=== PATIENT | female | born 1985 | race Caucasian/White ===

== ENCOUNTER 2022-12-10 12:14 | Emergency (ER) | payer SELFPAY ==
--- OUTSIDE RECORDS SUMMARY | 2022-12-10 12:33 | XMS REPORT | Continuity of Care Document ---
:1985 Author Organization [facility] t Address [address] [place] [address] Care Team Providers Name Role Phone Alcides SANTIAGO, Artur Espitia Primary Care Physician [phone] Mando Poole MD Attending Clinician MANDO POOLE Attending Clinician Unavailable Vik Arita Attending Clinician Israel GEORGE, Angelique Rivers Attending Clinician Unavailable MEIR MARTINEZ Attending Clinician Unavailable Meir Jacobs Attending Clinician Anita Pete Attending Clinician Mitzy Leon MD Attending Clinician MITZY LEON Attending Clinician Unavailable Doctor Unassigned, Commodore Attending Clinician Unavailable ARI MAHONEY Attending Clinician Unavailable BRUNO NORTH Attending Clinician Unavailable Payers Payer Name Policy Type Policy Number Effective Date Expiration Date S daron CIGNA II [id number] 2019 00:00:00 CIGNA C1 [id number] [facility] Problems Condition Condition Condition Status Onset Resolution Last Treating Co mments Source Name Details Category Date Date Treatment Clinician Date Obesity Obesity Disease Active Univers (BMI (BMI 2-04 ity of 30-39.9) 30-39.9) 00:00: [place] 00 [facility] Routine Routine Disease Active Univers general general 09-30 ity of medical medical 00:00: [place] examinatio examinatio 00 Me dical n at a n at a [facility] care facility facility Other, Other, Disease Active Overview: Univer s mixed, or mixed, or 09-30 Formattin i ty of unspecifie unspecifie 00:00: g of this [place] d d 00 note Medical nondepende nondepende might be Branch nt drug nt drug different abuse, abuse, from the unspecifie unspecifie original. d d Meth Constipati Constipati Problem Active [facility] Cataplexy Cataplexy Problem Active 2022-01-10 Memoria (disorder) (disorder) 21:55:49 l Active Elbert Problem 01/10/2022 [facility] Confusiona Confusion Problem Active 2022-01-10 Memoria l state al state 21:55:49 l (disorder) (disorder) He rmann Active Problem 01/10/2022 [facility] Cyst of Cyst of Problem Active 2022-01-10 Me moria pineal pineal 21:55:49 l gland gland Frankie (disorder) (disorder) Active Problem 01/10/2022 [facility] Depressive Problem Active 2022-01-10 M emoria disorder Depressive 21:55:49 l (disorder) disorder Herm lor (disorder) Active Problem 01/10/2022 [facility] Generalize Generaliz Problem Active 2022-01-10 Memoria d anxiety ed anxiety 21:55:49 l disorder disorder Tk n (disorder) (disorder) Active Problem 01/10/2022 [facility] Hypersomni Hypersomn Problem Active 2022-01-10 Memoria a ia 21:55:49 l (disorder) (disorder) He rmann Active Problem 01/10/2022 [facility] Simple Simple Problem Active 2022-01-10 Jose josiah obesity obesity 21:55:49 l (disorder) (disorder) He rmann Active Problem 01/10/2022 [facility] Dyskinesia Dyskinesi Problem Active 2022-01-10 Memoria (finding) a 21:55:49 l (finding) Frankie Active Problem 01/10/2022 [facility] Headache Headache Problem Active 2022-01-10 Memoria (finding) (finding) 21:55:49 l Active Elbert Problem 01/10/2022 [facility] Liver Liver Problem Active 2022-01-10 Memor ia function function 21:55:49 l test test Frankie increased increased Active Problem 01/10/2022 [facility] Visual Visual Problem Active 2022-01-10 Jose josiah disturbanc disturbanc 21:55:49 l e e Elbert (disorder) (disorder) Active Problem 01/10/2022 [facility] Bipolar Bipolar Problem Active 2022-01-10 Me moria disorder disorder 21:55:49 l (disorder) (disorder) He rmann Active Problem 01/10/2022 [facility] Mood Mood Problem Active 2022-01-10 Memor ia disorder disorder 21:55:49 l of manic of manic Tk n type type (disorder) (disorder) Active Problem 01/10/2022 [facility] Allergies, Adverse Reactions, Alerts Allergy Allergy Status Severity Reaction(s) Onset Inactive Treating Comm ents Source Name Type Date Date Clinician Sujatana - Propensi Active Intraven ty to 5-31 ous adverse 00:00: reaction 00 to drug Abilify Propensi Active - Oral ty to 3-19 adverse 00:00: reaction 00 to drug NO KNOWN Drug Active Univers ALLERGIE Class ity of S [facility] Social History Social Habit Start Date Stop Date Quantity Comments Source History [facility] University o f Alcohol Frequency [facility] edical Branch History [facility] o f Alcohol Std Drinks [place] [facility] History [facility] o f Alcohol Binge [facility] al Branch Exposure to Not sure University of SARS-CoV-2 (event) [facility] History of Tobacco Current Smoker [facility] Use [facility] Sex Assigned At [facility] Cigarettes smoked 2021-07-10 2021-07-10 Univers ity of current (pack per 00:00:00 00:00:00 [facility] ) - Reported Branch Cigarette 2021-07-10 2021-07-10 University of pack-years 00:00:00 00:00:00 [facility] Tobacco use and 2021-07-10 2021-07-10 Smokeless Universit y of exposure 00:00:00 00:00:00 tobacco non-user [facility] Alcohol intake 2021-07-10 2021-07-10 Ex-drinker [facility] 00:00:00 00:00:00 (finding) [facility] Alcohol Comment 2021-07-04 2021-07-04 none since [facility] y of 00:00:00 00:00:00 03/2021 [facility] Smoking Status Start Date Stop Date Source Social History 2021-10-02 18:20:49 [facility] [place] [facility] Medications Ordered Filled Start Stop Current Ordering Indication Dosage Frequency Signature Comments Components Source Medication Medication Date Date Medication? Clinician (SIG) Name Name TAKE 2021-05 No ONE-HALF TO 2-15 ONE (06/01 TO 00:00: 1) 00 TABLET(S) BY MOUTH THREE TIMES A DAY NEEDED FOR ANXIETY. TAKE ONE 2021-05 No (1) 2-15 TABLET(S) 00:00: BY MOUTH 00 TWICE A DAY. TAKE 2 2021- No TABLETS BY 2-15 MOUTH ON 00:00: DAY 1, THEN 00 1 TABLET DAILY ON DAYS 2 TO 5. TAKE ONE 2021-05 No (1) 2-15 CAPSULE(S) 00:00: BY MOUTH 00 THREE TIMES A DAY. TAKE ONE 2021-05 No (1) 2-15 TABLET(S) 00:00: BY MOUTH 00 ONCE A DAY. TAKE 06/01 TO 2021-05 No 1 TABLET BY 2-15 MOUTH AT 00:00: BEDTIME 00 NEEDED FOR ANXIETY; OR FOR SLEEP. Dose 2021-05 No Unknown 2-15 00:00: 00 APPLY TO 2021-05 No AFFECTED 2-15 AREA THREE 00:00: TIMES A 00 DAY. Dose 2021-05 No Unknown 2-15 00:00: 00 Dose 2021-05 No Unknown 2-15 00:00: 00 Dose 2021-05 No Unknown 2-15 00:00: 00 TAKE ONE 2021-05 No (1) 2-15 CAPSULE(S) 00:00: BY MOUTH 00 EVERY MORNING. TAKE ONE 2021-05 No (1) 2-15 TABLET(S) 00:00: BY MOUTH 00 THREE TIMES A DAY NEEDED FOR ANXIETY. hydroxyzine 2-0 No 51mg HCl 50 mg 7-28 tablet 00:00: 00 clonidine 2-0 No 51mg HCl 0.1 mg 7-28 tablet 00:00: 00 lithium 2022-0 No 1mg carbonate 7-28 300 mg 00:00: capsule 00 Dose 2022-0 No Unknown 7-28 00:00: 00 Dose 2022-0 No Unknown 7-28 00:00: 00 Dose 2-0 No Unknown 7-28 00:00: 00 hydroxyzine 2022-0 No 51mg HCl 50 mg 5-31 tablet 00:00: 00 clonidine 2022-0 No 51mg HCl 0.1 mg 5-31 tablet 00:00: 00 lithium 2-0 No 1mg carbonate 5-31 600 mg 00:00: capsule 00 hydroxyzine 2-0 No 51mg HCl 50 mg 5-31 tablet 00:00: 00 clonidine 2-0 No 51mg HCl 0.1 mg 5-31 tablet 00:00: 00 Dose 2022-0 No Unknown 5-31 00:00: 00 Dose 2022-0 No Unknown 4-29 00:00: 00 Dose 2-0 No Unknown 4-29 00:00: 00 Dose 2-0 No Unknown 4-17 00:00: 00 Dose 2-0 No Unknown 4-17 00:00: 00 Dose 2-0 No Unknown 4-17 00:00: 00 Dose 2022-0 No Unknown 4-17 00:00: 00 Dose 2022-0 No Unknown 4-17 00:00: 00 Dose 2022-0 No Unknown 4-17 00:00: 00 Wellbutrin 2-0 No 1mg SR 100 mg 4-15 tablet, 12 00:00: hr 00 sustained-r elease Dose 2-0 No Unknown 4-15 00:00: 00 Dose 2-0 No Unknown 4-15 00:00: 00 lithium 2-0 No 1mg carbonate 4-15 300 mg 00:00: capsule 00 Dose 2-0 No Unknown 4-15 00:00: 00 Dose 2022-0 No Unknown 4-15 00:00: 00 Dose 2022-0 No Unknown 4-15 00:00: 00 Dose 2022-0 No Unknown 4-15 00:00: 00 Dose 2022-0 No Unknown 3-19 00:00: 00 Dose 2022-0 No Unknown 3-19 00:00: 00 duloxetine 2022-0 No 1mg 60 mg 3-19 capsule,del 00:00: ayed 00 release Dose 2022-0 No Unknown 3-19 00:00: 00 Dose 2022-0 No Unknown 3-19 00:00: 00 Dose 2022-0 No Unknown 3-19 00:00: 00 Dose 2022-0 No Unknown 3-19 00:00: 00 Dose 2022-0 No Unknown 3-19 00:00: 00 Dose 2022-0 No Unknown 3-19 00:00: 00 Dose 2022-0 No Unknown 3-19 00:00: 00 Dose 2022-0 No Unknown 3-19 00:00: 00 Dose 2022-0 No Unknown 3-19 00:00: 00 Dose 2022-0 No Unknown 3-19 00:00: 00 Dose 2022-0 No Unknown 3-19 00:00: 00 Dose 2022-0 No Unknown 3-19 00:00: 00 Dose 2022-0 No Unknown 3-19 00:00: 00 Dose 2022-0 No Unknown 3-19 00:00: 00 Dose 2022-0 No Unknown 3-19 00:00: 00 Dose 2022-0 No Unknown 3-19 00:00: 00 Dose 2022-0 No Unknown 3-19 00:00: 00 Dose 2022-0 No Unknown 3-19 00:00: 00 Dose 2022-0 No Unknown 3-19 00:00: 00 Dose 2022-0 No Unknown 3-19 00:00: 00 Dose 2022-0 No Unknown 3-19 00:00: 00 Dose 2022-0 No Unknown 3-19 00:00: 00 Dose 2022-0 No Unknown 3-19 00:00: 00 Dose 2022-0 No Unknown 3-19 00:00: 00 Dose 2022-0 No Unknown 3-19 00:00: 00 Dose 2022-0 No Unknown 3-19 00:00: 00 Dose 2022-0 No Unknown 3-19 00:00: 00 Dose 2022-0 No Unknown 3-19 00:00: 00 Dose 2022-0 No Unknown 3-19 00:00: 00 Dose 2022-0 No Unknown 3-19 00:00: 00 Dose 2022-0 No Unknown 3-19 00:00: 00 Dose 2022-0 No Unknown 3-19 00:00: 00 Dose 2022-0 No Unknown 3-19 00:00: 00 Dose 2022-0 No Unknown 3-19 00:00: 00 Dose 2022-0 No Unknown 3-19 00:00: 00 Dose 2022-0 No Unknown 3-19 00:00: 00 Dose 2022-0 No Unknown 3-19 00:00: 00 Dose 2022-0 No Unknown 3-19 00:00: 00 Dose 2022-0 No Unknown 3-19 00:00: 00 Dose 2022-0 No Unknown 3-19 00:00: 00 Dose 2022-0 No Unknown 3-19 00:00: 00 Dose 2022-0 No Unknown 3-19 00:00: 00 Dose 2022-0 No Unknown 3-19 00:00: 00 Dose 2022-0 No Unknown 3-19 00:00: 00 Dose 2022-0 No Unknown 3-19 00:00: 00 Dose 2022-0 No Unknown 3-19 00:00: 00 Dose 2022-0 No Unknown 3-19 00:00: 00 Dose 2022-0 No Unknown 3-19 00:00: 00 Dose 2022-0 No Unknown 3-19 00:00: 00 Dose 2022-0 No Unknown 3-19 00:00: 00 Dose 2022-0 No Unknown 3-19 00:00: 00 Dose 2022-0 No Unknown 3-19 00:00: 00 Dose 2022-0 No Unknown 3-19 00:00: 00 Dose 2022-0 No Unknown 3-19 00:00: 00 Dose 2022-0 No Unknown 3-19 00:00: 00 Dose 2022-0 No Unknown 3-19 00:00: 00 Dose 2022-0 No Unknown 3-19 00:00: 00 Dose 2022-0 No Unknown 3-19 00:00: 00 Dose 2022-0 No Unknown 3-19 00:00: 00 Dose 2022-0 No Unknown 3-19 00:00: 00 Dose 2022-0 No Unknown 3-19 00:00: 00 Dose 2022-0 No Unknown 3-19 00:00: 00 Dose 2022-0 No Unknown 3-19 00:00: 00 Dose 2022-0 No Unknown 3-19 00:00: 00 Dose 2022-0 No Unknown 3-19 00:00: 00 Dose 2022-0 No Unknown 3-19 00:00: 00 Dose 2022-0 No Unknown 3-19 00:00: 00 Dose 2022-0 No Unknown 3-19 00:00: 00 Dose 2022-0 No Unknown 3-19 00:00: 00 Dose 2022-0 No Unknown 3-19 00:00: 00 Dose 2022-0 No Unknown 3-19 00:00: 00 Dose 2022-0 No Unknown 3-19 00:00: 00 Dose 2022-0 No Unknown 3-19 00:00: 00 Dose 2022-0 No Unknown 3-19 00:00: 00 Dose 2022-0 No Unknown 3-19 00:00: 00 Dose 2022-0 No Unknown 3-19 00:00: 00 Dose 2022-0 No Unknown 3-19 00:00: 00 Dose 2022-0 No Unknown 3-19 00:00: 00 Dose 2022-0 No Unknown 3-19 00:00: 00 Dose 2022-0 No Unknown 3-19 00:00: 00 Dose 2022-0 No Unknown 3-19 00:00: 00 Dose 2022-0 No Unknown 3-19 00:00: 00 Dose 2022-0 No Unknown 3-19 00:00: 00 Dose 2022-0 No Unknown 3-19 00:00: 00 Dose 2022-0 No Unknown 3-19 00:00: 00 Dose 2022-0 No Unknown 3-19 00:00: 00 Dose 2022-0 No Unknown 3-19 00:00: 00 Dose 2022-0 No Unknown 3-19 00:00: 00 Dose 2022-0 No Unknown 3-19 00:00: 00 Dose 2022-0 No Unknown 3-19 00:00: 00 Dose 2022-0 No Unknown 3-19 00:00: 00 Dose 2022-0 No Unknown 3-19 00:00: 00 Dose 2022-0 No Unknown 3-19 00:00: 00 Dose 2022-0 No Unknown 3-19 00:00: 00 Dose 2022-0 No Unknown 3-19 00:00: 00 Dose 2022-0 No Unknown 3-19 00:00: 00 Dose 2022-0 No Unknown 3-19 00:00: 00 Dose 2022-0 No Unknown 3-19 00:00: 00 Dose 2022-0 No Unknown 3-19 00:00: 00 Dose 2022-0 No Unknown 3-19 00:00: 00 Dose 2022-0 No Unknown 3-19 00:00: 00 Dose 2022-0 No Unknown 3-19 00:00: 00 Dose 2022-0 No Unknown 3-19 00:00: 00 Dose 2022-0 No Unknown 3-19 00:00: 00 Dose 2022-0 No Unknown 3-19 00:00: 00 Dose 2022-0 No Unknown 3-19 00:00: 00 Dose 2022-0 No Unknown 3-19 00:00: 00 Dose 2022-0 No Unknown 3-19 00:00: 00 Dose 2022-0 No Unknown 3-19 00:00: 00 Dose 2022-0 No Unknown 3-19 00:00: 00 Dose 2022-0 No Unknown 3-19 00:00: 00 Dose 2022-0 No Unknown 3-19 00:00: 00 Dose 2022-0 No Unknown 3-19 00:00: 00 Dose 2022-0 No Unknown 3-19 00:00: 00 Dose 2022-0 No Unknown 3-19 00:00: 00 Dose 2022-0 No Unknown 3-19 00:00: 00 Dose 2022-0 No Unknown 3-19 00:00: 00 Dose 2022-0 No Unknown 3-19 00:00: 00 Dose 2022-0 No Unknown 3-19 00:00: 00 Dose 2022-0 No Unknown 3-19 00:00: 00 Dose 2022-0 No Unknown 3-19 00:00: 00 Dose 2022-0 No Unknown 3-19 00:00: 00 Dose 2022-0 No Unknown 3-19 00:00: 00 Dose 2022-0 No Unknown 3-19 00:00: 00 Dose 2022-0 No Unknown 3-19 00:00: 00 Dose 2022-0 No Unknown 3-19 00:00: 00 Dose 2022-0 No Unknown 3-19 00:00: 00 Dose 2022-0 No Unknown 3-19 00:00: 00 Dose 2022-0 No Unknown 3-19 00:00: 00 Dose 2022-0 No Unknown 3-19 00:00: 00 Dose 2022-0 No Unknown 3-19 00:00: 00 Dose 2022-0 No Unknown 3-19 00:00: 00 Dose 2022-0 No Unknown 3-19 00:00: 00 Dose 2022-0 No Unknown 3-19 00:00: 00 Dose 2022-0 No Unknown 3-19 00:00: 00 Dose 2022-0 No Unknown 3-19 00:00: 00 Dose 2022-0 No Unknown 3-19 00:00: 00 Dose 2022-0 No Unknown 3-19 00:00: 00 Dose 2022-0 No Unknown 3-19 00:00: 00 Dose 2022-0 No Unknown 3-19 00:00: 00 Dose 2022-0 No Unknown 3-19 00:00: 00 Dose 2022-0 No Unknown 3-19 00:00: 00 Dose 2022-0 No Unknown 3-19 00:00: 00 Dose 2022-0 No Unknown 3-19 00:00: 00 Dose 2022-0 No Unknown 3-19 00:00: 00 Dose 2022-0 No Unknown 3-19 00:00: 00 Dose 2022-0 No Unknown 3-19 00:00: 00 Dose 2022-0 No Unknown 3-19 00:00: 00 Dose 2022-0 No Unknown 3-19 00:00: 00 Dose 2022-0 No Unknown 3-19 00:00: 00 Dose 2022-0 No Unknown 3-19 00:00: 00 Dose 2022-0 No Unknown 3-19 00:00: 00 Dose 2022-0 No Unknown 3-19 00:00: 00 Dose 2022-0 No Unknown 3-19 00:00: 00 Dose 2022-0 No Unknown 3-19 00:00: 00 Dose 2022-0 No Unknown 3-19 00:00: 00 Dose 2022-0 No Unknown 3-19 00:00: 00 Dose 2022-0 No Unknown 3-19 00:00: 00 Dose 2022-0 No Unknown 3-19 00:00: 00 Dose 2022-0 No Unknown 3-19 00:00: 00 Dose 2022-0 No Unknown 3-19 00:00: 00 Dose 2022-0 No Unknown 3-19 00:00: 00 Dose 2022-0 No Unknown 3-19 00:00: 00 Dose 2022-0 No Unknown 3-19 00:00: 00 Dose 2022-0 No Unknown 3-19 00:00: 00 Dose 2022-0 No Unknown 3-19 00:00: 00 Dose 2022-0 No Unknown 3-19 00:00: 00 Dose 2022-0 No Unknown 3-19 00:00: 00 Dose 2022-0 No Unknown 3-19 00:00: 00 Dose 2022-0 No Unknown 3-19 00:00: 00 Dose 2022-0 No Unknown 3-19 00:00: 00 Dose 2022-0 No Unknown 3-19 00:00: 00 Dose 2022-0 No Unknown 3-19 00:00: 00 Dose 2022-0 No Unknown 3-19 00:00: 00 Dose 2022-0 No Unknown 3-19 00:00: 00 Dose 2022-0 No Unknown 3-19 00:00: 00 Dose 2022-0 No Unknown 3-19 00:00: 00 Dose 2022-0 No Unknown 3-19 00:00: 00 Dose 2022-0 No Unknown 3-19 00:00: 00 Dose 2022-0 No Unknown 3-19 00:00: 00 Dose 2022-0 No Unknown 3-19 00:00: 00 Dose 2022-0 No Unknown 3-19 00:00: 00 Dose 2022-0 No Unknown 3-19 00:00: 00 Dose 2022-0 No Unknown 3-19 00:00: 00 Dose 2022-0 No Unknown 3-19 00:00: 00 Dose 2022-0 No Unknown 3-19 00:00: 00 Dose 2022-0 No Unknown 3-19 00:00: 00 Dose 2022-0 No Unknown 3-19 00:00: 00 Dose 2022-0 No Unknown 3-19 00:00: 00 Dose 2022-0 No Unknown 3-19 00:00: 00 Dose 2022-0 No Unknown 3-19 00:00: 00 Dose 2022-0 No Unknown 3-19 00:00: 00 Dose 2022-0 No Unknown 3-19 00:00: 00 Dose 2022-0 No Unknown 3-19 00:00: 00 Dose 2022-0 No Unknown 3-19 00:00: 00 Dose 2022-0 No Unknown 3-19 00:00: 00 Dose 2022-0 No Unknown 3-19 00:00: 00 Dose 2022-0 No Unknown 3-19 00:00: 00 Dose 2022-0 No Unknown 3-19 00:00: 00 Dose 2022-0 No Unknown 3-19 00:00: 00 Dose 2022-0 No Unknown 3-19 00:00: 00 Dose 2022-0 No Unknown 3-19 00:00: 00 Dose 2022-0 No Unknown 3-19 00:00: 00 Dose 2022-0 No Unknown 3-19 00:00: 00 Dose 2022-0 No Unknown 3-19 00:00: 00 Dose 2022-0 No Unknown 3-19 00:00: 00 Dose 2022-0 No Unknown 3-19 00:00: 00 Dose 2022-0 No Unknown 3-19 00:00: 00 Dose 2022-0 No Unknown 3-19 00:00: 00 Dose 2022-0 No Unknown 3-19 00:00: 00 Dose 2022-0 No Unknown 3-19 00:00: 00 Dose 2022-0 No Unknown 3-19 00:00: 00 Dose 2022-0 No Unknown 3-19 00:00: 00 Dose 2022-0 No Unknown 3-19 00:00: 00 Dose 2022-0 No Unknown 3-19 00:00: 00 Dose 2022-0 No Unknown 3-19 00:00: 00 Dose 2022-0 No Unknown 3-19 00:00: 00 Dose 2022-0 No Unknown 3-19 00:00: 00 Dose 2022-0 No Unknown 3-19 00:00: 00 Dose 2022-0 No Unknown 3-19 00:00: 00 Dose 2022-0 No Unknown 3-19 00:00: 00 Dose 2022-0 No Unknown 3-19 00:00: 00 Dose 2022-0 No Unknown 3-19 00:00: 00 Dose 2022-0 No Unknown 3-19 00:00: 00 Dose 2022-0 No Unknown 3-19 00:00: 00 Dose 2022-0 No Unknown 3-19 00:00: 00 Dose 2022-0 No Unknown 3-19 00:00: 00 Dose 2022-0 No Unknown 3-19 00:00: 00 Dose 2022-0 No Unknown 3-19 00:00: 00 Dose 2022-0 No Unknown 3-19 00:00: 00 Dose 2022-0 No Unknown 3-19 00:00: 00 Dose 2022-0 No Unknown 3-19 00:00: 00 Dose 2022-0 No Unknown 3-19 00:00: 00 Dose 2022-0 No Unknown 3-19 00:00: 00 Dose 2022-0 No Unknown 3-19 00:00: 00 Dose 2022-0 No Unknown 3-19 00:00: 00 Dose 2022-0 No Unknown 3-19 00:00: 00 Dose 2022-0 No Unknown 3-19 00:00: 00 Dose 2022-0 No Unknown 3-19 00:00: 00 Dose 2022-0 No Unknown 3-19 00:00: 00 Dose 2022-0 No Unknown 3-19 00:00: 00 Dose 2022-0 No Unknown 3-19 00:00: 00 Dose 2022-0 No Unknown 3-19 00:00: 00 Dose 2022-0 No Unknown 3-19 00:00: 00 Dose 2022-0 No Unknown 3-19 00:00: 00 Dose 2022-0 No Unknown 3-19 00:00: 00 Dose 2022-0 No Unknown 3-19 00:00: 00 Dose 2022-0 No Unknown 3-19 00:00: 00 Dose 2022-0 No Unknown 3-19 00:00: 00 Dose 2022-0 No Unknown 3-19 00:00: 00 Dose 2022-0 No Unknown 3-19 00:00: 00 Dose 2022-0 No Unknown 3-19 00:00: 00 Dose 2022-0 No Unknown 3-19 00:00: 00 Dose 2022-0 No Unknown 3-19 00:00: 00 Dose 2022-0 No Unknown 3-19 00:00: 00 Dose 2022-0 No Unknown 3-19 00:00: 00 Dose 2022-0 No Unknown 3-19 00:00: 00 Dose 2022-0 No Unknown 3-19 00:00: 00 Dose 2022-0 No Unknown 3-19 00:00: 00 Dose 2022-0 No Unknown 3-19 00:00: 00 Dose 2022-0 No Unknown 3-19 00:00: 00 Dose 2022-0 No Unknown 3-19 00:00: 00 Dose 2022-0 No Unknown 3-19 00:00: 00 Dose 2022-0 No Unknown 3-19 00:00: 00 Dose 2022-0 No Unknown 3-19 00:00: 00 Dose 2022-0 No Unknown 3-19 00:00: 00 Dose 2022-0 No Unknown 3-19 00:00: 00 Dose 2022-0 No Unknown 3-19 00:00: 00 Dose 2022-0 No Unknown 3-19 00:00: 00 Dose 2022-0 No Unknown 3-19 00:00: 00 Dose 2022-0 No Unknown 3-19 00:00: 00 Dose 2022-0 No Unknown 3-19 00:00: 00 Dose 2022-0 No Unknown 3-19 00:00: 00 Dose 2022-0 No Unknown 3-19 00:00: 00 Dose 2022-0 No Unknown 3-19 00:00: 00 Dose 2022-0 No Unknown 3-19 00:00: 00 Dose 2022-0 No Unknown 3-19 00:00: 00 Dose 2022-0 No Unknown 3-19 00:00: 00 Dose 2022-0 No Unknown 3-19 00:00: 00 Dose 2022-0 No Unknown 3-19 00:00: 00 Dose 2022-0 No Unknown 3-19 00:00: 00 Dose 2022-0 No Unknown 3-19 00:00: 00 Dose 2022-0 No Unknown 3-19 00:00: 00 Dose 2022-0 No Unknown 3-19 00:00: 00 Dose 2022-0 No Unknown 3-19 00:00: 00 Dose 2022-0 No Unknown 3-19 00:00: 00 Dose 2022-0 No Unknown 3-19 00:00: 00 Dose 2022-0 No Unknown 3-19 00:00: 00 Dose 2022-0 No Unknown 3-19 00:00: 00 Dose 2022-0 No Unknown 3-19 00:00: 00 Dose 2022-0 No Unknown 3-19 00:00: 00 Dose 2022-0 No Unknown 3-19 00:00: 00 Dose 2022-0 No Unknown 3-19 00:00: 00 Dose 2022-0 No Unknown 3-19 00:00: 00 Dose 2022-0 No Unknown 3-19 00:00: 00 Dose 2022-0 No Unknown 3-19 00:00: 00 Dose 2022-0 No Unknown 3-19 00:00: 00 Dose 2022-0 No Unknown 3-19 00:00: 00 Dose 2022-0 No Unknown 3-19 00:00: 00 Dose 2022-0 No Unknown 3-19 00:00: 00 Dose 2022-0 No Unknown 3-19 00:00: 00 Dose 2022-0 No Unknown 3-19 00:00: 00 Dose 2022-0 No Unknown 3-19 00:00: 00 Dose 2022-0 No Unknown 3-19 00:00: 00 Dose 2022-0 No Unknown 3-19 00:00: 00 Dose 2022-0 No Unknown 3-19 00:00: 00 Dose 2022-0 No Unknown 3-19 00:00: 00 Dose 2022-0 No Unknown 3-19 00:00: 00 Dose 2022-0 No Unknown 3-19 00:00: 00 Dose 2022-0 No Unknown 3-19 00:00: 00 Dose 2022-0 No Unknown 3-19 00:00: 00 Dose 2022-0 No Unknown 3-19 00:00: 00 Dose 2022-0 No Unknown 3-19 00:00: 00 Dose 2022-0 No Unknown 3-19 00:00: 00 Dose 2022-0 No Unknown 3-19 00:00: 00 Dose 2022-0 No Unknown 3-19 00:00: 00 Dose 2022-0 No Unknown 3-19 00:00: 00 Dose 2022-0 No Unknown 3-19 00:00: 00 Dose 2022-0 No Unknown 3-19 00:00: 00 Dose 2022-0 No Unknown 3-19 00:00: 00 Dose 2022-0 No Unknown 3-19 00:00: 00 Dose 2022-0 No Unknown 3-19 00:00: 00 Dose 2022-0 No Unknown 3-19 00:00: 00 Dose 2022-0 No Unknown 3-19 00:00: 00 Dose 2022-0 No Unknown 3-19 00:00: 00 Dose 2022-0 No Unknown 3-19 00:00: 00 Dose 2022-0 No Unknown 3-19 00:00: 00 Dose 2022-0 No Unknown 3-19 00:00: 00 Dose 2022-0 No Unknown 3-19 00:00: 00 Dose 2022-0 No Unknown 3-19 00:00: 00 Dose 2022-0 No Unknown 3-19 00:00: 00 Dose 2022-0 No Unknown 3-19 00:00: 00 Dose 2022-0 No Unknown 3-19 00:00: 00 Dose 2022-0 No Unknown 3-19 00:00: 00 Dose 2022-0 No Unknown 3-19 00:00: 00 Dose 2022-0 No Unknown 3-19 00:00: 00 Dose 2022-0 No Unknown 3-19 00:00: 00 Dose 2022-0 No Unknown 3-19 00:00: 00 Dose 2022-0 No Unknown 3-19 00:00: 00 Dose 2022-0 No Unknown 3-19 00:00: 00 Dose 2022-0 No Unknown 3-19 00:00: 00 Dose 2022-0 No Unknown 3-19 00:00: 00 Dose 2022-0 No Unknown 3-19 00:00: 00 Dose 2022-0 No Unknown 3-19 00:00: 00 Dose 2022-0 No Unknown 3-19 00:00: 00 Dose 2022-0 No Unknown 3-19 00:00: 00 Dose 2022-0 No Unknown 3-19 00:00: 00 Dose 2022-0 No Unknown 3-19 00:00: 00 Dose 2022-0 No Unknown 3-19 00:00: 00 Dose 2022-0 No Unknown 3-19 00:00: 00 Dose 2022-0 No Unknown 3-19 00:00: 00 Dose 2022-0 No Unknown 3-19 00:00: 00 Dose 2022-0 No Unknown 3-19 00:00: 00 Dose 2022-0 No Unknown 3-19 00:00: 00 Dose 2022-0 No Unknown 3-19 00:00: 00 Dose 2022-0 No Unknown 3-19 00:00: 00 Dose 2022-0 No Unknown 3-19 00:00: 00 Dose 2022-0 No Unknown 3-19 00:00: 00 Dose 2022-0 No Unknown 3-19 00:00: 00 Dose 2022-0 No Unknown 3-19 00:00: 00 Dose 2022-0 No Unknown 3-19 00:00: 00 Dose 2022-0 No Unknown 3-19 00:00: 00 Dose 2022-0 No Unknown 3-19 00:00: 00 Dose 2022-0 No Unknown 3-19 00:00: 00 Dose 2022-0 No Unknown 3-19 00:00: 00 Dose 2022-0 No Unknown 3-19 00:00: 00 Dose 2022-0 No Unknown 3-19 00:00: 00 Dose 2022-0 No Unknown 3-19 00:00: 00 Dose 2022-0 No Unknown 3-19 00:00: 00 Dose 2022-0 No Unknown 3-19 00:00: 00 Dose 2022-0 No Unknown 3-19 00:00: 00 Dose 2022-0 No Unknown 3-19 00:00: 00 Dose 2022-0 No Unknown 3-19 00:00: 00 Dose 2022-0 No Unknown 3-19 00:00: 00 Dose 2022-0 No Unknown 3-19 00:00: 00 Dose 2022-0 No Unknown 3-19 00:00: 00 Dose 2022-0 No Unknown 3-19 00:00: 00 Dose 2022-0 No Unknown 3-19 00:00: 00 Dose 2022-0 No Unknown 3-19 00:00: 00 Dose 2022-0 No Unknown 3-19 00:00: 00 Dose 2022-0 No Unknown 3-19 00:00: 00 Dose 2022-0 No Unknown 3-19 00:00: 00 Dose 2022-0 No Unknown 3-19 00:00: 00 Dose 2022-0 No Unknown 3-19 00:00: 00 Dose 2022-0 No Unknown 3-19 00:00: 00 Dose 2022-0 No Unknown 3-19 00:00: 00 Dose 2022-0 No Unknown 3-19 00:00: 00 Dose 2022-0 No Unknown 3-19 00:00: 00 Dose 2022-0 No Unknown 3-19 00:00: 00 Dose 2022-0 No Unknown 3-19 00:00: 00 Dose 2022-0 No Unknown 3-19 00:00: 00 Dose 2022-0 No Unknown 3-19 00:00: 00 Dose 2022-0 No Unknown 3-19 00:00: 00 Dose 2022-0 No Unknown 3-19 00:00: 00 Dose 2022-0 No Unknown 3-19 00:00: 00 Dose 2022-0 No Unknown 3-19 00:00: 00 Dose 2022-0 No Unknown 3-19 00:00: 00 Dose 2022-0 No Unknown 3-18 00:00: 00 Dose 2022-0 No Unknown 3-18 00:00: 00 Dose 2022-0 No Unknown 3-18 00:00: 00 Dose 2022-0 No Unknown 3-18 00:00: 00 Dose 2022-0 No Unknown 3-18 00:00: 00 Dose 2022-0 No Unknown 3-18 00:00: 00 Dose 2022-0 No Unknown 3-18 00:00: 00 Dose 2022-0 No Unknown 3-18 00:00: 00 Dose 2022-0 No Unknown 3-18 00:00: 00 Dose 2022-0 No Unknown 3-18 00:00: 00 Dose 2022-0 No Unknown 3-18 00:00: 00 Dose 2022-0 No Unknown 3-18 00:00: 00 Dose 2022-0 No Unknown 3-18 00:00: 00 Dose 2022-0 No Unknown 3-18 00:00: 00 Dose 2022-0 No Unknown 3-18 00:00: 00 Dose 2022-0 No Unknown 3-18 00:00: 00 Dose 2022-0 No Unknown 3-18 00:00: 00 Dose 2022-0 No Unknown 3-18 00:00: 00 Dose 2022-0 No Unknown 3-18 00:00: 00 Dose 2022-0 No Unknown 3-18 00:00: 00 Dose 2022-0 No Unknown 3-18 00:00: 00 Dose 2022-0 No Unknown 3-18 00:00: 00 Dose 2022-0 No Unknown 3-18 00:00: 00 Dose 2022-0 No Unknown 3-18 00:00: 00 Dose 2022-0 No Unknown 3-18 00:00: 00 Dose 2022-0 No Unknown 3-18 00:00: 00 Dose 2022-0 No Unknown 3-18 00:00: 00 Dose 2022-0 No Unknown 3-18 00:00: 00 Dose 2022-0 No Unknown 3-18 00:00: 00 Dose 2022-0 No Unknown 3-18 00:00: 00 Dose 2022-0 No Unknown 3-18 00:00: 00 Dose 2022-0 No Unknown 3-18 00:00: 00 Dose 2022-0 No Unknown 3-18 00:00: 00 Dose 2022-0 No Unknown 3-18 00:00: 00 Dose 2022-0 No Unknown 3-18 00:00: 00 Dose 2022-0 No Unknown 3-18 00:00: 00 Dose 2022-0 No Unknown 3-18 00:00: 00 Dose 2022-0 No Unknown 3-18 00:00: 00 Dose 2022-0 No Unknown 3-18 00:00: 00 Dose 2022-0 No Unknown 3-18 00:00: 00 Dose 2022-0 No Unknown 3-18 00:00: 00 Dose 2022-0 No Unknown 3-18 00:00: 00 Dose 2022-0 No Unknown 3-18 00:00: 00 Dose 2022-0 No Unknown 3-18 00:00: 00 Dose 2022-0 No Unknown 3-18 00:00: 00 Dose 2022-0 No Unknown 3-18 00:00: 00 Dose 2022-0 No Unknown 3-18 00:00: 00 Dose 2022-0 No Unknown 3-18 00:00: 00 Dose 2022-0 No Unknown 3-18 00:00: 00 Dose 2022-0 No Unknown 3-18 00:00: 00 Dose 2022-0 No Unknown 3-18 00:00: 00 Dose 2022-0 No Unknown 3-18 00:00: 00 Dose 2022-0 No Unknown 3-18 00:00: 00 Dose 2022-0 No Unknown 3-18 00:00: 00 Dose 2022-0 No Unknown 3-18 00:00: 00 Dose 2022-0 No Unknown 3-18 00:00: 00 Dose 2022-0 No Unknown 3-18 00:00: 00 Dose 2022-0 No Unknown 3-18 00:00: 00 Dose 2022-0 No Unknown 3-18 00:00: 00 Dose 2022-0 No Unknown 3-18 00:00: 00 Dose 2022-0 No Unknown 3-18 00:00: 00 Dose 2022-0 No Unknown 3-18 00:00: 00 Dose 2022-0 No Unknown 3-18 00:00: 00 Dose 2022-0 No Unknown 3-18 00:00: 00 Dose 2022-0 No Unknown 3-18 00:00: 00 Dose 2022-0 No Unknown 3-18 00:00: 00 Dose 2022-0 No Unknown 3-18 00:00: 00 Dose 2022-0 No Unknown 3-18 00:00: 00 Dose 2022-0 No Unknown 3-18 00:00: 00 Dose 2022-0 No Unknown 3-18 00:00: 00 Dose 2022-0 No Unknown 3-18 00:00: 00 Dose 2022-0 No Unknown 3-18 00:00: 00 Dose 2022-0 No Unknown 3-18 00:00: 00 Dose 2022-0 No Unknown 3-18 00:00: 00 Dose 2022-0 No Unknown 3-18 00:00: 00 Dose 2022-0 No Unknown 3-18 00:00: 00 Dose 2022-0 No Unknown 3-18 00:00: 00 Dose 2022-0 No Unknown 3-18 00:00: 00 Dose 2022-0 No Unknown 3-18 00:00: 00 Dose 2022-0 No Unknown 3-18 00:00: 00 Dose 2022-0 No Unknown 3-18 00:00: 00 Dose 2022-0 No Unknown 3-18 00:00: 00 Dose 2022-0 No Unknown 3-18 00:00: 00 Dose 2022-0 No Unknown 3-18 00:00: 00 Dose 2022-0 No Unknown 3-18 00:00: 00 Dose 2022-0 No Unknown 3-18 00:00: 00 Dose 2022-0 No Unknown 3-18 00:00: 00 Dose 2022-0 No Unknown 3-18 00:00: 00 Dose 2022-0 No Unknown 3-18 00:00: 00 Dose 2022-0 No Unknown 3-18 00:00: 00 Dose 2022-0 No Unknown 3-18 00:00: 00 Dose 2022-0 No Unknown 3-18 00:00: 00 Dose 2022-0 No Unknown 3-18 00:00: 00 Dose 2022-0 No Unknown 3-18 00:00: 00 Dose 2022-0 No Unknown 3-18 00:00: 00 Dose 2022-0 No Unknown 3-18 00:00: 00 Dose 2022-0 No Unknown 3-18 00:00: 00 Dose 2022-0 No Unknown 3-18 00:00: 00 Dose 2022-0 No Unknown 3-18 00:00: 00 Dose 2022-0 No Unknown 3-18 00:00: 00 Dose 2022-0 No Unknown 3-18 00:00: 00 Dose 2022-0 No Unknown 3-18 00:00: 00 Dose 2022-0 No Unknown 3-18 00:00: 00 Dose 2022-0 No Unknown 3-18 00:00: 00 Dose 2022-0 No Unknown 3-18 00:00: 00 Dose 2022-0 No Unknown 3-18 00:00: 00 Dose 2022-0 No Unknown 3-18 00:00: 00 Dose 2022-0 No Unknown 3-18 00:00: 00 Dose 2022-0 No Unknown 3-18 00:00: 00 Dose 2022-0 No Unknown 3-18 00:00: 00 Dose 2022-0 No Unknown 3-18 00:00: 00 Dose 2022-0 No Unknown 3-18 00:00: 00 Dose 2022-0 No Unknown 3-18 00:00: 00 Dose 2022-0 No Unknown 3-18 00:00: 00 Dose 2022-0 No Unknown 3-18 00:00: 00 Dose 2022-0 No Unknown 3-18 00:00: 00 Dose 2022-0 No Unknown 3-18 00:00: 00 Dose 2022-0 No Unknown 3-18 00:00: 00 Dose 2022-0 No Unknown 3-18 00:00: 00 Dose 2022-0 No Unknown 3-18 00:00: 00 Dose 2022-0 No Unknown 3-18 00:00: 00 Dose 2022-0 No Unknown 3-18 00:00: 00 Dose 2022-0 No Unknown 3-18 00:00: 00 Dose 2022-0 No Unknown 3-18 00:00: 00 Dose 2022-0 No Unknown 3-18 00:00: 00 Dose 2022-0 No Unknown 3-18 00:00: 00 Dose 2022-0 No Unknown 3-18 00:00: 00 Dose 2022-0 No Unknown 3-18 00:00: 00 Dose 2022-0 No Unknown 3-18 00:00: 00 Dose 2022-0 No Unknown 3-18 00:00: 00 Dose 2022-0 No Unknown 3-18 00:00: 00 Dose 2022-0 No Unknown 3-18 00:00: 00 Dose 2022-0 No Unknown 3-18 00:00: 00 Dose 2022-0 No Unknown 3-18 00:00: 00 Dose 2022-0 No Unknown 3-18 00:00: 00 Dose 2022-0 No Unknown 3-18 00:00: 00 Dose 2022-0 No Unknown 3-18 00:00: 00 Dose 2022-0 No Unknown 3-18 00:00: 00 Dose 2022-0 No Unknown 3-18 00:00: 00 Dose 2022-0 No Unknown 3-18 00:00: 00 Dose 2022-0 No Unknown 3-18 00:00: 00 Dose 2022-0 No Unknown 3-18 00:00: 00 Dose 2022-0 No Unknown 3-18 00:00: 00 Dose 2022-0 No Unknown 3-18 00:00: 00 Dose 2022-0 No Unknown 3-18 00:00: 00 Dose 2022-0 No Unknown 3-18 00:00: 00 Dose 2022-0 No Unknown 3-18 00:00: 00 Dose 2022-0 No Unknown 3-18 00:00: 00 Dose 2022-0 No Unknown 3-18 00:00: 00 Dose 2022-0 No Unknown 3-18 00:00: 00 Dose 2022-0 No Unknown 3-18 00:00: 00 Dose 2022-0 No Unknown 3-18 00:00: 00 Dose 2022-0 No Unknown 3-18 00:00: 00 Dose 2022-0 No Unknown 3-18 00:00: 00 Dose 2022-0 No Unknown 3-18 00:00: 00 Dose 2022-0 No Unknown 3-18 00:00: 00 Dose 2022-0 No Unknown 3-18 00:00: 00 Dose 2022-0 No Unknown 3-18 00:00: 00 Dose 2022-0 No Unknown 3-18 00:00: 00 Dose 2022-0 No Unknown 3-18 00:00: 00 Dose 2022-0 No Unknown 3-18 00:00: 00 Dose 2022-0 No Unknown 3-18 00:00: 00 Dose 2022-0 No Unknown 3-18 00:00: 00 Dose 2022-0 No Unknown 3-18 00:00: 00 Dose 2022-0 No Unknown 3-18 00:00: 00 Dose 2022-0 No Unknown 3-18 00:00: 00 Dose 2022-0 No Unknown 3-18 00:00: 00 Dose 2022-0 No Unknown 3-18 00:00: 00 Dose 2022-0 No Unknown 3-18 00:00: 00 Dose 2022-0 No Unknown 3-18 00:00: 00 Dose 2022-0 No Unknown 3-18 00:00: 00 Dose 2022-0 No Unknown 3-18 00:00: 00 Dose 2022-0 No Unknown 3-18 00:00: 00 Dose 2022-0 No Unknown 3-18 00:00: 00 Dose 2022-0 No Unknown 3-18 00:00: 00 Dose 2022-0 No Unknown 3-18 00:00: 00 Dose 2022-0 No Unknown 3-18 00:00: 00 Dose 2022-0 No Unknown 3-18 00:00: 00 Dose 2022-0 No Unknown 3-18 00:00: 00 Dose 2022-0 No Unknown 3-18 00:00: 00 Dose 2022-0 No Unknown 3-18 00:00: 00 Dose 2022-0 No Unknown 3-18 00:00: 00 Dose 2022-0 No Unknown 3-18 00:00: 00 Dose 2022-0 No Unknown 3-18 00:00: 00 Dose 2022-0 No Unknown 3-18 00:00: 00 Dose 2022-0 No Unknown 3-18 00:00: 00 Dose 2022-0 No Unknown 3-18 00:00: 00 Dose 2022-0 No Unknown 3-18 00:00: 00 Dose 2022-0 No Unknown 3-18 00:00: 00 Dose 2022-0 No Unknown 3-18 00:00: 00 Dose 2022-0 No Unknown 3-18 00:00: 00 Dose 2022-0 No Unknown 3-18 00:00: 00 Dose 2022-0 No Unknown 3-18 00:00: 00 Dose 2022-0 No Unknown 3-18 00:00: 00 Dose 2022-0 No Unknown 3-18 00:00: 00 Dose 2022-0 No Unknown 3-18 00:00: 00 Dose 2022-0 No Unknown 3-18 00:00: 00 Dose 2022-0 No Unknown 3-18 00:00: 00 Dose 2022-0 No Unknown 3-18 00:00: 00 Dose 2022-0 No Unknown 3-18 00:00: 00 Dose 2022-0 No Unknown 3-18 00:00: 00 Dose 2022-0 No Unknown 3-18 00:00: 00 Dose 2022-0 No Unknown 3-18 00:00: 00 Dose 2022-0 No Unknown 3-18 00:00: 00 Dose 2022-0 No Unknown 3-18 00:00: 00 Dose 2022-0 No Unknown 3-18 00:00: 00 Dose 2022-0 No Unknown 3-18 00:00: 00 Dose 2022-0 No Unknown 3-18 00:00: 00 Dose 2022-0 No Unknown 3-18 00:00: 00 Dose 2022-0 No Unknown 3-18 00:00: 00 Dose 2022-0 No Unknown 3-18 00:00: 00 Dose 2022-0 No Unknown 3-18 00:00: 00 Dose 2022-0 No Unknown 3-18 00:00: 00 Dose 2022-0 No Unknown 3-18 00:00: 00 Dose 2022-0 No Unknown 3-18 00:00: 00 Dose 2022-0 No Unknown 3-18 00:00: 00 Dose 2022-0 No Unknown 3-18 00:00: 00 Dose 2022-0 No Unknown 3-18 00:00: 00 Dose 2022-0 No Unknown 3-18 00:00: 00 Dose 2022-0 No Unknown 3-18 00:00: 00 Dose 2022-0 No Unknown 3-18 00:00: 00 Dose 2022-0 No Unknown 3-18 00:00: 00 Dose 2022-0 No Unknown 3-18 00:00: 00 Dose 2022-0 No Unknown 3-18 00:00: 00 Dose 2022-0 No Unknown 3-18 00:00: 00 Dose 2022-0 No Unknown 3-18 00:00: 00 Dose 2022-0 No Unknown 3-18 00:00: 00 Dose 2022-0 No Unknown 3-18 00:00: 00 Dose 2022-0 No Unknown 3-18 00:00: 00 Dose 2022-0 No Unknown 3-18 00:00: 00 Dose 2022-0 No Unknown 3-18 00:00: 00 Dose 2022-0 No Unknown 3-18 00:00: 00 Dose 2022-0 No Unknown 3-18 00:00: 00 Dose 2022-0 No Unknown 3-18 00:00: 00 Dose 2022-0 No Unknown 3-18 00:00: 00 Dose 2022-0 No Unknown 3-18 00:00: 00 Dose 2022-0 No Unknown 3-18 00:00: 00 Dose 2022-0 No Unknown 3-18 00:00: 00 Dose 2022-0 No Unknown 3-18 00:00: 00 Dose 2022-0 No Unknown 3-18 00:00: 00 Dose 2022-0 No Unknown 3-18 00:00: 00 Dose 2022-0 No Unknown 3-18 00:00: 00 Dose 2022-0 No Unknown 3-18 00:00: 00 Dose 2022-0 No Unknown 3-18 00:00: 00 Dose 2022-0 No Unknown 3-18 00:00: 00 Dose 2022-0 No Unknown 3-18 00:00: 00 Dose 2022-0 No Unknown 3-18 00:00: 00 Dose 2022-0 No Unknown 3-18 00:00: 00 Dose 2022-0 No Unknown 3-18 00:00: 00 Dose 2022-0 No Unknown 3-18 00:00: 00 Dose 2022-0 No Unknown 3-18 00:00: 00 Dose 2022-0 No Unknown 3-18 00:00: 00 Dose 2022-0 No Unknown 3-18 00:00: 00 Dose 2022-0 No Unknown 3-18 00:00: 00 Dose 2022-0 No Unknown 3-18 00:00: 00 Dose 2022-0 No Unknown 3-18 00:00: 00 Dose 2022-0 No Unknown 3-18 00:00: 00 Dose 2022-0 No Unknown 3-18 00:00: 00 Dose 2022-0 No Unknown 3-18 00:00: 00 Dose 2022-0 No Unknown 3-18 00:00: 00 Dose 2022-0 No Unknown 3-18 00:00: 00 Dose 2022-0 No Unknown 3-18 00:00: 00 Dose 2022-0 No Unknown 3-18 00:00: 00 Dose 2022-0 No Unknown 3-18 00:00: 00 Dose 2022-0 No Unknown 3-18 00:00: 00 Dose 2022-0 No Unknown 3-18 00:00: 00 Dose 2022-0 No Unknown 3-18 00:00: 00 Dose 2022-0 No Unknown 3-18 00:00: 00 Dose 2022-0 No Unknown 3-18 00:00: 00 Dose 2022-0 No Unknown 3-18 00:00: 00 Dose 2022-0 No Unknown 3-18 00:00: 00 Dose 2022-0 No Unknown 3-18 00:00: 00 Dose 2022-0 No Unknown 3-18 00:00: 00 Dose 2022-0 No Unknown 3-18 00:00: 00 Dose 2022-0 No Unknown 3-18 00:00: 00 Dose 2022-0 No Unknown 3-18 00:00: 00 Dose 2022-0 No Unknown 3-18 00:00: 00 Dose 2022-0 No Unknown 3-18 00:00: 00 Dose 2022-0 No Unknown 3-18 00:00: 00 Dose 2022-0 No Unknown 3-18 00:00: 00 Dose 2022-0 No Unknown 3-18 00:00: 00 Dose 2022-0 No Unknown 3-18 00:00: 00 Dose 2022-0 No Unknown 3-18 00:00: 00 Dose 2022-0 No Unknown 3-18 00:00: 00 Dose 2022-0 No Unknown 3-18 00:00: 00 Dose 2022-0 No Unknown 3-18 00:00: 00 Dose 2022-0 No Unknown 3-18 00:00: 00 Dose 2022-0 No Unknown 3-18 00:00: 00 Dose 2022-0 No Unknown 3-18 00:00: 00 Dose 2022-0 No Unknown 3-18 00:00: 00 Dose 2022-0 No Unknown 3-18 00:00: 00 Dose 2022-0 No Unknown 3-18 00:00: 00 Dose 2022-0 No Unknown 3-18 00:00: 00 Dose 2022-0 No Unknown 3-18 00:00: 00 Dose 2022-0 No Unknown 3-18 00:00: 00 Dose 2022-0 No Unknown 3-18 00:00: 00 Dose 2022-0 No Unknown 3-18 00:00: 00 Dose 2022-0 No Unknown 3-18 00:00: 00 Dose 2022-0 No Unknown 3-18 00:00: 00 Dose 2022-0 No Unknown 3-18 00:00: 00 Dose 2022-0 No Unknown 3-18 00:00: 00 Dose 2022-0 No Unknown 3-18 00:00: 00 Dose 2022-0 No Unknown 3-18 00:00: 00 Dose 2022-0 No Unknown 3-18 00:00: 00 Dose 2022-0 No Unknown 3-18 00:00: 00 Dose 2022-0 No Unknown 3-18 00:00: 00 Dose 2022-0 No Unknown 3-18 00:00: 00 Dose 2022-0 No Unknown 3-18 00:00: 00 Dose 2022-0 No Unknown 3-18 00:00: 00 Dose 2022-0 No Unknown 3-18 00:00: 00 Dose 2022-0 No Unknown 3-18 00:00: 00 Dose 2022-0 No Unknown 3-18 00:00: 00 Dose 2022-0 No Unknown 3-18 00:00: 00 Dose 2022-0 No Unknown 3-18 00:00: 00 Dose 2022-0 No Unknown 3-18 00:00: 00 Dose 2022-0 No Unknown 3-18 00:00: 00 Dose 2022-0 No Unknown 3-18 00:00: 00 Dose 2022-0 No Unknown 3-18 00:00: 00 Dose 2022-0 No Unknown 3-18 00:00: 00 Dose 2022-0 No Unknown 3-18 00:00: 00 Dose 2022-0 No Unknown 3-18 00:00: 00 Dose 2022-0 No Unknown 3-18 00:00: 00 Dose 2022-0 No Unknown 3-18 00:00: 00 Dose 2022-0 No Unknown 3-18 00:00: 00 Dose 2022-0 No Unknown 3-18 00:00: 00 Dose 2022-0 No Unknown 3-18 00:00: 00 Dose 2022-0 No Unknown 3-18 00:00: 00 Dose 2022-0 No Unknown 3-18 00:00: 00 Dose 2022-0 No Unknown 3-18 00:00: 00 Dose 2022-0 No Unknown 3-18 00:00: 00 Dose 2022-0 No Unknown 3-18 00:00: 00 Dose 2022-0 No Unknown 3-18 00:00: 00 Dose 2022-0 No Unknown 3-18 00:00: 00 Dose 2022-0 No Unknown 3-18 00:00: 00 Dose 2022-0 No Unknown 3-18 00:00: 00 Dose 2022-0 No Unknown 3-18 00:00: 00 Dose 2022-0 No Unknown 3-18 00:00: 00 Dose 2022-0 No Unknown 3-18 00:00: 00 Dose 2022-0 No Unknown 3-18 00:00: 00 Dose 2022-0 No Unknown 3-18 00:00: 00 Dose 2022-0 No Unknown 3-18 00:00: 00 Dose 2022-0 No Unknown 3-18 00:00: 00 Dose 2022-0 No Unknown 3-18 00:00: 00 Dose 2022-0 No Unknown 3-18 00:00: 00 Dose 2022-0 No Unknown 3-18 00:00: 00 Dose 2022-0 No Unknown 3-18 00:00: 00 Dose 2022-0 No Unknown 3-18 00:00: 00 Dose 2022-0 No Unknown 3-18 00:00: 00 Dose 2022-0 No Unknown 3-18 00:00: 00 Dose 2022-0 No Unknown 3-18 00:00: 00 Dose 2022-0 No Unknown 3-18 00:00: 00 Dose 2022-0 No Unknown 3-18 00:00: 00 Dose 2022-0 No Unknown 3-18 00:00: 00 Dose 2022-0 No Unknown 3-18 00:00: 00 Dose 2022-0 No Unknown 3-18 00:00: 00 Dose 2022-0 No Unknown 3-18 00:00: 00 Dose 2022-0 No Unknown 3-18 00:00: 00 Dose 2022-0 No Unknown 3-18 00:00: 00 Dose 2022-0 No Unknown 3-18 00:00: 00 Dose 2022-0 No Unknown 3-18 00:00: 00 Dose 2022-0 No Unknown 3-18 00:00: 00 Dose 2022-0 No Unknown 3-18 00:00: 00 Dose 2022-0 No Unknown 3-18 00:00: 00 Dose 2022-0 No Unknown 3-18 00:00: 00 Dose 2022-0 No Unknown 3-18 00:00: 00 Dose 2022-0 No Unknown 3-18 00:00: 00 Dose 2022-0 No Unknown 3-18 00:00: 00 Dose 2022-0 No Unknown 3-18 00:00: 00 Dose 2022-0 No Unknown 3-18 00:00: 00 Dose 2022-0 No Unknown 3-18 00:00: 00 Dose 2022-0 No Unknown 3-18 00:00: 00 Dose 2022-0 No Unknown 3-18 00:00: 00 Dose 2022-0 No Unknown 3-18 00:00: 00 Dose 2022-0 No Unknown 3-18 00:00: 00 Dose 2022-0 No Unknown 3-18 00:00: 00 Dose 2022-0 No Unknown 3-18 00:00: 00 Dose 2022-0 No Unknown 3-18 00:00: 00 Dose 2022-0 No Unknown 3-18 00:00: 00 Dose 2022-0 No Unknown 3-18 00:00: 00 Dose 2022-0 No Unknown 3-18 00:00: 00 Dose 2022-0 No Unknown 3-18 00:00: 00 Dose 2022-0 No Unknown 3-18 00:00: 00 Dose 2022-0 No Unknown 3-18 00:00: 00 Dose 2022-0 No Unknown 3-18 00:00: 00 Dose 2022-0 No Unknown 3-18 00:00: 00 Dose 2022-0 No Unknown 3-18 00:00: 00 Dose 2022-0 No Unknown 3-18 00:00: 00 Dose 2022-0 No Unknown 3-18 00:00: 00 Dose 2022-0 No Unknown 3-18 00:00: 00 Dose 2022-0 No Unknown 3-18 00:00: 00 Dose 2022-0 No Unknown 3-18 00:00: 00 Dose 2022-0 No Unknown 3-18 00:00: 00 Dose 2022-0 No Unknown 3-18 00:00: 00 Dose 2022-0 No Unknown 3-18 00:00: 00 Dose 2022-0 No Unknown 3-18 00:00: 00 Dose 2022-0 No Unknown 3-18 00:00: 00 Dose 2022-0 No Unknown 3-18 00:00: 00 Dose 2022-0 No Unknown 3-18 00:00: 00 Dose 2022-0 No Unknown 3-18 00:00: 00 Dose 2022-0 No Unknown 3-18 00:00: 00 Dose 2022-0 No Unknown 3-18 00:00: 00 Dose 2022-0 No Unknown 3-18 00:00: 00 Dose 2022-0 No Unknown 3-18 00:00: 00 Dose 2022-0 No Unknown 3-18 00:00: 00 Dose 2022-0 No Unknown 3-18 00:00: 00 Dose 2022-0 No Unknown 3-18 00:00: 00 Dose 2022-0 No Unknown 3-18 00:00: 00 Dose 2022-0 No Unknown 3-18 00:00: 00 Dose 2022-0 No Unknown 3-18 00:00: 00 Dose 2022-0 No Unknown 3-18 00:00: 00 Dose 2022-0 No Unknown 3-18 00:00: 00 Dose 2022-0 No Unknown 3-18 00:00: 00 Dose 2022-0 No Unknown 3-18 00:00: 00 Dose 2022-0 No Unknown 3-18 00:00: 00 Dose 2022-0 No Unknown 3-18 00:00: 00 Dose 2022-0 No Unknown 3-18 00:00: 00 Dose 2022-0 No Unknown 3-18 00:00: 00 Dose 2022-0 No Unknown 3-18 00:00: 00 Dose 2022-0 No Unknown 3-18 00:00: 00 Dose 2022-0 No Unknown 3-18 00:00: 00 Dose 2022-0 No Unknown 3-18 00:00: 00 Dose 2022-0 No Unknown 3-18 00:00: 00 Dose 2022-0 No Unknown 3-18 00:00: 00 Dose 2022-0 No Unknown 3-18 00:00: 00 Dose 2022-0 No Unknown 3-18 00:00: 00 Dose 2022-0 No Unknown 3-18 00:00: 00 Dose 2022-0 No Unknown 3-18 00:00: 00 Dose 2022-0 No Unknown 3-18 00:00: 00 Dose 2022-0 No Unknown 3-18 00:00: 00 Dose 2022-0 No Unknown 3-18 00:00: 00 Dose 2022-0 No Unknown 3-18 00:00: 00 Dose 2022-0 No Unknown 3-18 00:00: 00 Dose 2022-0 No Unknown 3-18 00:00: 00 Dose 2022-0 No Unknown 3-18 00:00: 00 Dose 2022-0 No Unknown 3-18 00:00: 00 Dose 2022-0 No Unknown 3-18 00:00: 00 Dose 2022-0 No Unknown 3-18 00:00: 00 Dose 2022-0 No Unknown 3-18 00:00: 00 Dose 2022-0 No Unknown 3-18 00:00: 00 Dose 2022-0 No Unknown 3-18 00:00: 00 Dose 2022-0 No Unknown 3-18 00:00: 00 Dose 2022-0 No Unknown 3-18 00:00: 00 Dose 2022-0 No Unknown 3-18 00:00: 00 Dose 2022-0 No Unknown 3-18 00:00: 00 Dose 2022-0 No Unknown 3-18 00:00: 00 Dose 2022-0 No Unknown 3-18 00:00: 00 Dose 2022-0 No Unknown 3-18 00:00: 00 Dose 2022-0 No Unknown 3-18 00:00: 00 Dose 2022-0 No Unknown 3-18 00:00: 00 Dose 2022-0 No Unknown 3-18 00:00: 00 Dose 2022-0 No Unknown 3-18 00:00: 00 Dose 2022-0 No Unknown 3-18 00:00: 00 Dose 2022-0 No Unknown 3-18 00:00: 00 Dose 2022-0 No Unknown 3-18 00:00: 00 Dose 2022-0 No Unknown 3-18 00:00: 00 Dose 2022-0 No Unknown 3-18 00:00: 00 Dose 2022-0 No Unknown 3-18 00:00: 00 Dose 2022-0 No Unknown 3-18 00:00: 00 Dose 2022-0 No Unknown 3-18 00:00: 00 Dose 2022-0 No Unknown 3-18 00:00: 00 Dose 2022-0 No Unknown 3-18 00:00: 00 Dose 2022-0 No Unknown 3-18 00:00: 00 Dose 2022-0 No Unknown 3-18 00:00: 00 Dose 2022-0 No Unknown 3-18 00:00: 00 Dose 2022-0 No Unknown 3-18 00:00: 00 Dose 2022-0 No Unknown 3-18 00:00: 00 Dose 2022-0 No Unknown 3-18 00:00: 00 Dose 2022-0 No Unknown 3-18 00:00: 00 Dose 2022-0 No Unknown 3-18 00:00: 00 Dose 2022-0 No Unknown 3-18 00:00: 00 Dose 2022-0 No Unknown 3-18 00:00: 00 Dose 2022-0 No Unknown 3-18 00:00: 00 Dose 2022-0 No Unknown 3-18 00:00: 00 Dose 2022-0 No Unknown 3-18 00:00: 00 Dose 2022-0 No Unknown 3-18 00:00: 00 Dose 2022-0 No Unknown 3-18 00:00: 00 Dose 2022-0 No Unknown 3-18 00:00: 00 Dose 2022-0 No Unknown 3-18 00:00: 00 Dose 2022-0 No Unknown 3-18 00:00: 00 Dose 2022-0 No Unknown 3-18 00:00: 00 Dose 2022-0 No Unknown 3-18 00:00: 00 Dose 2022-0 No Unknown 3-18 00:00: 00 Dose 2022-0 No Unknown 3-18 00:00: 00 Dose 2022-0 No Unknown 3-18 00:00: 00 Dose 2022-0 No Unknown 3-18 00:00: 00 Dose 2022-0 No Unknown 3-18 00:00: 00 Dose 2022-0 No Unknown 3-18 00:00: 00 Dose 2022-0 No Unknown 3-18 00:00: 00 Dose 2022-0 No Unknown 3-18 00:00: 00 Dose 2022-0 No Unknown 3-18 00:00: 00 Dose 2022-0 No Unknown 3-18 00:00: 00 Dose 2022-0 No Unknown 3-18 00:00: 00 Dose 2022-0 No Unknown 3-18 00:00: 00 Dose 2022-0 No Unknown 3-18 00:00: 00 Dose 2022-0 No Unknown 3-18 00:00: 00 Dose 2022-0 No Unknown 3-18 00:00: 00 Dose 2022-0 No Unknown 3-18 00:00: 00 Dose 2022-0 No Unknown 3-18 00:00: 00 Dose 2022-0 No Unknown 3-18 00:00: 00 Dose 2022-0 No Unknown 3-18 00:00: 00 Dose 2022-0 No Unknown 3-18 00:00: 00 Dose 2022-0 No Unknown 3-18 00:00: 00 Dose 2022-0 No Unknown 3-18 00:00: 00 Dose 2022-0 No Unknown 3-18 00:00: 00 Dose 2022-0 No Unknown 3-18 00:00: 00 Dose 2022-0 No Unknown 3-18 00:00: 00 Dose 2022-0 No Unknown 3-18 00:00: 00 Dose 2022-0 No Unknown 3-18 00:00: 00 Dose 2022-0 No Unknown 3-18 00:00: 00 Dose 2022-0 No Unknown 3-18 00:00: 00 Dose 2022-0 No Unknown 3-18 00:00: 00 Dose 2022-0 No Unknown 3-18 00:00: 00 Dose 2022-0 No Unknown 3-18 00:00: 00 Dose 2022-0 No Unknown 3-18 00:00: 00 Dose 2022-0 No Unknown 3-18 00:00: 00 Dose 2022-0 No Unknown 3-18 00:00: 00 Dose 2022-0 No Unknown 3-18 00:00: 00 Dose 2022-0 No Unknown 3-18 00:00: 00 Dose 2022-0 No Unknown 3-18 00:00: 00 Dose 2022-0 No Unknown 3-18 00:00: 00 Dose 2022-0 No Unknown 3-18 00:00: 00 Dose 2022-0 No Unknown 3-18 00:00: 00 Dose 2022-0 No Unknown 3-18 00:00: 00 Dose 2022-0 No Unknown 3-18 00:00: 00 Dose 2022-0 No Unknown 3-18 00:00: 00 Dose 2022-0 No Unknown 3-18 00:00: 00 Dose 2022-0 No Unknown 3-18 00:00: 00 Dose 2022-0 No Unknown 3-18 00:00: 00 Dose 2022-0 No Unknown 3-18 00:00: 00 Dose 2022-0 No Unknown 3-18 00:00: 00 Dose 2022-0 No Unknown 3-18 00:00: 00 Dose 2022-0 No Unknown 3-18 00:00: 00 Dose 2022-0 No Unknown 3-18 00:00: 00 Dose 2022-0 No Unknown 3-18 00:00: 00 Dose 2022-0 No Unknown 3-18 00:00: 00 Dose 2022-0 No Unknown 3-18 00:00: 00 Dose 2022-0 No Unknown 3-18 00:00: 00 Dose 2022-0 No Unknown 3-18 00:00: 00 Dose 2022-0 No Unknown 3-18 00:00: 00 Dose 2022-0 No Unknown 3-18 00:00: 00 Dose 2022-0 No Unknown 3-18 00:00: 00 Dose 2022-0 No Unknown 3-18 00:00: 00 Dose 2022-0 No Unknown 3-18 00:00: 00 Dose 2022-0 No Unknown 3-18 00:00: 00 Dose 2022-0 No Unknown 3-18 00:00: 00 Dose 2022-0 No Unknown 3-18 00:00: 00 Dose 2022-0 No Unknown 3-18 00:00: 00 Dose 2022-0 No Unknown 3-18 00:00: 00 Dose 2022-0 No Unknown 3-18 00:00: 00 Dose 2022-0 No Unknown 3-18 00:00: 00 Dose 2022-0 No Unknown 3-18 00:00: 00 Dose 2022-0 No Unknown 3-18 00:00: 00 Dose 2022-0 No Unknown 3-18 00:00: 00 Dose 2022-0 No Unknown 3-18 00:00: 00 Dose 2022-0 No Unknown 3-18 00:00: 00 Dose 2022-0 No Unknown 3-18 00:00: 00 Dose 2022-0 No Unknown 3-18 00:00: 00 Dose 2022-0 No Unknown 3-18 00:00: 00 Dose 2022-0 No Unknown 3-18 00:00: 00 Dose 2022-0 No Unknown 3-18 00:00: 00 Dose 2022-0 No Unknown 3-18 00:00: 00 Dose 2022-0 No Unknown 3-18 00:00: 00 Dose 2022-0 No Unknown 3-18 00:00: 00 Dose 2022-0 No Unknown 3-18 00:00: 00 Dose 2022-0 No Unknown 3-18 00:00: 00 Dose 2022-0 No Unknown 3-18 00:00: 00 Dose 2022-0 No Unknown 3-18 00:00: 00 Dose 2022-0 No Unknown 3-18 00:00: 00 Dose 2022-0 No Unknown 3-18 00:00: 00 Dose 2022-0 No Unknown 3-18 00:00: 00 Dose 2022-0 No Unknown 3-18 00:00: 00 Dose 2022-0 No Unknown 3-18 00:00: 00 Dose 2022-0 No Unknown 3-18 00:00: 00 Dose 2022-0 No Unknown 3-18 00:00: 00 Dose 2022-0 No Unknown 3-18 00:00: 00 Dose 2022-0 No Unknown 3-18 00:00: 00 Dose 2022-0 No Unknown 3-18 00:00: 00 Dose 2022-0 No Unknown 3-18 00:00: 00 Dose 2022-0 No Unknown 3-18 00:00: 00 Dose 2022-0 No Unknown 3-18 00:00: 00 Dose 2022-0 No Unknown 3-18 00:00: 00 Dose 2022-0 No Unknown 3-18 00:00: 00 Dose 2022-0 No Unknown 3-18 00:00: 00 Dose 2022-0 No Unknown 3-18 00:00: 00 Dose 2022-0 No Unknown 3-18 00:00: 00 Dose 2022-0 No Unknown 3-18 00:00: 00 Dose 2022-0 No Unknown 3-18 00:00: 00 Dose 2022-0 No Unknown 3-18 00:00: 00 Dose 2022-0 No Unknown 3-18 00:00: 00 Dose 2022-0 No Unknown 3-18 00:00: 00 Dose 2022-0 No Unknown 3-18 00:00: 00 Dose 2022-0 No Unknown 3-18 00:00: 00 Dose 2022-0 No Unknown 3-18 00:00: 00 Dose 2022-0 No Unknown 3-18 00:00: 00 Dose 2022-0 No Unknown 3-18 00:00: 00 Dose 2022-0 No Unknown 3-18 00:00: 00 Dose 2022-0 No Unknown 3-18 00:00: 00 Dose 2022-0 No Unknown 3-18 00:00: 00 Dose 2022-0 No Unknown 3-18 00:00: 00 Dose 2022-0 No Unknown 3-18 00:00: 00 Dose 2022-0 No Unknown 3-18 00:00: 00 Dose 2022-0 No Unknown 3-18 00:00: 00 Dose 2022-0 No Unknown 3-18 00:00: 00 Dose 2022-0 No Unknown 3-18 00:00: 00 Dose 2022-0 No Unknown 3-18 00:00: 00 Dose 2022-0 No Unknown 3-18 00:00: 00 Dose 2022-0 No Unknown 3-18 00:00: 00 Dose 2022-0 No Unknown 3-18 00:00: 00 Dose 2022-0 No Unknown 3-18 00:00: 00 Dose 2022-0 No Unknown 3-18 00:00: 00 Dose 2022-0 No Unknown 3-18 00:00: 00 Dose 2022-0 No Unknown 3-18 00:00: 00 Dose 2022-0 No Unknown 3-18 00:00: 00 Dose 2022-0 No Unknown 3-18 00:00: 00 Dose 2022-0 No Unknown 3-18 00:00: 00 Dose 2022-0 No Unknown 3-18 00:00: 00 Dose 2022-0 No Unknown 3-18 00:00: 00 Dose 2022-0 No Unknown 3-18 00:00: 00 Dose 2022-0 No Unknown 3-18 00:00: 00 Dose 2022-0 No Unknown 3-18 00:00: 00 Dose 2022-0 No Unknown 3-18 00:00: 00 Dose 2022-0 No Unknown 3-18 00:00: 00 Dose 2022-0 No Unknown 3-18 00:00: 00 Dose 2022-0 No Unknown 3-18 00:00: 00 Dose 2022-0 No Unknown 3-18 00:00: 00 Dose 2022-0 No Unknown 3-18 00:00: 00 Dose 2022-0 No Unknown 3-18 00:00: 00 Dose 2022-0 No Unknown 3-18 00:00: 00 Dose 2022-0 No Unknown 3-18 00:00: 00 Dose 2022-0 No Unknown 3-18 00:00: 00 Dose 2022-0 No Unknown 3-18 00:00: 00 Dose 2022-0 No Unknown 3-18 00:00: 00 Dose 2022-0 No Unknown 3-18 00:00: 00 Dose 2022-0 No Unknown 3-18 00:00: 00 Dose 2022-0 No Unknown 3-18 00:00: 00 Dose 2022-0 No Unknown 3-18 00:00: 00 Dose 2022-0 No Unknown 3-18 00:00: 00 Dose 2022-0 No Unknown 3-18 00:00: 00 Dose 2022-0 No Unknown 3-18 00:00: 00 Dose 2022-0 No Unknown 3-18 00:00: 00 Dose 2022-0 No Unknown 3-18 00:00: 00 Dose 2022-0 No Unknown 3-18 00:00: 00 Dose 2022-0 No Unknown 3-18 00:00: 00 Dose 2022-0 No Unknown 3-18 00:00: 00 Dose 2022-0 No Unknown 3-18 00:00: 00 Dose 2022-0 No Unknown 3-18 00:00: 00 Dose 2022-0 No Unknown 3-18 00:00: 00 Dose 2022-0 No Unknown 3-18 00:00: 00 Dose 2022-0 No Unknown 3-18 00:00: 00 Dose 2022-0 No Unknown 3-18 00:00: 00 Dose 2022-0 No Unknown 3-18 00:00: 00 Dose 2022-0 No Unknown 3-18 00:00: 00 Dose 2022-0 No Unknown 3-18 00:00: 00 Dose 2022-0 No Unknown 3-18 00:00: 00 Dose 2022-0 No Unknown 3-18 00:00: 00 Dose 2022-0 No Unknown 3-18 00:00: 00 Dose 2022-0 No Unknown 3-18 00:00: 00 Dose 2022-0 No Unknown 3-18 00:00: 00 Dose 2022-0 No Unknown 3-18 00:00: 00 Dose 2022-0 No Unknown 3-18 00:00: 00 Dose 2022-0 No Unknown 3-18 00:00: 00 Dose 2022-0 No Unknown 3-18 00:00: 00 Dose 2022-0 No Unknown 3-18 00:00: 00 Dose 2022-0 No Unknown 3-18 00:00: 00 Dose 2022-0 No Unknown 3-18 00:00: 00 Dose 2022-0 No Unknown 3-18 00:00: 00 Dose 2022-0 No Unknown 3-18 00:00: 00 Dose 2022-0 No Unknown 3-18 00:00: 00 Dose 2022-0 No Unknown 3-18 00:00: 00 Dose 2022-0 No Unknown 3-18 00:00: 00 Dose 2022-0 No Unknown 3-18 00:00: 00 Dose 2022-0 No Unknown 3-18 00:00: 00 Dose 2022-0 No Unknown 3-18 00:00: 00 Dose 2022-0 No Unknown 3-18 00:00: 00 Dose 2022-0 No Unknown 3-18 00:00: 00 Dose 2022-0 No Unknown 3-18 00:00: 00 Dose 2022-0 No Unknown 3-18 00:00: 00 Dose 2022-0 No Unknown 3-18 00:00: 00 Dose 2022-0 No Unknown 3-18 00:00: 00 Dose 2022-0 No Unknown 3-18 00:00: 00 Dose 2022-0 No Unknown 3-18 00:00: 00 Dose 2022-0 No Unknown 3-18 00:00: 00 Dose 2022-0 No Unknown 3-18 00:00: 00 Dose 2022-0 No Unknown 3-18 00:00: 00 Dose 2022-0 No Unknown 3-18 00:00: 00 Dose 2022-0 No Unknown 3-18 00:00: 00 Dose 2022-0 No Unknown 3-18 00:00: 00 Dose 2022-0 No Unknown 3-18 00:00: 00 Dose 2022-0 No Unknown 3-18 00:00: 00 Dose 2022-0 No Unknown 3-18 00:00: 00 Dose 2022-0 No Unknown 3-18 00:00: 00 Dose 2022-0 No Unknown 3-18 00:00: 00 Dose 2022-0 No Unknown 3-18 00:00: 00 Dose 2022-0 No Unknown 3-18 00:00: 00 Dose 2022-0 No Unknown 3-18 00:00: 00 Dose 2022-0 No Unknown 3-18 00:00: 00 Dose 2022-0 No Unknown 3-18 00:00: 00 Dose 2022-0 No Unknown 3-18 00:00: 00 Dose 2022-0 No Unknown 3-18 00:00: 00 Dose 2022-0 No Unknown 3-18 00:00: 00 Dose 2022-0 No Unknown 3-18 00:00: 00 Dose 2022-0 No Unknown 3-18 00:00: 00 Dose 2022-0 No Unknown 3-18 00:00: 00 Dose 2022-0 No Unknown 3-18 00:00: 00 Dose 2022-0 No Unknown 3-18 00:00: 00 Dose 2022-0 No Unknown 3-18 00:00: 00 Dose 2022-0 No Unknown 3-18 00:00: 00 Dose 2022-0 No Unknown 3-18 00:00: 00 Dose 2022-0 No Unknown 3-18 00:00: 00 Dose 2022-0 No Unknown 3-18 00:00: 00 Dose 2022-0 No Unknown 3-18 00:00: 00 Dose 2022-0 No Unknown 3-18 00:00: 00 Dose 2022-0 No Unknown 3-18 00:00: 00 Dose 2022-0 No Unknown 3-18 00:00: 00 Dose 2022-0 No Unknown 3-18 00:00: 00 Dose 2022-0 No Unknown 3-18 00:00: 00 Dose 2022-0 No Unknown 3-18 00:00: 00 Dose 2022-0 No Unknown 3-18 00:00: 00 Dose 2022-0 No Unknown 3-18 00:00: 00 Dose 2022-0 No Unknown 3-18 00:00: 00 Dose 2022-0 No Unknown 3-18 00:00: 00 Dose 2022-0 No Unknown 3-18 00:00: 00 Dose 2022-0 No Unknown 3-18 00:00: 00 Dose 2022-0 No Unknown 3-18 00:00: 00 Dose 2022-0 No Unknown 3-18 00:00: 00 Dose 2022-0 No Unknown 3-18 00:00: 00 Dose 2022-0 No Unknown 3-18 00:00: 00 Dose 2022-0 No Unknown 3-18 00:00: 00 Dose 2022-0 No Unknown 3-18 00:00: 00 Dose 2022-0 No Unknown 3-18 00:00: 00 Dose 2022-0 No Unknown 3-18 00:00: 00 Dose 2022-0 No Unknown 3-18 00:00: 00 Dose 2022-0 No Unknown 3-18 00:00: 00 Dose 2022-0 No Unknown 3-18 00:00: 00 Dose 2022-0 No Unknown 3-18 00:00: 00 Dose 2022-0 No Unknown 3-18 00:00: 00 Dose 2022-0 No Unknown 3-18 00:00: 00 Dose 2022-0 No Unknown 3-18 00:00: 00 Dose 2022-0 No Unknown 3-18 00:00: 00 Dose 2022-0 No Unknown 3-18 00:00: 00 Dose 2022-0 No Unknown 3-18 00:00: 00 Dose 2022-0 No Unknown 3-18 00:00: 00 Dose 2022-0 No Unknown 3-18 00:00: 00 Dose 2022-0 No Unknown 3-18 00:00: 00 Dose 2022-0 No Unknown 3-18 00:00: 00 Dose 2022-0 No Unknown 3-18 00:00: 00 Dose 2022-0 No Unknown 3-18 00:00: 00 Dose 2022-0 No Unknown 3-18 00:00: 00 Dose 2022-0 No Unknown 3-18 00:00: 00 Dose 2022-0 No Unknown 3-18 00:00: 00 Dose 2022-0 No Unknown 3-18 00:00: 00 Dose 2022-0 No Unknown 3-18 00:00: 00 Dose 2022-0 No Unknown 3-18 00:00: 00 Dose 2022-0 No Unknown 3-18 00:00: 00 Dose 2022-0 No Unknown 3-18 00:00: 00 Dose 2022-0 No Unknown 3-18 00:00: 00 Dose 2022-0 No Unknown 3-18 00:00: 00 Dose 2022-0 No Unknown 3-18 00:00: 00 Dose 2022-0 No Unknown 3-18 00:00: 00 Dose 2022-0 No Unknown 3-18 00:00: 00 Dose 2022-0 No Unknown 3-18 00:00: 00 Dose 2022-0 No Unknown 3-18 00:00: 00 Dose 2022-0 No Unknown 3-18 00:00: 00 Dose 2022-0 No Unknown 3-18 00:00: 00 Dose 2022-0 No Unknown 3-18 00:00: 00 Dose 2022-0 No Unknown 3-18 00:00: 00 Dose 2022-0 No Unknown 3-18 00:00: 00 Dose 2022-0 No Unknown 3-18 00:00: 00 Dose 2022-0 No Unknown 3-18 00:00: 00 Dose 2022-0 No Unknown 3-18 00:00: 00 Dose 2022-0 No Unknown 3-18 00:00: 00 Dose 2022-0 No Unknown 3-18 00:00: 00 Dose 2022-0 No Unknown 3-18 00:00: 00 Dose 2022-0 No Unknown 3-18 00:00: 00 Dose 2022-0 No Unknown 3-18 00:00: 00 Dose 2022-0 No Unknown 3-18 00:00: 00 Dose 2022-0 No Unknown 3-18 00:00: 00 Dose 2022-0 No Unknown 3-18 00:00: 00 Dose 2022-0 No Unknown 3-18 00:00: 00 Dose 2022-0 No Unknown 3-18 00:00: 00 Dose 2022-0 No Unknown 3-18 00:00: 00 Dose 2022-0 No Unknown 3-18 00:00: 00 Dose 2022-0 No Unknown 3-18 00:00: 00 Dose 2022-0 No Unknown 3-18 00:00: 00 Dose 2022-0 No Unknown 3-18 00:00: 00 Dose 2022-0 No Unknown 3-18 00:00: 00 Dose 2022-0 No Unknown 3-18 00:00: 00 Dose 2022-0 No Unknown 3-18 00:00: 00 Dose 2022-0 No Unknown 3-18 00:00: 00 Dose 2022-0 No Unknown 3-18 00:00: 00 Dose 2022-0 No Unknown 3-18 00:00: 00 Dose 2022-0 No Unknown 3-18 00:00: 00 Dose 2022-0 No Unknown 3-18 00:00: 00 Dose 2022-0 No Unknown 3-18 00:00: 00 Dose 2022-0 No Unknown 3-18 00:00: 00 Dose 2022-0 No Unknown 3-18 00:00: 00 Dose 2022-0 No Unknown 3-18 00:00: 00 Dose 2022-0 No Unknown 3-18 00:00: 00 Dose 2022-0 No Unknown 3-18 00:00: 00 Dose 2022-0 No Unknown 3-18 00:00: 00 Dose 2022-0 No Unknown 3-18 00:00: 00 Dose 2022-0 No Unknown 3-18 00:00: 00 Dose 2022-0 No Unknown 3-18 00:00: 00 Dose 2022-0 No Unknown 3-18 00:00: 00 Dose 2022-0 No Unknown 3-18 00:00: 00 Dose 2022-0 No Unknown 3-18 00:00: 00 Dose 2022-0 No Unknown 3-18 00:00: 00 Dose 2022-0 No Unknown 3-18 00:00: 00 Dose 2022-0 No Unknown 3-18 00:00: 00 Dose 2022-0 No Unknown 3-18 00:00: 00 Dose 2022-0 No Unknown 3-18 00:00: 00 Dose 2022-0 No Unknown 3-18 00:00: 00 Dose 2022-0 No Unknown 3-18 00:00: 00 Dose 2022-0 No Unknown 3-18 00:00: 00 Dose 2022-0 No Unknown 3-18 00:00: 00 Dose 2022-0 No Unknown 3-18 00:00: 00 Dose 2022-0 No Unknown 3-18 00:00: 00 Dose 2022-0 No Unknown 3-18 00:00: 00 Dose 2022-0 No Unknown 3-18 00:00: 00 Dose 2022-0 No Unknown 3-18 00:00: 00 Dose 2022-0 No Unknown 3-18 00:00: 00 Dose 2022-0 No Unknown 3-18 00:00: 00 Dose 2022-0 No Unknown 3-18 00:00: 00 Dose 2022-0 No Unknown 3-18 00:00: 00 Dose 2022-0 No Unknown 3-18 00:00: 00 Dose 2022-0 No Unknown 3-18 00:00: 00 Dose 2022-0 No Unknown 3-18 00:00: 00 Dose 2022-0 No Unknown 3-18 00:00: 00 Dose 2022-0 No Unknown 3-18 00:00: 00 Dose 2022-0 No Unknown 3-18 00:00: 00 Dose 2022-0 No Unknown 3-18 00:00: 00 Dose 2022-0 No Unknown 3-18 00:00: 00 Dose 2022-0 No Unknown 3-18 00:00: 00 Dose 2022-0 No Unknown 3-18 00:00: 00 Dose 2022-0 No Unknown 3-18 00:00: 00 Dose 2022-0 No Unknown 3-18 00:00: 00 Dose 2022-0 No Unknown 3-18 00:00: 00 Dose 2022-0 No Unknown 3-18 00:00: 00 Dose 2022-0 No Unknown 3-18 00:00: 00 Dose 2022-0 No Unknown 3-18 00:00: 00 Dose 2022-0 No Unknown 3-18 00:00: 00 Dose 2022-0 No Unknown 3-18 00:00: 00 Dose 2022-0 No Unknown 3-18 00:00: 00 Dose 2022-0 No Unknown 3-18 00:00: 00 Dose 2022-0 No Unknown 3-18 00:00: 00 Dose 2022-0 No Unknown 3-18 00:00: 00 Dose 2022-0 No Unknown 3-18 00:00: 00 Dose 2022-0 No Unknown 3-18 00:00: 00 Dose 2022-0 No Unknown 3-18 00:00: 00 Dose 2022-0 No Unknown 3-18 00:00: 00 Dose 2022-0 No Unknown 3-18 00:00: 00 Dose 2022-0 No Unknown 3-18 00:00: 00 Dose 2022-0 No Unknown 3-18 00:00: 00 Dose 2022-0 No Unknown 3-18 00:00: 00 Dose 2022-0 No Unknown 3-18 00:00: 00 Dose 2022-0 No Unknown 3-18 00:00: 00 Dose 2022-0 No Unknown 3-18 00:00: 00 Dose 2022-0 No Unknown 3-18 00:00: 00 Dose 2022-0 No Unknown 3-18 00:00: 00 Dose 2022-0 No Unknown 3-18 00:00: 00 Dose 2022-0 No Unknown 3-18 00:00: 00 Dose 2022-0 No Unknown 3-18 00:00: 00 Dose 2022-0 No Unknown 3-18 00:00: 00 Dose 2022-0 No Unknown 3-18 00:00: 00 Dose 2022-0 No Unknown 3-18 00:00: 00 Dose 2022-0 No Unknown 3-18 00:00: 00 Dose 2022-0 No Unknown 3-18 00:00: 00 Dose 2022-0 No Unknown 3-18 00:00: 00 Dose 2022-0 No Unknown 3-18 00:00: 00 Dose 2022-0 No Unknown 3-18 00:00: 00 Dose 2022-0 No Unknown 3-18 00:00: 00 Dose 2022-0 No Unknown 3-18 00:00: 00 Dose 2022-0 No Unknown 3-18 00:00: 00 Dose 2022-0 No Unknown 3-18 00:00: 00 Dose 2022-0 No Unknown 3-18 00:00: 00 Dose 2022-0 No Unknown 3-18 00:00: 00 Dose 2022-0 No Unknown 3-18 00:00: 00 Dose 2022-0 No Unknown 3-18 00:00: 00 Dose 2022-0 No Unknown 3-18 00:00: 00 Dose 2022-0 No Unknown 3-18 00:00: 00 Dose 2022-0 No Unknown 3-18 00:00: 00 Dose 2022-0 No Unknown 3-18 00:00: 00 Dose 2022-0 No Unknown 3-18 00:00: 00 Dose 2022-0 No Unknown 3-18 00:00: 00 Dose 2022-0 No Unknown 3-18 00:00: 00 Dose 2022-0 No Unknown 3-18 00:00: 00 Dose 2022-0 No Unknown 3-18 00:00: 00 Dose 2022-0 No Unknown 3-18 00:00: 00 Dose 2022-0 No Unknown 3-18 00:00: 00 Dose 2022-0 No Unknown 3-18 00:00: 00 Dose 2022-0 No Unknown 3-18 00:00: 00 Dose 2022-0 No Unknown 3-18 00:00: 00 Dose 2022-0 No Unknown 3-18 00:00: 00 Dose 2022-0 No Unknown 3-18 00:00: 00 Dose 2022-0 No Unknown 3-18 00:00: 00 Dose 2022-0 No Unknown 3-18 00:00: 00 Dose 2022-0 No Unknown 3-18 00:00: 00 Dose 2022-0 No Unknown 3-18 00:00: 00 Dose 2022-0 No Unknown 3-18 00:00: 00 Dose 2022-0 No Unknown 3-18 00:00: 00 Dose 2022-0 No Unknown 3-18 00:00: 00 Dose 2022-0 No Unknown 3-18 00:00: 00 Dose 2022-0 No Unknown 3-18 00:00: 00 Dose 2022-0 No Unknown 3-18 00:00: 00 Dose 2022-0 No Unknown 3-18 00:00: 00 Dose 2022-0 No Unknown 3-18 00:00: 00 Dose 2022-0 No Unknown 3-18 00:00: 00 Dose 2022-0 No Unknown 3-18 00:00: 00 Dose 2022-0 No Unknown 3-18 00:00: 00 Dose 2022-0 No Unknown 3-18 00:00: 00 Dose 2022-0 No Unknown 3-18 00:00: 00 Dose 2022-0 No Unknown 3-18 00:00: 00 Dose 2022-0 No Unknown 3-18 00:00: 00 Dose 2022-0 No Unknown 3-18 00:00: 00 Dose 2022-0 No Unknown 3-18 00:00: 00 Dose 2022-0 No Unknown 3-18 00:00: 00 Dose 2022-0 No Unknown 3-18 00:00: 00 Dose 2022-0 No Unknown 3-18 00:00: 00 Dose 2022-0 No Unknown 3-18 00:00: 00 Dose 2022-0 No Unknown 3-18 00:00: 00 Dose 2022-0 No Unknown 3-18 00:00: 00 Dose 2022-0 No Unknown 3-18 00:00: 00 Dose 2022-0 No Unknown 3-18 00:00: 00 Dose 2022-0 No Unknown 3-18 00:00: 00 Dose 2022-0 No Unknown 3-18 00:00: 00 Dose 2022-0 No Unknown 3-18 00:00: 00 Dose 2022-0 No Unknown 3-18 00:00: 00 Dose 2022-0 No Unknown 3-18 00:00: 00 Dose 2022-0 No Unknown 3-18 00:00: 00 Dose 2022-0 No Unknown 3-18 00:00: 00 Dose 2022-0 No Unknown 3-18 00:00: 00 Dose 2022-0 No Unknown 3-18 00:00: 00 Dose 2022-0 No Unknown 3-18 00:00: 00 Dose 2022-0 No Unknown 3-18 00:00: 00 Dose 2022-0 No Unknown 3-18 00:00: 00 Dose 2022-0 No Unknown 3-18 00:00: 00 Dose 2022-0 No Unknown 3-18 00:00: 00 Dose 2022-0 No Unknown 3-18 00:00: 00 Dose 2022-0 No Unknown 3-18 00:00: 00 Dose 2022-0 No Unknown 3-18 00:00: 00 Dose 2022-0 No Unknown 3-18 00:00: 00 Dose 2022-0 No Unknown 3-18 00:00: 00 Dose 2022-0 No Unknown 3-18 00:00: 00 Dose 2022-0 No Unknown 3-18 00:00: 00 Dose 2022-0 No Unknown 3-18 00:00: 00 Dose 2022-0 No Unknown 3-18 00:00: 00 Dose 2022-0 No Unknown 3-18 00:00: 00 Dose 2022-0 No Unknown 3-18 00:00: 00 Dose 2022-0 No Unknown 3-18 00:00: 00 Dose 2022-0 No Unknown 3-18 00:00: 00 Dose 2022-0 No Unknown 3-18 00:00: 00 Dose 2022-0 No Unknown 3-18 00:00: 00 Dose 2022-0 No Unknown 3-18 00:00: 00 Dose 2022-0 No Unknown 3-18 00:00: 00 Dose 2022-0 No Unknown 3-18 00:00: 00 Dose 2022-0 No Unknown 3-18 00:00: 00 Dose 2022-0 No Unknown 3-18 00:00: 00 Dose 2022-0 No Unknown 3-18 00:00: 00 Dose 2022-0 No Unknown 3-18 00:00: 00 Dose 2022-0 No Unknown 3-18 00:00: 00 Dose 2022-0 No Unknown 3-18 00:00: 00 Dose 2022-0 No Unknown 3-18 00:00: 00 Dose 2022-0 No Unknown 3-18 00:00: 00 Dose 2022-0 No Unknown 3-18 00:00: 00 Dose 2022-0 No Unknown 3-18 00:00: 00 Dose 2022-0 No Unknown 3-18 00:00: 00 Dose 2022-0 No Unknown 3-18 00:00: 00 Dose 2022-0 No Unknown 3-18 00:00: 00 Dose 2022-0 No Unknown 3-18 00:00: 00 Dose 2022-0 No Unknown 3-18 00:00: 00 Dose 2022-0 No Unknown 3-18 00:00: 00 Dose 2022-0 No Unknown 3-18 00:00: 00 Dose 2022-0 No Unknown 3-18 00:00: 00 Dose 2022-0 No Unknown 3-18 00:00: 00 Dose 2022-0 No Unknown 3-18 00:00: 00 Dose 2022-0 No Unknown 3-18 00:00: 00 Dose 2022-0 No Unknown 3-18 00:00: 00 Dose 2022-0 No Unknown 3-18 00:00: 00 Dose 2022-0 No Unknown 3-18 00:00: 00 Dose 2022-0 No Unknown 3-18 00:00: 00 Dose 2022-0 No Unknown 3-18 00:00: 00 Dose 2022-0 No Unknown 3-18 00:00: 00 Dose 2022-0 No Unknown 3-18 00:00: 00 Dose 2022-0 No Unknown 3-18 00:00: 00 Dose 2022-0 No Unknown 3-18 00:00: 00 Dose 2022-0 No Unknown 3-18 00:00: 00 Dose 2022-0 No Unknown 3-18 00:00: 00 Dose 2022-0 No Unknown 3-18 00:00: 00 Dose 2022-0 No Unknown 3-18 00:00: 00 Dose 2022-0 No Unknown 3-18 00:00: 00 Dose 2022-0 No Unknown 3-18 00:00: 00 Dose 2022-0 No Unknown 3-18 00:00: 00 Dose 2022-0 No Unknown 3-18 00:00: 00 Dose 2022-0 No Unknown 3-18 00:00: 00 Dose 2022-0 No Unknown 3-18 00:00: 00 Dose 2022-0 No Unknown 3-18 00:00: 00 Dose 2022-0 No Unknown 3-18 00:00: 00 Dose 2022-0 No Unknown 3-18 00:00: 00 Dose 2022-0 No Unknown 3-18 00:00: 00 Dose 2022-0 No Unknown 3-18 00:00: 00 Dose 2022-0 No Unknown 3-18 00:00: 00 Dose 2022-0 No Unknown 3-18 00:00: 00 Dose 2022-0 No Unknown 3-18 00:00: 00 Dose 2022-0 No Unknown 3-18 00:00: 00 Dose 2022-0 No Unknown 3-18 00:00: 00 Dose 2022-0 No Unknown 3-18 00:00: 00 Dose 2022-0 No Unknown 3-18 00:00: 00 Dose 2022-0 No Unknown 3-18 00:00: 00 Dose 2022-0 No Unknown 3-18 00:00: 00 Dose 2022-0 No Unknown 3-18 00:00: 00 Dose 2022-0 No Unknown 3-18 00:00: 00 Dose 2022-0 No Unknown 3-18 00:00: 00 Dose 2022-0 No Unknown 3-18 00:00: 00 Dose 2022-0 No Unknown 3-18 00:00: 00 Dose 2022-0 No Unknown 3-18 00:00: 00 Dose 2022-0 No Unknown 3-18 00:00: 00 Dose 2022-0 No Unknown 3-18 00:00: 00 Dose 2022-0 No Unknown 3-18 00:00: 00 Dose 2022-0 No Unknown 3-18 00:00: 00 Dose 2022-0 No Unknown 3-18 00:00: 00 Dose 2022-0 No Unknown 3-18 00:00: 00 Dose 2022-0 No Unknown 3-18 00:00: 00 Dose 2022-0 No Unknown 3-18 00:00: 00 Dose 2022-0 No Unknown 3-18 00:00: 00 Dose 2022-0 No Unknown 3-18 00:00: 00 Dose 2022-0 No Unknown 3-18 00:00: 00 Dose 2022-0 No Unknown 3-18 00:00: 00 Dose 2022-0 No Unknown 3-18 00:00: 00 Dose 2022-0 No Unknown 3-18 00:00: 00 Dose 2022-0 No Unknown 3-18 00:00: 00 Dose 2022-0 No Unknown 3-18 00:00: 00 Dose 2022-0 No Unknown 3-18 00:00: 00 Dose 2022-0 No Unknown 3-18 00:00: 00 Dose 2022-0 No Unknown 3-18 00:00: 00 Dose 2022-0 No Unknown 3-18 00:00: 00 Dose 2022-0 No Unknown 3-18 00:00: 00 Dose 2022-0 No Unknown 3-18 00:00: 00 Dose 2022-0 No Unknown 3-18 00:00: 00 Dose 2022-0 No Unknown 3-18 00:00: 00 Dose 2022-0 No Unknown 3-18 00:00: 00 Dose 2022-0 No Unknown 3-18 00:00: 00 Dose 2022-0 No Unknown 3-18 00:00: 00 Dose 2022-0 No Unknown 3-18 00:00: 00 Dose 2022-0 No Unknown 3-18 00:00: 00 Dose 2022-0 No Unknown 3-18 00:00: 00 Dose 2022-0 No Unknown 3-18 00:00: 00 Dose 2022-0 No Unknown 3-18 00:00: 00 Dose 2022-0 No Unknown 3-18 00:00: 00 Dose 2022-0 No Unknown 3-18 00:00: 00 Dose 2022-0 No Unknown 3-18 00:00: 00 Dose 2022-0 No Unknown 3-18 00:00: 00 Dose 2022-0 No Unknown 3-18 00:00: 00 Dose 2022-0 No Unknown 3-18 00:00: 00 Dose 2022-0 No Unknown 3-18 00:00: 00 Dose 2022-0 No Unknown 3-18 00:00: 00 Dose 2022-0 No Unknown 3-18 00:00: 00 Dose 2022-0 No Unknown 3-18 00:00: 00 Dose 2022-0 No Unknown 3-18 00:00: 00 Dose 2022-0 No Unknown 3-18 00:00: 00 Dose 2022-0 No Unknown 3-18 00:00: 00 Dose 2022-0 No Unknown 3-18 00:00: 00 Dose 2022-0 No Unknown 3-18 00:00: 00 Dose 2022-0 No Unknown 3-18 00:00: 00 Dose 2022-0 No Unknown 3-18 00:00: 00 Dose 2022-0 No Unknown 3-18 00:00: 00 Dose 2022-0 No Unknown 3-18 00:00: 00 Dose 2022-0 No Unknown 3-18 00:00: 00 Dose 2022-0 No Unknown 3-18 00:00: 00 Dose 2022-0 No Unknown 3-18 00:00: 00 Dose 2022-0 No Unknown 3-18 00:00: 00 Dose 2022-0 No Unknown 3-18 00:00: 00 Dose 2022-0 No Unknown 3-18 00:00: 00 Dose 2022-0 No Unknown 3-18 00:00: 00 Dose 2022-0 No Unknown 3-18 00:00: 00 Dose 2022-0 No Unknown 3-18 00:00: 00 Dose 2022-0 No Unknown 3-18 00:00: 00 Dose 2022-0 No Unknown 3-18 00:00: 00 Dose 2022-0 No Unknown 3-18 00:00: 00 Dose 2022-0 No Unknown 3-18 00:00: 00 Dose 2022-0 No Unknown 3-18 00:00: 00 Dose 2022-0 No Unknown 3-18 00:00: 00 Dose 2022-0 No Unknown 3-18 00:00: 00 Dose 2022-0 No Unknown 3-18 00:00: 00 Dose 2022-0 No Unknown 3-18 00:00: 00 Dose 2022-0 No Unknown 3-18 00:00: 00 Dose 2022-0 No Unknown 3-18 00:00: 00 Dose 2022-0 No Unknown 3-18 00:00: 00 Dose 2022-0 No Unknown 3-18 00:00: 00 Dose 2022-0 No Unknown 3-18 00:00: 00 Dose 2022-0 No Unknown 3-18 00:00: 00 Dose 2022-0 No Unknown 3-18 00:00: 00 Dose 2022-0 No Unknown 3-18 00:00: 00 Dose 2022-0 No Unknown 3-18 00:00: 00 Dose 2022-0 No Unknown 3-18 00:00: 00 Dose 2022-0 No Unknown 3-18 00:00: 00 Dose 2022-0 No Unknown 3-18 00:00: 00 Dose 2022-0 No Unknown 3-18 00:00: 00 Dose 2022-0 No Unknown 3-18 00:00: 00 Dose 2022-0 No Unknown 3-18 00:00: 00 Dose 2022-0 No Unknown 3-18 00:00: 00 Dose 2022-0 No Unknown 3-18 00:00: 00 Dose 2022-0 No Unknown 3-18 00:00: 00 Dose 2022-0 No Unknown 3-18 00:00: 00 Dose 2022-0 No Unknown 3-18 00:00: 00 Dose 2022-0 No Unknown 3-18 00:00: 00 Dose 2022-0 No Unknown 3-18 00:00: 00 Dose 2022-0 No Unknown 3-18 00:00: 00 Dose 2022-0 No Unknown 3-18 00:00: 00 Dose 2022-0 No Unknown 3-18 00:00: 00 Dose 2022-0 No Unknown 3-18 00:00: 00 Dose 2022-0 No Unknown 3-18 00:00: 00 Dose 2022-0 No Unknown 3-18 00:00: 00 Dose 2022-0 No Unknown 3-18 00:00: 00 Dose 2022-0 No Unknown 3-18 00:00: 00 Dose 2022-0 No Unknown 3-18 00:00: 00 Dose 2022-0 No Unknown 3-18 00:00: 00 Dose 2022-0 No Unknown 3-18 00:00: 00 Dose 2022-0 No Unknown 3-18 00:00: 00 Dose 2022-0 No Unknown 3-18 00:00: 00 Dose 2022-0 No Unknown 3-18 00:00: 00 Dose 2022-0 No Unknown 3-18 00:00: 00 Dose 2022-0 No Unknown 3-18 00:00: 00 Dose 2022-0 No Unknown 3-18 00:00: 00 Dose 2022-0 No Unknown 3-18 00:00: 00 Dose 2022-0 No Unknown 3-18 00:00: 00 Dose 2022-0 No Unknown 3-18 00:00: 00 Dose 2022-0 No Unknown 3-18 00:00: 00 Dose 2022-0 No Unknown 3-18 00:00: 00 Dose 2022-0 No Unknown 3-18 00:00: 00 Dose 2022-0 No Unknown 3-18 00:00: 00 Dose 2022-0 No Unknown 3-18 00:00: 00 Dose 2022-0 No Unknown 3-18 00:00: 00 Dose 2022-0 No Unknown 3-18 00:00: 00 Dose 2022-0 No Unknown 3-18 00:00: 00 Dose 2022-0 No Unknown 3-18 00:00: 00 Dose 2022-0 No Unknown 3-18 00:00: 00 Dose 2022-0 No Unknown 3-18 00:00: 00 Dose 2022-0 No Unknown 3-18 00:00: 00 Dose 2022-0 No Unknown 3-18 00:00: 00 Dose 2022-0 No Unknown 3-18 00:00: 00 Dose 2022-0 No Unknown 3-18 00:00: 00 Dose 2022-0 No Unknown 3-18 00:00: 00 Dose 2022-0 No Unknown 3-18 00:00: 00 Dose 2022-0 No Unknown 3-18 00:00: 00 Dose 2022-0 No Unknown 3-18 00:00: 00 Dose 2022-0 No Unknown 3-18 00:00: 00 Dose 2022-0 No Unknown 3-18 00:00: 00 Dose 2022-0 No Unknown 3-18 00:00: 00 Dose 2022-0 No Unknown 3-18 00:00: 00 Dose 2022-0 No Unknown 3-18 00:00: 00 Dose 2022-0 No Unknown 3-18 00:00: 00 Dose 2022-0 No Unknown 3-18 00:00: 00 Dose 2022-0 No Unknown 3-18 00:00: 00 Dose 2022-0 No Unknown 3-18 00:00: 00 Dose 2022-0 No Unknown 3-18 00:00: 00 Dose 2022-0 No Unknown 3-18 00:00: 00 Dose 2022-0 No Unknown 3-18 00:00: 00 Dose 2022-0 No Unknown 3-18 00:00: 00 Dose 2022-0 No Unknown 3-18 00:00: 00 Dose 2022-0 No Unknown 3-18 00:00: 00 Dose 2022-0 No Unknown 3-18 00:00: 00 Dose 2022-0 No Unknown 3-18 00:00: 00 Dose 2022-0 No Unknown 3-18 00:00: 00 Dose 2022-0 No Unknown 3-18 00:00: 00 Dose 2022-0 No Unknown 3-18 00:00: 00 Dose 2022-0 No Unknown 3-18 00:00: 00 Dose 2022-0 No Unknown 3-18 00:00: 00 Dose 2022-0 No Unknown 3-18 00:00: 00 Dose 2022-0 No Unknown 3-18 00:00: 00 Dose 2022-0 No Unknown 3-18 00:00: 00 Dose 2022-0 No Unknown 3-18 00:00: 00 Dose 2022-0 No Unknown 3-18 00:00: 00 Dose 2022-0 No Unknown 3-18 00:00: 00 Dose 2022-0 No Unknown 3-18 00:00: 00 Dose 2022-0 No Unknown 3-18 00:00: 00 Dose 2022-0 No Unknown 3-18 00:00: 00 Dose 2022-0 No Unknown 3-18 00:00: 00 Dose 2022-0 No Unknown 3-18 00:00: 00 Dose 2022-0 No Unknown 3-18 00:00: 00 Dose 2022-0 No Unknown 3-18 00:00: 00 Dose 2022-0 No Unknown 3-18 00:00: 00 Dose 2022-0 No Unknown 3-18 00:00: 00 Dose 2022-0 No Unknown 3-18 00:00: 00 Dose 2022-0 No Unknown 3-18 00:00: 00 Dose 2022-0 No Unknown 3-18 00:00: 00 Dose 2022-0 No Unknown 3-18 00:00: 00 Dose 2022-0 No Unknown 3-18 00:00: 00 Dose 2022-0 No Unknown 3-18 00:00: 00 Dose 2022-0 No Unknown 3-18 00:00: 00 Dose 2022-0 No Unknown 3-18 00:00: 00 Dose 2022-0 No Unknown 3-18 00:00: 00 Dose 2022-0 No Unknown 3-18 00:00: 00 Dose 2022-0 No Unknown 3-18 00:00: 00 Dose 2022-0 No Unknown 3-18 00:00: 00 Dose 2022-0 No Unknown 3-18 00:00: 00 Dose 2022-0 No Unknown 3-18 00:00: 00 Dose 2022-0 No Unknown 3-18 00:00: 00 Dose 2022-0 No Unknown 3-18 00:00: 00 Dose 2022-0 No Unknown 3-18 00:00: 00 Dose 2022-0 No Unknown 3-18 00:00: 00 Dose 2022-0 No Unknown 3-18 00:00: 00 Dose 2022-0 No Unknown 3-18 00:00: 00 Dose 2022-0 No Unknown 3-18 00:00: 00 Dose 2022-0 No Unknown 3-18 00:00: 00 Dose 2022-0 No Unknown 3-18 00:00: 00 Dose 2022-0 No Unknown 3-18 00:00: 00 Dose 2022-0 No Unknown 3-18 00:00: 00 Dose 2022-0 No Unknown 3-18 00:00: 00 Dose 2022-0 No Unknown 3-18 00:00: 00 Dose 2022-0 No Unknown 3-18 00:00: 00 Dose 2022-0 No Unknown 3-18 00:00: 00 Dose 2022-0 No Unknown 3-18 00:00: 00 Dose 2022-0 No Unknown 3-18 00:00: 00 Dose 2022-0 No Unknown 3-18 00:00: 00 Dose 2022-0 No Unknown 3-18 00:00: 00 Dose 2022-0 No Unknown 3-18 00:00: 00 Dose 2022-0 No Unknown 3-18 00:00: 00 Dose 2022-0 No Unknown 3-18 00:00: 00 Dose 2022-0 No Unknown 3-18 00:00: 00 Dose 2022-0 No Unknown 3-18 00:00: 00 Dose 2022-0 No Unknown 3-18 00:00: 00 Dose 2022-0 No Unknown 3-18 00:00: 00 Dose 2022-0 No Unknown 3-18 00:00: 00 Dose 2022-0 No Unknown 3-18 00:00: 00 Dose 2022-0 No Unknown 3-18 00:00: 00 Dose 2022-0 No Unknown 3-18 00:00: 00 Dose 2022-0 No Unknown 3-18 00:00: 00 Dose 2022-0 No Unknown 3-18 00:00: 00 Dose 2022-0 No Unknown 3-18 00:00: 00 Dose 2022-0 No Unknown 3-18 00:00: 00 Dose 2022-0 No Unknown 3-18 00:00: 00 Dose 2022-0 No Unknown 3-18 00:00: 00 Dose 2022-0 No Unknown 3-18 00:00: 00 Dose 2022-0 No Unknown 3-18 00:00: 00 Dose 2022-0 No Unknown 3-18 00:00: 00 Dose 2022-0 No Unknown 3-18 00:00: 00 Dose 2022-0 No Unknown 3-18 00:00: 00 Dose 2022-0 No Unknown 3-18 00:00: 00 Dose 2022-0 No Unknown 3-18 00:00: 00 Dose 2022-0 No Unknown 3-18 00:00: 00 Dose 2022-0 No Unknown 3-18 00:00: 00 Dose 2022-0 No Unknown 3-18 00:00: 00 Dose 2022-0 No Unknown 3-18 00:00: 00 Dose 2022-0 No Unknown 3-18 00:00: 00 Dose 2022-0 No Unknown 3-18 00:00: 00 Dose 2022-0 No Unknown 3-18 00:00: 00 Dose 2022-0 No Unknown 3-18 00:00: 00 Dose 2022-0 No Unknown 3-18 00:00: 00 Dose 2022-0 No Unknown 3-18 00:00: 00 Dose 2022-0 No Unknown 3-18 00:00: 00 Dose 2022-0 No Unknown 3-18 00:00: 00 Dose 2022-0 No Unknown 3-18 00:00: 00 Dose 2022-0 No Unknown 3-18 00:00: 00 Dose 2022-0 No Unknown 3-18 00:00: 00 Dose 2022-0 No Unknown 3-18 00:00: 00 Dose 2022-0 No Unknown 3-18 00:00: 00 Dose 2022-0 No Unknown 3-18 00:00: 00 Dose 2022-0 No Unknown 3-18 00:00: 00 Dose 2022-0 No Unknown 3-18 00:00: 00 Dose 2022-0 No Unknown 3-18 00:00: 00 Dose 2022-0 No Unknown 3-18 00:00: 00 Dose 2022-0 No Unknown 3-18 00:00: 00 Dose 2022-0 No Unknown 3-18 00:00: 00 Dose 2022-0 No Unknown 3-18 00:00: 00 Dose 2022-0 No Unknown 3-18 00:00: 00 Dose 2022-0 No Unknown 3-18 00:00: 00 Dose 2022-0 No Unknown 3-18 00:00: 00 Dose 2022-0 No Unknown 3-18 00:00: 00 Dose 2022-0 No Unknown 3-18 00:00: 00 Dose 2022-0 No Unknown 3-18 00:00: 00 Dose 2022-0 No Unknown 3-18 00:00: 00 Dose 2022-0 No Unknown 3-18 00:00: 00 Dose 2022-0 No Unknown 3-18 00:00: 00 Dose 2022-0 No Unknown 3-18 00:00: 00 Dose 2022-0 No Unknown 3-18 00:00: 00 Dose 2022-0 No Unknown 3-18 00:00: 00 Dose 2022-0 No Unknown 3-18 00:00: 00 Dose 2022-0 No Unknown 3-18 00:00: 00 Dose 2022-0 No Unknown 3-18 00:00: 00 Dose 2022-0 No Unknown 3-18 00:00: 00 Dose 2022-0 No Unknown 3-18 00:00: 00 Dose 2022-0 No Unknown 3-18 00:00: 00 Dose 2022-0 No Unknown 3-18 00:00: 00 Dose 2022-0 No Unknown 3-18 00:00: 00 Dose 2022-0 No Unknown 3-18 00:00: 00 Dose 2022-0 No Unknown 3-18 00:00: 00 Dose 2022-0 No Unknown 3-18 00:00: 00 Dose 2022-0 No Unknown 3-18 00:00: 00 Dose 2022-0 No Unknown 3-18 00:00: 00 Dose 2022-0 No Unknown 3-18 00:00: 00 Dose 2022-0 No Unknown 3-18 00:00: 00 Dose 2022-0 No Unknown 3-18 00:00: 00 Dose 2022-0 No Unknown 3-18 00:00: 00 Dose 2022-0 No Unknown 3-18 00:00: 00 Dose 2022-0 No Unknown 3-18 00:00: 00 Dose 2022-0 No Unknown 3-18 00:00: 00 Dose 2022-0 No Unknown 3-18 00:00: 00 Dose 2022-0 No Unknown 3-18 00:00: 00 Dose 2022-0 No Unknown 3-18 00:00: 00 Dose 2022-0 No Unknown 3-18 00:00: 00 Dose 2022-0 No Unknown 3-18 00:00: 00 Dose 2022-0 No Unknown 3-18 00:00: 00 Dose 2022-0 No Unknown 3-18 00:00: 00 Dose 2022-0 No Unknown 3-18 00:00: 00 Dose 2022-0 No Unknown 3-18 00:00: 00 Dose 2022-0 No Unknown 3-18 00:00: 00 Dose 2022-0 No Unknown 3-18 00:00: 00 Dose 2022-0 No Unknown 3-18 00:00: 00 Dose 2022-0 No Unknown 3-18 00:00: 00 Dose 2022-0 No Unknown 3-18 00:00: 00 Dose 2022-0 No Unknown 3-18 00:00: 00 Dose 2022-0 No Unknown 3-18 00:00: 00 Dose 2022-0 No Unknown 3-18 00:00: 00 Dose 2022-0 No Unknown 3-18 00:00: 00 Dose 2022-0 No Unknown 3-18 00:00: 00 Dose 2022-0 No Unknown 3-18 00:00: 00 Dose 2022-0 No Unknown 3-18 00:00: 00 Dose 2022-0 No Unknown 3-18 00:00: 00 Dose 2022-0 No Unknown 3-18 00:00: 00 Dose 2022-0 No Unknown 3-18 00:00: 00 Dose 2022-0 No Unknown 3-18 00:00: 00 Dose 2022-0 No Unknown 3-18 00:00: 00 Dose 2022-0 No Unknown 3-18 00:00: 00 Dose 2022-0 No Unknown 3-18 00:00: 00 Dose 2022-0 No Unknown 3-18 00:00: 00 Dose 2022-0 No Unknown 3-18 00:00: 00 Dose 2022-0 No Unknown 3-18 00:00: 00 Dose 2022-0 No Unknown 3-18 00:00: 00 Dose 2022-0 No Unknown 3-18 00:00: 00 Dose 2022-0 No Unknown 3-18 00:00: 00 Dose 2022-0 No Unknown 3-18 00:00: 00 Dose 2022-0 No Unknown 3-18 00:00: 00 Dose 2022-0 No Unknown 3-18 00:00: 00 Dose 2022-0 No Unknown 3-18 00:00: 00 Dose 2022-0 No Unknown 3-18 00:00: 00 Dose 2022-0 No Unknown 3-18 00:00: 00 Dose 2022-0 No Unknown 3-18 00:00: 00 Dose 2022-0 No Unknown 3-18 00:00: 00 Dose 2022-0 No Unknown 3-18 00:00: 00 Dose 2022-0 No Unknown 3-18 00:00: 00 Dose 2022-0 No Unknown 3-18 00:00: 00 Dose 2022-0 No Unknown 3-18 00:00: 00 Dose 2022-0 No Unknown 3-18 00:00: 00 Dose 2022-0 No Unknown 3-18 00:00: 00 Dose 2022-0 No Unknown 3-18 00:00: 00 Dose 2022-0 No Unknown 3-18 00:00: 00 Dose 2022-0 No Unknown 3-18 00:00: 00 Dose 2022-0 No Unknown 3-18 00:00: 00 Dose 2022-0 No Unknown 3-18 00:00: 00 Dose 2022-0 No Unknown 3-18 00:00: 00 Dose 2022-0 No Unknown 3-18 00:00: 00 Dose 2022-0 No Unknown 3-18 00:00: 00 Dose 2022-0 No Unknown 3-18 00:00: 00 Dose 2022-0 No Unknown 3-18 00:00: 00 Dose 2022-0 No Unknown 3-18 00:00: 00 Dose 2022-0 No Unknown 3-18 00:00: 00 Dose 2022-0 No Unknown 3-18 00:00: 00 Dose 2022-0 No Unknown 3-18 00:00: 00 Dose 2022-0 No Unknown 3-18 00:00: 00 Dose 2022-0 No Unknown 3-18 00:00: 00 Dose 2022-0 No Unknown 3-18 00:00: 00 Dose 2022-0 No Unknown 3-18 00:00: 00 Dose 2022-0 No Unknown 3-18 00:00: 00 Dose 2022-0 No Unknown 3-18 00:00: 00 Dose 2022-0 No Unknown 3-18 00:00: 00 Dose 2022-0 No Unknown 3-18 00:00: 00 Dose 2022-0 No Unknown 3-18 00:00: 00 Dose 2022-0 No Unknown 3-18 00:00: 00 Dose 2022-0 No Unknown 3-18 00:00: 00 Dose 2022-0 No Unknown 3-18 00:00: 00 Dose 2022-0 No Unknown 3-18 00:00: 00 Dose 2022-0 No Unknown 3-18 00:00: 00 Dose 2022-0 No Unknown 3-18 00:00: 00 Dose 2022-0 No Unknown 3-18 00:00: 00 Dose 2022-0 No Unknown 3-18 00:00: 00 Dose 2022-0 No Unknown 3-18 00:00: 00 Dose 2022-0 No Unknown 3-18 00:00: 00 Dose 2022-0 No Unknown 3-18 00:00: 00 Dose 2022-0 No Unknown 3-18 00:00: 00 Dose 2022-0 No Unknown 3-18 00:00: 00 Dose 2022-0 No Unknown 3-18 00:00: 00 Dose 2022-0 No Unknown 3-18 00:00: 00 Dose 2022-0 No Unknown 3-18 00:00: 00 Dose 2022-0 No Unknown 3-18 00:00: 00 Dose 2022-0 No Unknown 3-18 00:00: 00 Dose 2022-0 No Unknown 3-18 00:00: 00 Dose 2022-0 No Unknown 3-18 00:00: 00 Dose 2022-0 No Unknown 3-18 00:00: 00 Dose 2022-0 No Unknown 3-18 00:00: 00 Dose 2022-0 No Unknown 3-18 00:00: 00 Dose 2022-0 No Unknown 3-18 00:00: 00 Dose 2022-0 No Unknown 3-18 00:00: 00 Dose 2022-0 No Unknown 3-18 00:00: 00 Dose 2022-0 No Unknown 3-18 00:00: 00 Dose 2022-0 No Unknown 3-18 00:00: 00 Dose 2022-0 No Unknown 3-18 00:00: 00 Dose 2022-0 No Unknown 3-18 00:00: 00 Dose 2022-0 No Unknown 3-18 00:00: 00 Dose 2022-0 No Unknown 3-18 00:00: 00 Dose 2022-0 No Unknown 3-18 00:00: 00 Dose 2022-0 No Unknown 3-18 00:00: 00 Dose 2022-0 No Unknown 3-18 00:00: 00 Dose 2022-0 No Unknown 3-18 00:00: 00 Dose 2022-0 No Unknown 3-18 00:00: 00 Dose 2022-0 No Unknown 3-18 00:00: 00 Dose 2022-0 No Unknown 3-18 00:00: 00 Dose 2022-0 No Unknown 3-18 00:00: 00 Dose 2022-0 No Unknown 3-18 00:00: 00 Dose 2022-0 No Unknown 3-18 00:00: 00 Dose 2022-0 No Unknown 3-18 00:00: 00 Dose 2022-0 No Unknown 3-18 00:00: 00 Dose 2022-0 No Unknown 3-18 00:00: 00 Dose 2022-0 No Unknown 3-18 00:00: 00 Dose 2022-0 No Unknown 3-18 00:00: 00 Dose 2022-0 No Unknown 3-18 00:00: 00 Dose 2022-0 No Unknown 3-18 00:00: 00 Dose 2022-0 No Unknown 3-18 00:00: 00 Dose 2022-0 No Unknown 3-18 00:00: 00 Dose 2022-0 No Unknown 3-18 00:00: 00 Dose 2022-0 No Unknown 3-18 00:00: 00 Dose 2022-0 No Unknown 3-18 00:00: 00 Dose 2022-0 No Unknown 3-18 00:00: 00 Dose 2022-0 No Unknown 3-18 00:00: 00 Dose 2022-0 No Unknown 3-18 00:00: 00 Dose 2022-0 No Unknown 3-18 00:00: 00 Dose 2022-0 No Unknown 3-18 00:00: 00 Dose 2022-0 No Unknown 3-18 00:00: 00 Dose 2022-0 No Unknown 3-18 00:00: 00 Dose 2022-0 No Unknown 3-18 00:00: 00 Dose 2022-0 No Unknown 3-18 00:00: 00 Dose 2022-0 No Unknown 3-18 00:00: 00 Dose 2022-0 No Unknown 3-18 00:00: 00 Dose 2022-0 No Unknown 3-18 00:00: 00 Dose 2022-0 No Unknown 3-18 00:00: 00 Dose 2022-0 No Unknown 3-18 00:00: 00 Dose 2022-0 No Unknown 3-18 00:00: 00 Dose 2022-0 No Unknown 3-18 00:00: 00 Dose 2022-0 No Unknown 3-18 00:00: 00 Dose 2022-0 No Unknown 3-18 00:00: 00 Dose 2022-0 No Unknown 3-18 00:00: 00 Dose 2022-0 No Unknown 3-18 00:00: 00 Dose 2022-0 No Unknown 3-18 00:00: 00 Dose 2022-0 No Unknown 3-18 00:00: 00 Dose 2022-0 No Unknown 3-18 00:00: 00 Dose 2022-0 No Unknown 3-18 00:00: 00 Dose 2022-0 No Unknown 3-18 00:00: 00 Dose 2022-0 No Unknown 3-18 00:00: 00 Dose 2022-0 No Unknown 3-18 00:00: 00 Dose 2022-0 No Unknown 3-18 00:00: 00 Dose 2022-0 No Unknown 3-18 00:00: 00 Dose 2022-0 No Unknown 3-18 00:00: 00 Dose 2022-0 No Unknown 3-18 00:00: 00 Dose 2022-0 No Unknown 3-18 00:00: 00 Dose 2022-0 No Unknown 3-18 00:00: 00 Dose 2022-0 No Unknown 3-18 00:00: 00 Dose 2022-0 No Unknown 3-18 00:00: 00 Dose 2022-0 No Unknown 3-18 00:00: 00 Dose 2022-0 No Unknown 3-18 00:00: 00 Dose 2022-0 No Unknown 3-18 00:00: 00 Dose 2022-0 No Unknown 3-18 00:00: 00 Dose 2022-0 No Unknown 3-18 00:00: 00 Dose 2022-0 No Unknown 3-18 00:00: 00 Dose 2022-0 No Unknown 3-18 00:00: 00 Dose 2022-0 No Unknown 3-18 00:00: 00 Dose 2022-0 No Unknown 3-18 00:00: 00 Dose 2022-0 No Unknown 3-18 00:00: 00 Dose 2022-0 No Unknown 3-18 00:00: 00 Dose 2022-0 No Unknown 3-18 00:00: 00 Dose 2022-0 No Unknown 3-18 00:00: 00 Dose 2022-0 No Unknown 3-18 00:00: 00 Dose 2022-0 No Unknown 3-18 00:00: 00 Dose 2022-0 No Unknown 3-18 00:00: 00 Dose 2022-0 No Unknown 3-18 00:00: 00 Dose 2022-0 No Unknown 3-18 00:00: 00 Dose 2022-0 No Unknown 3-18 00:00: 00 Dose 2022-0 No Unknown 3-18 00:00: 00 Dose 2022-0 No Unknown 3-18 00:00: 00 Dose 2022-0 No Unknown 3-18 00:00: 00 Dose 2022-0 No Unknown 3-18 00:00: 00 Dose 2022-0 No Unknown 3-18 00:00: 00 Dose 2022-0 No Unknown 3-18 00:00: 00 Dose 2022-0 No Unknown 3-18 00:00: 00 Dose 2022-0 No Unknown 3-18 00:00: 00 Dose 2022-0 No Unknown 3-18 00:00: 00 Dose 2022-0 No Unknown 3-18 00:00: 00 Dose 2022-0 No Unknown 3-18 00:00: 00 Dose 2022-0 No Unknown 3-18 00:00: 00 Dose 2022-0 No Unknown 3-18 00:00: 00 Dose 2022-0 No Unknown 3-18 00:00: 00 Dose 2022-0 No Unknown 3-18 00:00: 00 Dose 2022-0 No Unknown 3-18 00:00: 00 Dose 2022-0 No Unknown 3-18 00:00: 00 Dose 2022-0 No Unknown 3-18 00:00: 00 Dose 2022-0 No Unknown 3-18 00:00: 00 Dose 2022-0 No Unknown 3-18 00:00: 00 Dose 2022-0 No Unknown 3-18 00:00: 00 Dose 2022-0 No Unknown 3-18 00:00: 00 Dose 2022-0 No Unknown 3-18 00:00: 00 Dose 2022-0 No Unknown 3-18 00:00: 00 Dose 2022-0 No Unknown 3-18 00:00: 00 Dose 2022-0 No Unknown 3-18 00:00: 00 Dose 2022-0 No Unknown 3-18 00:00: 00 Dose 2022-0 No Unknown 3-18 00:00: 00 Dose 2022-0 No Unknown 3-18 00:00: 00 Dose 2022-0 No Unknown 3-18 00:00: 00 Dose 2022-0 No Unknown 3-18 00:00: 00 Dose 2022-0 No Unknown 3-18 00:00: 00 Dose 2022-0 No Unknown 3-18 00:00: 00 Dose 2022-0 No Unknown 3-18 00:00: 00 Dose 2022-0 No Unknown 3-18 00:00: 00 Dose 2022-0 No Unknown 3-18 00:00: 00 Dose 2022-0 No Unknown 3-18 00:00: 00 Dose 2022-0 No Unknown 3-17 00:00: 00 Dose 2022-0 No Unknown 3-17 00:00: 00 Dose 2022-0 No Unknown 3-17 00:00: 00 Dose 2022-0 No Unknown 3-17 00:00: 00 Dose 2022-0 No Unknown 3-17 00:00: 00 Dose 2022-0 No Unknown 3-17 00:00: 00 Dose 2022-0 No Unknown 3-17 00:00: 00 Dose 2022-0 No Unknown 3-17 00:00: 00 Dose 2022-0 No Unknown 3-17 00:00: 00 Dose 2022-0 No Unknown 3-17 00:00: 00 Dose 2022-0 No Unknown 3-17 00:00: 00 Dose 2022-0 No Unknown 3-17 00:00: 00 Dose 2022-0 No Unknown 3-17 00:00: 00 Dose 2022-0 No Unknown 3-17 00:00: 00 Dose 2022-0 No Unknown 3-17 00:00: 00 Dose 2022-0 No Unknown 3-17 00:00: 00 Dose 2022-0 No Unknown 3-17 00:00: 00 Dose 2022-0 No Unknown 3-17 00:00: 00 Dose 2022-0 No Unknown 3-17 00:00: 00 Dose 2022-0 No Unknown 3-17 00:00: 00 Dose 2022-0 No Unknown 3-17 00:00: 00 Dose 2022-0 No Unknown 3-17 00:00: 00 Dose 2022-0 No Unknown 3-17 00:00: 00 Dose 2022-0 No Unknown 3-17 00:00: 00 Dose 2022-0 No Unknown 3-17 00:00: 00 Dose 2022-0 No Unknown 3-17 00:00: 00 Dose 2022-0 No Unknown 3-17 00:00: 00 Dose 2022-0 No Unknown 3-17 00:00: 00 Dose 2022-0 No Unknown 3-17 00:00: 00 Dose 2022-0 No Unknown 3-17 00:00: 00 Dose 2022-0 No Unknown 3-17 00:00: 00 Dose 2022-0 No Unknown 3-17 00:00: 00 Dose 2022-0 No Unknown 3-17 00:00: 00 Dose 2022-0 No Unknown 3-17 00:00: 00 Dose 2022-0 No Unknown 3-17 00:00: 00 Dose 2022-0 No Unknown 3-17 00:00: 00 Dose 2022-0 No Unknown 3-17 00:00: 00 Dose 2022-0 No Unknown 3-17 00:00: 00 Dose 2022-0 No Unknown 3-17 00:00: 00 Dose 2022-0 No Unknown 3-17 00:00: 00 Dose 2022-0 No Unknown 3-17 00:00: 00 Dose 2022-0 No Unknown 3-17 00:00: 00 Dose 2022-0 No Unknown 3-17 00:00: 00 Dose 2022-0 No Unknown 3-17 00:00: 00 Dose 2022-0 No Unknown 3-17 00:00: 00 Dose 2022-0 No Unknown 3-17 00:00: 00 Dose 2022-0 No Unknown 3-17 00:00: 00 Dose 2022-0 No Unknown 3-17 00:00: 00 Dose 2022-0 No Unknown 3-17 00:00: 00 Dose 2022-0 No Unknown 3-17 00:00: 00 Dose 2022-0 No Unknown 3-17 00:00: 00 Dose 2022-0 No Unknown 3-17 00:00: 00 Dose 2022-0 No Unknown 3-17 00:00: 00 Dose 2022-0 No Unknown 3-17 00:00: 00 Dose 2022-0 No Unknown 3-17 00:00: 00 Dose 2022-0 No Unknown 3-17 00:00: 00 Dose 2022-0 No Unknown 3-11 00:00: 00 Dose 2022-0 No Unknown 3-11 00:00: 00 Dose 2022-0 No Unknown 3-11 00:00: 00 Dose 2022-0 No Unknown 3-11 00:00: 00 Dose 2022-0 No Unknown 3-11 00:00: 00 Dose 2022-0 No Unknown 3-11 00:00: 00 Dose 2022-0 No Unknown 3-11 00:00: 00 Dose 2022-0 No Unknown 3-11 00:00: 00 Dose 2022-0 No Unknown 3-11 00:00: 00 Dose 2022-0 No Unknown 3-11 00:00: 00 Dose 2022-0 No Unknown 3-11 00:00: 00 Dose 2022-0 No Unknown 3-11 00:00: 00 Dose 2022-0 No Unknown 3-11 00:00: 00 Dose 2022-0 No Unknown 3-11 00:00: 00 Dose 2022-0 No Unknown 3-11 00:00: 00 Dose 2022-0 No Unknown 3-11 00:00: 00 Dose 2022-0 No Unknown 3-11 00:00: 00 Dose 2022-0 No Unknown 3-11 00:00: 00 Dose 2022-0 No Unknown 3-11 00:00: 00 Dose 2022-0 No Unknown 3-11 00:00: 00 Dose 2022-0 No Unknown 3-11 00:00: 00 Dose 2022-0 No Unknown 3-11 00:00: 00 Dose 2022-0 No Unknown 3-11 00:00: 00 Dose 2022-0 No Unknown 3-11 00:00: 00 Dose 2022-0 No Unknown 3-11 00:00: 00 Dose 2022-0 No Unknown 3-11 00:00: 00 Dose 2022-0 No Unknown 3-11 00:00: 00 Dose 2022-0 No Unknown 3-11 00:00: 00 Dose 2022-0 No Unknown 3-11 00:00: 00 Dose 2022-0 No Unknown 3-11 00:00: 00 Dose 2022-0 No Unknown 3-11 00:00: 00 Dose 2022-0 No Unknown 3-11 00:00: 00 Dose 2022-0 No Unknown 3-11 00:00: 00 Dose 2022-0 No Unknown 3-11 00:00: 00 Dose 2022-0 No Unknown 3-11 00:00: 00 Dose 2022-0 No Unknown 3-11 00:00: 00 Dose 2022-0 No Unknown 3-11 00:00: 00 Dose 2022-0 No Unknown 3-11 00:00: 00 Dose 2022-0 No Unknown 3-11 00:00: 00 Dose 2022-0 No Unknown 3-11 00:00: 00 Dose 2022-0 No Unknown 3-11 00:00: 00 Dose 2022-0 No Unknown 3-11 00:00: 00 Dose 2022-0 No Unknown 3-11 00:00: 00 Dose 2022-0 No Unknown 3-11 00:00: 00 Dose 2022-0 No Unknown 3-11 00:00: 00 Dose 2022-0 No Unknown 3-11 00:00: 00 Dose 2022-0 No Unknown 3-11 00:00: 00 Dose 2022-0 No Unknown 3-11 00:00: 00 Dose 2022-0 No Unknown 3-11 00:00: 00 Dose 2022-0 No Unknown 3-11 00:00: 00 Dose 2022-0 No Unknown 3-11 00:00: 00 Dose 2022-0 No Unknown 3-11 00:00: 00 Dose 2022-0 No Unknown 3-11 00:00: 00 Dose 2022-0 No Unknown 3-11 00:00: 00 Dose 2022-0 No Unknown 3-11 00:00: 00 Dose 2022-0 No Unknown 3-11 00:00: 00 Dose 2022-0 No Unknown 3-11 00:00: 00 Dose 2022-0 No Unknown 3-11 00:00: 00 Dose 2022-0 No Unknown 3-11 00:00: 00 Dose 2022-0 No Unknown 3-11 00:00: 00 Dose 2022-0 No Unknown 3-11 00:00: 00 Dose 2022-0 No Unknown 3-11 00:00: 00 Dose 2022-0 No Unknown 3-11 00:00: 00 Dose 2022-0 No Unknown 3-11 00:00: 00 Dose 2022-0 No Unknown 3-11 00:00: 00 Dose 2022-0 No Unknown 3-11 00:00: 00 Dose 2022-0 No Unknown 3-11 00:00: 00 Dose 2022-0 No Unknown 3-11 00:00: 00 Dose 2022-0 No Unknown 3-11 00:00: 00 Dose 2022-0 No Unknown 3-11 00:00: 00 Dose 2022-0 No Unknown 3-11 00:00: 00 Dose 2022-0 No Unknown 3-11 00:00: 00 Dose 2022-0 No Unknown 3-11 00:00: 00 Dose 2022-0 No Unknown 3-11 00:00: 00 Dose 2022-0 No Unknown 3-11 00:00: 00 Dose 2022-0 No Unknown 3-11 00:00: 00 Dose 2022-0 No Unknown 3-11 00:00: 00 Dose 2022-0 No Unknown 3-11 00:00: 00 Dose 2022-0 No Unknown 3-11 00:00: 00 Dose 2022-0 No Unknown 3-11 00:00: 00 Dose 2022-0 No Unknown 3-11 00:00: 00 Dose 2022-0 No Unknown 3-11 00:00: 00 Dose 2022-0 No Unknown 3-11 00:00: 00 Dose 2022-0 No Unknown 3-11 00:00: 00 Dose 2022-0 No Unknown 3-11 00:00: 00 Dose 2022-0 No Unknown 3-11 00:00: 00 Dose 2022-0 No Unknown 3-11 00:00: 00 Dose 2022-0 No Unknown 3-11 00:00: 00 Dose 2022-0 No Unknown 3-11 00:00: 00 Dose 2022-0 No Unknown 3-11 00:00: 00 Dose 2022-0 No Unknown 3-11 00:00: 00 Dose 2022-0 No Unknown 3-11 00:00: 00 Dose 2022-0 No Unknown 3-11 00:00: 00 Dose 2022-0 No Unknown 3-11 00:00: 00 Dose 2022-0 No Unknown 3-11 00:00: 00 Dose 2022-0 No Unknown 3-11 00:00: 00 Dose 2022-0 No Unknown 3-11 00:00: 00 Dose 2022-0 No Unknown 3-11 00:00: 00 Dose 2022-0 No Unknown 3-11 00:00: 00 Dose 2022-0 No Unknown 3-11 00:00: 00 Dose 2022-0 No Unknown 3-11 00:00: 00 Dose 2022-0 No Unknown 3-11 00:00: 00 Dose 2022-0 No Unknown 3-11 00:00: 00 Dose 2022-0 No Unknown 3-11 00:00: 00 Dose 2022-0 No Unknown 3-11 00:00: 00 Dose 2022-0 No Unknown 3-11 00:00: 00 Dose 2022-0 No Unknown 3-11 00:00: 00 Dose 2022-0 No Unknown 3-11 00:00: 00 Dose 2022-0 No Unknown 3-11 00:00: 00 Dose 2022-0 No Unknown 3-11 00:00: 00 Dose 2022-0 No Unknown 3-11 00:00: 00 Dose 2022-0 No Unknown 3-11 00:00: 00 Dose 2022-0 No Unknown 3-11 00:00: 00 Dose 2022-0 No Unknown 3-11 00:00: 00 Dose 2022-0 No Unknown 3-11 00:00: 00 Dose 2022-0 No Unknown 3-11 00:00: 00 Dose 2022-0 No Unknown 3-11 00:00: 00 Dose 2022-0 No Unknown 3-11 00:00: 00 Dose 2022-0 No Unknown 3-11 00:00: 00 Dose 2022-0 No Unknown 3-11 00:00: 00 Dose 2022-0 No Unknown 3-11 00:00: 00 Dose 2022-0 No Unknown 3-11 00:00: 00 Dose 2022-0 No Unknown 3-11 00:00: 00 Dose 2022-0 No Unknown 3-11 00:00: 00 Dose 2022-0 No Unknown 3-11 00:00: 00 Dose 2022-0 No Unknown 3-11 00:00: 00 Dose 2022-0 No Unknown 3-11 00:00: 00 Dose 2022-0 No Unknown 3-11 00:00: 00 Dose 2022-0 No Unknown 3-11 00:00: 00 Dose 2022-0 No Unknown 3-11 00:00: 00 Dose 2022-0 No Unknown 3-11 00:00: 00 Dose 2022-0 No Unknown 3-11 00:00: 00 Dose 2022-0 No Unknown 3-11 00:00: 00 Dose 2022-0 No Unknown 3-11 00:00: 00 Dose 2022-0 No Unknown 3-11 00:00: 00 Dose 2022-0 No Unknown 3-11 00:00: 00 Dose 2022-0 No Unknown 3-11 00:00: 00 Dose 2022-0 No Unknown 3-11 00:00: 00 Dose 2022-0 No Unknown 3-11 00:00: 00 Dose 2022-0 No Unknown 3-11 00:00: 00 Dose 2022-0 No Unknown 3-11 00:00: 00 Dose 2022-0 No Unknown 3-11 00:00: 00 Dose 2022-0 No Unknown 3-11 00:00: 00 Dose 2022-0 No Unknown 3-11 00:00: 00 Dose 2022-0 No Unknown 3-11 00:00: 00 Dose 2022-0 No Unknown 3-11 00:00: 00 Dose 2022-0 No Unknown 3-11 00:00: 00 Dose 2022-0 No Unknown 3-11 00:00: 00 Dose 2022-0 No Unknown 3-11 00:00: 00 Dose 2022-0 No Unknown 3-11 00:00: 00 Dose 2022-0 No Unknown 3-11 00:00: 00 Dose 2022-0 No Unknown 3-11 00:00: 00 Dose 2022-0 No Unknown 3-11 00:00: 00 Dose 2022-0 No Unknown 3-11 00:00: 00 Dose 2022-0 No Unknown 3-11 00:00: 00 Dose 2022-0 No Unknown 3-11 00:00: 00 Dose 2022-0 No Unknown 3-11 00:00: 00 Dose 2022-0 No Unknown 3-11 00:00: 00 Dose 2022-0 No Unknown 3-11 00:00: 00 Dose 2022-0 No Unknown 3-11 00:00: 00 Dose 2022-0 No Unknown 3-11 00:00: 00 Dose 2022-0 No Unknown 3-11 00:00: 00 Dose 2022-0 No Unknown 3-11 00:00: 00 Dose 2022-0 No Unknown 3-11 00:00: 00 Dose 2022-0 No Unknown 3-11 00:00: 00 Dose 2022-0 No Unknown 3-11 00:00: 00 Dose 2022-0 No Unknown 3-11 00:00: 00 Dose 2022-0 No Unknown 3-11 00:00: 00 Dose 2022-0 No Unknown 3-09 00:00: 00 Dose 2022-0 No Unknown 3-09 00:00: 00 Dose 2022-0 No Unknown 3-09 00:00: 00 Dose 2022-0 No Unknown 3-09 00:00: 00 Dose 2022-0 No Unknown 3-09 00:00: 00 Dose 2022-0 No Unknown 3-09 00:00: 00 Dose 2022-0 No Unknown 3-09 00:00: 00 Dose 2022-0 No Unknown 3-09 00:00: 00 Dose 2022-0 No Unknown 3-09 00:00: 00 Dose 2022-0 No Unknown 3-09 00:00: 00 Dose 2022-0 No Unknown 3-09 00:00: 00 Dose 2022-0 No Unknown 3-09 00:00: 00 Dose 2022-0 No Unknown 3-09 00:00: 00 Dose 2022-0 No Unknown 3-09 00:00: 00 Dose 2022-0 No Unknown 3-09 00:00: 00 Dose 2022-0 No Unknown 3-09 00:00: 00 Dose 2022-0 No Unknown 3-09 00:00: 00 Dose 2022-0 No Unknown 3-09 00:00: 00 Dose 2022-0 No Unknown 3-09 00:00: 00 Dose 2022-0 No Unknown 3-09 00:00: 00 Dose 2022-0 No Unknown 3-09 00:00: 00 Dose 2022-0 No Unknown 3-09 00:00: 00 Dose 2022-0 No Unknown 3-09 00:00: 00 Dose 2022-0 No Unknown 3-09 00:00: 00 Dose 2022-0 No Unknown 3-09 00:00: 00 Dose 2022-0 No Unknown 3-09 00:00: 00 Dose 2022-0 No Unknown 3-09 00:00: 00 Dose 2022-0 No Unknown 3-09 00:00: 00 Dose 2022-0 No Unknown 3-09 00:00: 00 Dose 2022-0 No Unknown 3-09 00:00: 00 Dose 2022-0 No Unknown 3-09 00:00: 00 Dose 2022-0 No Unknown 3-09 00:00: 00 Dose 2022-0 No Unknown 3-09 00:00: 00 Dose 2022-0 No Unknown 3-09 00:00: 00 Dose 2022-0 No Unknown 3-09 00:00: 00 Dose 2022-0 No Unknown 3-09 00:00: 00 Dose 2022-0 No Unknown 3-09 00:00: 00 Dose 2022-0 No Unknown 3-09 00:00: 00 Dose 2022-0 No Unknown 3-09 00:00: 00 Dose 2022-0 No Unknown 3-09 00:00: 00 Dose 2022-0 No Unknown 3-09 00:00: 00 Dose 2022-0 No Unknown 3-09 00:00: 00 Dose 2022-0 No Unknown 3-09 00:00: 00 Dose 2022-0 No Unknown 3-09 00:00: 00 Dose 2022-0 No Unknown 3-09 00:00: 00 Dose 2022-0 No Unknown 3-09 00:00: 00 Dose 2022-0 No Unknown 3-09 00:00: 00 Dose 2022-0 No Unknown 3-09 00:00: 00 Dose 2022-0 No Unknown 3-09 00:00: 00 Dose 2022-0 No Unknown 3-09 00:00: 00 Dose 2022-0 No Unknown 3-09 00:00: 00 Dose 2022-0 No Unknown 3-09 00:00: 00 Dose 2022-0 No Unknown 3-09 00:00: 00 Dose 2022-0 No Unknown 3-09 00:00: 00 Dose 2022-0 No Unknown 3-09 00:00: 00 Dose 2022-0 No Unknown 3-09 00:00: 00 Dose 2022-0 No Unknown 3-09 00:00: 00 Dose 2022-0 No Unknown 3-09 00:00: 00 Dose 2022-0 No Unknown 3-09 00:00: 00 Dose 2022-0 No Unknown 3-09 00:00: 00 Dose 2022-0 No Unknown 3-09 00:00: 00 Dose 2022-0 No Unknown 3-09 00:00: 00 Dose 2022-0 No Unknown 3-09 00:00: 00 Dose 2022-0 No Unknown 3-09 00:00: 00 Dose 2022-0 No Unknown 3-09 00:00: 00 Dose 2022-0 No Unknown 3-09 00:00: 00 Dose 2022-0 No Unknown 3-09 00:00: 00 Dose 2022-0 No Unknown 3-09 00:00: 00 Dose 2022-0 No Unknown 3-09 00:00: 00 Dose 2022-0 No Unknown 3-09 00:00: 00 Dose 2022-0 No Unknown 3-09 00:00: 00 Dose 2022-0 No Unknown 3-09 00:00: 00 Dose 2022-0 No Unknown 3-09 00:00: 00 Dose 2022-0 No Unknown 3-09 00:00: 00 Dose 2022-0 No Unknown 3-09 00:00: 00 Dose 2022-0 No Unknown 3-09 00:00: 00 Dose 2022-0 No Unknown 3-09 00:00: 00 Dose 2022-0 No Unknown 3-09 00:00: 00 Dose 2022-0 No Unknown 3-09 00:00: 00 Dose 2022-0 No Unknown 3-09 00:00: 00 Dose 2022-0 No Unknown 3-09 00:00: 00 Dose 2022-0 No Unknown 3-09 00:00: 00 Dose 2022-0 No Unknown 3-09 00:00: 00 Dose 2022-0 No Unknown 3-09 00:00: 00 Dose 2022-0 No Unknown 3-09 00:00: 00 Dose 2022-0 No Unknown 3-09 00:00: 00 Dose 2022-0 No Unknown 3-09 00:00: 00 Dose 2022-0 No Unknown 3-09 00:00: 00 Dose 2022-0 No Unknown 3-09 00:00: 00 Dose 2022-0 No Unknown 3-09 00:00: 00 Dose 2022-0 No Unknown 3-09 00:00: 00 Dose 2022-0 No Unknown 3-09 00:00: 00 Dose 2022-0 No Unknown 3-09 00:00: 00 Dose 2022-0 No Unknown 3-09 00:00: 00 Dose 2022-0 No Unknown 3-09 00:00: 00 Dose 2022-0 No Unknown 3-09 00:00: 00 Dose 2022-0 No Unknown 3-09 00:00: 00 Dose 2022-0 No Unknown 3-09 00:00: 00 Dose 2022-0 No Unknown 3-09 00:00: 00 Dose 2022-0 No Unknown 3-09 00:00: 00 Dose 2022-0 No Unknown 3-09 00:00: 00 Dose 2022-0 No Unknown 3-09 00:00: 00 Dose 2022-0 No Unknown 3-09 00:00: 00 Dose 2022-0 No Unknown 3-09 00:00: 00 Dose 2022-0 No Unknown 3-09 00:00: 00 Dose 2022-0 No Unknown 3-09 00:00: 00 Dose 2022-0 No Unknown 3-09 00:00: 00 Dose 2022-0 No Unknown 3-09 00:00: 00 Dose 2022-0 No Unknown 3-09 00:00: 00 Dose 2022-0 No Unknown 3-09 00:00: 00 Dose 2022-0 No Unknown 3-09 00:00: 00 Dose 2022-0 No Unknown 3-09 00:00: 00 Dose 2022-0 No Unknown 3-09 00:00: 00 Dose 2022-0 No Unknown 3-09 00:00: 00 Dose 2022-0 No Unknown 3-09 00:00: 00 Dose 2022-0 No Unknown 3-09 00:00: 00 Dose 2022-0 No Unknown 3-09 00:00: 00 Dose 2022-0 No Unknown 3-09 00:00: 00 Dose 2022-0 No Unknown 3-09 00:00: 00 Dose 2022-0 No Unknown 3-09 00:00: 00 Dose 2022-0 No Unknown 3-09 00:00: 00 Dose 2022-0 No Unknown 3-09 00:00: 00 Dose 2022-0 No Unknown 3-09 00:00: 00 Dose 2022-0 No Unknown 3-09 00:00: 00 Dose 2022-0 No Unknown 3-09 00:00: 00 Dose 2022-0 No Unknown 3-09 00:00: 00 Dose 2022-0 No Unknown 3-09 00:00: 00 Dose 2022-0 No Unknown 3-09 00:00: 00 Dose 2022-0 No Unknown 3-09 00:00: 00 Dose 2022-0 No Unknown 3-09 00:00: 00 Dose 2022-0 No Unknown 3-09 00:00: 00 Dose 2022-0 No Unknown 3-09 00:00: 00 Dose 2022-0 No Unknown 3-09 00:00: 00 Dose 2022-0 No Unknown 3-09 00:00: 00 Dose 2022-0 No Unknown 3-09 00:00: 00 Dose 2022-0 No Unknown 3-09 00:00: 00 Dose 2022-0 No Unknown 3-09 00:00: 00 Dose 2022-0 No Unknown 3-09 00:00: 00 Dose 2022-0 No Unknown 3-09 00:00: 00 Dose 2022-0 No Unknown 3-09 00:00: 00 Dose 2022-0 No Unknown 3-09 00:00: 00 Dose 2022-0 No Unknown 3-09 00:00: 00 Dose 2022-0 No Unknown 3-09 00:00: 00 Dose 2022-0 No Unknown 3-09 00:00: 00 Dose 2022-0 No Unknown 3-09 00:00: 00 Dose 2022-0 No Unknown 3-09 00:00: 00 Dose 2022-0 No Unknown 3-09 00:00: 00 Dose 2022-0 No Unknown 3-09 00:00: 00 Dose 2022-0 No Unknown 3-09 00:00: 00 Dose 2022-0 No Unknown 3-09 00:00: 00 Dose 2022-0 No Unknown 3-09 00:00: 00 Dose 2022-0 No Unknown 3-09 00:00: 00 Dose 2022-0 No Unknown 3-09 00:00: 00 Dose 2022-0 No Unknown 3-09 00:00: 00 Dose 2022-0 No Unknown 3-09 00:00: 00 Dose 2022-0 No Unknown 3-09 00:00: 00 Dose 2022-0 No Unknown 3-09 00:00: 00 Dose 2022-0 No Unknown 3-09 00:00: 00 Dose 2022-0 No Unknown 3-09 00:00: 00 Dose 2022-0 No Unknown 3-09 00:00: 00 Dose 2022-0 No Unknown 3-09 00:00: 00 Dose 2022-0 No Unknown 3-09 00:00: 00 Dose 2022-0 No Unknown 3-09 00:00: 00 Dose 2022-0 No Unknown 3-09 00:00: 00 Dose 2022-0 No Unknown 3-09 00:00: 00 Dose 2022-0 No Unknown 3-09 00:00: 00 Dose 2022-0 No Unknown 3-09 00:00: 00 Dose 2022-0 No Unknown 3-09 00:00: 00 Dose 2022-0 No Unknown 3-09 00:00: 00 Dose 2022-0 No Unknown 3-09 00:00: 00 Dose 2022-0 No Unknown 3-09 00:00: 00 Dose 2022-0 No Unknown 3-09 00:00: 00 Dose 2022-0 No Unknown 3-09 00:00: 00 Dose 2022-0 No Unknown 3-09 00:00: 00 Dose 2022-0 No Unknown 3-09 00:00: 00 Dose 2022-0 No Unknown 3-09 00:00: 00 Dose 2022-0 No Unknown 3-09 00:00: 00 Dose 2022-0 No Unknown 3-09 00:00: 00 Dose 2022-0 No Unknown 3-09 00:00: 00 Dose 2022-0 No Unknown 3-09 00:00: 00 Dose 2022-0 No Unknown 3-09 00:00: 00 Dose 2022-0 No Unknown 3-09 00:00: 00 Dose 2022-0 No Unknown 3-09 00:00: 00 Dose 2022-0 No Unknown 3-09 00:00: 00 Dose 2022-0 No Unknown 3-09 00:00: 00 Dose 2022-0 No Unknown 3-09 00:00: 00 Dose 2022-0 No Unknown 3-09 00:00: 00 Dose 2022-0 No Unknown 3-09 00:00: 00 Dose 2022-0 No Unknown 3-09 00:00: 00 Dose 2022-0 No Unknown 3-09 00:00: 00 Dose 2022-0 No Unknown 3-09 00:00: 00 Dose 2022-0 No Unknown 3-09 00:00: 00 Dose 2022-0 No Unknown 3-09 00:00: 00 Dose 2022-0 No Unknown 3-09 00:00: 00 Dose 2022-0 No Unknown 3-09 00:00: 00 Dose 2022-0 No Unknown 3-09 00:00: 00 Dose 2022-0 No Unknown 3-09 00:00: 00 Dose 2022-0 No Unknown 3-09 00:00: 00 Dose 2022-0 No Unknown 3-09 00:00: 00 Dose 2022-0 No Unknown 3-09 00:00: 00 Dose 2022-0 No Unknown 3-09 00:00: 00 Dose 2022-0 No Unknown 3-09 00:00: 00 Dose 2022-0 No Unknown 3-09 00:00: 00 Dose 2022-0 No Unknown 3-09 00:00: 00 Dose 2022-0 No Unknown 3-09 00:00: 00 Dose 2022-0 No Unknown 3-09 00:00: 00 Dose 2022-0 No Unknown 3-09 00:00: 00 Dose 2022-0 No Unknown 3-09 00:00: 00 Dose 2022-0 No Unknown 3-09 00:00: 00 Dose 2022-0 No Unknown 3-09 00:00: 00 Dose 2022-0 No Unknown 3-09 00:00: 00 Dose 2022-0 No Unknown 3-09 00:00: 00 Dose 2022-0 No Unknown 3-09 00:00: 00 Dose 2022-0 No Unknown 3-09 00:00: 00 Dose 2022-0 No Unknown 3-09 00:00: 00 Dose 2022-0 No Unknown 3-09 00:00: 00 Dose 2022-0 No Unknown 3-09 00:00: 00 Dose 2022-0 No Unknown 3-09 00:00: 00 Dose 2022-0 No Unknown 3-09 00:00: 00 Dose 2022-0 No Unknown 3-09 00:00: 00 Dose 2022-0 No Unknown 3-09 00:00: 00 Dose 2022-0 No Unknown 3-09 00:00: 00 Dose 2022-0 No Unknown 3-09 00:00: 00 Dose 2022-0 No Unknown 3-09 00:00: 00 Dose 2022-0 No Unknown 3-09 00:00: 00 Dose 2022-0 No Unknown 3-09 00:00: 00 Dose 2022-0 No Unknown 3-09 00:00: 00 Dose 2022-0 No Unknown 3-09 00:00: 00 Dose 2022-0 No Unknown 3-09 00:00: 00 Dose 2022-0 No Unknown 3-09 00:00: 00 Dose 2022-0 No Unknown 3-09 00:00: 00 Dose 2022-0 No Unknown 3-09 00:00: 00 Dose 2022-0 No Unknown 3-09 00:00: 00 Dose 2022-0 No Unknown 3-09 00:00: 00 Dose 2022-0 No Unknown 3-09 00:00: 00 Dose 2022-0 No Unknown 3-09 00:00: 00 Dose 2022-0 No Unknown 3-09 00:00: 00 Dose 2022-0 No Unknown 3-09 00:00: 00 Dose 2022-0 No Unknown 3-09 00:00: 00 Dose 2022-0 No Unknown 3-09 00:00: 00 Dose 2022-0 No Unknown 3-09 00:00: 00 Dose 2022-0 No Unknown 3-09 00:00: 00 Dose 2022-0 No Unknown 3-09 00:00: 00 Dose 2022-0 No Unknown 3-09 00:00: 00 Dose 2022-0 No Unknown 3-09 00:00: 00 Dose 2022-0 No Unknown 3-09 00:00: 00 Dose 2022-0 No Unknown 3-09 00:00: 00 Dose 2022-0 No Unknown 3-09 00:00: 00 Dose 2022-0 No Unknown 3-09 00:00: 00 Dose 2022-0 No Unknown 3-09 00:00: 00 Dose 2022-0 No Unknown 3-09 00:00: 00 Dose 2022-0 No Unknown 3-09 00:00: 00 Dose 2022-0 No Unknown 3-09 00:00: 00 Dose 2022-0 No Unknown 3-09 00:00: 00 Dose 2022-0 No Unknown 3-09 00:00: 00 Dose 2022-0 No Unknown 3-09 00:00: 00 Dose 2022-0 No Unknown 3-09 00:00: 00 Dose 2022-0 No Unknown 3-09 00:00: 00 Dose 2022-0 No Unknown 3-09 00:00: 00 Dose 2022-0 No Unknown 3-09 00:00: 00 Dose 2022-0 No Unknown 3-09 00:00: 00 Dose 2022-0 No Unknown 3-09 00:00: 00 Dose 2022-0 No Unknown 3-09 00:00: 00 Dose 2022-0 No Unknown 3-09 00:00: 00 Dose 2022-0 No Unknown 3-09 00:00: 00 Dose 2022-0 No Unknown 3-09 00:00: 00 Dose 2022-0 No Unknown 3-09 00:00: 00 Dose 2022-0 No Unknown 3-09 00:00: 00 Dose 2022-0 No Unknown 3-09 00:00: 00 Dose 2022-0 No Unknown 3-09 00:00: 00 Dose 2022-0 No Unknown 3-09 00:00: 00 Dose 2022-0 No Unknown 3-09 00:00: 00 Dose 2022-0 No Unknown 3-09 00:00: 00 Dose 2022-0 No Unknown 3-09 00:00: 00 Dose 2022-0 No Unknown 3-09 00:00: 00 Dose 2022-0 No Unknown 3-09 00:00: 00 Dose 2022-0 No Unknown 3-09 00:00: 00 Dose 2022-0 No Unknown 3-09 00:00: 00 Dose 2022-0 No Unknown 3-09 00:00: 00 Dose 2022-0 No Unknown 3-09 00:00: 00 Dose 2022-0 No Unknown 3-09 00:00: 00 Dose 2022-0 No Unknown 3-09 00:00: 00 Dose 2022-0 No Unknown 3-09 00:00: 00 Dose 2022-0 No Unknown 3-09 00:00: 00 Dose 2022-0 No Unknown 3-09 00:00: 00 Dose 2022-0 No Unknown 3-09 00:00: 00 Dose 2022-0 No Unknown 3-09 00:00: 00 Dose 2022-0 No Unknown 3-09 00:00: 00 Dose 2022-0 No Unknown 3-09 00:00: 00 Dose 2022-0 No Unknown 3-09 00:00: 00 Dose 2022-0 No Unknown 3-09 00:00: 00 Dose 2022-0 No Unknown 3-09 00:00: 00 Dose 2022-0 No Unknown 3-09 00:00: 00 Dose 2022-0 No Unknown 3-09 00:00: 00 Dose 2022-0 No Unknown 3-09 00:00: 00 Dose 2022-0 No Unknown 3-09 00:00: 00 Dose 2022-0 No Unknown 3-09 00:00: 00 Dose 2022-0 No Unknown 3-09 00:00: 00 Dose 2022-0 No Unknown 3-09 00:00: 00 Dose 2022-0 No Unknown 3-09 00:00: 00 Dose 2022-0 No Unknown 3-09 00:00: 00 Dose 2022-0 No Unknown 3-09 00:00: 00 Dose 2022-0 No Unknown 3-09 00:00: 00 Dose 2022-0 No Unknown 3-09 00:00: 00 Dose 2022-0 No Unknown 3-09 00:00: 00 Dose 2022-0 No Unknown 3-09 00:00: 00 Dose 2022-0 No Unknown 3-09 00:00: 00 Dose 2022-0 No Unknown 3-09 00:00: 00 Dose 2022-0 No Unknown 3-09 00:00: 00 Dose 2022-0 No Unknown 3-09 00:00: 00 Dose 2022-0 No Unknown 3-09 00:00: 00 Dose 2022-0 No Unknown 3-09 00:00: 00 Dose 2022-0 No Unknown 3-09 00:00: 00 Dose 2022-0 No Unknown 3-09 00:00: 00 Dose 2022-0 No Unknown 3-09 00:00: 00 Dose 2022-0 No Unknown 3-09 00:00: 00 Dose 2022-0 No Unknown 3-09 00:00: 00 Dose 2022-0 No Unknown 3-09 00:00: 00 Dose 2022-0 No Unknown 3-09 00:00: 00 Dose 2022-0 No Unknown 3-09 00:00: 00 Dose 2022-0 No Unknown 3-09 00:00: 00 Dose 2022-0 No Unknown 3-09 00:00: 00 Dose 2022-0 No Unknown 3-09 00:00: 00 Dose 2022-0 No Unknown 3-09 00:00: 00 Dose 2022-0 No Unknown 3-09 00:00: 00 Dose 2022-0 No Unknown 3-09 00:00: 00 Dose 2022-0 No Unknown 3-09 00:00: 00 Dose 2022-0 No Unknown 3-09 00:00: 00 Dose 2022-0 No Unknown 3-09 00:00: 00 Dose 2022-0 No Unknown 3-09 00:00: 00 Dose 2022-0 No Unknown 3-09 00:00: 00 Dose 2022-0 No Unknown 3-09 00:00: 00 Dose 2022-0 No Unknown 3-09 00:00: 00 Dose 2022-0 No Unknown 3-09 00:00: 00 Dose 2022-0 No Unknown 3-09 00:00: 00 Dose 2022-0 No Unknown 3-09 00:00: 00 Dose 2022-0 No Unknown 3-09 00:00: 00 Dose 2022-0 No Unknown 3-09 00:00: 00 Dose 2022-0 No Unknown 3-09 00:00: 00 Dose 2022-0 No Unknown 3-09 00:00: 00 Dose 2022-0 No Unknown 3-09 00:00: 00 Dose 2022-0 No Unknown 3-09 00:00: 00 Dose 2022-0 No Unknown 3-09 00:00: 00 Dose 2022-0 No Unknown 3-09 00:00: 00 Dose 2022-0 No Unknown 3-09 00:00: 00 Dose 2022-0 No Unknown 3-09 00:00: 00 Dose 2022-0 No Unknown 3-09 00:00: 00 Dose 2022-0 No Unknown 3-09 00:00: 00 Dose 2022-0 No Unknown 3-09 00:00: 00 Dose 2022-0 No Unknown 3-09 00:00: 00 Dose 2022-0 No Unknown 3-09 00:00: 00 Dose 2022-0 No Unknown 3-09 00:00: 00 Dose 2022-0 No Unknown 3-09 00:00: 00 Dose 2022-0 No Unknown 3-09 00:00: 00 Dose 2022-0 No Unknown 3-09 00:00: 00 Dose 2022-0 No Unknown 3-09 00:00: 00 Dose 2022-0 No Unknown 3-09 00:00: 00 Dose 2022-0 No Unknown 3-09 00:00: 00 Dose 2022-0 No Unknown 3-09 00:00: 00 Dose 2022-0 No Unknown 3-09 00:00: 00 Dose 2022-0 No Unknown 3-09 00:00: 00 Dose 2022-0 No Unknown 3-09 00:00: 00 Dose 2022-0 No Unknown 3-09 00:00: 00 Dose 2022-0 No Unknown 3-09 00:00: 00 Dose 2022-0 No Unknown 3-09 00:00: 00 Dose 2022-0 No Unknown 3-09 00:00: 00 Dose 2022-0 No Unknown 3-09 00:00: 00 Dose 2022-0 No Unknown 3-09 00:00: 00 Dose 2022-0 No Unknown 3-09 00:00: 00 Dose 2022-0 No Unknown 3-09 00:00: 00 Dose 2022-0 No Unknown 3-09 00:00: 00 Dose 2022-0 No Unknown 3-09 00:00: 00 Dose 2022-0 No Unknown 3-09 00:00: 00 Dose 2022-0 No Unknown 3-09 00:00: 00 Dose 2022-0 No Unknown 3-09 00:00: 00 Dose 2022-0 No Unknown 3-09 00:00: 00 Dose 2022-0 No Unknown 3-09 00:00: 00 Dose 2022-0 No Unknown 3-09 00:00: 00 Dose 2022-0 No Unknown 3-09 00:00: 00 Dose 2022-0 No Unknown 3-09 00:00: 00 Dose 2022-0 No Unknown 3-09 00:00: 00 Dose 2022-0 No Unknown 3-09 00:00: 00 Dose 2022-0 No Unknown 3-09 00:00: 00 Dose 2022-0 No Unknown 3-09 00:00: 00 Dose 2022-0 No Unknown 3-09 00:00: 00 Dose 2022-0 No Unknown 3-09 00:00: 00 Dose 2022-0 No Unknown 3-09 00:00: 00 Dose 2022-0 No Unknown 3-09 00:00: 00 Dose 2022-0 No Unknown 3-09 00:00: 00 Dose 2022-0 No Unknown 3-09 00:00: 00 Dose 2022-0 No Unknown 3-09 00:00: 00 Dose 2022-0 No Unknown 3-09 00:00: 00 Dose 2022-0 No Unknown 3-09 00:00: 00 Dose 2022-0 No Unknown 3-09 00:00: 00 Dose 2022-0 No Unknown 3-09 00:00: 00 Dose 2022-0 No Unknown 3-09 00:00: 00 Dose 2022-0 No Unknown 3-09 00:00: 00 Dose 2022-0 No Unknown 3-09 00:00: 00 Dose 2022-0 No Unknown 3-09 00:00: 00 Dose 2022-0 No Unknown 3-09 00:00: 00 Dose 2022-0 No Unknown 3-09 00:00: 00 Dose 2022-0 No Unknown 3-09 00:00: 00 Dose 2022-0 No Unknown 3-09 00:00: 00 Dose 2022-0 No Unknown 3-09 00:00: 00 Dose 2022-0 No Unknown 3-09 00:00: 00 Dose 2022-0 No Unknown 3-09 00:00: 00 Dose 2022-0 No Unknown 3-09 00:00: 00 Dose 2022-0 No Unknown 3-09 00:00: 00 Dose 2022-0 No Unknown 3-09 00:00: 00 Dose 2022-0 No Unknown 3-09 00:00: 00 Dose 2022-0 No Unknown 3-09 00:00: 00 Dose 2022-0 No Unknown 3-09 00:00: 00 Dose 2022-0 No Unknown 3-09 00:00: 00 Dose 2022-0 No Unknown 3-09 00:00: 00 Dose 2022-0 No Unknown 3-09 00:00: 00 Dose 2022-0 No Unknown 3-09 00:00: 00 Dose 2022-0 No Unknown 3-09 00:00: 00 Dose 2022-0 No Unknown 3-09 00:00: 00 Dose 2022-0 No Unknown 3-09 00:00: 00 Dose 2022-0 No Unknown 3-09 00:00: 00 Dose 2022-0 No Unknown 3-09 00:00: 00 Dose 2022-0 No Unknown 3-09 00:00: 00 Dose 2022-0 No Unknown 3-09 00:00: 00 Dose 2022-0 No Unknown 3-09 00:00: 00 Dose 2022-0 No Unknown 3-09 00:00: 00 Dose 2022-0 No Unknown 3-09 00:00: 00 Dose 2022-0 No Unknown 3-09 00:00: 00 Dose 2022-0 No Unknown 3-09 00:00: 00 Dose 2022-0 No Unknown 3-09 00:00: 00 Dose 2022-0 No Unknown 3-09 00:00: 00 Dose 2022-0 No Unknown 3-09 00:00: 00 Dose 2022-0 No Unknown 3-09 00:00: 00 Dose 2022-0 No Unknown 3-09 00:00: 00 Dose 2022-0 No Unknown 3-09 00:00: 00 Dose 2022-0 No Unknown 3-09 00:00: 00 Dose 2022-0 No Unknown 3-09 00:00: 00 Dose 2022-0 No Unknown 3-09 00:00: 00 Dose 2022-0 No Unknown 3-09 00:00: 00 Dose 2022-0 No Unknown 3-09 00:00: 00 Dose 2022-0 No Unknown 3-09 00:00: 00 Dose 2022-0 No Unknown 3-09 00:00: 00 Dose 2022-0 No Unknown 3-09 00:00: 00 Dose 2022-0 No Unknown 3-09 00:00: 00 Dose 2022-0 No Unknown 3-09 00:00: 00 Dose 2022-0 No Unknown 3-09 00:00: 00 Dose 2022-0 No Unknown 3-09 00:00: 00 Dose 2022-0 No Unknown 3-09 00:00: 00 Dose 2022-0 No Unknown 3-09 00:00: 00 Dose 2022-0 No Unknown 3-09 00:00: 00 Dose 2022-0 No Unknown 3-09 00:00: 00 Dose 2022-0 No Unknown 3-09 00:00: 00 Dose 2022-0 No Unknown 3-09 00:00: 00 Dose 2022-0 No Unknown 3-09 00:00: 00 Dose 2022-0 No Unknown 3-09 00:00: 00 Dose 2022-0 No Unknown 3-09 00:00: 00 Dose 2022-0 No Unknown 3-09 00:00: 00 Dose 2022-0 No Unknown 3-09 00:00: 00 Dose 2022-0 No Unknown 3-09 00:00: 00 Dose 2022-0 No Unknown 3-09 00:00: 00 Dose 2022-0 No Unknown 3-09 00:00: 00 Dose 2022-0 No Unknown 3-09 00:00: 00 Dose 2022-0 No Unknown 3-09 00:00: 00 Dose 2022-0 No Unknown 3-09 00:00: 00 Dose 2022-0 No Unknown 3-09 00:00: 00 Dose 2022-0 No Unknown 3-09 00:00: 00 Dose 2022-0 No Unknown 3-09 00:00: 00 Dose 2022-0 No Unknown 3-09 00:00: 00 Dose 2022-0 No Unknown 3-09 00:00: 00 Dose 2022-0 No Unknown 3-09 00:00: 00 Dose 2022-0 No Unknown 3-09 00:00: 00 Dose 2022-0 No Unknown 3-09 00:00: 00 Dose 2022-0 No Unknown 3-09 00:00: 00 Dose 2022-0 No Unknown 3-09 00:00: 00 Dose 2022-0 No Unknown 3-09 00:00: 00 Dose 2022-0 No Unknown 3-09 00:00: 00 Dose 2022-0 No Unknown 3-09 00:00: 00 Dose 2022-0 No Unknown 3-09 00:00: 00 Dose 2022-0 No Unknown 3-09 00:00: 00 Dose 2022-0 No Unknown 3-09 00:00: 00 Dose 2022-0 No Unknown 3-09 00:00: 00 Dose 2022-0 No Unknown 3-09 00:00: 00 Dose 2022-0 No Unknown 3-09 00:00: 00 Dose 2022-0 No Unknown 3-09 00:00: 00 Dose 2022-0 No Unknown 3-09 00:00: 00 Dose 2022-0 No Unknown 3-09 00:00: 00 Dose 2022-0 No Unknown 3-09 00:00: 00 Dose 2022-0 No Unknown 3-09 00:00: 00 Dose 2022-0 No Unknown 3-09 00:00: 00 Dose 2022-0 No Unknown 3-09 00:00: 00 Dose 2022-0 No Unknown 3-09 00:00: 00 Dose 2022-0 No Unknown 3-09 00:00: 00 Dose 2022-0 No Unknown 3-09 00:00: 00 Dose 2022-0 No Unknown 3-09 00:00: 00 Dose 2022-0 No Unknown 3-09 00:00: 00 Dose 2022-0 No Unknown 3-09 00:00: 00 Dose 2022-0 No Unknown 3-09 00:00: 00 Dose 2022-0 No Unknown 3-09 00:00: 00 Dose 2022-0 No Unknown 3-09 00:00: 00 Dose 2022-0 No Unknown 3-09 00:00: 00 Dose 2022-0 No Unknown 3-09 00:00: 00 Dose 2022-0 No Unknown 3-09 00:00: 00 Dose 2022-0 No Unknown 3-09 00:00: 00 Dose 2022-0 No Unknown 3-09 00:00: 00 Dose 2022-0 No Unknown 3-09 00:00: 00 Dose 2022-0 No Unknown 3-09 00:00: 00 Dose 2022-0 No Unknown 3-09 00:00: 00 Dose 2022-0 No Unknown 3-09 00:00: 00 Dose 2022-0 No Unknown 3-09 00:00: 00 Dose 2022-0 No Unknown 3-09 00:00: 00 Dose 2022-0 No Unknown 3-09 00:00: 00 Dose 2022-0 No Unknown 3-09 00:00: 00 Dose 2022-0 No Unknown 3-09 00:00: 00 Dose 2022-0 No Unknown 3-09 00:00: 00 Dose 2022-0 No Unknown 3-09 00:00: 00 Dose 2022-0 No Unknown 3-09 00:00: 00 Dose 2022-0 No Unknown 3-09 00:00: 00 Dose 2022-0 No Unknown 3-09 00:00: 00 Dose 2022-0 No Unknown 3-09 00:00: 00 Dose 2022-0 No Unknown 3-09 00:00: 00 Dose 2022-0 No Unknown 3-09 00:00: 00 Dose 2022-0 No Unknown 3-09 00:00: 00 Dose 2022-0 No Unknown 3-09 00:00: 00 Dose 2022-0 No Unknown 3-09 00:00: 00 Dose 2022-0 No Unknown 3-09 00:00: 00 Dose 2022-0 No Unknown 3-09 00:00: 00 Dose 2022-0 No Unknown 3-09 00:00: 00 Dose 2022-0 No Unknown 3-09 00:00: 00 Dose 2022-0 No Unknown 3-09 00:00: 00 Dose 2022-0 No Unknown 3-09 00:00: 00 Dose 2022-0 No Unknown 3-09 00:00: 00 Dose 2022-0 No Unknown 3-09 00:00: 00 Dose 2022-0 No Unknown 3-09 00:00: 00 Dose 2022-0 No Unknown 3-09 00:00: 00 Dose 2022-0 No Unknown 3-09 00:00: 00 Dose 2022-0 No Unknown 3-09 00:00: 00 Dose 2022-0 No Unknown 3-09 00:00: 00 Dose 2022-0 No Unknown 3-09 00:00: 00 Dose 2022-0 No Unknown 3-09 00:00: 00 Dose 2022-0 No Unknown 3-09 00:00: 00 Dose 2022-0 No Unknown 3-09 00:00: 00 Dose 2022-0 No Unknown 3-09 00:00: 00 Dose 2022-0 No Unknown 3-09 00:00: 00 Dose 2022-0 No Unknown 3-09 00:00: 00 Dose 2022-0 No Unknown 3-09 00:00: 00 Dose 2022-0 No Unknown 3-09 00:00: 00 Dose 2022-0 No Unknown 3-09 00:00: 00 Dose 2022-0 No Unknown 3-09 00:00: 00 Dose 2022-0 No Unknown 3-09 00:00: 00 Dose 2022-0 No Unknown 3-09 00:00: 00 Dose 2022-0 No Unknown 3-09 00:00: 00 Dose 2022-0 No Unknown 3-09 00:00: 00 Dose 2022-0 No Unknown 3-09 00:00: 00 Dose 2022-0 No Unknown 3-09 00:00: 00 Dose 2022-0 No Unknown 3-09 00:00: 00 Dose 2022-0 No Unknown 3-09 00:00: 00 Dose 2022-0 No Unknown 3-09 00:00: 00 Dose 2022-0 No Unknown 3-09 00:00: 00 Dose 2022-0 No Unknown 3-09 00:00: 00 Dose 2022-0 No Unknown 3-09 00:00: 00 Dose 2022-0 No Unknown 3-09 00:00: 00 Dose 2022-0 No Unknown 3-08 00:00: 00 Dose 2022-0 No Unknown 3-08 00:00: 00 Dose 2022-0 No Unknown 3-08 00:00: 00 Dose 2022-0 No Unknown 3-08 00:00: 00 Dose 2022-0 No Unknown 3-08 00:00: 00 Dose 2022-0 No Unknown 3-08 00:00: 00 Dose 2022-0 No Unknown 3-08 00:00: 00 Dose 2022-0 No Unknown 3-08 00:00: 00 Dose 2022-0 No Unknown 3-08 00:00: 00 Dose 2022-0 No Unknown 3-08 00:00: 00 Dose 2022-0 No Unknown 3-08 00:00: 00 Dose 2022-0 No Unknown 3-08 00:00: 00 Dose 2022-0 No Unknown 3-08 00:00: 00 Dose 2022-0 No Unknown 3-08 00:00: 00 Dose 2022-0 No Unknown 3-08 00:00: 00 Dose 2022-0 No Unknown 3-08 00:00: 00 Dose 2022-0 No Unknown 3-08 00:00: 00 Dose 2022-0 No Unknown 3-08 00:00: 00 Dose 2022-0 No Unknown 3-08 00:00: 00 Dose 2022-0 No Unknown 3-08 00:00: 00 Dose 2022-0 No Unknown 3-08 00:00: 00 Dose 2022-0 No Unknown 3-08 00:00: 00 Dose 2022-0 No Unknown 3-08 00:00: 00 Dose 2022-0 No Unknown 3-08 00:00: 00 Dose 2022-0 No Unknown 3-08 00:00: 00 Dose 2022-0 No Unknown 3-08 00:00: 00 Dose 2022-0 No Unknown 3-08 00:00: 00 Dose 2022-0 No Unknown 3-08 00:00: 00 Dose 2022-0 No Unknown 3-08 00:00: 00 Dose 2022-0 No Unknown 3-08 00:00: 00 Dose 2022-0 No Unknown 3-08 00:00: 00 Dose 2022-0 No Unknown 3-08 00:00: 00 Dose 2022-0 No Unknown 3-08 00:00: 00 Dose 2022-0 No Unknown 3-08 00:00: 00 Dose 2022-0 No Unknown 3-08 00:00: 00 Dose 2022-0 No Unknown 3-08 00:00: 00 Dose 2022-0 No Unknown 3-08 00:00: 00 Dose 2022-0 No Unknown 3-08 00:00: 00 Dose 2022-0 No Unknown 3-08 00:00: 00 Dose 2022-0 No Unknown 3-08 00:00: 00 Dose 2022-0 No Unknown 3-08 00:00: 00 Dose 2022-0 No Unknown 3-08 00:00: 00 Dose 2022-0 No Unknown 3-08 00:00: 00 Dose 2022-0 No Unknown 3-08 00:00: 00 Dose 2022-0 No Unknown 3-08 00:00: 00 Dose 2022-0 No Unknown 3-08 00:00: 00 Dose 2022-0 No Unknown 3-08 00:00: 00 Dose 2022-0 No Unknown 3-08 00:00: 00 Dose 2022-0 No Unknown 3-08 00:00: 00 Dose 2022-0 No Unknown 3-08 00:00: 00 Dose 2022-0 No Unknown 3-08 00:00: 00 Dose 2022-0 No Unknown 3-08 00:00: 00 Dose 2022-0 No Unknown 3-08 00:00: 00 Dose 2022-0 No Unknown 3-08 00:00: 00 Dose 2022-0 No Unknown 3-08 00:00: 00 Dose 2022-0 No Unknown 3-08 00:00: 00 Dose 2022-0 No Unknown 3-08 00:00: 00 Dose 2022-0 No Unknown 3-08 00:00: 00 Dose 2022-0 No Unknown 3-08 00:00: 00 Dose 2022-0 No Unknown 3-08 00:00: 00 Dose 2022-0 No Unknown 3-08 00:00: 00 Dose 2022-0 No Unknown 3-08 00:00: 00 Dose 2022-0 No Unknown 3-08 00:00: 00 Dose 2022-0 No Unknown 3-08 00:00: 00 Dose 2022-0 No Unknown 3-08 00:00: 00 Dose 2022-0 No Unknown 3-08 00:00: 00 Dose 2022-0 No Unknown 3-08 00:00: 00 Dose 2022-0 No Unknown 3-08 00:00: 00 Dose 2022-0 No Unknown 3-08 00:00: 00 Dose 2022-0 No Unknown 3-08 00:00: 00 Dose 2022-0 No Unknown 3-08 00:00: 00 Dose 2022-0 No Unknown 3-08 00:00: 00 Dose 2022-0 No Unknown 3-08 00:00: 00 Dose 2022-0 No Unknown 3-08 00:00: 00 Dose 2022-0 No Unknown 3-08 00:00: 00 Dose 2022-0 No Unknown 3-08 00:00: 00 Dose 2022-0 No Unknown 3-08 00:00: 00 Dose 2022-0 No Unknown 3-08 00:00: 00 Dose 2022-0 No Unknown 3-08 00:00: 00 Dose 2022-0 No Unknown 3-08 00:00: 00 Dose 2022-0 No Unknown 3-08 00:00: 00 Dose 2022-0 No Unknown 3-08 00:00: 00 Dose 2022-0 No Unknown 3-08 00:00: 00 Dose 2022-0 No Unknown 3-08 00:00: 00 Dose 2022-0 No Unknown 3-08 00:00: 00 Dose 2022-0 No Unknown 3-08 00:00: 00 Dose 2022-0 No Unknown 3-08 00:00: 00 Dose 2022-0 No Unknown 3-08 00:00: 00 Dose 2022-0 No Unknown 3-08 00:00: 00 Dose 2022-0 No Unknown 3-08 00:00: 00 Dose 2022-0 No Unknown 3-08 00:00: 00 Dose 2022-0 No Unknown 3-08 00:00: 00 Dose 2022-0 No Unknown 3-08 00:00: 00 Dose 2022-0 No Unknown 3-08 00:00: 00 Dose 2022-0 No Unknown 3-08 00:00: 00 Dose 2022-0 No Unknown 3-08 00:00: 00 Dose 2022-0 No Unknown 3-08 00:00: 00 Dose 2022-0 No Unknown 3-08 00:00: 00 Dose 2022-0 No Unknown 3-08 00:00: 00 Dose 2022-0 No Unknown 3-08 00:00: 00 Dose 2022-0 No Unknown 3-08 00:00: 00 Dose 2022-0 No Unknown 3-08 00:00: 00 Dose 2022-0 No Unknown 3-08 00:00: 00 Dose 2022-0 No Unknown 3-08 00:00: 00 Dose 2022-0 No Unknown 3-08 00:00: 00 Dose 2022-0 No Unknown 3-08 00:00: 00 Dose 2022-0 No Unknown 3-08 00:00: 00 Dose 2022-0 No Unknown 3-08 00:00: 00 Dose 2022-0 No Unknown 3-08 00:00: 00 Dose 2022-0 No Unknown 3-08 00:00: 00 Dose 2022-0 No Unknown 3-08 00:00: 00 Dose 2022-0 No Unknown 3-08 00:00: 00 Dose 2022-0 No Unknown 3-08 00:00: 00 Dose 2022-0 No Unknown 3-08 00:00: 00 Dose 2022-0 No Unknown 3-08 00:00: 00 Dose 2022-0 No Unknown 3-08 00:00: 00 Dose 2022-0 No Unknown 3-08 00:00: 00 Dose 2022-0 No Unknown 3-08 00:00: 00 Dose 2022-0 No Unknown 3-08 00:00: 00 Dose 2022-0 No Unknown 3-08 00:00: 00 Dose 2022-0 No Unknown 3-08 00:00: 00 Dose 2022-0 No Unknown 3-08 00:00: 00 Dose 2022-0 No Unknown 3-08 00:00: 00 Dose 2022-0 No Unknown 3-08 00:00: 00 Dose 2022-0 No Unknown 3-08 00:00: 00 Dose 2022-0 No Unknown 3-08 00:00: 00 Dose 2022-0 No Unknown 3-08 00:00: 00 Dose 2022-0 No Unknown 3-08 00:00: 00 Dose 2022-0 No Unknown 3-08 00:00: 00 Dose 2022-0 No Unknown 3-08 00:00: 00 Dose 2022-0 No Unknown 3-08 00:00: 00 Dose 2022-0 No Unknown 3-08 00:00: 00 Dose 2022-0 No Unknown 3-08 00:00: 00 Dose 2022-0 No Unknown 3-08 00:00: 00 Dose 2022-0 No Unknown 3-08 00:00: 00 Dose 2022-0 No Unknown 3-08 00:00: 00 Dose 2022-0 No Unknown 3-08 00:00: 00 Dose 2022-0 No Unknown 3-08 00:00: 00 Dose 2022-0 No Unknown 3-08 00:00: 00 Dose 2022-0 No Unknown 3-08 00:00: 00 Dose 2022-0 No Unknown 3-08 00:00: 00 Dose 2022-0 No Unknown 3-08 00:00: 00 Dose 2022-0 No Unknown 3-08 00:00: 00 Dose 2022-0 No Unknown 3-08 00:00: 00 Dose 2022-0 No Unknown 3-08 00:00: 00 Dose 2022-0 No Unknown 3-08 00:00: 00 Dose 2022-0 No Unknown 3-08 00:00: 00 Dose 2022-0 No Unknown 3-08 00:00: 00 Dose 2022-0 No Unknown 3-08 00:00: 00 Dose 2022-0 No Unknown 3-08 00:00: 00 Dose 2022-0 No Unknown 3-08 00:00: 00 Dose 2022-0 No Unknown 3-08 00:00: 00 Dose 2022-0 No Unknown 3-08 00:00: 00 Dose 2022-0 No Unknown 3-08 00:00: 00 Dose 2022-0 No Unknown 3-08 00:00: 00 Dose 2022-0 No Unknown 3-08 00:00: 00 Dose 2022-0 No Unknown 3-08 00:00: 00 Dose 2022-0 No Unknown 3-08 00:00: 00 Dose 2022-0 No Unknown 3-08 00:00: 00 Dose 2022-0 No Unknown 3-08 00:00: 00 Dose 2022-0 No Unknown 3-08 00:00: 00 Dose 2022-0 No Unknown 3-08 00:00: 00 Dose 2022-0 No Unknown 3-08 00:00: 00 Dose 2022-0 No Unknown 3-08 00:00: 00 Dose 2022-0 No Unknown 3-08 00:00: 00 Dose 2022-0 No Unknown 3-08 00:00: 00 Dose 2022-0 No Unknown 3-08 00:00: 00 Dose 2022-0 No Unknown 3-08 00:00: 00 Dose 2022-0 No Unknown 3-08 00:00: 00 Dose 2022-0 No Unknown 3-08 00:00: 00 Dose 2022-0 No Unknown 3-08 00:00: 00 Dose 2022-0 No Unknown 3-08 00:00: 00 Dose 2022-0 No Unknown 3-08 00:00: 00 Dose 2022-0 No Unknown 3-08 00:00: 00 Dose 2022-0 No Unknown 3-08 00:00: 00 Dose 2022-0 No Unknown 3-08 00:00: 00 Dose 2022-0 No Unknown 3-08 00:00: 00 Dose 2022-0 No Unknown 3-08 00:00: 00 Dose 2022-0 No Unknown 3-08 00:00: 00 Dose 2022-0 No Unknown 3-08 00:00: 00 Dose 2022-0 No Unknown 3-08 00:00: 00 Dose 2022-0 No Unknown 3-08 00:00: 00 Dose 2022-0 No Unknown 3-08 00:00: 00 Dose 2022-0 No Unknown 3-08 00:00: 00 Dose 2022-0 No Unknown 3-08 00:00: 00 Dose 2022-0 No Unknown 3-08 00:00: 00 Dose 2022-0 No Unknown 3-08 00:00: 00 Dose 2022-0 No Unknown 3-08 00:00: 00 Dose 2022-0 No Unknown 3-08 00:00: 00 Dose 2022-0 No Unknown 3-08 00:00: 00 Dose 2022-0 No Unknown 3-08 00:00: 00 Dose 2022-0 No Unknown 3-08 00:00: 00 Dose 2022-0 No Unknown 3-08 00:00: 00 Dose 2022-0 No Unknown 3-08 00:00: 00 Dose 2022-0 No Unknown 3-08 00:00: 00 Dose 2022-0 No Unknown 3-08 00:00: 00 Dose 2022-0 No Unknown 3-08 00:00: 00 Dose 2022-0 No Unknown 3-08 00:00: 00 Dose 2022-0 No Unknown 3-08 00:00: 00 Dose 2022-0 No Unknown 3-08 00:00: 00 Dose 2022-0 No Unknown 3-08 00:00: 00 Dose 2022-0 No Unknown 3-08 00:00: 00 Dose 2022-0 No Unknown 3-08 00:00: 00 Dose 2022-0 No Unknown 3-08 00:00: 00 Dose 2022-0 No Unknown 3-08 00:00: 00 Dose 2022-0 No Unknown 3-08 00:00: 00 Dose 2022-0 No Unknown 3-08 00:00: 00 Dose 2022-0 No Unknown 3-08 00:00: 00 Dose 2022-0 No Unknown 3-08 00:00: 00 Dose 2022-0 No Unknown 3-08 00:00: 00 Dose 2022-0 No Unknown 3-08 00:00: 00 Dose 2022-0 No Unknown 3-08 00:00: 00 Dose 2022-0 No Unknown 3-08 00:00: 00 Dose 2022-0 No Unknown 3-08 00:00: 00 Dose 2022-0 No Unknown 3-08 00:00: 00 Dose 2022-0 No Unknown 3-08 00:00: 00 Dose 2022-0 No Unknown 3-08 00:00: 00 Dose 2022-0 No Unknown 3-08 00:00: 00 Dose 2022-0 No Unknown 3-08 00:00: 00 Dose 2022-0 No Unknown 3-08 00:00: 00 Dose 2022-0 No Unknown 3-08 00:00: 00 Dose 2022-0 No Unknown 3-08 00:00: 00 Dose 2022-0 No Unknown 3-08 00:00: 00 Dose 2022-0 No Unknown 3-08 00:00: 00 Dose 2022-0 No Unknown 3-08 00:00: 00 Dose 2022-0 No Unknown 3-08 00:00: 00 Dose 2022-0 No Unknown 3-08 00:00: 00 Dose 2022-0 No Unknown 3-08 00:00: 00 Dose 2022-0 No Unknown 3-08 00:00: 00 Dose 2022-0 No Unknown 3-08 00:00: 00 Dose 2022-0 No Unknown 3-08 00:00: 00 Dose 2022-0 No Unknown 3-08 00:00: 00 Dose 2022-0 No Unknown 3-08 00:00: 00 Dose 2022-0 No Unknown 3-08 00:00: 00 Dose 2022-0 No Unknown 3-08 00:00: 00 Dose 2022-0 No Unknown 3-08 00:00: 00 Dose 2022-0 No Unknown 3-08 00:00: 00 Dose 2022-0 No Unknown 3-08 00:00: 00 Dose 2022-0 No Unknown 3-08 00:00: 00 Dose 2022-0 No Unknown 3-08 00:00: 00 Dose 2022-0 No Unknown 3-08 00:00: 00 Dose 2022-0 No Unknown 3-08 00:00: 00 Dose 2022-0 No Unknown 3-08 00:00: 00 Dose 2022-0 No Unknown 3-08 00:00: 00 Dose 2022-0 No Unknown 3-08 00:00: 00 Dose 2022-0 No Unknown 3-08 00:00: 00 Dose 2022-0 No Unknown 3-08 00:00: 00 Dose 2022-0 No Unknown 3-08 00:00: 00 Dose 2022-0 No Unknown 3-08 00:00: 00 Dose 2022-0 No Unknown 3-08 00:00: 00 Dose 2022-0 No Unknown 3-08 00:00: 00 Dose 2022-0 No Unknown 3-08 00:00: 00 Dose 2022-0 No Unknown 3-08 00:00: 00 Dose 2022-0 No Unknown 3-08 00:00: 00 Dose 2022-0 No Unknown 3-08 00:00: 00 Dose 2022-0 No Unknown 3-08 00:00: 00 Dose 2022-0 No Unknown 3-08 00:00: 00 Dose 2022-0 No Unknown 3-08 00:00: 00 Dose 2022-0 No Unknown 3-08 00:00: 00 Dose 2022-0 No Unknown 3-08 00:00: 00 Dose 2022-0 No Unknown 3-08 00:00: 00 Dose 2022-0 No Unknown 3-08 00:00: 00 Dose 2022-0 No Unknown 3-08 00:00: 00 Dose 2022-0 No Unknown 3-08 00:00: 00 Dose 2022-0 No Unknown 3-08 00:00: 00 Dose 2022-0 No Unknown 3-08 00:00: 00 Dose 2022-0 No Unknown 3-08 00:00: 00 Dose 2022-0 No Unknown 3-08 00:00: 00 Dose 2022-0 No Unknown 3-08 00:00: 00 Dose 2022-0 No Unknown 3-08 00:00: 00 Dose 2022-0 No Unknown 3-08 00:00: 00 Dose 2022-0 No Unknown 3-08 00:00: 00 Dose 2022-0 No Unknown 3-08 00:00: 00 Dose 2022-0 No Unknown 3-08 00:00: 00 Dose 2022-0 No Unknown 3-08 00:00: 00 Dose 2022-0 No Unknown 3-08 00:00: 00 Dose 2022-0 No Unknown 3-08 00:00: 00 Dose 2022-0 No Unknown 3-08 00:00: 00 Dose 2022-0 No Unknown 3-08 00:00: 00 Dose 2022-0 No Unknown 3-08 00:00: 00 Dose 2022-0 No Unknown 3-08 00:00: 00 Dose 2022-0 No Unknown 3-08 00:00: 00 Dose 2022-0 No Unknown 3-08 00:00: 00 Dose 2022-0 No Unknown 3-08 00:00: 00 Dose 2022-0 No Unknown 3-08 00:00: 00 Dose 2022-0 No Unknown 3-08 00:00: 00 Dose 2022-0 No Unknown 3-08 00:00: 00 Dose 2022-0 No Unknown 3-08 00:00: 00 Dose 2022-0 No Unknown 3-08 00:00: 00 Dose 2022-0 No Unknown 3-08 00:00: 00 Dose 2022-0 No Unknown 3-08 00:00: 00 Dose 2022-0 No Unknown 3-08 00:00: 00 Dose 2022-0 No Unknown 3-08 00:00: 00 Dose 2022-0 No Unknown 3-08 00:00: 00 Dose 2022-0 No Unknown 3-08 00:00: 00 Dose 2022-0 No Unknown 3-08 00:00: 00 Dose 2022-0 No Unknown 3-08 00:00: 00 Dose 2022-0 No Unknown 3-08 00:00: 00 Dose 2022-0 No Unknown 3-08 00:00: 00 Dose 2022-0 No Unknown 3-08 00:00: 00 Dose 2022-0 No Unknown 3-08 00:00: 00 Dose 2022-0 No Unknown 3-08 00:00: 00 Dose 2022-0 No Unknown 3-08 00:00: 00 Dose 2022-0 No Unknown 3-08 00:00: 00 Dose 2022-0 No Unknown 3-08 00:00: 00 Dose 2022-0 No Unknown 3-08 00:00: 00 Dose 2022-0 No Unknown 3-08 00:00: 00 Dose 2022-0 No Unknown 3-08 00:00: 00 Dose 2022-0 No Unknown 2-21 00:00: 00 Dose 2022-0 No Unknown 2-21 00:00: 00 Dose 2022-0 No Unknown 2-17 00:00: 00 Dose 2022-0 No Unknown 2-17 00:00: 00 Dose 2022-0 No Unknown 2-17 00:00: 00 lithium 2-0 No 1mg carbonate 2-17 300 mg 00:00: capsule 00 clonidine 2-0 No 51mg HCl 0.1 mg 2-17 tablet 00:00: 00 Dose 2022-0 No Unknown 2-17 00:00: 00 Dose 2-0 No Unknown 2-17 00:00: 00 lithium 2022-0 No 1mg carbonate 2-17 300 mg 00:00: capsule 00 Dose 2-0 No Unknown 2-13 00:00: 00 Dose 2022-0 No Unknown 2-13 00:00: 00 Dose 2022-0 No Unknown 2-13 00:00: 00 Dose 2-0 No Unknown 2-13 00:00: 00 Sudafed 12 2-0 No 1mg Hour 120 mg 2-13 tablet,exte 00:00: nded 00 release Dose 2-0 No Unknown 2-13 00:00: 00 Dose 2022-0 No Unknown 2-13 00:00: 00 benzonatate 2-0 No 1mg 100 mg 2-13 capsule 00:00: 00 triamcinolo 2022-0 Yes [id number] by [facility] 2-10 route 2 ity of acetonide 00:00: (two) [place] 0.1 % 00 times Medical dental daily. Branch paste triamcinolo 2021-0 Yes [id number] by [facility] ne 2-10 route 2 ity of acetonide 00:00: (two) [place] 0.1 % 00 times Medical dental daily. Branch paste triamcinolo 2021-0 Yes [id number] by [facility] ne 2-10 route 2 ity of acetonide 00:00: (two) [place] 0.1 % 00 times Medical dental daily. Branch paste melatonin/p 2021-0 Yes Take by Un hollie yridoxine 2-04 mouth. ity of (MELATONIN, 15:06: [place] WITH B6, 17 Medical ORAL) Branch melatonin/p 2021-0 Yes Take by Uni vers yridoxine 2-04 mouth. ity of (MELATONIN, 15:06: [place] WITH B6, 17 Medical ORAL) Branch melatonin/p 2021-0 Yes Take by Uni vers yridoxine 2-04 mouth. ity of (MELATONIN, 15:06: [place] WITH B6, 17 Medical ORAL) Branch melatonin/p 2021-0 Yes Take by Uni vers yridoxine 2-04 mouth. ity of (MELATONIN, 15:06: [place] WITH B6, 17 Medical ORAL) Branch ARIPiprazol 0 2021- No 2mg Take 2 mg Univers e 5 mg 2-04 02-04 by mouth ity of tablet 15:05: 00:00 daily. [place] 42 :00 Medical Branch topiramate 2021-0 Yes 50mg Take 50 mg U nivers 50 mg 2-04 by mouth 2 ity of tablet 15:02: (two) [place] 55 times Medical daily. Branch topiramate 2021-0 Yes 50mg Take 50 mg U nivers 50 mg 2-04 by mouth 2 ity of tablet 15:02: (two) [place] 55 times Medical daily. Branch topiramate 2021-0 Yes 50mg Take 50 mg U nivers 50 mg 2-04 by mouth 2 ity of tablet 15:02: (two) [place] 55 times Medical daily. Branch topiramate 2021-0 Yes 50mg Take 50 mg U nivers 50 mg 2-04 by mouth 2 ity of tablet 15:02: (two) [place] 55 times Medical daily. Branch hydrOXYzine 2021-0 Yes TAKE ONE Un hollie 25 mg 1-25 (1) ity of tablet 00:00: TABLET(S) [place] 00 BY MOUTH Medical THREE Branch TIMES A DAY NEEDED FOR ANXIETY. DULoxetine 2021-0 Yes 60mg Take 60 mg U nivers 60 mg 1-25 by mouth ity of capsule 00:00: daily. [place] 00 Medical Branch hydrOXYzine 2021-0 Yes TAKE ONE Un hollie 25 mg 1-25 (1) ity of tablet 00:00: TABLET(S) BY MOUTH Medical THREE Branch TIMES A DAY NEEDED FOR ANXIETY. DULoxetine 2-0 Yes 60mg Take 60 mg U nivers 60 mg 1-25 by mouth ity of capsule 00:00: daily. [address] hydrOXYzine 2021-0 Yes TAKE ONE Un hollie 25 mg 1-25 (1) ity of tablet 00:00: TABLET(S) [place] 00 BY MOUTH Medical THREE Branch TIMES A DAY NEEDED FOR ANXIETY. DULoxetine 2-0 Yes 60mg Take 60 mg U nivers 60 mg 1-25 by mouth ity of capsule 00:00: daily. [address] hydrOXYzine 2021-0 Yes TAKE ONE Un hollie 25 mg 1-25 (1) ity of tablet 00:00: TABLET(S) BY MOUTH Medical THREE Branch TIMES A DAY NEEDED FOR ANXIETY. DULoxetine 2021-0 Yes 60mg Take 60 mg U nivers 60 mg 1-25 by mouth ity of capsule 00:00: daily. [address] lithium 2021-0 Yes TAKE ONE Univer s carbonate 1-23 (1) ity of 300 mg 00:00: CAPSULE(S) [place] capsule 00 BY MOUTH Medical TWICE A Branch DAY. lithium 2021-0 Yes TAKE ONE Univer s carbonate 1-23 (1) ity of 300 mg 00:00: CAPSULE(S) [place] capsule 00 BY MOUTH Medical TWICE A Branch DAY. lithium 2021-0 Yes TAKE ONE Univer s carbonate 1-23 (1) ity of 300 mg 00:00: CAPSULE(S) [place] capsule 00 BY MOUTH Medical TWICE A Branch DAY. lithium 2021-0 Yes TAKE ONE Univer s carbonate 1-23 (1) ity of 300 mg 00:00: CAPSULE(S) [place] capsule 00 BY MOUTH Medical TWICE A Branch DAY. Dose 2-0 No Unknown 1-21 00:00: 00 duloxetine 2-0 No 1mg 60 mg 1-21 capsule,del 00:00: ayed 00 release lithium 2-0 No 1mg carbonate 1-21 300 mg 00:00: capsule 00 hydroxyzine 2-0 No 1mg HCl 25 mg 1-21 tablet 00:00: 00 duloxetine 2-0 No 1mg 60 mg 1-21 capsule,del 00:00: ayed 00 release lithium 2-0 No 1mg carbonate 1-21 300 mg 00:00: capsule 00 Dose 2021-0 No Unknown 1-17 00:00: 00 topiramate 2-0 No mg 50 mg 1-17 tablet 00:00: 00 topiramate 2022-0 Yes 50 mg = 1 Me moria 50 MG Oral 1-14 tab, PO, l Tablet 20:19: Bedtime, # Marcella nn [Topamax] 00 30 tab, 3 Refill(s), Pharmacy: [facility], 167.64, cm, 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, Height, 49.545, kg, 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, 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 topiramate 2-0 Yes 50 mg = 1 Me moria 50 MG Oral 1-14 tab, PO, l Tablet 20:19: Bedtime, # Marcella nn [Topamax] 00 30 tab, 3 Refill(s), Pharmacy: [facility], 167.64, cm, 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, 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, 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, kg, 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, 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 topiramate 2-0 Yes 50 mg = 1 Me moria 50 MG Oral 1-14 tab, PO, l Tablet 20:19: Bedtime, # Marcella nn [Topamax] 00 30 tab, 3 Refill(s), Pharmacy: [facility], 167.64, cm, 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, 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, 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, kg, 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, 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 topiramate 2-0 Yes 50 mg = 1 Me moria 50 MG Oral 1-14 tab, PO, l Tablet 20:19: Bedtime, # Marcella nn [Topamax] 00 30 tab, 3 Refill(s), Pharmacy: [facility], 167.64, cm, 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, 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, 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, kg, 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, 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 topiramate 2022-0 Yes 50 mg = 1 Me moria 50 MG Oral 1-14 tab, PO, l Tablet 20:19: Bedtime, # Marcella nn [Topamax] 00 30 tab, 3 Refill(s), Pharmacy: [facility], 167.64, cm, 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, 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, 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, kg, 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, 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 topiramate 2022-0 Yes 50 mg = 1 Me moria 50 MG Oral 1-14 tab, PO, l Tablet 20:19: Bedtime, # Marcella nn [Topamax] 00 30 tab, 3 Refill(s), Pharmacy: [facility], 167.64, cm, 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, 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, 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, kg, 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, 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 topiramate 2022-0 Yes 50 mg = 1 Me moria 50 MG Oral 1-14 tab, PO, l Tablet 20:19: Bedtime, # Marcella nn [Topamax] 00 30 tab, 3 Refill(s), Pharmacy: [facility], 167.64, cm, 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, 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, 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, kg, 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, 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 topiramate 2-0 Yes 50 mg = 1 Me moria 50 MG Oral 1-14 tab, PO, l Tablet 20:19: Bedtime, # Marcella nn [Topamax] 00 30 tab, 3 Refill(s), Pharmacy: [facility], 167.64, cm, 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, 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, 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, kg, 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, 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 Tylenol 2022-0 Yes PO, 0 Memoria 1-14 Refill(s) l 19:45: Elbert 00 Tylenol 2022-0 Yes PO, 0 Memoria 1-14 Refill(s) l 19:45: Frankie 00 Tylenol 2022-0 Yes PO, 0 Memoria 1-14 Refill(s) l 19:45: Elbert 00 Tylenol 2022-0 Yes PO, 0 Memoria 1-14 Refill(s) l 19:45: Elbert 00 Tylenol 2022-0 Yes PO, 0 Memoria 1-14 Refill(s) l 19:45: Tylenol 2-0 Yes PO, 0 Memoria 1-14 Refill(s) l 19:45: Tylenol 2-0 Yes PO, 0 Memoria 1-14 Refill(s) l 19:45: Tylenol 2-0 Yes PO, 0 Memoria 1-14 Refill(s) l 19:45: lithium 600 2021-0 Yes 600 mg = 1 Memoria mg oral 1-14 cap, PO, l capsule 19:43: Daily, 0 Tk n 00 Refill(s) lithium 600 2021-0 Yes 600 mg = 1 Memoria mg oral 1-14 cap, PO, l capsule 19:43: Daily, 0 Tk n 00 Refill(s) lithium 600 2021-0 Yes 600 mg = 1 Memoria mg oral 1-14 cap, PO, l capsule 19:43: Daily, 0 Tk n 00 Refill(s) lithium 600 2021-0 Yes 600 mg = 1 Memoria mg oral 1-14 cap, PO, l capsule 19:43: Daily, 0 Tk n 00 Refill(s) lithium 600 2021-0 Yes 600 mg = 1 Memoria mg oral 1-14 cap, PO, l capsule 19:43: Daily, 0 Tk n 00 Refill(s) lithium 600 2-0 Yes 600 mg = 1 Memoria mg oral 1-14 cap, PO, l capsule 19:43: Daily, 0 Tk n 00 Refill(s) lithium 600 2-0 Yes 600 mg = 1 Memoria mg oral 1-14 cap, PO, l capsule 19:43: Daily, 0 Tk n 00 Refill(s) lithium 600 2-0 Yes 600 mg = 1 Memoria mg oral 1-14 cap, PO, l capsule 19:43: Daily, 0 Tk n 00 Refill(s) Dose 2020-05 No Unknown 2-10 00:00: 00 Dose 2020-05 No Unknown 2-10 00:00: 00 Dose 2020-05 No Unknown 2-10 00:00: 00 lithium 2020-05 No mg carbonate 2-10 300 mg 00:00: capsule 00 hydroxyzine 2020-05 No mg HCl 25 mg 2-10 tablet 00:00: 00 duloxetine 2020-05 No mg 60 mg 2-10 capsule,del 00:00: ayed 00 release Diphenhydra 2020-05 Yes 25 mg = 1 M emoria mine 1-30 cap, PO, l Hydrochlori 19:28: PRN, 0 Herm lor de 25 MG 00 Refill(s) Oral Capsule [Benadryl] Diphenhydra 2020-05 Yes 25 mg = 1 M emoria mine 1-30 cap, PO, l Hydrochlori 19:28: PRN, 0 Herm lor de 25 MG 00 Refill(s) Oral Capsule [Benadryl] Diphenhydra 2020-05 Yes 25 mg = 1 M emoria mine 1-30 cap, PO, l Hydrochlori 19:28: PRN, 0 Herm lor de 25 MG 00 Refill(s) Oral Capsule [Benadryl] Diphenhydra 2020-05 Yes 25 mg = 1 M emoria mine 1-30 cap, PO, l Hydrochlori 19:28: PRN, 0 Herm lor de 25 MG 00 Refill(s) Oral Capsule [Benadryl] Diphenhydra 2020-05 Yes 25 mg = 1 M emoria mine 1-30 cap, PO, l Hydrochlori 19:28: PRN, 0 Herm lor de 25 MG 00 Refill(s) Oral Capsule [Benadryl] Diphenhydra 2020-05 Yes 25 mg = 1 M emoria mine 1-30 cap, PO, l Hydrochlori 19:28: PRN, 0 Herm lor de 25 MG 00 Refill(s) Oral Capsule [Benadryl] Diphenhydra 2020-05 Yes 25 mg = 1 M emoria mine 1-30 cap, PO, l Hydrochlori 19:28: PRN, 0 Herm lor de 25 MG 00 Refill(s) Oral Capsule [Benadryl] Diphenhydra 2020-05 Yes 25 mg = 1 M emoria mine 1-30 cap, PO, l Hydrochlori 19:28: PRN, 0 Herm lor de 25 MG 00 Refill(s) Oral Capsule [Benadryl] Melatonin 5 2020-05 Yes 5 mg = 1 Me moria mg oral 1-30 tab, PO, l tablet 19:27: Bedtime, Elbert 00 PRN for insomnia, # 60 tab, 0 Refill(s) naproxen 2020-05 Yes 220 mg = 1 Mem oria sodium 220 1-30 cap, PO, l mg oral 19:27: Q12H, PRN, Herm lor capsule 00 0 Refill(s) Melatonin 2020-05 Yes 5 mg = 1 Me moria mg oral 1-30 tab, PO, l tablet 19:27: Bedtime, Elbert 00 PRN for insomnia, # 60 tab, 0 Refill(s) naproxen 2020-05 Yes 220 mg = 1 Mem oria sodium 220 1-30 cap, PO, l mg oral 19:27: Q12H, PRN, Herm lor capsule 00 0 Refill(s) Melatonin 2020-05 Yes 5 mg = 1 Me moria mg oral 1-30 tab, PO, l tablet 19:27: Bedtime, Frankie 00 PRN for insomnia, # 60 tab, 0 Refill(s) naproxen 2020-05 Yes 220 mg = 1 Mem oria sodium 220 1-30 cap, PO, l mg oral 19:27: Q12H, PRN, Herm lor capsule 00 0 Refill(s) Melatonin 2020-05 Yes 5 mg = 1 Me moria mg oral 1-30 tab, PO, l tablet 19:27: Bedtime, Frankie 00 PRN for insomnia, # 60 tab, 0 Refill(s) naproxen 2020-05 Yes 220 mg = 1 Mem oria sodium 220 1-30 cap, PO, l mg oral 19:27: Q12H, PRN, Herm lor capsule 00 0 Refill(s) Melatonin 2020-05 Yes 5 mg = 1 Me moria mg oral 1-30 tab, PO, l tablet 19:27: Bedtime, Elbert 00 PRN for insomnia, # 60 tab, 0 Refill(s) naproxen 2020-05 Yes 220 mg = 1 Mem oria sodium 220 1-30 cap, PO, l mg oral 19:27: Q12H, PRN, Herm lor capsule 00 0 Refill(s) Melatonin 2020-05 Yes 5 mg = 1 Me moria mg oral 1-30 tab, PO, l tablet 19:27: Bedtime, Frankie 00 PRN for insomnia, # 60 tab, 0 Refill(s) naproxen 2020-05 Yes 220 mg = 1 Mem oria sodium 220 1-30 cap, PO, l mg oral 19:27: Q12H, PRN, Herm lor capsule 00 0 Refill(s) Melatonin 5 2020-05 Yes 5 mg = 1 Me moria mg oral 1-30 tab, PO, l tablet 19:27: Bedtime, Frankie 00 PRN for insomnia, # 60 tab, 0 Refill(s) naproxen 2020-05 Yes 220 mg = 1 Mem oria sodium 220 1-30 cap, PO, l mg oral 19:27: Q12H, PRN, Herm lor capsule 00 0 Refill(s) Melatonin 5 2020-05 Yes 5 mg = 1 Me moria mg oral 1-30 tab, PO, l tablet 19:27: Bedtime, Frankie 00 PRN for insomnia, # 60 tab, 0 Refill(s) naproxen 2020-05 Yes 220 mg = 1 Mem oria sodium 220 1-30 cap, PO, l mg oral 19:27: Q12H, PRN, Herm lor capsule 00 0 Refill(s) DULoxetine 2020-05 Yes 60 mg = 1 Me moria 60 mg oral 1-30 cap, PO, l delayed 19:26: Daily, # Tk n release 00 30 cap, 0 capsule Refill(s) [place] 2020-05 Yes 300 mg = 1 Jose josiah Carbonate 1-30 tab, PO, l 300 MG 19:26: Daily, 0 Elbert Extended 00 Refill(s) Release Tablet DULoxetine 2020-05 Yes 60 mg = 1 Me moria 60 mg oral 1-30 cap, PO, l delayed 19:26: Daily, # Tk n release 00 30 cap, 0 capsule Refill(s) [place] 2020-05 Yes 300 mg = 1 Jose josiah Carbonate 1-30 tab, PO, l 300 MG 19:26: Daily, 0 Elbert Extended 00 Refill(s) Release Tablet DULoxetine 2020-05 Yes 60 mg = 1 Me moria 60 mg oral 1-30 cap, PO, l delayed 19:26: Daily, # Tk n release 00 30 cap, 0 capsule Refill(s) [place] 2021-1 Yes 300 mg = 1 Jose josiah Carbonate 1-30 tab, PO, l 300 MG 19:26: Daily, 0 Elbert Extended 00 Refill(s) Release Tablet DULoxetine 2020-05 Yes 60 mg = 1 Me moria 60 mg oral 1-30 cap, PO, l delayed 19:26: Daily, # Tk n release 00 30 cap, 0 capsule Refill(s) [place] 2020-05 Yes 300 mg = 1 Jose josiah Carbonate 1-30 tab, PO, l 300 MG 19:26: Daily, 0 Frankie Extended 00 Refill(s) Release Tablet DULoxetine 2020-05 Yes 60 mg = 1 Me moria 60 mg oral 1-30 cap, PO, l delayed 19:26: Daily, # Tk n release 00 30 cap, 0 capsule Refill(s) [place] 2020-05 Yes 300 mg = 1 Jose josiah Carbonate 1-30 tab, PO, l 300 MG 19:26: Daily, 0 Frankie Extended 00 Refill(s) Release Tablet DULoxetine 2020-05 Yes 60 mg = 1 Me moria 60 mg oral 1-30 cap, PO, l delayed 19:26: Daily, # Tk n release 00 30 cap, 0 capsule Refill(s) [place] 2020-05 Yes 300 mg = 1 Jose josiah Carbonate 1-30 tab, PO, l 300 MG 19:26: Daily, 0 Frankie Extended 00 Refill(s) Release Tablet DULoxetine 2020-05 Yes 60 mg = 1 Me moria 60 mg oral 1-30 cap, PO, l delayed 19:26: Daily, # Tk n release 00 30 cap, 0 capsule Refill(s) [place] 2020-05 Yes 300 mg = 1 Jose josiah Carbonate 1-30 tab, PO, l 300 MG 19:26: Daily, 0 Frankie Extended 00 Refill(s) Release Tablet DULoxetine 2020-05 Yes 60 mg = 1 Me moria 60 mg oral 1-30 cap, PO, l delayed 19:26: Daily, # Tk n release 00 30 cap, 0 capsule Refill(s) [place] 2020-05 Yes 300 mg = 1 Jose josiah Carbonate 1-30 tab, PO, l 300 MG 19:26: Daily, 0 Elbert Extended 00 Refill(s) Release Tablet Hydroxyzine 2020-05 Yes 50 mg = 2 M emoria Hydrochlori 1-30 tab, PO, l de 25 MG 19:25: Daily, 0 Marcella nn Oral Tablet 00 Refill(s) Hydroxyzine 2020-05 Yes 50 mg = 2 M emoria Hydrochlori 1-30 tab, PO, l de 25 MG 19:25: Daily, 0 Marcella nn Oral Tablet 00 Refill(s) Hydroxyzine 2020-05 Yes 50 mg = 2 M emoria Hydrochlori 1-30 tab, PO, l de 25 MG 19:25: Daily, 0 Marcella nn Oral Tablet 00 Refill(s) Hydroxyzine 2020-05 Yes 50 mg = 2 M emoria Hydrochlori 1-30 tab, PO, l de 25 MG 19:25: Daily, 0 Marcella nn Oral Tablet 00 Refill(s) Hydroxyzine 2020-05 Yes 50 mg = 2 M emoria Hydrochlori 1-30 tab, PO, l de 25 MG 19:25: Daily, 0 Marcella nn Oral Tablet 00 Refill(s) Hydroxyzine 2020-05 Yes 50 mg = 2 M emoria Hydrochlori 1-30 tab, PO, l de 25 MG 19:25: Daily, 0 Marcella nn Oral Tablet 00 Refill(s) Hydroxyzine 2020-05 Yes 50 mg = 2 M emoria Hydrochlori 1-30 tab, PO, l de 25 MG 19:25: Daily, 0 Marcella nn Oral Tablet 00 Refill(s) Hydroxyzine 2020-05 Yes 50 mg = 2 M emoria Hydrochlori 1-30 tab, PO, l de 25 MG 19:25: Daily, 0 Marcella nn Oral Tablet 00 Refill(s) Dose 2020-0 No Unknown 01-31 00:00: 00 Dose 2020-0 No Unknown 01-31 00:00: 00 Dose 2020-0 No Unknown 01-31 00:00: 00 Dose 2020-0 No Unknown 01-31 00:00: 00 Risperdal 2 2020-0 No 1mg mg tablet 01-31 00:00: 00 buspirone 2020-0 No 1mg 7.5 mg 01-31 tablet 00:00: 00 clonidine 2020-0 No 51mg HCl 0.1 mg 01-31 tablet 00:00: 00 duloxetine 2020-0 No 1mg 60 mg 9-03 capsule,del 00:00: ayed 00 release Risperdal 2 2021-0 No 1mg mg tablet 8- 00:00: 00 duloxetine 2021-0 No 1mg 60 mg 8-03 capsule,del 00:00: ayed 00 release gabapentin 2021-0 No 1mg 300 mg 8-03 capsule 00:00: 00 Risperdal 2 2021-0 No 1mg mg tablet 8- 00:00: 00 duloxetine 2021-0 No 1mg 60 mg 8-03 capsule,del 00:00: ayed 00 release gabapentin 2021-0 No 1mg 300 mg 8-03 capsule 00:00: 00 Risperdal 2 2021-0 No 1mg mg tablet 7-20 00:00: 00 Risperdal 2 2021-0 No 1mg mg tablet 7-20 00:00: 00 duloxetine 2021-0 No 1mg 60 mg 7-20 capsule,del 00:00: ayed 00 release duloxetine 2021-0 No 1mg 60 mg 7-20 capsule,del 00:00: ayed 00 release Risperdal 2 2021-0 No 1mg mg tablet 7-20 00:00: 00 Risperdal 2 2021-0 No 1mg mg tablet 7-20 00:00: 00 duloxetine 2021-0 No 1mg 60 mg 7-20 capsule,del 00:00: ayed 00 release duloxetine 2021-0 No 1mg 60 mg 7-20 capsule,del 00:00: ayed 00 release Cefdinir Cefdinir 2019-1 2020- No BID Cefdinir 300 MG 300 MG 2-15 12-20 300 MG 00:00: 00:00 00 :00 Abilify 15 2019-1 No 1mg mg tablet 2 00:00: 00 duloxetine 2019-1 No 1mg 30 mg 2-01 capsule,del 00:00: ayed 00 release Abilify 15 2019-1 No 1mg mg tablet 2 00:00: 00 duloxetine 2019-1 No 1mg 30 mg 2-01 capsule,del 00:00: ayed 00 release Prozac 2019- Yes 20 mg, PO, Memor ia 1-24 Daily, 0 l 20:45: Refill(s) Elbert 00 Lamictal 2019-05 Yes 25 mg, PO, Mem oria 1-24 BID, 0 l 20:45: Refill(s) Elbert 00 Prozac 2019-05 Yes 20 mg, PO, Memor ia 1-24 Daily, 0 l 20:45: Refill(s) Elbert 00 Lamictal 2019-05 Yes 25 mg, PO, Mem oria 1-24 BID, 0 l 20:45: Refill(s) Elbert 00 Prozac 2019-05 Yes 20 mg, PO, Memor ia 1-24 Daily, 0 l 20:45: Refill(s) Elbert 00 Lamictal 2019-05 Yes 25 mg, PO, Mem oria 1-24 BID, 0 l 20:45: Refill(s) Elbert 00 Prozac 2019-05 Yes 20 mg, PO, Memor ia 1-24 Daily, 0 l 20:45: Refill(s) Elbert 00 Lamictal 2019-05 Yes 25 mg, PO, Mem oria 1-24 BID, 0 l 20:45: Refill(s) Elbert 00 Prozac 2019-05 Yes 20 mg, PO, Memor ia 1-24 Daily, 0 l 20:45: Refill(s) Elbert 00 Lamictal 2019-05 Yes 25 mg, PO, Mem oria 1-24 BID, 0 l 20:45: Refill(s) Frankie 00 Prozac 2019-05 Yes 20 mg, PO, Memor ia 1-24 Daily, 0 l 20:45: Refill(s) Elbert 00 Lamictal 2019-05 Yes 25 mg, PO, Mem oria 1-24 BID, 0 l 20:45: Refill(s) Elbert 00 Prozac 2019-05 Yes 20 mg, PO, Memor ia 1-24 Daily, 0 l 20:45: Refill(s) Frankie 00 Lamictal 2019-05 Yes 25 mg, PO, Mem oria 1-24 BID, 0 l 20:45: Refill(s) Elbert 00 Prozac 2019-05 Yes 20 mg, PO, Memor ia 1-24 Daily, 0 l 20:45: Refill(s) Frankie 00 Lamictal 2019-05 Yes 25 mg, PO, Mem oria 1-24 BID, 0 l 20:45: Refill(s) Elbert 00 Prozac 20 2019-05 No 1mg mg capsule -24 00:00: 00 Prozac 20 2019-05 No 1mg mg capsule -24 00:00: 00 Lamictal 25 2019-05 No 1mg mg tablet -20 00:00: 00 Prozac 10 2019-05 No 1mg mg capsule - 00:00: 00 Lamictal 25 2019-05 No 1mg mg tablet - 00:00: 00 Prozac 10 2019-05 No 1mg mg capsule 06-19 00:00: 00 Dose 2019-05 No Unknown 06-16 00:00: 00 clonazepam 2019-05 No mg 2 mg tablet 06-16 00:00: 00 aripiprazol 2019-05 Yes 10 mg = 1 M emoria e 10 MG 0-27 tab, PO, l Oral Tablet 20:37: Daily, 0 He rmann [Abilify] 00 Refill(s) duloxetine 2019-05 Yes 60 mg = 1 Me moria 60 MG 0-27 cap, PO, l Enteric 20:37: Daily, 0 Tk n Coated 00 Refill(s) Capsule [Cymbalta] 12 HR 2019-05 Yes 150 mg = 1 Memori a Bupropion 0-27 tab, PO, l Hydrochlori 20:37: [facility] Extended Release Tablet [Wellbutrin ] clonazePAM 2019-05 Yes 2 mg = 1 Mem oria 2 mg oral 0-27 tab, PO, l tablet 20:37: TID, 0 Frankie 00 Refill(s) armodafinil 2019-05 Yes 200 mg = 1 Memoria 200 mg oral 0-27 tab, PO, l tablet 20:37: Daily, 0 Elbert 00 Refill(s) aripiprazol 2019-05 Yes 10 mg = 1 M emoria e 10 MG 0-27 tab, PO, l Oral Tablet 20:37: Daily, 0 He rmann [Abilify] 00 Refill(s) duloxetine 2019-05 Yes 60 mg = 1 Me moria 60 MG 0-27 cap, PO, l Enteric 20:37: Daily, 0 Tk n Coated 00 Refill(s) Capsule [Cymbalta] 12 HR 2020-1 Yes 150 mg = 1 Memori a Bupropion 0-27 tab, PO, l Hydrochlori 20:37: Daily, 0 He rmann de 150 MG 00 Refill(s) Extended Release Tablet [Wellbutrin ] clonazePAM 2019-05 Yes 2 mg = 1 Mem oria 2 mg oral 0-27 tab, PO, l tablet 20:37: TID, 0 Frankie 00 Refill(s) armodafinil 2019-05 Yes 200 mg = 1 Memoria 200 mg oral 0-27 tab, PO, l tablet 20:37: Daily, 0 Frankie 00 Refill(s) aripiprazol 2019-05 Yes 10 mg = 1 M emoria e 10 MG 0-27 tab, PO, l Oral Tablet 20:37: Daily, 0 He rmann [Abilify] 00 Refill(s) duloxetine 2019-05 Yes 60 mg = 1 Me moria 60 MG 0-27 cap, PO, l Enteric 20:37: Daily, 0 Tk n Coated 00 Refill(s) Capsule [Cymbalta] 12 HR 2019-05 Yes 150 mg = 1 Memori a Bupropion 0-27 tab, PO, l Hydrochlori 20:37: Daily, 0 He rmann de 150 MG 00 Refill(s) Extended Release Tablet [Wellbutrin ] clonazePAM 2019-05 Yes 2 mg = 1 Mem oria 2 mg oral 0-27 tab, PO, l tablet 20:37: TID, 0 Frankie 00 Refill(s) armodafinil 2019-05 Yes 200 mg = 1 Memoria 200 mg oral 0-27 tab, PO, l tablet 20:37: Daily, 0 Frankie 00 Refill(s) aripiprazol 2019-05 Yes 10 mg = 1 M emoria e 10 MG 0-27 tab, PO, l Oral Tablet 20:37: Daily, 0 He rmann [Abilify] 00 Refill(s) duloxetine 2019-05 Yes 60 mg = 1 Me moria 60 MG 0-27 cap, PO, l Enteric 20:37: Daily, 0 Tk n Coated 00 Refill(s) Capsule [Cymbalta] 12 HR 2019-05 Yes 150 mg = 1 Memori a Bupropion 0-27 tab, PO, l Hydrochlori 20:37: Daily, 0 He rmann de 150 MG 00 Refill(s) Extended Release Tablet [Wellbutrin ] clonazePAM 2019-05 Yes 2 mg = 1 Mem oria 2 mg oral 0-27 tab, PO, l tablet 20:37: TID, 0 Elbert 00 Refill(s) armodafinil 2019-05 Yes 200 mg = 1 Memoria 200 mg oral 0-27 tab, PO, l tablet 20:37: Daily, 0 Elbert 00 Refill(s) aripiprazol 2019-05 Yes 10 mg = 1 M emoria e 10 MG 0-27 tab, PO, l Oral Tablet 20:37: Daily, 0 He rmann [Abilify] 00 Refill(s) duloxetine 2019-05 Yes 60 mg = 1 Me moria 60 MG 0-27 cap, PO, l Enteric 20:37: Daily, 0 Tk n Coated 00 Refill(s) Capsule [Cymbalta] 12 HR 2019-05 Yes 150 mg = 1 Memori a Bupropion 0-27 tab, PO, l Hydrochlori 20:37: Daily, 0 He rmann de 150 MG 00 Refill(s) Extended Release Tablet [Wellbutrin ] clonazePAM 2019-05 Yes 2 mg = 1 Mem oria 2 mg oral 0-27 tab, PO, l tablet 20:37: TID, 0 Elbert 00 Refill(s) armodafinil 2019-05 Yes 200 mg = 1 Memoria 200 mg oral 0-27 tab, PO, l tablet 20:37: Daily, 0 Frankie 00 Refill(s) aripiprazol 2019-05 Yes 10 mg = 1 M emoria e 10 MG 0-27 tab, PO, l Oral Tablet 20:37: Daily, 0 He rmann [Abilify] 00 Refill(s) duloxetine 2019-05 Yes 60 mg = 1 Me moria 60 MG 0-27 cap, PO, l Enteric 20:37: Daily, 0 Tk n Coated 00 Refill(s) Capsule [Cymbalta] 12 HR 2019-05 Yes 150 mg = 1 Memori a Bupropion 0-27 tab, PO, l Hydrochlori 20:37: Daily, 0 He rmann de 150 MG 00 Refill(s) Extended Release Tablet [Wellbutrin ] clonazePAM 2019-05 Yes 2 mg = 1 Mem oria 2 mg oral 0-27 tab, PO, l tablet 20:37: TID, 0 Elbert 00 Refill(s) armodafinil 2019-05 Yes 200 mg = 1 Memoria 200 mg oral 0-27 tab, PO, l tablet 20:37: Daily, 0 Elbert 00 Refill(s) aripiprazol 2019-05 Yes 10 mg = 1 M emoria e 10 MG 0-27 tab, PO, l Oral Tablet 20:37: Daily, 0 He rmann [Abilify] 00 Refill(s) duloxetine 2019-05 Yes 60 mg = 1 Me moria 60 MG 0-27 cap, PO, l Enteric 20:37: Daily, 0 Tk n Coated 00 Refill(s) Capsule [Cymbalta] 12 HR 2019-05 Yes 150 mg = 1 Memori a Bupropion 0-27 tab, PO, l Hydrochlori 20:37: Daily, 0 He rmann de 150 MG 00 Refill(s) Extended Release Tablet [Wellbutrin ] clonazePAM 2019-05 Yes 2 mg = 1 Mem oria 2 mg oral 0-27 tab, PO, l tablet 20:37: TID, 0 Elbert 00 Refill(s) armodafinil 2019-05 Yes 200 mg = 1 Memoria 200 mg oral 0-27 tab, PO, l tablet 20:37: Daily, 0 Frankie 00 Refill(s) aripiprazol 2019-05 Yes 10 mg = 1 M emoria e 10 MG 0-27 tab, PO, l Oral Tablet 20:37: Daily, 0 He rmann [Abilify] 00 Refill(s) duloxetine 2019-05 Yes 60 mg = 1 Me moria 60 MG 0-27 cap, PO, l Enteric 20:37: Daily, 0 Tk n Coated 00 Refill(s) Capsule [Cymbalta] 12 HR 2019-05 Yes 150 mg = 1 Memori a Bupropion 0-27 tab, PO, l Hydrochlori 20:37: Daily, 0 He rmann de 150 MG 00 Refill(s) Extended Release Tablet [Wellbutrin ] clonazePAM 2019-05 Yes 2 mg = 1 Mem oria 2 mg oral 0-27 tab, PO, l tablet 20:37: TID, 0 Frankie 00 Refill(s) armodafinil 2019-05 Yes 200 mg = 1 Memoria 200 mg oral 0-27 tab, PO, l tablet 20:37: Daily, 0 Elbert 00 Refill(s) Wellbutrin 2019- No 1mg XL 150 mg 0-22 24 hr 00:00: tablet, 00 extended release armodafinil 2019-05 No 1mg 200 mg 0-22 tablet 00:00: 00 Abilify 10 2019- No 1mg mg tablet 0-22 00:00: 00 Wellbutrin 2019-05 No 1mg XL 150 mg 0-22 24 hr 00:00: tablet, 00 extended release armodafinil 2019- No 1mg 200 mg 0-22 tablet 00:00: 00 Abilify 10 2019- No 1mg mg tablet 0-22 00:00: 00 armodafinil 2019- No 1mg 150 mg 0-14 tablet 00:00: 00 armodafinil 2019- No 1mg 150 mg 0-14 tablet 00:00: 00 Dose 2019- No Unknown 0-12 00:00: 00 Macrobid 2019- No 1mg 100 mg 0-12 capsule 00:00: 00 Wellbutrin 2019-05 No 1mg XL 150 mg 0-10 24 hr 00:00: tablet, 00 extended release Abilify 10 2019- No 1mg mg tablet 0-10 00:00: 00 armodafinil 2019- No 1mg 150 mg 0-10 tablet 00:00: 00 duloxetine 2019- No 1mg 60 mg 0-10 capsule,del 00:00: ayed 00 release Wellbutrin 2019- No 1mg XL 150 mg 0-10 24 hr 00:00: tablet, 00 extended release Abilify 10 2019-1 No 1mg mg tablet 0-10 00:00: 00 armodafinil 2019- No 1mg 150 mg 0-10 tablet 00:00: 00 duloxetine 2019-1 No 1mg 60 mg 0-10 capsule,del 00:00: ayed 00 release Wellbutrin 2019-0 No 1mg XL 150 mg 9-16 24 hr 00:00: tablet, 00 extended release Abilify 10 2019-0 No 1mg mg tablet 9-16 00:00: 00 duloxetine 2019-0 No 1mg 60 mg 9-16 capsule,del 00:00: ayed 00 release Wellbutrin 2020-0 No 1mg XL 150 mg 9-16 24 hr 00:00: tablet, 00 extended release Abilify 10 2020-0 No 1mg mg tablet 9-16 00:00: 00 duloxetine 2020-0 No 1mg 60 mg 9-16 capsule,del 00:00: ayed 00 release Wellbutrin 2020-0 No 1mg XL 150 mg 8-20 24 hr 00:00: tablet, 00 extended release Abilify 10 2020-0 No 1mg mg tablet 8-20 00:00: 00 duloxetine 2020-0 No 1mg 60 mg 8-20 capsule,del 00:00: ayed 00 release Wellbutrin 2020-0 No 1mg XL 150 mg 8-20 24 hr 00:00: tablet, 00 extended release Abilify 10 2020-0 No 1mg mg tablet 8-20 00:00: 00 duloxetine 2020-0 No 1mg 60 mg 8-20 capsule,del 00:00: ayed 00 release Abilify 10 2020-0 No 1mg mg tablet 7-21 00:00: 00 Abilify 10 2020-0 No 1mg mg tablet 7- 00:00: 00 Abilify 5 2020-0 No 1mg mg tablet 7- 00:00: 00 Abilify 5 2020-0 No 1mg mg tablet 12-06 00:00: 00 clonazePAM 2019-2021- No Univer s 2 mg tablet 11-08 ity of 00:00: 00:00 [place] 00 :00 Medical Branch proMETHazin 2021- No [id number] 25mg Take 1 Univers e 25 mg 09-13- tablet by ity of tablet 00:00: 00:00 mouth [place] 00 :00 every 8 Medical (eight) Branch hours as needed for Nausea and Vomiting (N/V). tiZANidine 2019-2021- No [id number] 4mg Take 1 Univers 4 mg tablet 09-13- tablet by it y of 00:00: 00:00 mouth [place] 00 :00 every 8 Medical (eight) Branch hours as needed (tension headache). venlafaxine 2021- No [id number] 225mg Take 3 Univers XR 75 mg 24 2-04 -04 capsules ity of hr capsule 00:00: 00:00 by mouth [place] 00 :00 daily with Medical breakfast. Branch lisdexamfet 2021- No [id number] 70mg Take 1 Univers amine 07-04 capsule by ity of (VYVANSE) 00:00: 00:00 mouth [place] 70 mg 00 :00 every Medical capsule morning. Branch Abilify 15 Abilify 15 No 1{table QD Abilify 15 MG MG t} MG Cymbalta 60 Cymbalta 60 No 1{capsu QD Cymbalta MG MG le} 60 MG Vitamin B Vitamin B No Vitamin B Complex - Complex - Complex - Nitrofurant Nitrofurant No QD Nitrofuran oin oin toin Macrocrysta Macrocrysta Macrocryst l 100 MG l 100 MG al 100 MG Multivitami Multivitami No 1{table QD Multivitam n - n - t} in - Vital Signs Vital Name Observation Time Observation Value Comments Source Systolic blood 2021-07-10 19:54:00 143 mm[Hg] Univer sity of [facility] Diastolic blood 2021-07-10 19:54:00 82 mm[Hg] Unive rsity [facility] [place] [facility] Heart rate 2021-07-10 19:54:00 81 /min [facility] Body temperature 2021-07-10 19:54:00 36.67 Danna [facility] Respiratory rate 2021-07-10 19:54:00 18 /min [facility] Body height 2021-07-10 19:54:00 170.2 cm [facility] Body weight 2021-07-10 19:54:00 97.886 kg [facility] BMI 2021-07-10 19:54:00 33.80 kg/m2 [facility] Oxygen saturation in 2021-07-10 19:54:00 99 /min [facility] Arterial blood by [facility] Pulse oximetry Branch Systolic blood 2021-07-04 20:57:00 124 mm[Hg] Univer sity of [facility] Diastolic blood 2021-07-04 20:57:00 80 mm[Hg] Unive rsity of [facility] Heart rate 2021-07-04 20:57:00 73 /min [facility] Body temperature 2021-07-04 20:57:00 36.83 Danna [facility] Res[facility] rate 2021-07-04 20:57:00 18 /min [facility] Body height 2021-07-04 20:57:00 170.2 cm [facility] Body weight 2021-07-04 20:57:00 96.163 kg [facility] BMI 2021-07-04 20:57:00 33.20 kg/m2 [facility] height 2020-05-14 13:30:00 67 [in_i] [facility] weight 2020-05-14 13:30:00 197 [lb_av] [facility] temperature 2020-05-14 13:30:00 97.8 [degF] [facility] bmi 2020-05-14 13:30:00 30.85 kg/m2 [facility] oximetry 2020-05-14 13:30:00 96 % [facility] blood pressure 2020-05-14 13:30:00 131 mm[Hg] [facility] - systolic [facility] blood pressure 2020-05-14 13:30:00 77 mm[Hg] [facility] - diastolic [facility] BP Systolic 2022-05-18 12:01:00 144 mm[Hg] BP Diastolic 2022-05-18 12:01:00 73 mm[Hg] Weight Measured 2022-05-18 12:01:00 177.60 pounds Height Measured 2022-05-18 12:01:00 67.00 inches Body Temperature 2022-05-18 12:01:00 98.60 degrees Heart Rate 2022-05-18 12:01:00 82.00 /min Respiratory Rate 2022-05-18 12:01:00 18.00 /min Systolic (mm Hg) 2021-10-02 18:20:00 Jose rial Frankie Diastolic (mm Hg) 2021-10-02 18:20:00 Mem orial Elbert Heart Rate 2021-10-02 18:20:00 [facility] [place] Respitory Rate 2021-10-02 18:20:00 Memori al Elbert Height 2021-10-02 18:20:00 170.18 cm [facility] Weight 2021-10-02 18:20:00 [facility] BMI Calculated 2021-10-02 18:20:00 Memori al Frankie BP Systolic 2021-07-28 09:15:00 107 mm[Hg] BP Diastolic 2021-07-28 09:15:00 73 mm[Hg] Weight Measured 2021-07-28 09:15:00 212.80 pounds Height Measured 2021-07-28 09:15:00 67.00 inches Body Temperature 2021-07-28 09:15:00 97.70 degrees Heart Rate 2021-07-28 09:15:00 87.00 /min Respiratory Rate 2021-07-28 09:15:00 16.00 /min BP Systolic 2021-07-13 09:28:00 BP Diastolic 2021-07-13 09:28:00 Weight Measured 2021-07-13 09:28:00 213.00 pounds Height Measured 2021-07-13 09:28:00 67.00 inches Body Temperature 2021-07-13 09:28:00 Heart Rate 2021-07-13 09:28:00 Respiratory Rate 2021-07-13 09:28:00 Systolic (mm Hg) 2021-06-13 19:29:00 Jose rial Elbert Diastolic (mm Hg) 2021-06-13 19:29:00 Mem orial Elbert Heart Rate 2021-06-13 19:29:00 Memorial Frankie Respitory Rate 2021-06-13 19:29:00 Memori al Frankie Height 2021-06-13 19:29:00 167.64 cm [facility] Weight 2021-06-13 19:29:00 [facility]bert BMI Calculated 2021-06-13 19:29:00 Memori al Frankie Systolic (mm Hg) 2021-04-29 19:13:00 Jose rial Elbert Diastolic (mm Hg) 2021-04-29 19:13:00 Mem orial Frankie Heart Rate 2021-04-29 19:13:00 [facility] Frankie Respitory Rate 2021-04-29 19:13:00 Memori al Elbert Height 2021-04-29 19:13:00 167.64 cm [facility] Frankie Weight 2021-04-29 19:13:00 [facility] Frankie BMI Calculated 2021-04-29 19:13:00 Memori al Elbert BP Systolic 2020-12-17 12:08:00 BP Diastolic 2020-12-17 12:08:00 Weight Measured 2020-12-17 12:08:00 212.00 pounds Height Measured 2020-12-17 12:08:00 67.00 inches Body Temperature 2020-12-17 12:08:00 Heart Rate 2020-12-17 12:08:00 Respiratory Rate 2020-12-17 12:08:00 Systolic (mm Hg) 2020-04-23 20:06:00 Jose rial Elbert Diastolic (mm Hg) 2020-04-23 20:06:00 Mem orial Elbert Heart Rate 2020-04-23 20:06:00 Memorial Frankie Respitory Rate 2020-04-23 20:06:00 Memori al Elbert Height 2020-04-23 20:06:00 170.18 cm [facility]bert Weight 2020-04-23 20:06:00 [facility] Elbert BMI Calculated 2020-04-23 20:06:00 Memori al Elbert Systolic (mm Hg) 2020-03-26 20:33:00 Jose rial Elbert Diastolic (mm Hg) 2020-03-26 20:33:00 Mem orial Frankie Heart Rate 2020-03-26 20:33:00 [facility] Elbert Respitory Rate 2020-03-26 20:33:00 Memori al Elbert Height 2020-03-26 20:33:00 170.18 cm [facility] Frankie Weight 2020-03-26 20:33:00 [facility] Elbert BMI Calculated 2020-03-26 20:33:00 Memori al Frankie BP Systolic 2020-03-11 14:50:00 143 mm[Hg] BP Diastolic 2020-03-11 14:50:00 85 mm[Hg] Weight Measured 2020-03-11 14:50:00 200.40 pounds Height Measured 2020-03-11 14:50:00 68.40 inches Body Temperature 2020-03-11 14:50:00 98.00 degrees Heart Rate 2020-03-11 14:50:00 78.00 /min Respiratory Rate 2020-03-11 14:50:00 17.00 /min Procedures Procedure Date / Time Performed Performing Clinician Olimpia JETERT MOLECULAR STREP 2021-07-10 20:03:00 Anita Velasco [facility] Plan of Care Planned Activity Planned Date Details Comments Source Goal Plan of Care Note [code = 34826-4] Goal Plan of Care Note [code = 25498-1] Goal Plan of Care Note [code = 60679-0] Goal Plan of Care Note [code = 86238-9] Goal Plan of Care Note [code = 57186-2] Goal Plan of Care Note [code = 68647-4] Goal Plan of Care Note [code = 66258-1] Goal Plan of Care Note [code = 88807-2] Goal Plan of Care Note [code = 83365-3] Goal Plan of Care Note [code = 39179-8] Goal Plan of Care Note [code = 70644-4] Goal Plan of Care Note [code = 58147-0] Goal Plan of Care Note [code = 66917-5] Goal Plan of Care Note [code = 89513-4] Goal Plan of Care Note [code = 10002-3] Goal Plan of Care Note [code = 45788-4] Goal Plan of Care Note [code = 13252-1] Goal Plan of Care Note [code = 16318-9] Goal Plan of Care Note [code = 49370-8] Goal Plan of Care Note [code = 97400-6] Goal Plan of Care Note [code = 98558-7] Goal Plan of Care Note [code = 33398-7] Goal Plan of Care Note [code = 85248-1] Goal Plan of Care Note [code = 54441-7] Goal Plan of Care Note [code = 94560-4] Goal Plan of Care Note [code = 11249-9] Goal Plan of Care Note [code = 84793-4] Goal Plan of Care Note [code = 55857-7] Goal Plan of Care Note [code = 90144-8] Goal Plan of Care Note [code = 79401-6] Goal Plan of Care Note [code = 36887-3] Goal Plan of Care Note [code = 97256-7] Goal Plan of Care Note [code = 74283-4] Goal Plan of Care Note [code = 85598-1] Goal Plan of Care Note [code = 55788-1] Goal Plan of Care Note [code = 60206-8] Goal Plan of Care Note [code = 70404-1] Goal Plan of Care Note [code = 83653-8] Encounters Start End Encounter Admission Attending Care Care Encounter Source Date/Time Date/Time Type Type Clinicians Facility Department ID 2021-06-25 Outpatient STLMLC STLMLC [id number] Common 12:13:40 [id number] 2021-03-31 Emergency [facility] [id number] [facility]22-09[facility] [facility] [id number] Univers 11:42:00 23:59:00 Encounter [id number] [phone] [address] 2022-09-09 2022-09-09 [facility] [id number] Univers 00:00:00 23:59:00 [facility]22-07-28 2022-07-28 Outpatient [facility] QUINN [id number] Noel 09:20:21 09:20:21 0228 [facility] 2022-06-08 2022-06-08 Outpatient QUINN BALL [id number] Noel 11:33:18 11:33:18 0109 [facility] 2022-05-18 2022-05-18 Outpatient QUINN BALL [id number] Noel 11:25:53 11:25:53 1219 [facility] 2022-05-18 2022-05-18 Outpatient [id number] 00:00:00 00:00:00 Visit [id number] [id number]-[id number] -[id number] 2022-05-15 2022-05-15 Outpatient SFA [facility] [id number] Noel 16:06:35 16:06:35 1216 [address] [facility]tr[facility] 2022-03-16 2022-03-16 Outpatient [facility] [id number] Noel 10:04:32 10:04:32 1017 F Beltran 2022-02-21 2022-02-21 Outpatient [id number] 00:00:00 00:00:00 Visit [id number] [id number]-[id number] [id number] 2022-01-08 2022-01-08 Ambulatory nullFlavo MNA [id number] Memoria 15:45:00 15:45:00 Pre-Reg r Neurology 11 l Charan Ansariann 2022-01-08 2022-01-08 Ambulatory nullFlavo MNA [id number] Memoria 15:45:00 15:45:00 Pre-Reg r Neurology 11 l [place] Frankie 2022-01-08 2022-01-08 Outpatient MHIE MHIE [id number] Memoria 10:45:00 10:45:00 11 maria del rosario Frankie 2022-01-08 2022-01-08 Outpatient [facility] [id number] 10:45:00 10:45:00 Vik 11 Jett 2021-10-02 2021-10-03 Outpatient nullFlavo MNA [id number] Memoria 18:30:00 04:59:59 r Neurology 10 maria del rosario [place] Frankie 2021-10-02 2021-10-03 Outpatient nullFlavo MNA [id number] Memoria 18:30:00 04:59:59 r Neurology 10 maria del rosario [place] Frankie 2021-10-02 2021-10-02 Outpatient [facility]Z [facility] [id number] 13:30:00 23:59:59 Vik Soraida Jett 2021-10-02 2021-10-02 Outpatient MHIE MHIE [id number] Memoria 13:30:00 13:30:00 10 maria del rosario Frankie 2021-08-20 2021-08-20 Ambulatory nullFlavo MNA [id number] Memoria 16:15:00 16:15:00 Pre-Reg r Neurology 09 l Charan David 2021-08-20 2021-08-20 Ambulatory nullFlavo MNA [id number] Memoria 16:15:00 16:15:00 Pre-Reg r Neurology 09 l Charan David 2021-08-20 2021-08-20 Outpatient Lyla MISCHER MISCHER [id number] 11:15:00 11:15:00 Vik 09 Jett 2021-07-25 2021-07-25 Outpatient MHIE IE [id number] [facility] 13:00:00 13:00:00 09 l Frankie 2021-07-11 2021-07-11 Letter EUGENE Wood [id number] Univers 00:00:00 00:00:00 (Out) Angelique AHUMADA [id number] it y of [facility] 4.2.7.2.686 Sree as [id number] [address] 2021-07-10 2021-07-10 [facility] [id number] Univers 14:00:00 14:25:55 [facility] 2021-07-10 2021-07-10 Urgent Meir Martinez [facility] 1.2.840.114 [id number] Univers 14:00:00 14:25:55 Care [facility] [id number] ity [facility] 4.2.7.2.686 Sree as SUJATHA?BLEA [id number] [place] dicsharon ROSASEY [address] [facility] 2021-07-04 2021-07-04 Office [facility] 1.2.840.114 [id number] Univers 15:00:00 15:30:00 Visit Mitzy CORNELL 350.1.13.10 ity [facility] 4[place]2.7.2.686 [place] [id number] [place] dicsharon [facility] [address] 2021-07-04 2021-07-04 [facility] [id number] Univers 15:00:00 15:00:00 MITZY rice [facility] 2021-07-04 2021-07-04 Outpatient R ANIRUDH, [facility] [id number] Univers 15:00:00 15:00:00 MITZY rice [facility] 2021-07-04 2021-07-04 Orders Doctor EUGENE 1.2.840.114 [id number] Univers 00:00:00 00:00:00 Only Unassigned, ZITA 350.1.13.10 ity [facility] 4.2.7.2.686 Sree as [id number] [address] 2021-06-13 2021-06-14 Outpatient nullFlavo MNA [id number] Memoria 19:30:00 05:59:59 r Neurology 08 l Charan David 2021-06-13 2021-06-14 Outpatient nullFlavo MNA [id number] Memoria 19:30:00 05:59:59 r Neurology 08 l Charan David 2021-06-13 2021-06-13 Outpatient DIANE AritaSCHER MHMISCHER [id number] 13:30:00 23:59:59 Vik Xochitl Jett 2021-06-13 2021-06-13 Outpatient MHIE MHIE [id number] Memoria 13:30:00 13:30:00 08 maria del rosario Frankie 2021-04-29 2021-04-30 Outpatient nullFlavo MNA [id number] Memoria 19:00:00 05:59:59 r Neurology 07 l Charan David 2021-04-29 2021-04-30 Outpatient nullFlavo MNA [id number] Memoria 19:00:00 05:59:59 r Neurology 07 l Charan David 2021-04-29 2021-04-29 Outpatient DIANE AritaSCHDAHIANA MHMISCHER [id number] 13:00:00 23:59:59 Vik Dayanara Jett 2021-04-29 2021-04-29 Outpatient MHIE MHIE [id number] Memoria 13:00:00 13:00:00 Dayanara David 2021-04-22 2021-04-22 Outpatient Arian MAHONEY [facility] [id number] Univers 14:30:00 14:30:00 ARI rice [facility] 2020-12-13 2020-12-13 Ambulatory nullFlavo MNA [id number] Memoria 16:30:00 16:30:00 Pre-Reg r Neurology 06 l Charan David 2020-12-13 2020-12-13 Ambulatory nullFlavo MNA [id number] Memoria 16:30:00 16:30:00 Pre-Reg r Neurology 06 l Charan Ansariann 2020-12-13 2020-12-13 Outpatient MHIE MHIE [id number] Memoria 11:30:00 11:30:00 06 maria del rosario David 2020-12-13 2020-12-13 Outpatient HAYDEE AritaNYSCHER MISCHER [id number] 11:30:00 11:30:00 Vik Jamee Frausto 2020-05-29 2020-05-29 Ambulatory nullFlavo MNA [id number] Memoria 21:45:00 21:45:00 Pre-Reg r Neurology 05 l Charan Ansariann 2020-05-29 2020-05-29 Ambulatory nullFlavo MNA [id number] Memoria 21:45:00 21:45:00 Pre-Reg r Neurology 05 l Charan Ansariann 2020-05-29 2020-05-29 Outpatient MHIE MHIE [id number] Memoria 15:45:00 15:45:00 05 maria del rosario AnsariElbert 2020-05-29 2020-05-29 Outpatient [facility] [id number] 15:45:00 15:45:00 Vik 05 Jett 2020-05-14 2020-05-14 OFFICE STLMLC STLMLC [id number] mmon 00:00:00 00:00:00 VISIT [facility] it PT LEVEL 3 - [facility] 2020-05-02 2020-05-03 Outpatient nullFlavo MNA [id number] Memoria 19:00:00 05:59:59 r Neurology 04 l Charan David 2020-05-02 2020-05-03 Outpatient nullFlavo MNA [id number] Memoria 19:00:00 05:59:59 r Neurology 04 l Charan David 2020-05-02 2020-05-02 Outpatient DIANE AritaSCHER MHMISCHER [id number] 13:00:00 23:59:59 Vik 04 Jett 2020-05-02 2020-05-02 Outpatient MHIE MHIE [id number] Memoria 13:00:00 13:00:00 04 maria del rosario David 2020-04-23 2020-04-24 Outpatient nullFlavo MNA [id number] Memoria 20:30:00 05:59:59 r Neurology 02 l Charan Elbert 2020-04-23 2020-04-24 Outpatient nullFlavo MNA [id number] Memoria 20:30:00 05:59:59 r Neurology 02 l Charan Ansariann 2020-04-23 2020-04-23 [id number] 14:30:00 23:59:59 Vik 02 Jett 2020-04-23 2020-04-23 Outpatient MHIE MHIE [id number] Memoria 14:30:00 14:30:00 02 l Elbert 2020-04-19 2020-04-19 Ambulatory nullFlavo MNA [id number] Memoria 19:00:00 19:00:00 Pre-Reg r Neurology 03 l [place] Frankie 2020-04-19 2020-04-19 Ambulatory nullFlavo MNA [id number] Memoria 19:00:00 19:00:00 Pre-Reg r Neurology 03 l [place] Elbert 2020-04-19 2020-04-19 Outpatient MHIE MHIE [id number] Memoria 13:00:00 13:00:00 03 maria del rosario Elbert 2020-04-19 2020-04-19 [facility] [id number] 13:00:00 13:00:00 Vik 03 Jett 2020-03-29 2020-03-29 Ambulatory nullFlavo MNA [id number] Memoria 18:00:00 18:00:00 Pre-Reg r Neurology 01 l [place] Elbert 2020-03-29 2020-03-29 Ambulatory nullFlavo MNA [id number] Memoria 18:00:00 18:00:00 Pre-Reg r Neurology 01 l [place] Elbert 2020-03-29 2020-03-29 Outpatient MHIE MHIE [id number] Memoria 13:00:00 13:00:00 01 l Frankie 2020-03-29 2020-03-29 Outpatient Lyla, MHMISCHER MHMISCHER [id number] 13:00:00 13:00:00 Vik 01 Jett 2020-03-26 2020-03-27 Outpatient nullFlavo MNA [id number] Memoria 20:00:00 04:59:59 r Neurology 00 l Charan David 2020-03-26 2020-03-27 Outpatient nullFlavo MNA [id number] Memoria 20:00:00 04:59:59 r Neurology 00 l Charan David 2020-03-26 2020-03-26 Outpatient Lyla, MHMISCHER MHMISCHER [id number] 15:00:00 23:59:59 Vik 00 Jett 2020-03-26 2020-03-26 Outpatient MHIE MHIE [id number] Memoria 15:00:00 15:00:00 00 l Frankie 2019-11-24 2019-11-24 Outpatient R [facility] [id number] Univers 15:20:00 15:20:00 ity of [facility] 2019-09-14 2019-09-14 Outpatient R MARY ANNE, [facility] [id number] Univers 11:30:00 11:30:00 WONDIFUL ity o f [facility] Results Test Description Test Time Test Comments Results Result Comments Source CARBAMAZEPINE (TEGRETOL) 2022-07-29 06:48:53 Test Item Value Reference Range Interpretation Comme nts CARBAMAZEPINE (TEGRETOL) 3.7 UG/ML 4.0-12.0 L * [facility] has important pathology (test code = 3006) staff debbi babcock effective 07/29/2022. New patholo gy staff will provide uninterrupted, excellent patient care and clinic al consultation. See URL: [email or web address]. UNLESS OTHERWIS E INDICATED, ALL TESTING PERFORM ED AT [facility] [address] [place] [address] [id number] ASSOCIATE PRODUCT MANAGER: ANDREW JUSTIN M.D. CLIA NUMBER [id number] CAP ACCREDITATION N O. [id number] TSH, THIRD [id number] 06:22:53 Test Item Value Reference Range Interpretation Comments TSH, THIRD GENERATION (test code 1.870 UIU/ML 0.400-4.100 = 2821) COMPREHENSIVE METABOLIC [id number] 03:59:34 Test Item Value Reference Range Interpretation Comments GLUCOSE (test code = 96 MG/DL 70-99 2216) BUN (test code = 10 MG/DL -2207) CREATININE (test 0.86 MG/DL 0.60-1.30 code = 2214) eGFR (2020 CKD-EPI) 91 ML/MIN/1.73 >60 (test code = 72569) CALC BUN/CREAT (test 12 RATIO 6-28 code = 2235) SODIUM (test code = 140 MEQ/L 338-128 2204) POTASSIUM (test code 4.5 MEQ/L 3.5-5.4 = 2227) CHLORIDE (test code 105 MEQ/L 95-107 = 2214) CARBON DIOXIDE (test 26 MEQ/L 19-31 code = 2206) CALCIUM (test code = 9.6 MG/DL 8.5-10.5 2208) PROTEIN, TOTAL (test 6.7 G/DL 6.1-8.3 code = 222) ALBUMIN (test code = 4.5 G/DL 3.5-5.2 2200) CALC GLOBULIN (test 2.2 G/DL 1.9-3.7 code = 2240) CALC A/G RATIO (test 2.0 RATIO 1.0-2.6 code = 2234) BILIRUBIN, TOTAL 0.3 MG/DL See_Comment [Automated message] (test code = 2207) The syste m which generated this result transmit melanie reference range : <=1.2. The refe rence range was not u sed to interpret th is result as normal/abnormal . ALKALINE PHOSPHATASE 61 U/L 40-114 (test code = 2204) AST (test code = 11 U/L 9-40 2217) ALT (test code = 15 U/L 5-40 2218) PROTHROMBIN TIME (PT)2022-05-19 03:10:42 Test Item Value Reference Range Interpretation Comments PROTHROMBIN TIME 12.9 SECONDS 12.5-14.7 (PT) (test code = 1402) INR (test code = 0.9 SEE BELOW CURRENT 78482) RECOMMENDATIONS ARE FOR AN INR OF 2 .0-3.0 FOR ALL PATIENT S ON VITAMIN K ANTAG ONISTS, EXCEPT THOSE WI TH PROSTHETIC HEAR T VALVES, FOR WHO M INR OF 2.5-3.5 IS RECOMMENDED. UN LESS OTHERWISE INDIC ATED, ALL TESTING PER FORMED [facility], [place] [facility] [place] [facility] [place] [address] [facility] DIRECTOR: ANDREW JUSTIN M.D. CLIA NUMBER [id number] CAP ACCREDITATION N O. [id number] CBC W/AUTO DIFF WITH [id number] 02:15:17 Test Item Value Reference Range Interpretation Comments WBC (test code = 5.2 K/UL 3.5-11.0 1001) RBC (test code = 4.86 M/UL 3.80-5.40 1002) HEMOGLOBIN (test code 13.9 G/DL 11.5-15.5 = 1003) HEMATOCRIT (test code 41.7 % 34.0-45.0 = 1004) MCV (test code = 85.8 fL 80.0-99.0 1005) MCH (test code = 28.6 PG 25.0-33.0 1006) MCHC (test code = 33.3 G/DL 31.0-36.0 1007) RDW (test code = 11.8 % 11.5-15.0 1038) NEUTROPHILS (test 53.1 % code = 1008) LYMPHOCYTES (test 36.2 % code = 1010) MONOCYTES (test code 6.8 % = 1011) EOSINOPHILS (test 3.1 % code = 1012) BASOPHILS (test code 0.8 % = 1013) IMMATURE GRANULOCYTES 0.0 % (test code = 1036) NUCLEATED RBCS (test 0.0 /100 WBC'S See_Comment [Aut omated code = 1065) message] The sy stem which generated this result transmitted reference range : 0.0. The refere nce range was not u sed to interpret th is result as normal/abnormal . PLATELET COUNT (test 261 K/UL 130-400 code = 1015) ABSOLUTE NEUTROPHILS 2.74 K/UL 1.50-7.50 (test code = 1066) ABSOLUTE LYMPHOCYTES 1.87 K/UL 1.00-4.00 (test code = 1067) ABSOLUTE MONOCYTES 0.35 K/UL 0.20-1.00 (test code = 1068) ABSOLUTE EOSINOPHILS 0.16 K/UL 0.00-0.50 (test code = 1040) ABSOLUTE BASOPHILS 0.04 K/UL 0.00-0.20 (test code = 1069) ABS IMMATURE 0.00 K/UL 0.00-0.10 GRANULOCYTES (test code = 1020) ABS NUCLEATED RBCS 0.00 K/UL 0.00-0.11 (test code = 09311) VITAMIN D, 25 [id number] 03:55:39 Test Item Value Reference Range Interpretation Comments VITAMIN D, 25 OH 40 NG/ML SEE BELOW NOTE: 25-H YDROXYVITAMIN D (test code = 4958) ASSAY INC LUDES 25-HYDROXYVITAM IN D2 AND D3. METHODOLOGY IS CHEMILUMINESCEN T IMMUNOASSAY. INTERPRETIVE RA NGES PEDIATRIC (<17 YEARS) . . . . . . . . . . . NG/ML 20-100ADULT: IN SUFFICIENT . . . . . . . . . . . . . . NG/ML <20 SUBOP TIMAL . . . . . . . . . . . . . . . NG/ML 20-29 OPT IMAL . . . . . . . . . . . . . . . . . NG/ML 30-100 VITAMIN D, 25 OH [ADDED]2021-12-12 00:00:00 Test Item Value Reference Range Interpretation Comments VITAMIN D, 25 OH (test code = 4958) 40 NG/ML VITAMIN D, 25 OH [ADDED]2021-12-12 00:00:00 Test Item Value Reference Range Interpretation Comments VITAMIN D, 25 OH (test code = 4958) 40 NG/ML VITAMIN D, 25 OH [ADDED]2021-12-12 00:00:00 Test Item Value Reference Range Interpretation Comments VITAMIN D, 25 OH (test code = 4958) 40 NG/ML VITAMIN D, 25 OH [ADDED]2021-12-12 00:00:00 Test Item Value Reference Range Interpretation Comments VITAMIN D, 25 OH (test code = 4958) 40 NG/ML VITAMIN [id number] 06:34:47 Test Item Value Reference Range Interpretation Comments VITAMIN B-12 (test code = 2840) 424 PG/ML 200-950 CBC W/AUTO DIFF WITH [id number] 05:42:09 Test Item Value Reference Range Interpretation Comments WBC (test code = 5.1 K/UL 3.5-11.0 1001) RBC (test code = 4.65 M/UL 3.80-5.40 1002) HEMOGLOBIN (test code 14.0 G/DL 11.5-15.5 = 1003) HEMATOCRIT (test code 40.4 % 34.0-45.0 = 1004) MCV (test code = 86.9 fL 80.0-99.0 1005) MCH (test code = 30.1 PG 25.0-33.0 1006) MCHC (test code = 34.7 G/DL 31.0-36.0 1007) RDW (test code = 12.3 % 11.5-15.0 1038) NEUTROPHILS (test 55.3 % code = 1008) LYMPHOCYTES (test 36.1 % code = 1010) MONOCYTES (test code 5.7 % = 1011) EOSINOPHILS (test 2.1 % code = 1012) BASOPHILS (test code 0.6 % = 1013) IMMATURE GRANULOCYTES 0.2 % (test code = 1036) NUCLEATED RBCS (test 0.0 /100 WBC'S See_Comment [Aut omated code = 1065) message] The sy stem which generated this result transmitted reference range : 0.0. The refere nce range was not u sed to interpret th is result as normal/abnormal . PLATELET COUNT (test 266 K/UL 130-400 code = 1015) ABSOLUTE NEUTROPHILS 2.83 K/UL 1.50-7.50 (test code = 1066) ABSOLUTE LYMPHOCYTES 1.85 K/UL 1.00-4.00 (test code = 1067) ABSOLUTE MONOCYTES 0.29 K/UL 0.20-1.00 (test code = 1068) ABSOLUTE EOSINOPHILS 0.11 K/UL 0.00-0.50 (test code = 1040) ABSOLUTE BASOPHILS 0.03 K/UL 0.00-0.20 (test code = 1069) ABS IMMATURE 0.01 K/UL 0.00-0.10 GRANULOCYTES (test code = 1020) ABS NUCLEATED RBCS 0.00 K/UL 0.00-0.11 (test code = 37463) COMPREHENSIVE METABOLIC [id number] 03:08:59 Test Item Value Reference Range Interpretation Comments GLUCOSE (test code = 95 MG/DL 70-99 2216) BUN (test code = 14 MG/DL 6-20 2207) CREATININE (test 0.94 MG/DL 0.60-1.30 code = 221) eGFR (2020 CKD-EPI) 82 ML/MIN/1.73 >60 (test code = 81434) CALC BUN/CREAT (test 15 RATIO 6-28 code = 2235) SODIUM (test code = 139 MEQ/L 919-233 5951) POTASSIUM (test code 4.6 MEQ/L 3.5-5.4 = 2227) CHLORIDE (test code 104 MEQ/L 95-107 = 2214) CARBON DIOXIDE (test 24 MEQ/L 19-31 code = 2205) CALCIUM (test code = 9.6 MG/DL 8.5-10.5 2208) PROTEIN, TOTAL (test 7.1 G/DL 6.1-8.3 code = 2228) ALBUMIN (test code = 4.9 G/DL 3.5-5.2 2200) CALC GLOBULIN (test 2.2 G/DL 1.9-3.7 code = 2239) CALC A/G RATIO (test 2.2 RATIO 1.0-2.6 code = 223) BILIRUBIN, TOTAL 0.3 MG/DL See_Comment [Automated message] (test code = 2206) The syste m which generated this result transmit melanie reference range : <=1.2. The refe rence range was not u sed to interpret th is result as normal/abnormal . ALKALINE PHOSPHATASE 52 U/L 40-114 (test code = 2203) AST (test code = 14 U/L 9-40 2217) ALT (test code = 18 U/L 5-40 2218) LIPID [id number] 03:08:59 Test Item Value Reference Range Interpretation Comments CHOLESTEROL (test 176 MG/DL <200 code = 2210) TRIGLYCERIDES (test 148 MG/DL <150 code = 2232) HDL CHOLESTEROL (test 33 MG/DL >39 L code = 222) CALC LDL CHOL (test 117 MG/DL <100 H NOTE: C ALCULATED LDL code = 2237) IS BASED ON BRYAN-MELTON METHOD WHICHINCLUDES ADJUSTABLE TRIGLYCERIDE:VL DL CHOLESTEROL RAT IO.THIS FACTOR VARIES B Y MEASURED TRIGLY CERIDE AND NON-HDLCHOL ESTEROL CONCENTRATIONS WITH INCREASED CALCU LATED LDL SEENIN HIGH ER TRIGLYCERIDE OR LOWER NON-HDL SPECIME NS. FOR MOREINFORMATION , SEE CLIENT ANNOUNCE MENT AT [email or web address] RISK RATIO LDL/HDL 3.55 RATIO <3.22 H (test code = 2238) [id number] 03:08:32 Test Item Value Reference Range Interpretation Comments LITHIUM (test code 0.33 MEQ/L 0.60-1.20 L UNLESS O THERWISE = 2038) INDICATED, ALL TESTING PERFORMED [facility] PATH[facility] [employer]. [address] [place] [address] 4 LABORATORY DIRE CTOR: ANDREW POLLARD M.D. CLIA NUMBER [id number] [facility] [place] [id number] CBC W/AUTO DIFF WITH PLATELETS [ADDED]2021-12-09 00:00:00 Test Item Value Reference Range Interpretation Comments WBC (test code = 1001) 5.1 K/UL RBC (test code = 1002) 4.65 M/UL HEMOGLOBIN (test code = 1003) 14.0 G/DL HEMATOCRIT (test code = 1004) 40.4 % MCV (test code = 1005) 86.9 fL MCH (test code = 1006) 30.1 PG MCHC (test code = 1007) 34.7 G/DL RDW (test code = 1038) 12.3 % NEUTROPHILS (test code = 1008) 55.3 % LYMPHOCYTES (test code = 1010) 36.1 % MONOCYTES (test code = 1011) 5.7 % EOSINOPHILS (test code = 1012) 2.1 % BASOPHILS (test code = 1013) 0.6 % IMMATURE GRANULOCYTES (test 0.2 % code = 1036) NUCLEATED RBCS (test code = 0.0 /100WBC'S 1065) PLATELET COUNT (test code = 266 K/UL 1015) ABSOLUTE NEUTROPHILS (test code 2.83 K/UL = 1066) ABSOLUTE LYMPHOCYTES (test code 1.85 K/UL = 1067) ABSOLUTE MONOCYTES (test code = 0.29 K/UL 1068) ABSOLUTE EOSINOPHILS (test code 0.11 K/UL = 1040) ABSOLUTE BASOPHILS (test code = 0.03 K/UL 1069) ABS IMMATURE GRANULOCYTES (test 0.01 K/UL code = 1020) ABS NUCLEATED RBCS (test code = 0.00 K/UL 30184) CBC W/AUTO DIFF WITH PLATELETS [ADDED]2021-12-09 00:00:00 Test Item Value Reference Range Interpretation Comments WBC (test code = 1001) 5.1 K/UL RBC (test code = 1002) 4.65 M/UL HEMOGLOBIN (test code = 1003) 14.0 G/DL HEMATOCRIT (test code = 1004) 40.4 % MCV (test code = 1005) 86.9 fL MCH (test code = 1006) 30.1 PG MCHC (test code = 1007) 34.7 G/DL RDW (test code = 1038) 12.3 % NEUTROPHILS (test code = 1008) 55.3 % LYMPHOCYTES (test code = 1010) 36.1 % MONOCYTES (test code = 1011) 5.7 % EOSINOPHILS (test code = 1012) 2.1 % BASOPHILS (test code = 1013) 0.6 % IMMATURE GRANULOCYTES (test 0.2 % code = 1036) NUCLEATED RBCS (test code = 0.0 /100WBC'S 1065) PLATELET COUNT (test code = 266 K/UL 1015) ABSOLUTE NEUTROPHILS (test code 2.83 K/UL = 1066) ABSOLUTE LYMPHOCYTES (test code 1.85 K/UL = 1067) ABSOLUTE MONOCYTES (test code = 0.29 K/UL 1068) ABSOLUTE EOSINOPHILS (test code 0.11 K/UL = 1040) ABSOLUTE BASOPHILS (test code = 0.03 K/UL 1069) ABS IMMATURE GRANULOCYTES (test 0.01 K/UL code = 1020) ABS NUCLEATED RBCS (test code = 0.00 K/UL 73590) CBC W/AUTO DIFF WITH PLATELETS [ADDED]2021-12-09 00:00:00 Test Item Value Reference Range Interpretation Comments WBC (test code = 1001) 5.1 K/UL RBC (test code = 1002) 4.65 M/UL HEMOGLOBIN (test code = 1003) 14.0 G/DL HEMATOCRIT (test code = 1004) 40.4 % MCV (test code = 1005) 86.9 fL MCH (test code = 1006) 30.1 PG MCHC (test code = 1007) 34.7 G/DL RDW (test code = 1038) 12.3 % NEUTROPHILS (test code = 1008) 55.3 % LYMPHOCYTES (test code = 1010) 36.1 % MONOCYTES (test code = 1011) 5.7 % EOSINOPHILS (test code = 1012) 2.1 % BASOPHILS (test code = 1013) 0.6 % IMMATURE GRANULOCYTES (test 0.2 % code = 1036) NUCLEATED RBCS (test code = 0.0 /100WBC'S 1065) PLATELET COUNT (test code = 266 K/UL 1015) ABSOLUTE NEUTROPHILS (test code 2.83 K/UL = 1066) ABSOLUTE LYMPHOCYTES (test code 1.85 K/UL = 1067) ABSOLUTE MONOCYTES (test code = 0.29 K/UL 1068) ABSOLUTE EOSINOPHILS (test code 0.11 K/UL = 1040) ABSOLUTE BASOPHILS (test code = 0.03 K/UL 1069) ABS IMMATURE GRANULOCYTES (test 0.01 K/UL code = 1020) ABS NUCLEATED RBCS (test code = 0.00 K/UL 78726) LIPID PANEL [ADDED]2021-12-09 00:00:00 Test Item Value Reference Range Interpretation Comments CHOLESTEROL (test code = 2210) 176 MG/DL TRIGLYCERIDES (test code = 2232) 148 MG/DL HDL CHOLESTEROL (test code = 2220) 33 MG/DL CALC LDL CHOL (test code = 2237) 117 MG/DL RISK RATIO LDL/HDL (test code = 3.55 RATIO 2238) LIPID PANEL [ADDED]2021-12-09 00:00:00 Test Item Value Reference Range Interpretation Comments CHOLESTEROL (test code = 2210) 176 MG/DL TRIGLYCERIDES (test code = 2232) 148 MG/DL HDL CHOLESTEROL (test code = 2220) 33 MG/DL CALC LDL CHOL (test code = 2237) 117 MG/DL RISK RATIO LDL/HDL (test code = 3.55 RATIO 2238) COMPREHENSIVE METABOLIC PANEL [ADDED]2021-12-09 00:00:00 Test Item Value Reference Range Interpretation Comments GLUCOSE (test code = 2217) 95 MG/DL BUN (test code = 2208) 14 MG/DL CREATININE (test code = 2214) 0.94 MG/DL eGFR (2020 CKD-EPI) (test code 82 ML/MIN/1.73 = 39584) CALC BUN/CREAT (test code = 15 RATIO 2235) SODIUM (test code = 2231) 139 MEQ/L POTASSIUM (test code = 2228) 4.6 MEQ/L CHLORIDE (test code = 2215) 104 MEQ/L CARBON DIOXIDE (test code = 24 MEQ/L 220) CALCIUM (test code = 2209) 9.6 MG/DL PROTEIN, TOTAL (test code = 7.1 G/DL 2228) ALBUMIN (test code = 2201) 4.9 G/DL CALC GLOBULIN (test code = 2.2 G/DL 2240) CALC A/G RATIO (test code = 2.2 RATIO 2234) BILIRUBIN, TOTAL (test code = 0.3 MG/DL 2206) ALKALINE PHOSPHATASE (test 52 U/L code = 2204) AST (test code = 2218) 14 U/L ALT (test code = 2219) 18 U/L COMPREHENSIVE METABOLIC PANEL [ADDED]2021-12-09 00:00:00 Test Item Value Reference Range Interpretation Comments GLUCOSE (test code = 2217) 95 MG/DL BUN (test code = 2208) 14 MG/DL CREATININE (test code = 2214) 0.94 MG/DL eGFR (2020 CKD-EPI) (test code 82 ML/MIN/1.73 = 33683) CALC BUN/CREAT (test code = 15 RATIO 2235) SODIUM (test code = 2231) 139 MEQ/L POTASSIUM (test code = 2228) 4.6 MEQ/L CHLORIDE (test code = 2215) 104 MEQ/L CARBON DIOXIDE (test code = 24 MEQ/L 2205) CALCIUM (test code = 2209) 9.6 MG/DL PROTEIN, TOTAL (test code = 7.1 G/DL 2228) ALBUMIN (test code = 2201) 4.9 G/DL CALC GLOBULIN (test code = 2.2 G/DL 2240) CALC A/G RATIO (test code = 2.2 RATIO 2234) BILIRUBIN, TOTAL (test code = 0.3 MG/DL 2206) ALKALINE PHOSPHATASE (test 52 U/L code = 2204) AST (test code = 2218) 14 U/L ALT (test code = 2219) 18 U/L VITAMIN B-12 [ADDED]2021-12-09 00:00:00 Test Item Value Reference Range Interpretation Comments VITAMIN B-12 (test code = 2840) 424 PG/ML VITAMIN B-12 [ADDED]2021-12-09 00:00:00 Test Item Value Reference Range Interpretation Comments VITAMIN B-12 (test code = 2840) 424 PG/ML VITAMIN B-12 [ADDED]2021-12-09 00:00:00 Test Item Value Reference Range Interpretation Comments VITAMIN B-12 (test code = 2840) 424 PG/ML LITHIUM [ADDED]2021-12-09 00:00:00 Test Item Value Reference Range Interpretation Comments LITHIUM (test code = 2038) 0.33 MEQ/L LITHIUM [ADDED]2021-12-09 00:00:00 Test Item Value Reference Range Interpretation Comments LITHIUM (test code = 203) 0.33 MEQ/L LITHIUM [ADDED]2021-12-09 00:00:00 Test Item Value Reference Range Interpretation Comments LITHIUM (test code = 203) 0.33 MEQ/L CBC W/AUTO DIFF WITH PLATELETS [ADDED]2021-12-09 00:00:00 Test Item Value Reference Range Interpretation Comments WBC (test code = 1001) 5.1 K/UL RBC (test code = 1002) 4.65 M/UL HEMOGLOBIN (test code = 1003) 14.0 G/DL HEMATOCRIT (test code = 1004) 40.4 % MCV (test code = 1005) 86.9 fL MCH (test code = 1006) 30.1 PG MCHC (test code = 1007) 34.7 G/DL RDW (test code = 1038) 12.3 % NEUTROPHILS (test code = 1008) 55.3 % LYMPHOCYTES (test code = 1010) 36.1 % MONOCYTES (test code = 1011) 5.7 % EOSINOPHILS (test code = 1012) 2.1 % BASOPHILS (test code = 1013) 0.6 % IMMATURE GRANULOCYTES (test 0.2 % code = 1036) NUCLEATED RBCS (test code = 0.0 /100WBC'S 1065) PLATELET COUNT (test code = 266 K/UL 1015) ABSOLUTE NEUTROPHILS (test code 2.83 K/UL = 1066) ABSOLUTE LYMPHOCYTES (test code 1.85 K/UL = 1067) ABSOLUTE MONOCYTES (test code = 0.29 K/UL 1068) ABSOLUTE EOSINOPHILS (test code 0.11 K/UL = 1040) ABSOLUTE BASOPHILS (test code = 0.03 K/UL 1069) ABS IMMATURE GRANULOCYTES (test 0.01 K/UL code = 1020) ABS NUCLEATED RBCS (test code = 0.00 K/UL 80326) CBC W/AUTO DIFF WITH PLATELETS [ADDED]2021-12-09 00:00:00 Test Item Value Reference Range Interpretation Comments WBC (test code = 1001) 5.1 K/UL RBC (test code = 1002) 4.65 M/UL HEMOGLOBIN (test code = 1003) 14.0 G/DL HEMATOCRIT (test code = 1004) 40.4 % MCV (test code = 1005) 86.9 fL MCH (test code = 1006) 30.1 PG MCHC (test code = 1007) 34.7 G/DL RDW (test code = 1038) 12.3 % NEUTROPHILS (test code = 1008) 55.3 % LYMPHOCYTES (test code = 1010) 36.1 % MONOCYTES (test code = 1011) 5.7 % EOSINOPHILS (test code = 1012) 2.1 % BASOPHILS (test code = 1013) 0.6 % IMMATURE GRANULOCYTES (test 0.2 % code = 1036) NUCLEATED RBCS (test code = 0.0 /100WBC'S 1065) PLATELET COUNT (test code = 266 K/UL 1015) ABSOLUTE NEUTROPHILS (test code 2.83 K/UL = 1066) ABSOLUTE LYMPHOCYTES (test code 1.85 K/UL = 1067) ABSOLUTE MONOCYTES (test code = 0.29 K/UL 1068) ABSOLUTE EOSINOPHILS (test code 0.11 K/UL = 1040) ABSOLUTE BASOPHILS (test code = 0.03 K/UL 1069) ABS IMMATURE GRANULOCYTES (test 0.01 K/UL code = 1020) ABS NUCLEATED RBCS (test code = 0.00 K/UL 13407) CBC W/AUTO DIFF WITH PLATELETS [ADDED]2021-12-09 00:00:00 Test Item Value Reference Range Interpretation Comments WBC (test code = 1001) 5.1 K/UL RBC (test code = 1002) 4.65 M/UL HEMOGLOBIN (test code = 1003) 14.0 G/DL HEMATOCRIT (test code = 1004) 40.4 % MCV (test code = 1005) 86.9 fL MCH (test code = 1006) 30.1 PG MCHC (test code = 1007) 34.7 G/DL RDW (test code = 1038) 12.3 % NEUTROPHILS (test code = 1008) 55.3 % LYMPHOCYTES (test code = 1010) 36.1 % MONOCYTES (test code = 1011) 5.7 % EOSINOPHILS (test code = 1012) 2.1 % BASOPHILS (test code = 1013) 0.6 % IMMATURE GRANULOCYTES (test 0.2 % code = 1036) NUCLEATED RBCS (test code = 0.0 /100WBC'S 1065) PLATELET COUNT (test code = 266 K/UL 1015) ABSOLUTE NEUTROPHILS (test code 2.83 K/UL = 1066) ABSOLUTE LYMPHOCYTES (test code 1.85 K/UL = 1067) ABSOLUTE MONOCYTES (test code = 0.29 K/UL 1068) ABSOLUTE EOSINOPHILS (test code 0.11 K/UL = 1040) ABSOLUTE BASOPHILS (test code = 0.03 K/UL 1069) ABS IMMATURE GRANULOCYTES (test 0.01 K/UL code = 1020) ABS NUCLEATED RBCS (test code = 0.00 K/UL 66099) LIPID PANEL [ADDED]2021-12-09 00:00:00 Test Item Value Reference Range Interpretation Comments CHOLESTEROL (test code = 2210) 176 MG/DL TRIGLYCERIDES (test code = 2232) 148 MG/DL HDL CHOLESTEROL (test code = 2220) 33 MG/DL CALC LDL CHOL (test code = 2237) 117 MG/DL RISK RATIO LDL/HDL (test code = 3.55 RATIO 2238) LIPID PANEL [ADDED]2021-12-09 00:00:00 Test Item Value Reference Range Interpretation Comments CHOLESTEROL (test code = 2210) 176 MG/DL TRIGLYCERIDES (test code = 2232) 148 MG/DL HDL CHOLESTEROL (test code = 2220) 33 MG/DL CALC LDL CHOL (test code = 2237) 117 MG/DL RISK RATIO LDL/HDL (test code = 3.55 RATIO 2238) COMPREHENSIVE METABOLIC PANEL [ADDED]2021-12-09 00:00:00 Test Item Value Reference Range Interpretation Comments GLUCOSE (test code = 2217) 95 MG/DL BUN (test code = 2208) 14 MG/DL CREATININE (test code = 2214) 0.94 MG/DL eGFR (2020 CKD-EPI) (test code 82 ML/MIN/1.73 = 89266) CALC BUN/CREAT (test code = 15 RATIO 2235) SODIUM (test code = 2231) 139 MEQ/L POTASSIUM (test code = 2228) 4.6 MEQ/L CHLORIDE (test code = 2215) 104 MEQ/L CARBON DIOXIDE (test code = 24 MEQ/L 220) CALCIUM (test code = 2209) 9.6 MG/DL PROTEIN, TOTAL (test code = 7.1 G/DL 2228) ALBUMIN (test code = 2201) 4.9 G/DL CALC GLOBULIN (test code = 2.2 G/DL 2240) CALC A/G RATIO (test code = 2.2 RATIO 2234) BILIRUBIN, TOTAL (test code = 0.3 MG/DL 2206) ALKALINE PHOSPHATASE (test 52 U/L code = 2204) AST (test code = 2218) 14 U/L ALT (test code = 2219) 18 U/L COMPREHENSIVE METABOLIC PANEL [ADDED]2021-12-09 00:00:00 Test Item Value Reference Range Interpretation Comments GLUCOSE (test code = 2217) 95 MG/DL BUN (test code = 2208) 14 MG/DL CREATININE (test code = 2214) 0.94 MG/DL eGFR (2020 CKD-EPI) (test code 82 ML/MIN/1.73 = 10041) CALC BUN/CREAT (test code = 15 RATIO 2235) SODIUM (test code = 2231) 139 MEQ/L POTASSIUM (test code = 2228) 4.6 MEQ/L CHLORIDE (test code = 2215) 104 MEQ/L CARBON DIOXIDE (test code = 24 MEQ/L 2205) CALCIUM (test code = 2209) 9.6 MG/DL PROTEIN, TOTAL (test code = 7.1 G/DL 2228) ALBUMIN (test code = 2201) 4.9 G/DL CALC GLOBULIN (test code = 2.2 G/DL 2240) CALC A/G RATIO (test code = 2.2 RATIO 2234) BILIRUBIN, TOTAL (test code = 0.3 MG/DL 2206) ALKALINE PHOSPHATASE (test 52 U/L code = 2204) AST (test code = 2218) 14 U/L ALT (test code = 2219) 18 U/L VITAMIN B-12 [ADDED]2021-12-09 00:00:00 Test Item Value Reference Range Interpretation Comments VITAMIN B-12 (test code = 2840) 424 PG/ML VITAMIN B-12 [ADDED]2021-12-09 00:00:00 Test Item Value Reference Range Interpretation Comments VITAMIN B-12 (test code = 2840) 424 PG/ML VITAMIN B-12 [ADDED]2021-12-09 00:00:00 Test Item Value Reference Range Interpretation Comments VITAMIN B-12 (test code = 2840) 424 PG/ML LITHIUM [ADDED]2021-12-09 00:00:00 Test Item Value Reference Range Interpretation Comments LITHIUM (test code = 203) 0.33 MEQ/L LITHIUM [ADDED]2021-12-09 00:00:00 Test Item Value Reference Range Interpretation Comments LITHIUM (test code = 203) 0.33 MEQ/L LITHIUM [ADDED]2021-12-09 00:00:00 Test Item Value Reference Range Interpretation Comments LITHIUM (test code = 2038) 0.33 MEQ/L [id number] 06:11:48 Test Item Value Reference Range Interpretation Comments LITHIUM (test code 0.22 MEQ/L 0.60-1.20 L UNLESS O THERWISE = 2039) INDICATED, ALL TESTING [facility] [address] [place] [address] LAB[address] DIRE CTOR: ANDREW POLLARD M.D. CLIA NUMBER [id number] [facility] [place]. [id number] 00:00:00 Test Item Value Reference Range Interpretation Comments LITHIUM (test code = 2038) 0.22 MEQ/L [id number] 00:00:00 Test Item Value Reference Range Interpretation Comments LITHIUM (test code = 203) 0.22 MEQ/L [id number] 00:00:00 Test Item Value Reference Range Interpretation Comments LITHIUM (test code = 203) 0.22 MEQ/L [id number] 00:00:00 Test Item Value Reference Range Interpretation Comments LITHIUM (test code = 203) 0.22 MEQ/L [id number] 00:00:00 Test Item Value Reference Range Interpretation Comments LITHIUM (test code = 203) 0.22 MEQ/L [id number] 00:00:00 Test Item Value Reference Range Interpretation Comments LITHIUM (test code = 2039) 0.22 MEQ/L PAP TEST, THINPREP, [id number] 17:31:19 Test Item Value Reference Range Interpretation Comments SOURCE: (test Endocervical code = 8001) SLIDES: (test 1 code = 8011) LMP: (test code 07/08/2021 = 8021) SPECIMEN (NOTE) Satisfactory f or ADEQUACY: (test evaluation. code = 02423) Endocervical cells/transform ation zone component present. INTERPRETATION: NILM/NO EPITH. (test code = ABNORMALITY;SEE 96446) BELOW ------- ---- NEGATI VE FOR INTRAEPITHELIAL LESION OR MALIGNANCY ( NILM) ------- ------- ------- ------- CYTOTECHNOLOGIS CAN T: (test code = RAYSHAWN DELA CRUZ(ASCP)IA 8101) C LOCATION: (test (NOTE) Specimens pr ocessed code = 58396) and interprete d at [place] [address], Phone: , CLIA: [id number] CPT: (test code (NOTE) 70426, 56789 UNLESS = 8140) OTHERWISE INDIC ATED, COMPUTER AIDED AND CYTOTECHNOLOGIS T SCREENING PERFO RMED. The Pap test is a screening test with an inherent, but l ow probability of error. Your patient sh ould be reminded to con sult you immediately if she experiences any suspicious sign s or symptoms, regar dless of her Pap test result. An alte rnate report format containing imag es or consolidated pr ior Pap history is avsusanna gonsales as applicable. HPV HIGH RISK WITH GENOTYPE, [id number] 17:16:01 Test Item Value Reference Range Interpretation Comments HPV HIGH RISK INTERP NEGATIVE NEGATIVE (test code = 31143) HPV 16 (test code = NEGATIVE 47540) HPV 18 (test code = NEGATIVE 50866) HPV, HR, OTHER NEGATIVE Testing meth odology is GENOTYPES (test code real-ti me PCR utilizing = 99298) hydrolysis prob es with the Jade Ryan 4800 system. The constance t individually de tects genotypes 16 an d 18, as well as the oth er 12 high risk types (31,33,35,39,45 ,51,52,56 ,58,59,66,68). The expected result is negative. A neg ative result does not rule out the presence of HPV not included in the genotype set, a low leve l of infection or sp ecimen sampling error. UNLESS OTHERWISE INDIC ATED, ALL TESTING PERFORM ED [facility], [address] [address] LABORATORY DIRE CTOR: ANDREW POLLARD M.D. CLIA NUMBER [id number] [place] [id number] VAGINAL PATHOGENS DNA [id number] 15:08:21 Test Item Value Reference Range Interpretation Comments ROSELYN SPECIES (test code = 54944) NEGATIVE NEGATIVE G. VAGINALIS (test code = 21103) NEGATIVE NEGATIVE T. VAGINALIS (test code = 34839) NEGATIVE NEGATIVE CT/NG, NAAT, [id number] 14:33:51 Test Item Value Reference Range Interpretation Comments GONORRHEA, NAAT NEGATIVE NEGATIVE IMPORTA NT NOTICE: SEE (test code = [place] [address]) [email or web address] Note: Assay methodology is nucleic acid amplification b y global regulatory lead m ediated amplification ( TMA) utilizing the A ptima Combo 2 Assay. CHLAMYDIA, NAAT NEGATIVE NEGATIVE IMPORTA NT NOTICE: SEE (test code = [place] [address]) [email or web address] Note: Assay methodology is nucleic acid amplification b y global regulatory lead m ediated amplification ( TMA) utilizing the A ptima Combo 2 Assay. [id number] 05:32:02 Test Item Value Reference Range Interpretation Comments RPR RESULT (test NON-REACTIVE NON-REACTIVE code = 3501) RPR TITER (test NOT INDIC. NOT INDIC. UNLESS OTHE RWISE code = 3500) TITER INDICATED, ALL TESTING PERFORMED [facility] [address] [place] [address] 4 LABORATORY DIRE CTOR: ANDREW POLLARD M.D. CLIA NUMBER [id number] [facility] [place] [id number] HEPATITIS PANEL, [id number] 04:47:37 Test Item Value Reference Range Interpretation Comments HEPATITIS A IgM (test NON-REACTIVE NON-REACTIVE code = 42097) HEPATITIS B CORE IgM NON-REACTIVE NON-REACTIVE (test code = 4644) HEPATITIS B SURF AG NON-REACTIVE NON-REACTIVE (test code = 2739) HEPATITIS C ANTIBODY NON-REACTIVE NON-REACTIVE (test code = 4675) INTERPRETATION (NOTE) Hepatitis A HEPATITIS A: (test code sero logy shows no = 2552) evidence of acu te hepatitis A. INTERPRETATION (NOTE) Hepatitis B HEPATITIS B: (test code sero logy shows no = 20901) evidence of acu te hepatitis B and no indication of exposure to hepatitis B vir us in the previous [place] eight months. INTERPRETATION (NOTE) Hepatitis C HEPATITIS C: (test code sero logy shows no = 60641) evidence of exposure to hepatitisC viru s at this time. I t can take up to 12 months after exposure tothe hepatitis C vir us for antibodies to become detectab le in the blood in certain patient s. HIV 1/2 4TH GEN, RFLX [id number] 04:47:37 Test Item Value Reference Range Interpretation Comments HIV 1/2 4TH GEN, RFLX CONF (test NON-REACTIVE NON-REACTIVE code = 3514) PAP TEST, THINPREP, [id number] 00:00:00 Test Item Value Reference Range Interpretation Comments SOURCE: (test code = Endocervical 8001) SLIDES: (test code = 1 8011) LMP: (test code = 07/08/2021 8021) SPECIMEN ADEQUACY: (NOTE) (test code = 33195) INTERPRETATION: (test NILM/NO EPITH. code = 07698) ABNORMALITY;SEE BELOW SALES CONSULTANT INSURANCE: CAN (test code = 8101) RAYSHAWN DELA CRUZ(ASCP)IAC LOCATION: (test code (NOTE) = 33956) CPT: (test code = (NOTE) 8140) VAGINAL PATHOGENS DNA [id number] 00:00:00 Test Item Value Reference Range Interpretation Comments ROSELYN SPECIES (test code = ) NEGATIVE G. VAGINALIS (test code = 63577) NEGATIVE T. VAGINALIS (test code = 82436) NEGATIVE PAP TEST, THINPREP, [id number] 00:00:00 Test Item Value Reference Range Interpretation Comments SOURCE: (test code = Endocervical 8001) SLIDES: (test code = 1 8011) LMP: (test code = 07/08/2021 8021) SPECIMEN ADEQUACY: (NOTE) (test code = 03496) INTERPRETATION: (test NILM/NO EPITH. code = 18447) ABNORMALITY;SEE BELOW SALES CONSULTANT INSURANCE: CAN (test code = 8101) RAYSHAWN DELA CRUZ(ASCP)IAC LOCATION: (test code (NOTE) = 58699) CPT: (test code = (NOTE) 8140) VAGINAL PATHOGENS DNA [id number] 00:00:00 Test Item Value Reference Range Interpretation Comments ROSELYN SPECIES (test code = ) NEGATIVE G. VAGINALIS (test code = 95390) NEGATIVE T. VAGINALIS (test code = 69304) NEGATIVE GC AND CHLAMYDIA, AMPLIFIED, [id number] 00:00:00 Test Item Value Reference Range Interpretation Comments GONORRHEA, NAAT (test code = 14834) NEGATIVE CHLAMYDIA, NAAT (test code = 82336) NEGATIVE HPV HIGH RISK WITH GENOTYPE, [id number] 00:00:00 Test Item Value Reference Range Interpretation Comments HPV HIGH RISK INTERP (test code = NEGATIVE 12230) HPV 16 (test code = 34074) NEGATIVE HPV 18 (test code = 56908) NEGATIVE HPV, HR, OTHER GENOTYPES (test code NEGATIVE = 82509) GC AND CHLAMYDIA, AMPLIFIED, [id number] 00:00:00 Test Item Value Reference Range Interpretation Comments GONORRHEA, NAAT (test code = 73194) NEGATIVE CHLAMYDIA, NAAT (test code = 44389) NEGATIVE HPV HIGH RISK WITH GENOTYPE, [id number] 00:00:00 Test Item Value Reference Range Interpretation Comments HPV HIGH RISK INTERP (test code = NEGATIVE 91835) HPV 16 (test code = 01902) NEGATIVE HPV 18 (test code = 22266) NEGATIVE HPV, HR, OTHER GENOTYPES (test code NEGATIVE = 67471) ACUTE HEPATITIS [id number] 00:00:00 Test Item Value Reference Range Interpretation Comments HEPATITIS A IgM (test code = NON-REACTIVE 42260) HEPATITIS B CORE IgM (test code NON-REACTIVE = 4644) HEPATITIS B SURF AG (test code = NON-REACTIVE 2739) HEPATITIS C ANTIBODY (test code NON-REACTIVE = 4675) INTERPRETATION HEPATITIS A: (NOTE) (test code = 2552) INTERPRETATION HEPATITIS B: (NOTE) (test code = 99398) INTERPRETATION HEPATITIS C: (NOTE) (test code = 95578) ACUTE HEPATITIS [id number] 00:00:00 Test Item Value Reference Range Interpretation Comments HEPATITIS A IgM (test code = NON-REACTIVE 09194) HEPATITIS B CORE IgM (test code NON-REACTIVE = 4644) HEPATITIS B SURF AG (test code = NON-REACTIVE 2739) HEPATITIS C ANTIBODY (test code NON-REACTIVE = 4675) INTERPRETATION HEPATITIS A: (NOTE) (test code = 2552) INTERPRETATION HEPATITIS B: (NOTE) (test code = 32213) INTERPRETATION HEPATITIS C: (NOTE) (test code = 33218) HIV AB/AG COMBO RFLX [id number] 00:00:00 Test Item Value Reference Range Interpretation Comments HIV 1/2 4TH GEN, RFLX CONF (test NON-REACTIVE code = 3514) HIV AB/AG COMBO RFLX [id number] 00:00:00 Test Item Value Reference Range Interpretation Comments HIV 1/2 4TH GEN, RFLX CONF (test NON-REACTIVE code = 3514) [id number] 00:00:00 Test Item Value Reference Range Interpretation Comments RPR RESULT (test code = NON-REACTIVE 3501) RPR TITER (test code = 3500) NOT INDIC. TITER [id number] 00:00:00 Test Item Value Reference Range Interpretation Comments RPR RESULT (test code = NON-REACTIVE 3501) RPR TITER (test code = 3500) NOT INDIC. TITER [id number] 00:00:00 Test Item Value Reference Range Interpretation Comments RPR RESULT (test code = NON-REACTIVE 3501) RPR TITER (test code = 3500) NOT INDIC. TITER PAP TEST, THINPREP, [id number] 00:00:00 Test Item Value Reference Range Interpretation Comments SOURCE: (test code = Endocervical 8001) SLIDES: (test code = 1 8011) LMP: (test code = 07/08/2021 8021) SPECIMEN ADEQUACY: (NOTE) (test code = 56344) INTERPRETATION: (test NILM/NO EPITH. code = 57059) ABNORMALITY;SEE BELOW SALES CONSULTANT INSURANCE: CAN (test code = 8101) PARCHER,CT(ASCP)IAC LOCATION: (test code (NOTE) = 28899) CPT: (test code = (NOTE) 8140) VAGINAL PATHOGENS DNA [id number] 00:00:00 Test Item Value Reference Range Interpretation Comments ROSELYN SPECIES (test code = ) NEGATIVE G. VAGINALIS (test code = 60355) NEGATIVE T. VAGINALIS (test code = 39932) NEGATIVE PAP TEST, THINPREP, [id number] 00:00:00 Test Item Value Reference Range Interpretation Comments SOURCE: (test code = Endocervical 8001) SLIDES: (test code = 1 8011) LMP: (test code = 07/08/2021 8021) SPECIMEN ADEQUACY: (NOTE) (test code = 68412) INTERPRETATION: (test NILM/NO EPITH. code = 52854) ABNORMALITY;SEE BELOW SALES CONSULTANT INSURANCE: CAN (test code = 8101) PARCHER,CT(ASCP)IAC LOCATION: (test code (NOTE) = 53065) CPT: (test code = (NOTE) 8140) VAGINAL PATHOGENS DNA [id number] 00:00:00 Test Item Value Reference Range Interpretation Comments ROSELYN SPECIES (test code = ) NEGATIVE G. VAGINALIS (test code = 37533) NEGATIVE T. VAGINALIS (test code = 67565) NEGATIVE HPV HIGH RISK WITH GENOTYPE, [id number] 00:00:00 Test Item Value Reference Range Interpretation Comments HPV HIGH RISK INTERP (test code = NEGATIVE 01469) HPV 16 (test code = 78726) NEGATIVE HPV 18 (test code = 76802) NEGATIVE HPV, HR, OTHER GENOTYPES (test code NEGATIVE = 51553) GC AND CHLAMYDIA, AMPLIFIED, [id number] 00:00:00 Test Item Value Reference Range Interpretation Comments GONORRHEA, NAAT (test code = 33008) NEGATIVE CHLAMYDIA, NAAT (test code = 62445) NEGATIVE GC AND CHLAMYDIA, AMPLIFIED, [id number] 00:00:00 Test Item Value Reference Range Interpretation Comments GONORRHEA, NAAT (test code = 26521) NEGATIVE CHLAMYDIA, NAAT (test code = 71758) NEGATIVE HPV HIGH RISK WITH GENOTYPE, [id number] 00:00:00 Test Item Value Reference Range Interpretation Comments HPV HIGH RISK INTERP (test code = NEGATIVE 91811) HPV 16 (test code = 17709) NEGATIVE HPV 18 (test code = 04399) NEGATIVE HPV, HR, OTHER GENOTYPES (test code NEGATIVE = 54711) ACUTE HEPATITIS [id number] 00:00:00 Test Item Value Reference Range Interpretation Comments HEPATITIS A IgM (test code = NON-REACTIVE 02859) HEPATITIS B CORE IgM (test code NON-REACTIVE = 4644) HEPATITIS B SURF AG (test code = NON-REACTIVE 2739) HEPATITIS C ANTIBODY (test code NON-REACTIVE = 4675) INTERPRETATION HEPATITIS A: (NOTE) (test code = 2552) INTERPRETATION HEPATITIS B: (NOTE) (test code = 74793) INTERPRETATION HEPATITIS C: (NOTE) (test code = 92330) ACUTE HEPATITIS [id number] 00:00:00 Test Item Value Reference Range Interpretation Comments HEPATITIS A IgM (test code = NON-REACTIVE 86830) HEPATITIS B CORE IgM (test code NON-REACTIVE = 4644) HEPATITIS B SURF AG (test code = NON-REACTIVE 2739) HEPATITIS C ANTIBODY (test code NON-REACTIVE = 4675) INTERPRETATION HEPATITIS A: (NOTE) (test code = 2552) INTERPRETATION HEPATITIS B: (NOTE) (test code = 06771) INTERPRETATION HEPATITIS C: (NOTE) (test code = 72192) HIV AB/AG COMBO RFLX [id number] 00:00:00 Test Item Value Reference Range Interpretation Comments HIV 1/2 4TH GEN, RFLX CONF (test NON-REACTIVE code = 3514) HIV AB/AG COMBO RFLX [id number] 00:00:00 Test Item Value Reference Range Interpretation Comments HIV 1/2 4TH GEN, RFLX CONF (test NON-REACTIVE code = 3514) [id number] 00:00:00 Test Item Value Reference Range Interpretation Comments RPR RESULT (test code = NON-REACTIVE 3501) RPR TITER (test code = 3500) NOT INDIC. TITER [id number] 00:00:00 Test Item Value Reference Range Interpretation Comments RPR RESULT (test code = NON-REACTIVE 3501) RPR TITER (test code = 3500) NOT INDIC. TITER [id number] 00:00:00 Test Item Value Reference Range Interpretation Comments RPR RESULT (test code = NON-REACTIVE 3501) RPR TITER (test code = 3500) NOT INDIC. TITER [id number] 03:40:49 Test Item Value Reference Range Interpretation Comments LITHIUM (test code 0.21 MEQ/L 0.60-1.20 L UNLESS O THERWISE = 2039) INDICATED, ALL TESTING PERFORMED [facility] [address] [place] [address] 4 LABORATORY DIRE CTOR: ANDREW POLLARD M.D. CLIA NUMBER [id number] [place] [id number] 00:00:00 Test Item Value Reference Range Interpretation Comments LITHIUM (test code = 203) 0.21 MEQ/L [id number] 00:00:00 Test Item Value Reference Range Interpretation Comments LITHIUM (test code = 2039) 0.21 MEQ/L [id number] 00:00:00 Test Item Value Reference Range Interpretation Comments LITHIUM (test code = 2039) 0.21 MEQ/L [id number] 00:00:00 Test Item Value Reference Range Interpretation Comments LITHIUM (test code = 2039) 0.21 MEQ/L [id number] 00:00:00 Test Item Value Reference Range Interpretation Comments LITHIUM (test code = 2039) 0.21 MEQ/L [id number] 00:00:00 Test Item Value Reference Range Interpretation Comments LITHIUM (test code = 2039) 0.21 MEQ/L POCT MOLECULAR [id number] 20:11:13 Test Item Value Reference Range Interpretation Comments POCT Molecular Strep (test code = Negative Negative 39845-1) Lab Interpretation (test code = Normal 83800-1) [facility] [id number] 19:14:00 Test Item Value Reference Range Interpretation Comments Vitamin B12 Lvl (test code = Vitamin 537 686-4839 B12 Lvl) [facility] [id number] 19:14:00 Test Item Value Reference Range Interpretation Comments VITAMIN B1 (THIAMINE) WHOLE BLOOD (test 125 78-185 code = VITAMIN B1 (THIAMINE) WHOLE BLOOD) [id number] 19:14:00 Test Item Value Reference Range Interpretation Comments Sed Rate (test code = Sed Rate) [id number] 19:14:00 Test Item Value Reference Range Interpretation Comments THANG (test code = THANG) NEGATIVE [facility]2020-11-03 19:14:00 Test Item Value Reference Range Interpretation Comments Vitamin B12 Lvl (test code = Vitamin 249 891-9522 B12 Lvl) [facility]2020-11-03 19:14:00 Test Item Value Reference Range Interpretation Comments VITAMIN B1 (THIAMINE) WHOLE BLOOD (test 125 78-185 code = VITAMIN B1 (THIAMINE) WHOLE BLOOD) [facility] [id number] 19:14:00 Test Item Value Reference Range Interpretation Comments Sed Rate (test code = Sed Rate) 6 [id number] 19:14:00 Test Item Value Reference Range Interpretation Comments THANG (test code = THANG) NEGATIVE [facility]2020-11-03 19:14:00 Test Item Value Reference Range Interpretation Comments Vitamin B12 Lvl (test code = Vitamin 515 541-2995 B12 Lvl) [facility]2020-11-03 19:14:00 Test Item Value Reference Range Interpretation Comments VITAMIN B1 (THIAMINE) WHOLE BLOOD (test 125 78-185 code = VITAMIN B1 (THIAMINE) WHOLE BLOOD) [facility] [id number] 19:14:00 Test Item Value Reference Range Interpretation Comments Sed Rate (test code = Sed Rate) 6 [facility] [id number] 19:14:00 Test Item Value Reference Range Interpretation Comments THANG (test code = THANG) NEGATIVE [facility]2020-11-03 19:14:00 Test Item Value Reference Range Interpretation Comments Vitamin B12 Lvl (test code = Vitamin 896 299-5304 B12 Lvl) [facility]2020-11-03 19:14:00 Test Item Value Reference Range Interpretation Comments VITAMIN B1 (THIAMINE) WHOLE BLOOD (test 125 78-185 code = VITAMIN B1 (THIAMINE) WHOLE BLOOD) [facility] [id number] 19:14:00 Test Item Value Reference Range Interpretation Comments Sed Rate (test code = Sed Rate) 6 [facility] [id number] 19:14:00 Test Item Value Reference Range Interpretation Comments THANG (test code = THANG) NEGATIVE [facility]2020-11-03 19:14:00 Test Item Value Reference Range Interpretation Comments Vitamin B12 Lvl (test code = Vitamin 710 629-1520 B12 Lvl) [facility]2020-11-03 19:14:00 Test Item Value Reference Range Interpretation Comments VITAMIN B1 (THIAMINE) WHOLE BLOOD (test 125 78-185 code = VITAMIN B1 (THIAMINE) WHOLE BLOOD) [facility] [id number] 19:14:00 Test Item Value Reference Range Interpretation Comments Sed Rate (test code = Sed Rate) 6 [facility] [id number] 19:14:00 Test Item Value Reference Range Interpretation Comments THANG (test code = THANG) NEGATIVE [facility]2020-11-03 19:14:00 Test Item Value Reference Range Interpretation Comments Vitamin B12 Lvl (test code = Vitamin 605 337-9043 B12 Lvl) [facility]2020-11-03 19:14:00 Test Item Value Reference Range Interpretation Comments VITAMIN B1 (THIAMINE) WHOLE BLOOD (test 125 78-185 code = VITAMIN B1 (THIAMINE) WHOLE BLOOD) [facility] [id number] 19:14:00 Test Item Value Reference Range Interpretation Comments Sed Rate (test code = Sed Rate) 6 [facility] [id number] 19:14:00 Test Item Value Reference Range Interpretation Comments THANG (test code = THANG) NEGATIVE [facility]2020-11-03 19:14:00 Test Item Value Reference Range Interpretation Comments Vitamin B12 Lvl (test code = Vitamin 105 443-4228 B12 Lvl) [facility]2020-11-03 19:14:00 Test Item Value Reference Range Interpretation Comments VITAMIN B1 (THIAMINE) WHOLE BLOOD (test 125 78-185 code = VITAMIN B1 (THIAMINE) WHOLE BLOOD) [facility] [id number] 19:14:00 Test Item Value Reference Range Interpretation Comments Sed Rate (test code = Sed Rate) [address] [place], [place] [address]12020-11-03 19:14:00 Test Item Value Reference Range Interpretation Comments THANG (test code = THANG) NEGATIVE [facility]2020-11-03 19:14:00 Test Item Value Reference Range Interpretation Comments Vitamin B12 Lvl (test code = Vitamin 000 885-0067 B12 Lvl) [facility] [id number] 19:14:00 Test Item Value Reference Range Interpretation Comments VITAMIN B1 (THIAMINE) WHOLE BLOOD (test 125 78-185 code = VITAMIN B1 (THIAMINE) WHOLE BLOOD) [id number] 19:14:00 Test Item Value Reference Range Interpretation Comments Sed Rate (test code = Sed Rate) 6 [id number] 19:14:00 Test Item Value Reference Range Interpretation Comments THANG (test code = THANG) NEGATIVE [facility]
[2022-12-10] MEDS ORDERED: LORazepam 2 MG/ML VIAL ONE (13:03)
[2022-12-10] MEDS ORDERED: NA CHLORIDE 0.9% 500 ML ONE (13:03)
[2022-12-10 13:13] LABS: Absolute Lymphocytes (CBC) 1.5 K/uL (0.7-4.9); Hematocrit 41.4 % (36.0-45.0); Lymphocytes % 37.1 % (15.3-44.8); MCV 85.9 fL (80-100); MPV 7.9 fL (7.6-11.3); RBC Red Blood Cell Count 4.81 M/uL (3.86-4.86)
[2022-12-10 13:28] LABS: Magnesium 2.1 mg/dL (1.6-2.4); Potassium 3.6 mEq/L (3.5-5.1); Troponin High Sensitivity 5.9 pg/mL (<58.9)
--- NOTE | 2022-12-10 14:09 | EDPHYS ---
Physician Documentation [facility] Name: Maureen Araujo Age: 37 yrs Sex: Female : 1985 Arrival Date: 12/10/2022 Time: 12:14 Bed 17 Private MD: ED Physician Zahira Batista HPI: 12/10 12:49 This 37 yrs old Female presents to ER via Ambulatory with complaints of Neck and Upper sd2 Back Pain, Headache, Palpitations. 12:49 37 yo F presents with CC of palpitations, neck and upper back pain and headache that sd2 started yesterday. Reports hx of migraines and this was ongoing but after taking a new medication, prazosin, yesterday for the first time, the other symptoms began. She was switched from Clonidine to this to help with her anxiety and sleep. Reports hx of an abnormal EKG that she has not yet been able to follow up on as well as episodes where she believes her blood pressure may have "bottomed out" with near syncope and falls but she has not actually checked her blood pressure during these times. States increased anxiety and having to focus on staying calm more than usual. Has not been able to get in touch with her industrial/organizational psychologist yet regarding her medications. . 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 - Social history:: Smoking status: Patient reports the use of cigarette tobacco products, smokes one-half pack cigarettes per day. ROS: 12:49 Constitutional: Negative for fever, chills, and weight loss, Eyes: Negative for injury, sd2 pain, redness, and discharge, Neck: Negative for injury and swelling. Positive for pain. Cardiovascular: Negative for chest pain and edema, Positive for palpitations Respiratory: Negative for shortness of breath, cough, wheezing. Abdomen/GI: Negative for abdominal pain, nausea, vomiting, diarrhea. : Negative for dysuria, urinary frequency, hesitancy, urgency and hematuria. MS/Extremity: Negative for injury and deformity, Skin: Negative for injury, rash, and discoloration, Neuro: Positive for headache, Negative for numbness and tingling. Psych: Negative for depression, suicide ideation, homicidal ideation, and hallucinations, Positive for insomnia and anxiety Exam: 12:49 Constitutional: This is a well developed, well nourished patient who is awake, alert, sd2 and appears very anxious. Head/Face: Normocephalic, atraumatic. Eyes: EOMI, normal conjunctiva bilaterally Neck: Trachea midline, no thyromegaly or masses palpated, and no cervical lymphadenopathy. Supple, full range of motion without nuchal rigidity, or vertebral point tenderness. No Meningismus. Chest/axilla: Normal chest wall appearance and motion. Nontender with no deformity. Cardiovascular: Regular rate and rhythm with a normal S1 and S2. No gallops, murmurs, or rubs. 2+ distal pulses. Respiratory: Lungs have equal breath sounds bilaterally, clear to auscultation and percussion. No rales, rhonchi or wheezes noted. No increased work of breathing, no retractions or nasal flaring. Abdomen/GI: Soft, non-tender, with normal bowel sounds. No guarding or rebound. No evidence of tenderness throughout. Skin: Warm, dry with normal turgor. Normal color with no rashes, no lesions, and no evidence of cellulitis. MS/ Extremity: Pulses equal, no cyanosis. Neurovascular intact. Full, normal range of motion. Ambulatory without difficulty. Neuro: Awake and alert, GCS 15, oriented to person, place, time, and situation. Cranial nerves II-XII grossly intact. Motor strength 5/5 in all extremities. Sensory grossly intact. Cerebellar exam normal. Normal gait. Psych: Awake, alert, with orientation to person, place and time. Pt is anxious appearing, difficult to answer questions directly and requires frequent redirection and help with focusing on the task at hand 14:09 ECG was reviewed by the Attending Physician. NSR, rate 74, no STEMI criteria sd2 Vital Signs: 12:19 BP 125 / 81; Pulse 100; Resp 18; Temp 98.2; Pulse Ox 99% on R/A; ll1 MDM: 12:48 Patient medically screened. sd2 12:49 Differential diagnosis: anxiety, panic attack, medication reaction, syncope, sd2 dehydration, electrolyte abnormality among others. Data reviewed: vital signs, nurses notes, lab test result(s), EKG. 14:04 I considered the following discharge prescriptions or medication management in the sd2 emergency department Medications were administered in the Emergency Department. See MAR. Independent interpretation of the following test(s) in the Emergency Department EKG: See my EKG interpretation above Rhythm Strip Interpretation Rate: 74BPM Rhythm: regular. Care significantly affected by the following chronic conditions: Mental illness. Care significantly affected by the following Social Determinants of Health: Poor access to healthcare and/or lack of insurance, Poor access to transportation, Unemployment, Problems related to employment. Counseling: I had a detailed discussion with the patient and/or guardian regarding: the historical points, exam findings, and any diagnostic results supporting the discharge/admit diagnosis, lab results, the need for outpatient follow up, to return to the emergency department if symptoms worsen or persist or if there are any questions or concerns that arise at home. Response to treatment: the patient's symptoms have markedly improved after treatment. ED course: Palpitations resolved after Ativan. Pt feeling improved. Pt currently has case reviewer in place working on her social issues and getting her a job and a new place to live. Advised follow up with her MOUNTAIN BIKE GUIDE regarding her current medications for any changes advised. Verbalizes understanding of discharge plan and strict return precautions. . 12/10 12:49 Order name: CBC with Diff; Complete Time: 13:40 sd2 12/10 12:49 Order name: BMP; Complete Time: 13:40 sd12/10 12:49 Order name: Magnesium; Complete Time: 13:40 sd12/10 12:49 Order name: Troponin High Sensitivity; Complete Time: 13:40 sd2 12/10 12:49 Order name: BNP; Complete Time: 13:40 sd12/10 12:49 Order name: EKG - Nurse/Tech; Complete Time: 13:25 sd2 Administered Medications: 13:01 Drug: NS 0.9% IV 500 ml Route: IV; Rate: bolus; Site: right antecubital; ap3 14:19 Follow up: IV Status: Completed infusion ap3 13:01 Drug: Ativan IVP 1 mg Route: IVP; Site: right antecubital; ap3 13:25 Follow up: Response: No adverse reaction; Anxiety decreased ap3 14:19 Follow up: Response: No adverse reaction; Anxiety decreased ap3 Disposition Summary: 12/10/22 14:08 Discharge Ordered Location: Home sd2 Problem: an ongoing problem sd2 Symptoms: have improved sd2 Condition: Stable sd2 Diagnosis - Anxiety sd2 - Palpitations sd2 - Difficulty sleeping sd2 Followup: sd2 - With: Private Physician - When: 2 - 3 days - Reason: Recheck today's complaints, Continuance of care, Re-evaluation by your physician Discharge Instructions: - Discharge Summary Sheet sd2 - Insomnia sd2 - Palpitations sd2 - Managing Anxiety, Adult sd2 Forms: - Medication Reconciliation Form sd2 - Thank You Letter sd2 - Antibiotic Education sd2 - Prescription Opioid Use sd2 - Patient Portal Instructions sd2 Signatures: Dispatcher [employer] Sofi Fraga RN RN ap3 Abhinav Nance RN RN ll1 Zahira Batista MD MD sd2
--- NOTE | 2022-12-10 14:09 | ER ---
Nurse's Notes [facility] Name: Maureen Araujo Age: 37 yrs Sex: Female : 1985 Arrival Date: 12/10/2022 Time: 12:14 Bed 17 Private MD: Diagnosis: Anxiety;Palpitations;Difficulty sleeping Presentation: 12/10 12:19 Coronavirus screen: Client denies travel out of the [place] in the last 14 days. Ebola ll1 Screen: Patient denies travel to an Ebola-affected area in the 21 days before illness onset. Initial Sepsis Screen: Does the patient meet any 2 criteria? No. Patient's initial sepsis screen is negative. Does the patient have a suspected source of infection? No. Patient's initial sepsis screen is negative. Risk Assessment: Do you want to hurt yourself or someone else? Patient reports no desire to harm self or others. 12:19 Method Of Arrival: Ambulatory ll1 12:19 Acuity: TERESITA 3 ll1 12:19 Chief complaint: Patient states: New medication started yesterday for insomnia and ll1 PTSD. Palpitations, hard time staying focused, ESTEBAN, jaw/neck pain, pressure to back of head. Had a couple falls on Wednesday. Not sleeping well. Acute neurological deficit: none identified. Onset of symptoms was December 06, 2022. Triage Assessment: 12:24 General: Appears uncomfortable, Behavior is cooperative, anxious, restless. Pain: ll1 Complains of pain in chest Pain currently is 3 out of 10 on a pain scale. Quality of pain is described as aching. Neuro: Reports headache weakness. Cardiovascular: Reports chest pain, fatigue, lightheadedness, nausea, palpitations. Musculoskeletal: Circulation, motion, and sensation intact. Capillary refill < 3 seconds, Reports pain in head/neck/mid back/chest. [employer]: 14:19 LMP N/A - Irregular menses ap3 Historical: - Allergies: 12:18 Abilify; ll1 12:18 LITHIUM DERIVITIVES; ll1 - PMHx: 12:18 Bipolar disorder; ll1 - PSHx: 12:18 breast augmentation; ll1 - Immunization history:: Adult Immunizations up to date. - Social history:: Smoking status: Patient reports the use of cigarette tobacco products, smokes one-half pack cigarettes per day. Screenin:12 [facility] ED Fall Risk Assessment (Adult) History of falling in the last 3 months, ap3 including since admission No falls in past 3 months (0 pts). Abuse screen: Denies threats or abuse. Nutritional screening: No deficits noted. Tuberculosis screening: No symptoms or risk factors identified. Assessment: 13:12 General: Appears comfortable, Behavior is cooperative, anxious. Pain: Complains of pain ap3 in left scapular area and right scapular area. Neuro: Level of Consciousness is awake, alert, obeys commands, Oriented to person, place, time, situation. Cardiovascular: Patient's skin is warm and dry. Respiratory: Airway is patent Respiratory effort is even, unlabored, Respiratory pattern is regular, symmetrical. 13:59 Reassessment: Patient and/or family updated on plan of care and expected duration. Pain ap3 level reassessed. Patient is alert, oriented x 3, equal unlabored respirations, skin warm/dry/pink. Vital Signs: 12:19 BP 125 / 81; Pulse 100; Resp 18; Temp 98.2; Pulse Ox 99% on R/A; ll1 ED Course: 12:15 Patient arrived in ED. im 12:19 Triage completed. ll1 12:19 Arm band placed on. ll1 12:24 Zahira Batista MD is Attending Physician. sd2 12:54 oSfi Moran, RN is Primary Nurse. ap3 13:01 Troponin High Sensitivity Sent. ap3 13:01 BNP Sent. ap3 13:01 Magnesium Sent. ap3 13:01 BMP Sent. ap3 13:01 CBC with Diff Sent. ap3 13:13 Patient has correct armband on for positive identification. Bed in low position. Call ap3 light in reach. Side rails up X 1. Pulse ox on. NIBP on. Door closed. Noise minimized. Warm blanket given. 13:25 EKG done, by ED staff, reviewed by Zahira Batista MD. ap3 13:59 ED physician to see patient. ap3 14:18 No provider procedures requiring assistance completed. IV discontinued, intact, ap3 bleeding controlled, No redness/swelling at site. Pressure dressing applied. 14:19 Provided Education on: discharge. ap3 Administered Medications: 13:01 Drug: NS 0.9% IV 500 ml Route: IV; Rate: bolus; Site: right antecubital; ap3 14:19 Follow up: IV Status: Completed infusion ap3 13:01 Drug: Ativan IVP 1 mg Route: IVP; Site: right antecubital; ap3 13:25 Follow up: Response: No adverse reaction; Anxiety decreased ap3 14:19 Follow up: Response: No adverse reaction; Anxiety decreased ap3 Medication: 14:19 VIS not applicable for this client. ap3 Outcome: 14:08 Discharge ordered by . [email or web address] 14:18 Discharged to home ambulatory. ap3 14:18 Condition: good 14:18 Discharge instructions given to patient, Instructed on discharge instructions, follow up and referral plans. Demonstrated understanding of instructions, follow-up care. 14:19 Patient left the ED. ap3 Signatures: Sofi Moran RN RN ap3 Abhinav Nance RN RN ll1 Zahira Batista MD MD sd2 Ewelina England
--- NOTE | 2022-12-11 12:51 | EKG ---
Test Date: 2022-12-10 Test Time: 13:21:44 Instrumentation Fitter: ALP MEASUREMENT RESULTS: Intervals: Rate: 74 ND: 124 QRSD: 78 QT: 410 QTc: 455 [place]: P: 70 ND: 124 QRS: 66 T: 52 INTERPRETIVE STATEMENTS: Normal sinus rhythm Normal ECG Compared to ECG 09/08/2022 19:35:23 Sinus arrhythmia no longer present Short ND interval no longer present Electronically Signed On 12-11-22 12:49:54 CDT by Bj Stanford
== END 2022-12-10 14:19 | disposition home or self-care (01) ==
LOC: ER 12:14
DX: F41.9 Anxiety disorder, unspecified (principal); G47.00 Insomnia, unspecified
CPT/HCPCS: 36415; 80048; 83735; 83880; 84484; 85025; 93005; 96361; 96374; 99284; J7040

== ENCOUNTER 2024-01-21 11:05 | Emergency (ER) | payer SELFPAY ==
--- OUTSIDE RECORDS SUMMARY | 2024-01-21 11:13 | XMS REPORT | Continuity of Care Document ---
Author Name Unknown Address [address] [place] [address] [facility] thconnect Address [address] [place] [address] Care Team Providers Care Tower Helper Name Role Phone Alcides SANTIAGO, Artur Espitia Primary Care Physician Mando Poole MD Attending Clinician [phone] MANDO POOLE Attending Clinician Unavailab sylvia Wood RN, Angelique Rivers Attending Clinician UnavailSWATHI Schuler Attending Clinician Unavailable Swathi Jacobs Attending Clinician [phone] Anita Pete Attending Clinician [phone] Mitzy Leon MD Attending Clinician [phone] MITZY LEON Attending Clinician Unavailable Doctor Unassigned, [place] Attending Clinician U ARI Lopez Attending Clinician Unavailable BRUNO NORTH Attending Clinician Unavaila ble Payers Payer Name Policy Type Policy Number Effective Date Expirati on Date Source CIGNA II [id number] 2019 00:00:00 CIG[employer] C1 [id number] Common Spi rit - [facility] Problems Condition Name Condition Details Condition Category Status Onset Date Resolution Date Last Treatment Date Treating Clinician Comments Source Obesity (BMI 30-39.9) Obesity (BMI 30-39.9) Disease Active 07-04 00:00: 00 [facility] Routine general medical examinatio n at a health care facility Routine general medical examinatio n at a health care facility Disease Active 09-30 00:00: 00 [facility] Other, mixed, or unspecifie d nondepende nt drug abuse, unspecifie d Other, mixed, or unspecifie d nondepende nt drug abuse, unspecifie d Disease Active 09-30 00:00: 00 Overview: Formattin g of this note might be different from the original. Meth [facility] Constipati on Constipati on Problem Active [facility] Cataplexy (disorder) Cataplexy (disorder) Active Problem 01/10/2022 [facility] Problem Active 2022-01-10 21:55:49 Memoria l Frankie Confusiona l state (disorder) Confusiona l state (disorder) Active Problem 01/10/2022 [facility] Problem Active 2022-01-10 21:55:49 Memoria l Frankie Cyst of pineal gland (disorder) Cyst of pineal gland (disorder) Active Problem 01/10/2022 [facility] Problem Active 2022-01-10 21:55:49 Memoria l Frankie Depressive disorder (disorder) Depressive disorder (disorder) Active Problem 01/10/2022 [facility] Problem Active 2022-01-10 21:55:49 Memoria l Frankie Generalize d anxiety disorder (disorder) Generalize d anxiety disorder (disorder) Active Problem 01/10/2022 [facility] Problem Active 2022-01-10 21:55:49 Memoria l Cost Hypersomni a (disorder) Hypersomni a (disorder) Active Problem 01/10/2022 [facility] Problem Active 2022-01-10 21:55:49 Memoria l Cost Simple obesity (disorder) Simple obesity (disorder) Active Problem 01/10/2022 [facility] Problem Active 2022-01-10 21:55:49 Memoria l Cost Dyskinesia (finding) Dyskinesia (finding) Active Problem 01/10/2022 [facility] Problem Active 2022-01-10 21:55:49 Memoria maria del rosario David Headache (finding) Headache (finding) Active Problem 01/10/2022 [facility] Problem Active 2022-01-10 21:55:49 Memcatarino David Liver function test increased Liver function test increased Active Problem 01/10/2022 [facility] Problem Active 2022-01-10 21:55:49 Mem[facility] maria del rosario David Visual disturbanc e (disorder) Visual disturbanc e (disorder) Active Problem 01/10/2022 [facility] Problem Active 2022-01-10 21:55:49 Memoria maria del rosario David Bipolar disorder (disorder) Bipolar disorder (disorder) Active Problem 01/10/2022 [facility] Problem Active 2022-01-10 21:55:49 Memoria maria del rosario David Mood disorder of manic type (disorder) Mood disorder of manic type (disorder) Active Problem 01/10/2022 [facility] Problem Active 2022-01-10 21:55:49 Memoria maria del rosario David Allergies, Adverse Reactions, Alerts Allergy Name Allergy Type Status Severity Reaction(s) Onset Date Inactive Date Treating Clinician Comments Source [place] - Intraven ous Propensi ty to adverse reaction to drug Active 5-31 00:00: 00 Noel Gong Abilify - Oral Propensi ty to adverse reaction to drug Active 3-19 00:00: 00 Noel Gong NO KNOWN ALLERGIE S Drug Class Active [facility] Social History Social Habit Start Date Stop Date Quantity Comments Source History of Tobacco Use Current Smoker [facility] Sex Assigned At [facility] History SDOH Alcohol Frequency [facility] History SDOH Alcohol Std Drinks [facility] History SDOH Alcohol Binge [facility] Exposure to SARS-CoV-2 (event) Not sure [facility] Cigarettes smoked current (pack per day) - Reported 2021-07-10 00:00:00 2021-07-10 00:00:00 [facility] Cigarette pack-years 2021-07-10 00:00:00 2021-07-10 00:00:00 [facility] Tobacco use and exposure 2021-07-10 00:00:00 2021-07-10 00:00:00 Smokeless tobacco non-user [facility] Alcohol intake 2021-07-10 00:00:00 2021-07-10 00:00:00 Ex-drinker (finding) [facility] Alcohol Comment 2021-07-04 00:00:00 2021-07-04 00:00:00 none since 03/2021 [facility] Smoking Status Start Date Stop Date Source Social History 2021-10-02 18:20:49 Danielito Jeffers Medications Ordered Medication Name Filled Medication Name Start Date Stop Date Current Medication? Ordering Clinician Indication Dosage Frequency Signature (SIG) Comments Components Source albuterol sulfate HFA 90 mcg/actuati on aerosol inhaler 01-12 00:00: 00 Yes 12mcg/a ctuatio n Noel Gong carbamazepi ne ER 200 mg tablet,exte nded release,12 hr 01-12 00:00: 00 Yes 1mg Noel Gong doxycycline hyclate 100 mg capsule 01-12 00:00: 00 Yes 1mg Noel Gong Effexor XR 150 mg capsule,ext ended release 01-12 00:00: 00 Yes 1mg Noel Gong benzonatate 150 mg capsule 01-12 00:00: 00 Yes 1mg Noel Gong metronidazo le 500 mg tablet 03 00:00: 00 Yes 1mg Noel Gong TAKE ONE (1) TABLET(S) BY MOUTH IN THE EVENING. 2022-05 00:00: 00 Yes Noel Gong propranolol 10 mg tablet 2022-05 00:00: 00 Yes mg Noel Gong TAKE 1 TABLET BY MOUTH AT BEDTIME 2022-05 00:00: 00 Yes Noel Gong TAKE ONE (1) TABLET(S) BY MOUTH TWICE A DAY NEEDED FOR ANXIETY. 2022-05 00:00: 00 Yes Noel Gong TAKE ONE (1) CAPSULE(S) BY MOUTH ONCE A DAY. 2022-05 00:00: 00 Yes Noel Gong TAKE 1 TABLET DAILY. 7-25 00:00: 00 09-01 00:00 :00 No 25 Noel Gong TAKE ONE (1) TABLET(S) BY MOUTH TWICE A DAY NEEDED FOR ANXIETY. 5-24 00:00: 00 Yes Noel Gong Take 1 nightly 4-17 00:00: 00 Yes 50 Noel Steve Gong Take 1 nightly 4-17 00:00: 00 Yes 15 Noel Gong TAKE ONE (1) TABLET(S) BY MOUTH TWICE A DAY NEEDED FOR ANXIETY. 4-17 00:00: 00 Yes Noel Gong TAKE 1/2 TO 1 TABLET 3 TIMES DAILY NEEDED. 4-17 00:00: 00 09-01 00:00 :00 No 1 Noel Gong 1-2 TABS BID PRN ANXIETY 3-07 00:00: 00 09-01 00:00 :00 No 50 Noel Gong TAKE 1 CAPSULE TWICE DAILY. 3-07 00:00: 00 09-01 00:00 :00 No 300 Noel Gong TAKE 1/2 TO 1 TABLET 3 TIMES DAILY NEEDED. 3-07 00:00: 00 09-01 00:00 :00 No 1 Noel Gong TAKE 2 TABLETS AT BEDTIME. 2-14 00:00: 00 Yes 300 Noel Gong 1-2 TABS BID PRN ANXIETY 2-14 00:00: 00 09-01 00:00 :00 No 50 Noel Gong TAKE 1 CAPSULE EVERY 12 HOURS DAILY. 2-14 00:00: 00 09-01 00:00 :00 No 200 Noel Steve Gong TAKE 1/2 TO 1 TABLET 3 TIMES DAILY NEEDED. 2-14 00:00: 00 09-01 00:00 :00 No 1 Noel Gong 1-2 TABS BID PRN ANXIETY 1-03 00:00: 00 09-01 00:00 :00 No 50 Noelanthony Gong TAKE 1 CAPSULE 3 TIMES DAILY. 06-02 00:00: 00 09-01 00:00 :00 No 300 Noel Gong TAKE 1/2 TO 1 TABLET 3 TIMES DAILY NEEDED. 06-02 00:00: 00 09-01 00:00 :00 No 1 Noel Gong TAKE ONE-HALF TO ONE (1/2 TO 1) TABLET(S) BY MOUTH THREE TIMES A DAY NEEDED FOR ANXIETY. 2021-05 00:00: 00 No TAKE ONE (1) TABLET(S) BY MOUTH TWICE A DAY. 2021-05 00:00: 00 No TAKE 2 TABLETS BY MOUTH ON DAY 1, THEN 1 TABLET DAILY ON DAYS 2 TO 5. 2021-05 00:00: 00 No TAKE ONE (1) CAPSULE(S) BY MOUTH THREE TIMES A DAY. 2021-05 00:00: 00 No TAKE ONE (1) TABLET(S) BY MOUTH ONCE A DAY. 2021-05 00:00: 00 No TAKE 1/2 TO 1 TABLET BY MOUTH AT BEDTIME NEEDED FOR ANXIETY; OR FOR SLEEP. 2021-05 00:00: 00 No Dose Unknown 2021-05 00:00: 00 No APPLY TO AFFECTED AREA THREE TIMES A DAY. 2021-05 00:00: 00 No Dose Unknown 2021-05 00:00: 00 No Dose Unknown 2021-05 00:00: 00 No Dose Unknown 2021-05 00:00: 00 No TAKE ONE (1) CAPSULE(S) BY MOUTH EVERY MORNING. 2021-05 00:00: 00 No TAKE ONE (1) TABLET(S) BY MOUTH THREE TIMES A DAY NEEDED FOR ANXIETY. 2021-05 00:00: 00 No TAKE ONE-HALF TO ONE (1/2 TO 1) TABLET(S) BY MOUTH THREE TIMES A DAY NEEDED FOR ANXIETY. 2021-05 00:00: 00 09-01 00:00 :00 Martine Noel Wilson Beltran TAKE ONE (1) TABLET(S) BY MOUTH TWICE A DAY. 2021-05 00:00: 00 09-01 00:00 :00 No Noel Gong TAKE 2 TABLETS BY MOUTH ON DAY 1, THEN 1 TABLET DAILY ON DAYS 2 TO 5. 2021-05 00:00: 00 09-01 00:00 :00 No Noel F Beltran TAKE ONE (1) CAPSULE(S) BY MOUTH THREE TIMES A DAY. 2021-05 00:00: 00 09-01 00:00 :00 No Noel F Beltran TAKE ONE (1) TABLET(S) BY MOUTH ONCE A DAY. 2021-05 00:00: 00 09-01 00:00 :00 No Noel F Beltran TAKE 1/2 TO 1 TABLET BY MOUTH AT BEDTIME NEEDED FOR ANXIETY; OR FOR SLEEP. 2021-05 00:00: 00 09-01 00:00 :00 No Noel F Beltran Dose Unknown 2021-05 00:00: 00 09-01 00:00 :00 No Noel F Beltran APPLY TO AFFECTED AREA THREE TIMES A DAY. 2021-05 00:00: 00 09-01 00:00 :00 No Noel F Beltran Dose Unknown 2021-05 00:00: 00 09-01 00:00 :00 No Noel F Beltran Dose Unknown 2021-05 00:00: 00 09-01 00:00 :00 No Noel F Beltran Dose Unknown 2021-05 00:00: 00 09-01 00:00 :00 No Noel F Beltran TAKE ONE (1) CAPSULE(S) BY MOUTH EVERY MORNING. 2021-05 00:00: 00 09-01 00:00 :00 No Noel F Beltran TAKE ONE (1) TABLET(S) BY MOUTH THREE TIMES A DAY NEEDED FOR ANXIETY. 2021-05 00:00: 00 09-01 00:00 :00 No Noel F Beltran Dose Unknown 12-25 00:00: 00 Yes Noel F Beltran Dose Unknown 12-25 00:00: 00 Yes Noel F Beltran Dose Unknown 12-25 00:00: 00 Yes Noel F Beltran hydroxyzine HCl 50 mg tablet 12-25 00:00: 00 No 51mg clonidine HCl 0.1 mg tablet 2-0 12-25 00:00: 00 No 51mg lithium carbonate 300 mg capsule 2-0 12-25 00:00: 00 No 1mg Dose Unknown 2-0 12-25 00:00: 00 No Dose Unknown 2022-0 12-25 00:00: 00 No Dose Unknown 2-0 12-25 00:00: 00 No hydroxyzine HCl 50 mg tablet 2-0 5-31 00:00: 00 Yes 51mg Noel Gong clonidine HCl 0.1 mg tablet 2021-0 5- 00:00: 00 Yes 51mg Noel Gong Dose Unknown 2-0 5- 00:00: 00 Yes Noel Gong hydroxyzine HCl 50 mg tablet 2021-0 5- 00:00: 00 No 51mg clonidine HCl 0.1 mg tablet 2021-0 5- 00:00: 00 No 51mg lithium carbonate 600 mg capsule 2021-0 5- 00:00: 00 No 1mg hydroxyzine HCl 50 mg tablet 2021-0 5- 00:00: 00 No 51mg clonidine HCl 0.1 mg tablet 2021-0 5-31 00:00: 00 No 51mg Dose Unknown 2-0 5-31 00:00: 00 No Dose Unknown 2022-0 4-29 00:00: 00 Yes Noel Gong Dose Unknown 2022-0 4-29 00:00: 00 No Dose Unknown 2-0 4-29 00:00: 00 No Dose Unknown 2022-0 4-17 00:00: 00 Yes Noel Gong Dose Unknown 2022-0 4-17 00:00: 00 No Dose Unknown 2022-0 4-17 00:00: 00 No Dose Unknown 2022-0 4-15 00:00: 00 Yes Noel Gong Dose Unknown 2022-0 4-15 00:00: 00 Yes Noel Gong Dose Unknown 2022-0 4-15 00:00: 00 Yes Noel Gong Dose Unknown 2022-0 4-15 00:00: 00 Yes Noel Gong Wellbutrin SR 100 mg tablet, 12 hr sustained-r elease 2022-0 4-15 00:00: 00 No 1mg Dose Unknown 2022-0 4-15 00:00: 00 No Dose Unknown 2022-0 4-15 00:00: 00 No lithium carbonate 300 mg capsule 2022-0 4-15 00:00: 00 No 1mg Dose Unknown 2022-0 4-15 00:00: 00 No Dose Unknown 2022-0 4-15 00:00: 00 No Dose Unknown 2022-0 4-15 00:00: 00 No Dose Unknown 2022-0 4-15 00:00: 00 No Dose Unknown 2022-0 3-19 00:00: 00 Yes Noel Wilson Beltran Dose Unknown 2022-0 3-19 00:00: 00 Yes Noel Wilson Beltran Dose Unknown 2022-0 3-19 00:00: 00 Yes Noel Wilson Beltran Dose Unknown 2022-0 3-19 00:00: 00 Yes Noel Wilson Beltran Dose Unknown 2022-0 3-19 00:00: 00 Yes Noel Wilson Beltran Dose Unknown 2022-0 3-19 00:00: 00 Yes Noel F Beltran Dose Unknown 2022-0 3-19 00:00: 00 Yes Noel Steve Beltran Dose Unknown 2022-0 3-19 00:00: 00 Yes Noel Wilson Beltran Dose Unknown 2022-0 3-19 00:00: 00 Yes Noel Wilson Beltran Dose Unknown 2022-0 3-19 00:00: 00 Yes Nole Wilson Beltran Dose Unknown 2022-0 3-19 00:00: 00 Yes Noel Steve Beltran Dose Unknown 2022-0 3-19 00:00: 00 Yes Noel Wilson Beltran Dose Unknown 2022-0 3-19 00:00: 00 Yes Noel Wilson Beltran Dose Unknown 2022-0 3-19 00:00: 00 No Dose Unknown 2022-0 3-19 00:00: 00 No duloxetine 60 mg capsule,del ayed release 2022-0 3-19 00:00: 00 No 1mg Dose Unknown 2022-0 3-19 00:00: 00 No Dose Unknown 2022-0 3-19 00:00: 00 No Dose Unknown 2022-0 3-19 00:00: 00 No Dose Unknown 2022-0 3-19 00:00: 00 No Dose Unknown 2022-0 3-19 00:00: 00 No Dose Unknown 2022-0 3-19 00:00: 00 No Dose Unknown 2022-0 3-19 00:00: 00 No Dose Unknown 2022-0 3-19 00:00: 00 No Dose Unknown 2022-0 3-19 00:00: 00 No Dose Unknown 2022-0 3-19 00:00: 00 No Dose Unknown 2022-0 3-19 00:00: 00 No Dose Unknown 2022-0 3-19 00:00: 00 No Dose Unknown 2022-0 3-19 00:00: 00 No Dose Unknown 2022-0 3-19 00:00: 00 No Dose Unknown 2022-0 3-19 00:00: 00 No Dose Unknown 2022-0 3-19 00:00: 00 No Dose Unknown 2022-0 3-19 00:00: 00 No Dose Unknown 2022-0 3-19 00:00: 00 No Dose Unknown 2022-0 3-19 00:00: 00 No Dose Unknown 2022-0 3-19 00:00: 00 No Dose Unknown 2022-0 3-19 00:00: 00 No Dose Unknown 2022-0 3-19 00:00: 00 No Dose Unknown 2022-0 3-19 00:00: 00 No Dose Unknown 2022-0 3-18 00:00: 00 Yes Noel Wilson Beltran Dose Unknown 2022-0 3-18 00:00: 00 Yes Noel Wilson Beltran Dose Unknown 2022-0 3-18 00:00: 00 Yes Noel Wilson Beltran Dose Unknown 2022-0 3-18 00:00: 00 Yes Noel Wilson Beltran Dose Unknown 2022-0 3-18 00:00: 00 Yes Noel F Beltran Dose Unknown 2022-0 3-18 00:00: 00 Yes Noel Wilson Beltran Dose Unknown 2022-0 3-18 00:00: 00 Yes Noel Wilson Beltran Dose Unknown 2022-0 3-18 00:00: 00 Yes Noel Wilson Beltran Dose Unknown 2022-0 3-18 00:00: 00 Yes Noel F Beltran Dose Unknown 2022-0 3-18 00:00: 00 Yes Noel Wilson Beltran Dose Unknown 2022-0 3-18 00:00: 00 Yes Noel Wilson Beltran Dose Unknown 2022-0 3-18 00:00: 00 No Dose Unknown 2022-0 3-18 00:00: 00 No Dose Unknown 2022-0 3-18 00:00: 00 No Dose Unknown 2022-0 3-18 00:00: 00 No Dose Unknown 2022-0 3-18 00:00: 00 No Dose Unknown 2022-0 3-18 00:00: 00 No Dose Unknown 2022-0 3-18 00:00: 00 No Dose Unknown 2022-0 3-18 00:00: 00 No Dose Unknown 2022-0 3-18 00:00: 00 No Dose Unknown 2022-0 3-18 00:00: 00 No Dose Unknown 2022-0 3-18 00:00: 00 No Dose Unknown 2022-0 3-18 00:00: 00 No Dose Unknown 2022-0 3-18 00:00: 00 No Dose Unknown 2022-0 3-18 00:00: 00 No Dose Unknown 2022-0 3-18 00:00: 00 No Dose Unknown 2022-0 3-18 00:00: 00 No Dose Unknown 2022-0 3-18 00:00: 00 No Dose Unknown 2022-0 3-18 00:00: 00 No Dose Unknown 2022-0 3-18 00:00: 00 No Dose Unknown 2022-0 3-18 00:00: 00 No Dose Unknown 2022-0 3-18 00:00: 00 No Dose Unknown 2022-0 3-18 00:00: 00 No Dose Unknown 2022-0 3-18 00:00: 00 No Dose Unknown 2022-0 3-18 00:00: 00 No Dose Unknown 2022-0 3-18 00:00: 00 No Dose Unknown 2022-0 3-18 00:00: 00 No Dose Unknown 2022-0 3-18 00:00: 00 No Dose Unknown 2022-0 3-18 00:00: 00 No Dose Unknown 2022-0 3-18 00:00: 00 No Dose Unknown 2022-0 3-18 00:00: 00 No Dose Unknown 2022-0 3-18 00:00: 00 No Dose Unknown 2022-0 3-18 00:00: 00 No Dose Unknown 2022-0 3-18 00:00: 00 No Dose Unknown 2022-0 3-17 00:00: 00 Yes Noel Wilson Beltran Dose Unknown 2022-0 3-17 00:00: 00 Yes Noel Wilson Beltran Dose Unknown 2022-0 3-17 00:00: 00 Yes Noel Gong Dose Unknown 2022-0 3-17 00:00: 00 Yes Noel Gong Dose Unknown 2022-0 3-17 00:00: 00 Yes Noel Gong Dose Unknown 2022-0 3-17 00:00: 00 Yes Noel Gong Dose Unknown 2022-0 3-17 00:00: 00 Yes Noel Gong Dose Unknown 2022-0 3-17 00:00: 00 Yes Noel Gong Dose Unknown 2022-0 3-17 00:00: 00 Yes Noel Gong Dose Unknown 2022-0 3-17 00:00: 00 Yes Noel Gong Dose Unknown 2022-0 3-17 00:00: 00 Yes Noel Gong Dose Unknown 2022-0 3-17 00:00: 00 No Dose Unknown 2022-0 3-17 00:00: 00 No Dose Unknown 2022-0 3-17 00:00: 00 No Dose Unknown 2022-0 3-17 00:00: 00 No Dose Unknown 2022-0 3-17 00:00: 00 No Dose Unknown 2022-0 3-17 00:00: 00 No Dose Unknown 2022-0 3-17 00:00: 00 No Dose Unknown 2022-0 3-17 00:00: 00 No Dose Unknown 2022-0 3-17 00:00: 00 No Dose Unknown 2022-0 3-17 00:00: 00 No Dose Unknown 2022-0 3-17 00:00: 00 No Dose Unknown 2022-0 3-17 00:00: 00 No Dose Unknown 2022-0 3-17 00:00: 00 No Dose Unknown 2022-0 3-17 00:00: 00 No Dose Unknown 2022-0 3-17 00:00: 00 No Dose Unknown 2022-0 3-17 00:00: 00 No Dose Unknown 2022-0 3-17 00:00: 00 No Dose Unknown 2022-0 3-17 00:00: 00 No Dose Unknown 2022-0 3-17 00:00: 00 No Dose Unknown 2022-0 3-17 00:00: 00 No Dose Unknown 2022-0 3-17 00:00: 00 No Dose Unknown 2022-0 3-17 00:00: 00 No Dose Unknown 2022-0 3-11 00:00: 00 Yes Noel Gong Dose Unknown 2022-0 3-11 00:00: 00 Yes Noel Wilson Beltran Dose Unknown 2022-0 3-11 00:00: 00 Yes Noel Wilson Beltran Dose Unknown 2022-0 3-11 00:00: 00 Yes Noel Gong Dose Unknown 2022-0 3-11 00:00: 00 Yes Noel Wilson Beltran Dose Unknown 2022-0 3-11 00:00: 00 Yes Noel Wilson Beltran Dose Unknown 2022-0 3-11 00:00: 00 Yes Noel Gong Dose Unknown 2022-0 3-11 00:00: 00 Yes Noel Gong Dose Unknown 2022-0 3-11 00:00: 00 Yes Noel Gong Dose Unknown 2022-0 3-11 00:00: 00 Yes Noel Gong Dose Unknown 2022-0 3-11 00:00: 00 Yes Noel Gong Dose Unknown 2022-0 3-11 00:00: 00 No Dose Unknown 2022-0 3-11 00:00: 00 No Dose Unknown 2022-0 3-11 00:00: 00 No Dose Unknown 2022-0 3-11 00:00: 00 No Dose Unknown 2022-0 3-11 00:00: 00 No Dose Unknown 2022-0 3-11 00:00: 00 No Dose Unknown 2022-0 3-11 00:00: 00 No Dose Unknown 2022-0 3-11 00:00: 00 No Dose Unknown 2022-0 3-11 00:00: 00 No Dose Unknown 2022-0 3-11 00:00: 00 No Dose Unknown 2022-0 3-11 00:00: 00 No Dose Unknown 2022-0 3-11 00:00: 00 No Dose Unknown 2022-0 3-11 00:00: 00 No Dose Unknown 2022-0 3-11 00:00: 00 No Dose Unknown 2022-0 3-11 00:00: 00 No Dose Unknown 2022-0 3-11 00:00: 00 No Dose Unknown 2022-0 3-11 00:00: 00 No Dose Unknown 2022-0 3-11 00:00: 00 No Dose Unknown 2022-0 3-11 00:00: 00 No Dose Unknown 2022-0 3-11 00:00: 00 No Dose Unknown 2022-0 3-11 00:00: 00 No Dose Unknown 2022-0 3-11 00:00: 00 No Dose Unknown 2022-0 3-09 00:00: 00 Yes Noel Gong Dose Unknown 2022-0 3-09 00:00: 00 Yes Noel Gong Dose Unknown 2022-0 3-09 00:00: 00 Yes Noel Gong Dose Unknown 2022-0 3-09 00:00: 00 Yes Noel Wilson Beltran Dose Unknown 2022-0 3-09 00:00: 00 Yes Noel Gong Dose Unknown 2022-0 3-09 00:00: 00 Yes Noel Gong Dose Unknown 2022-0 3-09 00:00: 00 Yes Noel Gong Dose Unknown 2022-0 3-09 00:00: 00 Yes Noel Gong Dose Unknown 2022-0 3-09 00:00: 00 Yes Noel Gong Dose Unknown 2022-0 3-09 00:00: 00 Yes Noel Gong Dose Unknown 2022-0 3-09 00:00: 00 Yes Noel Wilson Beltran Dose Unknown 2022-0 3-09 00:00: 00 No Dose Unknown 2022-0 3-09 00:00: 00 No Dose Unknown 2022-0 3-09 00:00: 00 No Dose Unknown 2022-0 3-09 00:00: 00 No Dose Unknown 2022-0 3-09 00:00: 00 No Dose Unknown 2022-0 3-09 00:00: 00 No Dose Unknown 2022-0 3-09 00:00: 00 No Dose Unknown 2022-0 3-09 00:00: 00 No Dose Unknown 2022-0 3-09 00:00: 00 No Dose Unknown 2022-0 3-09 00:00: 00 No Dose Unknown 2022-0 3-09 00:00: 00 No Dose Unknown 2022-0 3-09 00:00: 00 No Dose Unknown 2022-0 3-09 00:00: 00 No Dose Unknown 2022-0 3-09 00:00: 00 No Dose Unknown 2022-0 3-09 00:00: 00 No Dose Unknown 2022-0 3-09 00:00: 00 No Dose Unknown 2022-0 3-09 00:00: 00 No Dose Unknown 2022-0 3-09 00:00: 00 No Dose Unknown 2022-0 3-09 00:00: 00 No Dose Unknown 2022-0 3-09 00:00: 00 No Dose Unknown 2022-0 3-09 00:00: 00 No Dose Unknown 2022-0 3-09 00:00: 00 No Dose Unknown 2022-0 3-08 00:00: 00 Yes Noel Wilson Beltran Dose Unknown 2022-0 3-08 00:00: 00 Yes Noel Wilson Beltran Dose Unknown 2022-0 3-08 00:00: 00 Yes Noel Wilson Beltran Dose Unknown 2022-0 3-08 00:00: 00 Yes Noel Wilson Beltran Dose Unknown 2022-0 3-08 00:00: 00 Yes Noel Wilson Beltran Dose Unknown 2022-0 3-08 00:00: 00 Yes Noel Gong Dose Unknown 2022-0 3-08 00:00: 00 Yes Noel Gong Dose Unknown 2022-0 3-08 00:00: 00 Yes Noel Gong Dose Unknown 2022-0 3-08 00:00: 00 Yes Noel Wilson Beltran Dose Unknown 2022-0 3-08 00:00: 00 Yes Noel Wilson Beltran Dose Unknown 2022-0 3-08 00:00: 00 Yes Noel Gong Dose Unknown 2022-0 3-08 00:00: 00 No Dose Unknown 2022-0 3-08 00:00: 00 No Dose Unknown 2022-0 3-08 00:00: 00 No Dose Unknown 2022-0 3-08 00:00: 00 No Dose Unknown 2022-0 3-08 00:00: 00 No Dose Unknown 2022-0 3-08 00:00: 00 No Dose Unknown 2022-0 3-08 00:00: 00 No Dose Unknown 2022-0 3-08 00:00: 00 No Dose Unknown 2022-0 3-08 00:00: 00 No Dose Unknown 2022-0 3-08 00:00: 00 No Dose Unknown 2022-0 3-08 00:00: 00 No Dose Unknown 2022-0 3-08 00:00: 00 No Dose Unknown 2022-0 3-08 00:00: 00 No Dose Unknown 2022-0 3-08 00:00: 00 No Dose Unknown 2022-0 3-08 00:00: 00 No Dose Unknown 2022-0 3-08 00:00: 00 No Dose Unknown 2022-0 3-08 00:00: 00 No Dose Unknown 2022-0 3-08 00:00: 00 No Dose Unknown 2022-0 3-08 00:00: 00 No Dose Unknown 2022-0 3-08 00:00: 00 No Dose Unknown 2022-0 3-08 00:00: 00 No Dose Unknown 2022-0 3-08 00:00: 00 No Dose Unknown 2022-0 2-21 00:00: 00 Yes Noel Gong Dose Unknown 2022-0 2-21 00:00: 00 No Dose Unknown 2022-0 2-21 00:00: 00 No Dose Unknown 2022-0 2-17 00:00: 00 Yes Noel Gong Dose Unknown 2022-0 2-17 00:00: 00 Yes Noel Gong Dose Unknown 2022-0 2-17 00:00: 00 Yes Noel Gong lithium carbonate 300 mg capsule 2022-0 2-17 00:00: 00 Yes 1mg Noel Gong Dose Unknown 2022-0 2-17 00:00: 00 No Dose Unknown 2022-0 2-17 00:00: 00 No Dose Unknown 2022-0 2-17 00:00: 00 No lithium carbonate 300 mg capsule 2022-0 2-17 00:00: 00 No 1mg clonidine HCl 0.1 mg tablet 2022-0 2-17 00:00: 00 No 51mg Dose Unknown 2022-0 2-17 00:00: 00 No Dose Unknown 2022-0 2-17 00:00: 00 No lithium carbonate 300 mg capsule 2022-0 2-17 00:00: 00 No 1mg Dose Unknown 2022-0 2-13 00:00: 00 Yes Noel Gong Dose Unknown 2022-0 2-13 00:00: 00 Yes Noel Gong Dose Unknown 2022-0 2-13 00:00: 00 Yes Noel Gong Dose Unknown 2022-0 2-13 00:00: 00 Yes Noel Gong Dose Unknown 2022-0 2-13 00:00: 00 No Dose Unknown 2022-0 2-13 00:00: 00 No Dose Unknown 2022-0 2-13 00:00: 00 No Dose Unknown 2022-0 2-13 00:00: 00 No Sudafed 12 Hour 120 mg tablet,exte nded release 07-13 00:00: 00 No 1mg Dose Unknown 07-13 00:00: 00 No Dose Unknown 07-13 00:00: 00 No benzonatate 100 mg capsule 07-13 00:00: 00 No 1mg triamcinolo ne acetonide 0.1 % dental paste 07-10 00:00: 00 Yes [id number] by Dental route 2 (two) times daily. [facility] melatonin/p yridoxine (MELATONIN, WITH B6, ORAL) 07-04 15:06: 17 Yes Take by mouth. [facility] ARIPiprazol e 5 mg tablet 07-04 15:05: 42 07-04 00:00 :00 No 2mg Take 2 mg by mouth daily. [facility] topiramate 50 mg tablet 07-04 15:02: 55 Yes 50mg Take 50 mg by mouth 2 (two) times daily. [facility] hydrOXYzine 25 mg tablet 06-24 00:00: 00 Yes TAKE ONE (1) TABLET(S) BY MOUTH THREE TIMES A DAY NEEDED FOR ANXIETY. [facility] DULoxetine 60 mg capsule 06-24 00:00: 00 Yes 60mg Take 60 mg by mouth daily. [facility] lithium carbonate 300 mg capsule 06-22 00:00: 00 Yes TAKE ONE (1) CAPSULE(S) BY MOUTH TWICE A DAY. [facility] Dose Unknown 06-20 00:00: 00 Yes Noel Gong duloxetine 60 mg capsule,del ayed release 06-20 00:00: 00 Yes 1mg Noel Gong lithium carbonate 300 mg capsule 06-20 00:00: 00 Yes 1mg Noel Gong Dose Unknown 06-20 00:00: 00 No duloxetine 60 mg capsule,del ayed release 06-20 00:00: 00 No 1mg lithium carbonate 300 mg capsule - 00:00: 00 No 1mg hydroxyzine HCl 25 mg tablet 06-20 00:00: 00 No 1mg duloxetine 60 mg capsule,del ayed release 06-20 00:00: 00 No 1mg lithium carbonate 300 mg capsule 06-20 00:00: 00 No 1mg Dose Unknown 06-16 00:00: 00 Yes Noel Gong Dose Unknown 06-16 00:00: 00 No topiramate 50 mg tablet 06-16 00:00: 00 No mg topiramate 50 MG Oral Tablet [Topamax] 06-13 20:19: 00 Yes 50 mg = 1 tab, PO, Bedtime, # 30 tab, 3 Refill(s), Pharmacy: [facility] [place], 167.64, cm, 06/13/21 13:40:00 SANITARIAN, Height, 49.545, kg, 06/13/21 13:40:00 SANITARIAN, Weight Memoria l Frankie Tylenol 06-13 19:45: 00 Yes PO, 0 Refill(s) Memoria l Frankie lithium 600 mg oral capsule 06-13 19:43: 00 Yes 600 mg = 1 cap, PO, Daily, 0 Refill(s) Memoria l Cost Dose Unknown 2020-05 00:00: 00 Yes Noel Gong Dose Unknown 2020-05 2- 00:00: 00 Yes Noel Gong Dose Unknown 2020-05 2- 00:00: 00 Yes Noel Gong Dose Unknown 2020-05 2- 00:00: 00 No Dose Unknown 2020-05 2- 00:00: 00 No Dose Unknown 2020-05 2- 00:00: 00 No lithium carbonate 300 mg capsule 2020-05 2- 00:00: 00 No mg hydroxyzine HCl 25 mg tablet 2020-05 2- 00:00: 00 No mg duloxetine 60 mg capsule,del ayed release 2020-05 2- 00:00: 00 No mg Diphenhydra mine Hydrochlori de 25 MG Oral Capsule [Benadryl] 2020-05 19:28: 00 Yes 25 mg = 1 cap, PO, PRN, 0 Refill(s) Dylan David Melatonin 5 mg oral tablet 2020-05 19:27: 00 Yes 5 mg = 1 tab, PO, Bedtime, PRN for insomnia, # 60 tab, 0 Refill(s) Dylan David naproxen sodium 220 mg oral capsule 2020-05 19:27: 00 Yes 220 mg = 1 cap, PO, Q12H, PRN, 0 Refill(s) Dylan David DULoxetine 60 mg oral delayed release capsule 2020-05 19:26: 00 Yes 60 mg = 1 cap, PO, Daily, # 30 cap, 0 Refill(s) Dylan David Bullhead Carbonate 300 MG Extended Release Tablet 2020-05 19:26: 00 Yes 300 mg = 1 tab, PO, Daily, 0 Refill(s) Dylan David Hydroxyzine Hydrochlori de 25 MG Oral Tablet 2020-05 19:25: 00 Yes 50 mg = 2 tab, PO, Daily, 0 Refill(s) Dylan David Dose Unknown 01-31 00:00: 00 Yes Noel Gong Dose Unknown 01-31 00:00: 00 Yes Noel Gong Dose Unknown 01-31 00:00: 00 Yes Noelanthony Gong Dose Unknown 01-31 00:00: 00 Yes Noel Gong Dose Unknown 01-31 00:00: 00 No Dose Unknown 01-31 00:00: 00 No Dose Unknown 01-31 00:00: 00 No Dose Unknown 01-31 00:00: 00 No Risperdal 2 mg tablet 01-31 00:00: 00 No 1mg buspirone 7.5 mg tablet 01-31 00:00: 00 No 1mg clonidine HCl 0.1 mg tablet 01-31 00:00: 00 No 51mg duloxetine 60 mg capsule,del ayed release 01-31 00:00: 00 No 1mg Risperdal 2 mg tablet 2021-0 8-03 00:00: 00 Yes 1mg Noel F Beltran duloxetine 60 mg capsule,del ayed release 0 8- 00:00: 00 Yes 1mg Noel Gong gabapentin 300 mg capsule 0 8- 00:00: 00 Yes 1mg Noel Gong Risperdal 2 mg tablet 0 8- 00:00: 00 No 1mg duloxetine 60 mg capsule,del ayed release 0 8- 00:00: 00 No 1mg gabapentin 300 mg capsule 0 8- 00:00: 00 No 1mg Risperdal 2 mg tablet 0 8- 00:00: 00 No 1mg duloxetine 60 mg capsule,del ayed release 0 8- 00:00: 00 No 1mg gabapentin 300 mg capsule 0 - 00:00: 00 No 1mg Risperdal 2 mg tablet 0 7- 00:00: 00 Yes 1mg Noel Gong duloxetine 60 mg capsule,del ayed release 7- 00:00: 00 Yes 1mg Noel Gong Risperdal 2 mg tablet 0 7 00:00: 00 No 1mg duloxetine 60 mg capsule,del ayed release 0 7- 00:00: 00 No 1mg Risperdal 2 mg tablet 0 12-17 00:00: 00 No 1mg duloxetine 60 mg capsule,del ayed release 0 7 00:00: 00 No 1mg Cefdinir 300 MG Cefdinir 300 MG 2019-05 2-15 00:00: 00 - 00:00 :00 No BID Cefdinir 300 MG Abilify 15 mg tablet 2019-05 2- 00:00: 00 Yes 1mg Noel Gong duloxetine 30 mg capsule,del ayed release 2019-05 2- 00:00: 00 Yes 1mg Noel Gong Abilify 15 mg tablet 2019-05 2- 00:00: 00 No 1mg duloxetine 30 mg capsule,del ayed release 2019-05 2- 00:00: 00 No 1mg Abilify 15 mg tablet 2019-05 2 00:00: 00 No 1mg duloxetine 30 mg capsule,del ayed release 2019-05 00:00: 00 No 1mg Prozac 2019-05 20:45: 00 Yes 20 mg, PO, Daily, 0 Refill(s) Memcatarino David Lamictal 2019-05 20:45: 00 Yes 25 mg, PO, BID, 0 Refill(s) Dylan David Prozac 20 mg capsule 2019-05 00:00: 00 Yes 1mg Noel Gong Prozac 20 mg capsule 2019-05 00:00: 00 No 1mg Prozac 20 mg capsule 2019-05 00:00: 00 No 1mg Lamictal 25 mg tablet 2019-05 00:00: 00 Yes 1mg Noel oGng Prozac 10 mg capsule 2019-05 00:00: 00 Yes 1mg Noel Gong Lamictal 25 mg tablet 2019-05 00:00: 00 No 1mg Prozac 10 mg capsule 2019-05 00:00: 00 No 1mg Lamictal 25 mg tablet 2019-05 00:00: 00 No 1mg Prozac 10 mg capsule 2019-05 00:00: 00 No 1mg Dose Unknown 2019-05 00:00: 00 Yes Noel Gong Dose Unknown 2019-05 00:00: 00 No clonazepam 2 mg tablet 2019-05 00:00: 00 No mg aripiprazol e 10 MG Oral Tablet [Abilify] 2019-05 20:37: 00 Yes 10 mg = 1 tab, PO, Daily, 0 Refill(s) Memcatarino David duloxetine 60 MG Enteric Coated Capsule [Cymbalta] 2019-05 20:37: 00 Yes 60 mg = 1 cap, PO, Daily, 0 Refill(s) Dylan David 12 HR Bupropion Hydrochlori de 150 MG Extended Release Tablet [Wellbutrin ] 2019-05 20:37: 00 Yes 150 mg = 1 tab, PO, Daily, 0 Refill(s) Dylan David clonazePAM 2 mg oral tablet 2019-05 20:37: 00 Yes 2 mg = 1 tab, PO, TID, 0 Refill(s) Dylan David armodafinil 200 mg oral tablet 2019-05 20:37: 00 Yes 200 mg = 1 tab, PO, Daily, 0 Refill(s) Dylan David Wellbutrin XL 150 mg 24 hr tablet, extended release 2019-05 00:00: 00 Yes 1mg Noel Gong armodafinil 200 mg tablet 2019-05 00:00: 00 Yes 1mg Noel Gong Abilify 10 mg tablet 2019-05 00:00: 00 Yes 1mg Noel Gong Wellbutrin XL 150 mg 24 hr tablet, extended release 2019-05 00:00: 00 No 1mg armodafinil 200 mg tablet 2019-05 00:00: 00 No 1mg Abilify 10 mg tablet 2019-05 00:00: 00 No 1mg Wellbutrin XL 150 mg 24 hr tablet, extended release 2019-05 00:00: 00 No 1mg armodafinil 200 mg tablet 2019-05 00:00: 00 No 1mg Abilify 10 mg tablet 2019-05 00:00: 00 No 1mg armodafinil 150 mg tablet 2019-05 00:00: 00 Yes 1mg Noel Gong armodafinil 150 mg tablet 2019-05 00:00: 00 No 1mg armodafinil 150 mg tablet 2019-05 00:00: 00 No 1mg Dose Unknown 2019-05 00:00: 00 Yes Noel Gong Dose Unknown 2019-05 00:00: 00 No Macrobid 100 mg capsule 2019-05 0 00:00: 00 No 1mg Wellbutrin XL 150 mg 24 hr tablet, extended release 2019-05 0 00:00: 00 Yes 1mg Noel Gong Abilify 10 mg tablet 2019-05 0 00:00: 00 Yes 1mg Noel Gong armodafinil 150 mg tablet 2019-05 0 00:00: 00 Yes 1mg Noel Gong duloxetine 60 mg capsule,del ayed release 2019-05 0 00:00: 00 Yes 1mg Noel Gong Wellbutrin XL 150 mg 24 hr tablet, extended release 1 0-10 00:00: 00 No 1mg Abilify 10 mg tablet 2019-05 0-10 00:00: 00 No 1mg armodafinil 150 mg tablet 2019-05 0-10 00:00: 00 No 1mg duloxetine 60 mg capsule,del ayed release 2019-05 0-10 00:00: 00 No 1mg Wellbutrin XL 150 mg 24 hr tablet, extended release 2019-05 0-10 00:00: 00 No 1mg Abilify 10 mg tablet 2019-05 0-10 00:00: 00 No 1mg armodafinil 150 mg tablet 2019-05 0-10 00:00: 00 No 1mg duloxetine 60 mg capsule,del ayed release 2019-05 0- 00:00: 00 No 1mg Wellbutrin XL 150 mg 24 hr tablet, extended release 0 9-16 00:00: 00 Yes 1mg Noel Gong Abilify 10 mg tablet 0 9-16 00:00: 00 Yes 1mg Noel Gong duloxetine 60 mg capsule,del ayed release 0 9-16 00:00: 00 Yes 1mg Noel Gong Wellbutrin XL 150 mg 24 hr tablet, extended release 0 9-16 00:00: 00 No 1mg Abilify 10 mg tablet 0 9-16 00:00: 00 No 1mg duloxetine 60 mg capsule,del ayed release 0 9-16 00:00: 00 No 1mg Wellbutrin XL 150 mg 24 hr tablet, extended release 0 9-16 00:00: 00 No 1mg Abilify 10 mg tablet 0 9-16 00:00: 00 No 1mg duloxetine 60 mg capsule,del ayed release 2019-0 9-16 00:00: 00 No 1mg Wellbutrin XL 150 mg 24 hr tablet, extended release 0 8-20 00:00: 00 Yes 1mg Noel Gong Abilify 10 mg tablet 0 8-20 00:00: 00 Yes 1mg Noel Gong duloxetine 60 mg capsule,del ayed release 2019-0 8-20 00:00: 00 Yes 1mg Noel Gong Wellbutrin XL 150 mg 24 hr tablet, extended release 8-20 00:00: 00 No 1mg Abilify 10 mg tablet 8-20 00:00: 00 No 1mg duloxetine 60 mg capsule,del ayed release 8-20 00:00: 00 No 1mg Wellbutrin XL 150 mg 24 hr tablet, extended release 8-20 00:00: 00 No 1mg Abilify 10 mg tablet 0 8-20 00:00: 00 No 1mg duloxetine 60 mg capsule,del ayed release 8-20 00:00: 00 No 1mg Abilify 10 mg tablet 7 00:00: 00 Yes 1mg Noel Gong Abilify 10 mg tablet 7 00:00: 00 No 1mg Abilify 10 mg tablet 12-18 00:00: 00 No 1mg Abilify 5 mg tablet 7-09 00:00: 00 Yes 1mg Noel Gong Abilify 5 mg tablet 09 00:00: 00 No 1mg Abilify 5 mg tablet 12-06 00:00: 00 No 1mg clonazePAM 2 mg tablet 6-11 00:00: 00 07-04 00:00 :00 No [facility] proMETHazin e 25 mg tablet 416 00:00: 00 07-04 00:00 :00 No [id number] 25mg Take 1 tablet by mouth every 8 (eight) hours as needed for Nausea and Vomiting (N/V). [facility] tiZANidine 4 mg tablet 4-16 00:00: 00 07-04 00:00 :00 No [id number] 4mg Take 1 tablet by mouth every 8 (eight) hours as needed (tension headache). [facility] venlafaxine XR 75 mg 24 hr capsule 204 00:00: 00 07-04 00:00 :00 No [id number] 225mg Take 3 capsules by mouth daily with breakfast. [facility] lisdexamfet amine (VYVANSE) 70 mg capsule 07-04 00:00: 00 07-04 00:00 :00 No [id number] 70mg Take 1 capsule by mouth every morning. [facility] Abilify 15 MG Abilify 15 MG No 1{table t} QD Abilify 15 MG Cymbalta 60 MG Cymbalta 60 MG No 1{capsu le} QD Cymbalta 60 MG Vitamin B Complex - Vitamin B Complex - No Vitamin B Complex - Nitrofurant oin Macrocrysta l 100 MG Nitrofurant oin Macrocrysta l 100 MG No QD Nitrofuran toin Macrocryst al 100 MG Multivitami n - Multivitami n - No 1{table t} QD Multivitam in - Vital Signs Vital Name Observation Time Observation Value Comments S ource Systolic blood pressure 2021-07-10 19:54:00 143 mm[Hg] [facility] Diastolic blood pressure 2021-07-10 19:54:00 82 mm[Hg] [facility] Heart rate 2021-07-10 19:54:00 81 /min [facility] Body temperature 2021-07-10 19:54:00 36.67 Danna [facility] Respiratory rate 2021-07-10 19:54:00 18 /min [facility] Body height 2021-07-10 19:54:00 170.2 cm [facility] Body weight 2021-07-10 19:54:00 97.886 kg [facility] BMI 2021-07-10 19:54:00 33.80 kg/m2 [facility] Oxygen saturation in Arterial blood by Pulse oximetry 2021-07-10 19:54:00 99 /min [facility] Systolic blood pressure 2021-07-04 20:57:00 124 mm[Hg] [facility] Diastolic blood pressure 2021-07-04 20:57:00 80 mm[Hg] [facility] Heart rate 2021-07-04 20:57:00 73 /min [facility] Body temperature 2021-07-04 20:57:00 36.83 Danna [facility] Respiratory rate 2021-07-04 20:57:00 18 /min [facility] Body height 2021-07-04 20:57:00 170.2 cm [facility] Body weight 2021-07-04 20:57:00 96.163 kg [facility] BMI 2021-07-04 20:57:00 33.20 kg/m2 [facility] height 2020-05-14 13:30:00 67 [in_i] [facility] weight 2020-05-14 13:30:00 197 [lb_av] [facility] temperature 2020-05-14 13:30:00 97.8 [degF] Com [facility] bmi 2020-05-14 13:30:00 30.85 kg/m2 [facility] oximetry 2020-05-14 13:30:00 96 % [facility] blood pressure systolic 2020-05-14 13:30:00 131 mm[Hg] [facility] blood pressure diastolic 2020-05-14 13:30:00 77 mm[Hg] [facility] BP Systolic 2024-01-13 11:24:00 152 mm[Hg] Step hen Steve Gong BP Diastolic 2024-01-13 11:24:00 81 mm[Hg] Alpesh phen F Beltran Weight Measured 2024-01-13 11:24:00 159.20 pounds Noel Gong Height Measured 2024-01-13 11:24:00 67.00 inches Noel Gong Body Temperature 2024-01-13 11:24:00 97.90 degrees Noel Gong Heart Rate 2024-01-13 11:24:00 78.00 /min Dionna en F Beltran Respiratory Rate 2024-01-13 11:24:00 20.00 /min Noelanthony Gong BP Systolic 2023-08-24 13:27:00 152 mm[Hg] Step hen Steve Gong BP Diastolic 2023-08-24 13:27:00 89 mm[Hg] Alpesh phen F Beltran Weight Measured 2023-08-24 13:27:00 155.60 pounds Noelanthony Gong Height Measured 2023-08-24 13:27:00 67.00 inches Noel F Beltran Body Temperature 2023-08-24 13:27:00 98.10 degrees Noel F Beltran Heart Rate 2023-08-24 13:27:00 81.00 /min Dionna en F Beltran Respiratory Rate 2023-08-24 13:27:00 19.00 /min Noel F Beltran BP Systolic 2023-06-29 10:55:00 132 mm[Hg] Step hen F Beltran BP Diastolic 2023-06-29 10:55:00 84 mm[Hg] Alpesh phen F Beltran Weight Measured 2023-06-29 10:55:00 157.20 pounds Noel F Beltran Height Measured 2023-06-29 10:55:00 67.00 inches Noel F Beltran Body Temperature 2023-06-29 10:55:00 98.20 degrees Noel F Beltran Heart Rate 2023-06-29 10:55:00 69.00 /min Dionna en F Beltran Respiratory Rate 2023-06-29 10:55:00 19.00 /min Noel F Beltran BP Systolic 2022-12-22 11:35:00 165 mm[Hg] Step hen F Beltran BP Diastolic 2022-12-22 11:35:00 94 mm[Hg] Alpesh phen F Beltran Weight Measured 2022-12-22 11:35:00 165.00 pounds Noel F Beltran Height Measured 2022-12-22 11:35:00 67.00 inches Noel F Beltran Body Temperature 2022-12-22 11:35:00 98.20 degrees Noel F Beltran Heart Rate 2022-12-22 11:35:00 91.00 /min Dionna en F Beltran Respiratory Rate 2022-12-22 11:35:00 19.00 /min Noel F Beltran BP Systolic 2022-12-22 11:17:00 165 mm[Hg] Step hen F Beltran BP Diastolic 2022-12-22 11:17:00 94 mm[Hg] Alpesh phen F Beltran Weight Measured 2022-12-22 11:17:00 165.00 pounds Noel F Beltran Height Measured 2022-12-22 11:17:00 67.00 inches Noel F Beltran Body Temperature 2022-12-22 11:17:00 98.20 degrees Noel F Beltran Heart Rate 2022-12-22 11:17:00 91.00 /min Dionna en F Beltran Respiratory Rate 2022-12-22 11:17:00 19.00 /min Noel F Beltran BP Systolic 2022-07-28 09:24:00 145 mm[Hg] Step hen F Beltran BP Diastolic 2022-07-28 09:24:00 80 mm[Hg] Alpesh phen F Beltran Weight Measured 2022-07-28 09:24:00 178.20 pounds Noel F Beltran Height Measured 2022-07-28 09:24:00 67.00 inches Noel F Beltran Body Temperature 2022-07-28 09:24:00 97.60 degrees Noel F Beltran Heart Rate 2022-07-28 09:24:00 76.00 /min Dionna en F Beltran Respiratory Rate 2022-07-28 09:24:00 18.00 /min Noel F Beltran BP Systolic 2022-05-18 12:01:00 144 mm[Hg] Step hen F Beltran BP Diastolic 2022-05-18 12:01:00 73 mm[Hg] Alpesh phen F Beltran Weight Measured 2022-05-18 12:01:00 177.60 pounds Noel F Beltran Height Measured 2022-05-18 12:01:00 67.00 inches Noel F Beltran Body Temperature 2022-05-18 12:01:00 98.60 degrees Noel F Beltran Heart Rate 2022-05-18 12:01:00 82.00 /min Dionna en F Beltran Respiratory Rate 2022-05-18 12:01:00 18.00 /min Noel F Beltran Systolic (mm Hg) 2021-10-02 18:20:00 [facility] Frankie Diastolic (mm Hg) 2021-10-02 18:20:00 [facility] Cost Heart Rate 2021-10-02 18:20:00 [facility] 2021-10-02 18:20:00 170.18 cm [facility] Weight 2021-10-02 18:20:00 [facility] BMI Calculated 2021-10-02 18:20:00 [facility] BP Systolic 2021-07-28 09:15:00 107 mm[Hg] Step hen F Beltran BP Diastolic 2021-07-28 09:15:00 73 mm[Hg] Alpesh phen F Beltran Weight Measured 2021-07-28 09:15:00 212.80 pounds Noel F Beltran Height Measured 2021-07-28 09:15:00 67.00 inches Noel F Beltran Body Temperature 2021-07-28 09:15:00 97.70 degrees Noel F Beltran Heart Rate 2021-07-28 09:15:00 87.00 /min Dionna en F Beltran Respiratory Rate 2021-07-28 09:15:00 16.00 /min Noel F Beltran BP Systolic 2021-07-13 09:28:00 Step hen F Beltran BP Diastolic 2021-07-13 09:28:00 Alpesh phen F Beltran Weight Measured 2021-07-13 09:28:00 213.00 pounds Noel F Beltran Height Measured 2021-07-13 09:28:00 67.00 inches Noel F Beltran Body Temperature 2021-07-13 09:28:00 Noel F Beltran Heart Rate 2021-07-13 09:28:00 Dionna en F Beltran Respiratory Rate 2021-07-13 09:28:00 Noel F Beltran Systolic (mm Hg) 2021-06-13 19:29:00 [facility] Diastolic (mm Hg) 2021-06-13 19:29:00 [facility] Heart Rate 2021-06-13 19:29:00 [facility] Respitory Rate 2021-06-13 19:29:00 [facility] Height 2021-06-13 19:29:00 167.64 cm [facility] Weight 2021-06-13 19:29:00 [facility] BMI Calculated 2021-06-13 19:29:00 [facility] Systolic (mm Hg) 2021-04-29 19:13:00 [facility] Diastolic (mm Hg) 2021-04-29 19:13:00 [facility] Heart Rate 2021-04-29 19:13:00 [facility] Respitory Rate 2021-04-29 19:13:00 [facility] Height 2021-04-29 19:13:00 167.64 cm [facility] Weight 2021-04-29 19:13:00 [facility] BMI Calculated 2021-04-29 19:13:00 [facility] BP Systolic 2020-12-17 12:08:00 Lan Gong BP Diastolic 2020-12-17 12:08:00 Alpesh Gong Weight Measured 2020-12-17 12:08:00 212.00 pounds Noel Gong Height Measured 2020-12-17 12:08:00 67.00 inches Noel Gong Body Temperature 2020-12-17 12:08:00 Noel F Beltran Heart Rate 2020-12-17 12:08:00 Dionna Gong Respiratory Rate 2020-12-17 12:08:00 Noel F Beltran Systolic (mm Hg) 2020-04-23 20:06:00 [facility] Diastolic (mm Hg) 2020-04-23 20:06:00 [facility] Heart Rate 2020-04-23 20:06:00 [facility] Respitory Rate 2020-04-23 20:06:00 [facility] Height 2020-04-23 20:06:00 170.18 cm [facility] Weight 2020-04-23 20:06:00 [facility] BMI Calculated 2020-04-23 20:06:00 [facility] Systolic (mm Hg) 2020-03-26 20:33:00 [facility] Diastolic (mm Hg) 2020-03-26 20:33:00 [facility] Heart Rate 2020-03-26 20:33:00 [facility] Respitory Rate 2020-03-26 20:33:00 [facility] Height 2020-03-26 20:33:00 170.18 cm [facility] Weight 2020-03-26 20:33:00 [facility] BMI Calculated 2020-03-26 20:33:00 [facility] BP Systolic 2020-03-11 14:50:00 143 mm[Hg] BP Diastolic 2020-03-11 14:50:00 85 mm[Hg] Weight Measured 2020-03-11 14:50:00 200.40 pounds Height Measured 2020-03-11 14:50:00 68.40 inches Body Temperature 2020-03-11 14:50:00 98.00 degrees Heart Rate 2020-03-11 14:50:00 78.00 /min Respiratory Rate 2020-03-11 14:50:00 17.00 /min Procedures Procedure Date / Time Performed Performing Clinicia n Source POCT MOLECULAR STREP 2021-07-10 20:03:00 Earline Velasco [facility] Plan of Care Planned Activity Planned Date Details Comments Source Goal Plan of Care Note [code = 31714-7] Goal Plan of Care Note [code = 60509-3] Goal Plan of Care Note [code = 32048-1] Goal Plan of Care Note [code = 33764-8] Goal Plan of Care Note [code = 66982-4] Goal Plan of Care Note [code = 92093-2] Goal Plan of Care Note [code = 96428-0] Goal Plan of Care Note [code = 84116-9] Goal Plan of Care Note [code = 48075-6] Goal Plan of Care Note [code = 94977-9] Goal Plan of Care Note [code = 85118-3] Goal Plan of Care Note [code = 03867-0] Goal Plan of Care Note [code = 36605-7] Goal Plan of Care Note [code = 90171-2] Goal Plan of Care Note [code = 37414-8] Goal Plan of Care Note [code = 00644-3] Goal Plan of Care Note [code = 49389-5] Goal Plan of Care Note [code = 99313-4] Goal Plan of Care Note [code = 54344-3] Goal Plan of Care Note [code = 83602-0] Goal Plan of Care Note [code = 87681-5] Goal Plan of Care Note [code = 89655-5] Goal Plan of Care Note [code = 09634-7] Goal Plan of Care Note [code = 97470-0] Goal Plan of Care Note [code = 04700-3] Goal Plan of Care Note [code = 82152-3] Goal Plan of Care Note [code = 86057-8] Goal Plan of Care Note [code = 51471-2] Goal Plan of Care Note [code = 85177-3] Goal Plan of Care Note [code = 86846-0] Goal Plan of Care Note [code = 62760-8] Goal Plan of Care Note [code = 31900-2] Goal Plan of Care Note [code = 86740-6] Goal Plan of Care Note [code = 30456-0] Goal Plan of Care Note [code = 94121-7] Goal Plan of Care Note [code = 36374-7] Goal Plan of Care Note [code = 36398-2] Goal Plan of Care Note [code = 74221-9] Encounters Start Date/Time End Date/Time Encounter Type Admission Type Attending [facility] Facility Care Department Encounter ID Source 2021-06-25 12:13:40 Outpatient [facility] [id number] [facility] 2021-03-31 04:01:10 Emergency [facility] [id number] [facility] 2024-01-19 14:53:13 2024-01-19 14:53:13 Outpatient [facility] [id number] Noel Gong 2024-01-13 11:16:36 2024-01-13 11:16:36 Outpatient [facility] [id number] Noel Gong 2024-01-13 00:00:00 2024-01-13 00:00:00 Outpatient Visit [facility] [id number] Noel Gong 2023-08-24 13:17:45 2023-08-24 13:17:45 Outpatient [facility] [id number] Noel Wilson Beltran 2023-06-29 10:45:35 2023-06-29 10:45:35 Outpatient [facility] [id number] Noel F Beltran 2023-06-08 16:29:01 2023-06-08 16:29:01 Outpatient [facility] [id number] Noel Steve Beltran 2023-05-26 16:39:49 2023-05-26 16:39:49 Outpatient [facility] [id number] Noel Steve Beltran 2022-12-22 11:09:03 2022-12-22 11:09:03 Outpatient [facility] [id number] Noel Gong 2022-09-09 11:42:00 2022-09-09 23:59:00 Hospital Encounter Mando Poole [facility] [id number] [facility] 2022-09-09 00:00:00 2022-09-09 23:59:00 Outpatient R MANDO POOLE [facility] [id number] [facility] 2022-07-28 09:20:21 2022-07-28 09:20:21 Outpatient [facility] [id number] Noel Gong 2022-06-08 11:33:18 2022-06-08 11:33:18 Outpatient [facility] [id number] Noel Gong 2022-05-18 11:25:53 2022-05-18 11:25:53 Outpatient [facility] [id number] Noel Gong 2022-05-18 00:00:00 2022-05-18 00:00:00 Outpatient Visit [id number] 2022-05-15 16:06:35 2022-05-15 16:06:35 Outpatient [facility] [id number] Noel Gong 2022-03-16 10:04:32 2022-03-16 10:04:32 Outpatient [facility] [id number] Noel Gong 2022-02-21 00:00:00 2022-02-21 00:00:00 Outpatient Visit [id number] 2022-01-08 15:45:00 2022-01-08 15:45:00 Ambulatory Pre-Reg nullFlavo r [facility] [id number] Dylan David 2021-10-02 18:30:00 2021-10-03 04:59:59 Outpatient nullFlavo r [facility] [id number] Dylan David 2021-08-20 16:15:00 2021-08-20 16:15:00 Ambulatory Pre-Reg nullFlavo r [facility] [id number] Dylan David 2021-07-11 00:00:00 2021-07-11 00:00:00 Letter (Out) Angelique Wood [facility] 1..840.114 [id number] [facility] 2021-07-10 14:00:00 2021-07-10 14:25:55 Outpatient R SWATHI MARTINEZ [facility] [id number] [facility] 2021-07-10 14:00:00 2021-07-10 14:25:55 Urgent Care Swathi Martinez, [facility] 1.2.840.114 [id number] [id number] [id number] [facility] 2021-07-04 15:00:00 2021-07-04 15:30:00 Office Visit Mitzy Leon [facility] 1.2.840.114 350.1.13.10 [id number] [id number] [facility] 2021-07-04 15:00:00 2021-07-04 15:00:00 Outpatient R MITZY LEON [facility] [id number] [facility] 2021-07-04 15:00:00 2021-07-04 15:00:00 Outpatient R MITZY LEON [facility] [id number] [facility] 2021-07-04 00:00:00 2021-07-04 00:00:00 Orders Only Doctor Unassigned, [place] [facility] [id number] 350.1.13.10 [id number] [id number] [facility] 2021-06-13 19:30:00 2021-06-14 05:59:59 Outpatient nullFlavo r [facility] [id number] Dylan David 2021-04-29 19:00:00 2021-04-30 05:59:59 Outpatient nullFlavo r [facility] [id number] Dylan David 2021-04-22 14:30:00 2021-04-22 14:30:00 Outpatient R ARI MAHONEY [facility] [id number] [facility] 2020-12-13 16:30:00 2020-12-13 16:30:00 Ambulatory Pre-Reg nullFlavo r [facility] [id number] Dylan David 2020-05-29 21:45:00 2020-05-29 21:45:00 Ambulatory Pre-Reg nullFlavo r [facility] [id number] Dylan David 2020-05-14 00:00:00 2020-05-14 00:00:00 OFFICE VISIT NEW PT LEVEL 3 STLMLC STLMLC [id number] [facility] [place] 2020-05-02 19:00:00 2020-05-03 05:59:59 Outpatient nullFlavo r [facility] [place] [id number] Dylan David 2020-04-23 20:30:00 2020-04-24 05:59:59 Outpatient nullFlavo r [facility] [place] [id number] Dylan David 2020-04-19 19:00:00 2020-04-19 19:00:00 Ambulatory Pre-Reg nullFlavo r [facility] [place] [id number] Dylan David 2020-03-29 18:00:00 2020-03-29 18:00:00 Ambulatory Pre-Reg nullFlavo r [facility] [place] [id number] Dylan David 2020-03-26 20:00:00 2020-03-27 04:59:59 Outpatient nullFlavo r [facility] [place] [id number] Dylan mix Frankie 2019-11-24 15:20:00 2019-11-24 15:20:00 Outpatient R [facility] [id number] [facility] 2019-09-14 11:30:00 2019-09-14 11:30:00 Outpatient R [facility] [id number] [facility] Results Test Description Test Time Test Comments Results Result Co mments Source PAP TEST, THINPREP, [id number] 00:00:00* Test Item Value Reference Range Interpretation Comme nts SOURCE: (test code = 8001) Cervical SLIDES: (test code = 8011) 2 LMP: (test code = 8021) 08/20/2023 SPECIMEN ADEQUACY: (test code = 90639) (NOTE) INTERPRETATION: (test code = 69494) NILM/NO EPITH. ABNORMALITY;SEE BELOW OTHER COMMENTS: (test code = 8081) (NOTE) EXT JS DEVELOPER: (test code = 8101) RAYSHAWN Fitzgerald (ASCP) QC TECHNOLOGIST: (test code = 8111) RAYSHAWN ALVAREZ(ASCP) LOCATION: (test code = 01286) (NOTE) CPT: (test code = 8140) (NOTE) Noel Steve AustinHPV HIGH RISK WITH GENOTYPE, [id number] 20:09:49* Test Item Value Reference Range Interpretation Comme nts HPV HIGH RISK INTERP (test code = 06102) NEGATIVE NEGATIVE HPV 16 (test code = 60732) NEGATIVE HPV 18 (test code = 61637) NEGATIVE HPV, HR, OTHER GENOTYPES (test code = 80976) NEGATIVE Testing methodol ogy is real-time PCR utilizing hydrolysis probes with the Jade Ryan system. The test individually detects genotypes 16 and 18, as well as the other 12 high risk types (31,33,35,39,45,51,52,56 ,58,59,66,68). The expected result is negative. A negative result does not rule out the presence of HPV not included in the genotype set, a low level of infection or specimen sampling error. UNLESS OTHERWISE INDICATED, ALL TESTING PERFORMED AT [facility] [address] [place] [address] TEACHER BALLET: Asif PARSONSIA NUMBER [id number] [place]. [id number] HERPES SIMPLEX VIRUS, [id number] 15:20:27* Test Item Value Reference Range Interpretation Comme [facility] SPECIMEN SOURCE (test code = 07871) LEFT LABIA HSV TYPE I (test code = 132841) NEGATIVE NEGATIVE HSV TYPE II (test code = 477438) NEGATIVE NEGATIVE UNLESS OTHERWISE INDICATED, ALL TESTING PERFORMED AT [facility] [address] [place] [address] TEACHER BALLET: Asif PARSONSIA NUMBER [id number] [place]. [id number] HERPES SIMPLEX VIRUS, [id number] 00:00:00* Test Item Value Reference Range Interpretation Comme [facility] SPECIMEN SOURCE (test code = 59911) LEFT LABIA HSV TYPE I (test code = 953152) NEGATIVE HSV TYPE II (test code = 530248) NEGATIVE Noel Wilson AustinHPV HIGH RISK WITH GENOTYPE, [id number] 00:00:00* Test Item Value Reference Range Interpretation Comme [facility] HPV HIGH RISK INTERP (test c ode = 72829) NEGATIVE HPV 16 (test code = 71581) NEGATIVE HPV 18 (test code = 33507) NEGATIVE HPV, HR, OTHER GENOTYPES (te st code = 98850) NEGATIVE PDFE (test code = PDFReport) PDF Noel GongPAP TEST, THINPREP, [id number] 07:06:59* Test Item Value Reference Range Interpretation Comme [facility] SOURCE: (test code = 8001) Cervical/Endo cervical SLIDES: (test code = 8011) 2 LMP: (test code = 8021) 06/24/2023 SPECIMEN ADEQUACY: (test code = 74590) (NOTE) Unsatisfactory ( see Interpretation). INTERPRETATION: (test code = 39549) UNSATISFACTOR Y; SEE BELOW A ---- UNSATISFACTORY FOR EVALUATION Insufficient cellularity (Charges deleted, please resubmit) ------- OTHER COMMENTS: (test code = 8081) (NOTE) Glacial acetic a arpan added due to blood/mucus in specimen. EXT JS DEVELOPER: (test code = 8101) Ernestine Edwards QC TECHNOLOGIST: (test code = 8111) RAYSHAWN ALVAREZ([facility]) LOCATION: (test code = 99546) (NOTE) Specimens proces sed and interpreted at [facility], [address] [place] [address], , CLIA: [id number] CPT: (test code = 8140) (NOTE) 53587 UNLESS OTH ERWISE INDICATED, COMPUTER AIDED AND EXT JS DEVELOPER SCREENING PERFORMED. The Pap test is a screening test with an inherent, but low probability of error. Your patient should be reminded to consult you immediately if she experiences any suspicious signs or symptoms, regardless of her Pap test result. An alternate report format containing images or consolidated prior Pap history is available as applicable. PAP TEST, THINPREP, [id number] 00:00:00* Test Item Value Reference Range Interpretation Comme nts SOURCE: (test code = 8001) Cervical/Endocervical SLIDES: (test code = 8011) 2 LMP: (test code = 8021) 06/24/2023 SPECIMEN ADEQUACY: (test code = 24466) (NOTE) INTERPRETATION: (test code = 52959) UNSATISFACTORY; SEE BELOW OTHER COMMENTS: (test code = 8081) (NOTE) EXT JS DEVELOPER: (test code = 8101) Ernestine Edwards QC TECHNOLOGIST: (test code = 8111) RAYSHAWN ALVAREZ([facility]) LOCATION: (test code = 49049) (NOTE) CPT: (test code = 8140) (NOTE) Noel Clark/NG, NAAT, [id number] 20:39:19* Test Item Value Reference Range Interpretation Comme nts CHLAMYDIA, NAAT, URINE (test code = 58577) NEGATIVE NEGATIVE Testing is perfo rmed with Jade RYAN 6800/8800 systems usingreal-time polymerase chain reaction (PCR) method. Testing is performed with Jade RYAN 6800/8800 systems usingreal-time polymerase chain reaction (PCR) method. A negative result does not exclude low level infection, specimensampling error, or collection error. GONORRHEA, NAAT, URINE (test code = 81776) NEGATIVE NEGATIVE Testing is perfo rmed with Jade RYAN 6800/8800 systems usingreal-time polymerase chain reaction (PCR) method. Testing is performed with Jade RYAN 6800/8800 systems usingreal-time polymerase chain reaction (PCR) method. A negative result does not exclude low level infection, specimensampling error, or collection error. HPV HIGH RISK WITH GENOTYPE, [id number] 16:53:57* Test Item Value Reference Range Interpretation Comme [facility] HPV HIGH RISK INTERP (test code = 31834) NEGATIVE NEGATIVE HPV 16 (test code = 63795) NEGATIVE HPV 18 (test code = 20774) NEGATIVE HPV, HR, OTHER GENOTYPES (test code = 92548) NEGATIVE Testing methodol ogy is real-time PCR utilizing hydrolysis probes with the Jade Ryan 4800 system. The test individually detects genotypes 16 and 18, as well as the other 12 high risk types (31,33,35,39,45,51,52,56 ,58,59,66,68). The expected result is negative. A negative result does not rule out the presence of HPV not included in the genotype set, a low level of infection or specimen sampling error. UNLESS OTHERWISE INDICATED, ALL TESTING PERFORMED AT [facility] [address] [place] [address] 97874 TEACHER BALLET: SUSAN SNYDER M.D. CLIA NUMBER [id number] [facility] [place]. [id number] HIV 1/2 4TH GEN, RFLX [id number] 03:45:16* Test Item Value Reference Range Interpretation Comme nts HIV 1/2 4TH GEN, RFLX CONF ( test code = 3514) NON-REACTIVE NON-REACTIVE RPR REFLEX TO T. PALLIDUM - [id number] 03:00:28* Test Item Value Reference Range Interpretation Comme nts RPR (test code = 50010) NON-REACTIVE NON-REACTIVE RPR TITER (test code = 3500) NOT INDIC. TITER NOT INDIC. UNLESS OTHERWISE INDICATED, ALL TESTING PERFORMED AT [facility] [address] [place] [address] 28237 TEACHER BALLET: SUSAN SNYDER M.D. CLIA NUMBER [id number] [place]. [id number] HPV HIGH RISK WITH GENOTYPE, [id number] 00:00:00* Test Item Value Reference Range Interpretation Comme nts HPV HIGH RISK INTERP (test c ode = 02085) NEGATIVE HPV 16 (test code = 54998) NEGATIVE HPV 18 (test code = 64707) NEGATIVE HPV, HR, OTHER GENOTYPES (te st code = 31017) NEGATIVE PDFE (test code = PDFReport) PDF Noel GongHIV 1/2 4TH GEN, RFLX [id number] 00:00:00* Test Item Value Reference Range Interpretation Comme nts HIV 1/2 4TH GEN, RFLX CONF ( test code = 3514) NON-REACTIVE Noel GongRPR REFLEX TO T. PALLIDUM - [id number] 00:00:00* Test Item Value Reference Range Interpretation Comme nts RPR (test code = 87592) NON-REACTIVE RPR TITER (test code = 3500) NOT INDIC. TITER Noel GongCT/NG, TMA, [id number] 00:00:00* Test Item Value Reference Range Interpretation Comme nts CHLAMYDIA, NAAT, URINE (test code = 40848) NEGATIVE GONORRHEA, NAAT, URINE (test code = 42250) NEGATIVE Noel GongCARBAMAZEPINE (TEGRETOL)2022-07-29 06:48:53* Test Item Value Reference Range Interpretation Comme nts CARBAMAZEPINE (TEGRETOL) (test code = 3006) 3.7 UG/ML 4.0-12.0 L [facility] has impo rtant pathology staff changes effective 07/29/2022. New pathology staff will provide uninterrupted, excellent patient care and clinical consultation. See URL: [email or web address]. UNLESS OTHERWISE INDICATED, ALL TESTING PERFORMED AT [facility] [address] [place] [address] 73544 TEACHER BALLET: ANDREW JUSTIN M.D. [place] NUMBER [id number] [facility] [place]. [id number] CARBAMAZEPINE (TEGRETOL)2022-07-29 00:00:00* Test Item Value Reference Range Interpretation Comme nts CARBAMAZEPINE (TEGRETOL) ( st code = 3006) 3.7 UG/ML Noel JoinerH, THIRD [id number] 06:22:53* Test Item Value Reference Range Interpretation Comme nts TSH, THIRD GENERATION (test code = 2821) 1.870 UIU/ML 0.400-4.100 COMPREHENSIVE METABOLIC [id number] 03:59:34* Test Item Value Reference Range Interpretation Comme nts GLUCOSE (test code = 2217) 96 MG/DL 70-99 BUN (test code = 2208) 10 MG/DL 6-20 CREATININE (test code = 2214) 0.86 MG/DL 0.60-1.30 eGFR (2020 CKD-EPI) (test code = 03160) 91 ML/MIN/1.73 >60 CALC BUN/CREAT (test code = 2235) 12 RATIO 6-28 SODIUM (test code = 2231) 140 MEQ/L 133-146 POTASSIUM (test code = 2228) 4.5 MEQ/L 3.5-5.4 CHLORIDE (test code = 2215) 105 MEQ/L 95-107 CARBON DIOXIDE (test code = 2206) 26 MEQ/L 19-31 CALCIUM (test code = 2209) 9.6 MG/DL 8.5-10.5 PROTEIN, TOTAL (test code = 2229) 6.7 G/DL 6.1-8.3 ALBUMIN (test code = 2201) 4.5 G/DL 3.5-5.2 CALC GLOBULIN (test code = 2240) 2.2 G/DL 1.9-3.7 CALC A/G RATIO (test code = 2234) 2.0 RATIO 1.0-2.6 BILIRUBIN, TOTAL (test code = 2207) 0.3 MG/DL See_Comment [Automated me ssage] The system which generated this result transmitted reference range: <=1.2. The reference range was not used to interpret this result as normal/abnormal. ALKALINE PHOSPHATASE (test code = 2204) 61 U/L 40-114 AST (test code = 2218) 11 U/L 9-40 ALT (test code = 2219) 15 U/L 5-40 PROTHROMBIN TIME (PT)2022-05-19 03:10:42* Test Item Value Reference Range Interpretation Comme nts PROTHROMBIN TIME (PT) (test code = 1402) 12.9 SECONDS 12.5-14.7 INR (test code = 67788) 0.9 SEE BELOW CURRENT RECOMMENDATIONS ARE FOR AN INR OF 2.0-3.0 FOR ALL PATIENTS ON VITAMIN K ANTAGONISTS, EXCEPT THOSE WITH PROSTHETIC HEART VALVES, FOR WHOM INR OF 2.5-3.5 IS RECOMMENDED. UNLESS OTHERWISE INDICATED, ALL TESTING PERFORMED [facility] [address] [place] [address] TEACHER BALLET: ANDREW JUSTIN M.D. CLIA NUMBER [id number] [facility] [place]. [id number] CBC W/AUTO DIFF WITH [id number] 02:15:17* Test Item Value Reference Range Interpretation Comme nts WBC (test code = 1001) 5.2 K/UL 3.5-11.0 RBC (test code = 1002) 4.86 M/UL 3.80-5.40 HEMOGLOBIN (test code = 1003) 13.9 G/DL 11.5-15.5 HEMATOCRIT (test code = 1004) 41.7 % 34.0-45.0 MCV (test code = 1005) 85.8 fL 80.0-99.0 MCH (test code = 1006) 28.6 PG 25.0-33.0 MCHC (test code = 1007) 33.3 G/DL 31.0-36.0 RDW (test code = 1038) 11.8 % 11.5-15.0 NEUTROPHILS (test code = 1008) 53.1 % LYMPHOCYTES (test code = 1010) 36.2 % MONOCYTES (test code = 1011) 6.8 % EOSINOPHILS (test code = 1012) 3.1 % BASOPHILS (test code = 1013) 0.8 % IMMATURE GRANULOCYTES (test code = 1036) 0.0 % NUCLEATED RBCS (test code = 1065) 0.0 /100 WBC'S See_Comment [Automated Yappa ge] The system which generated this result transmitted reference range: 0.0. The reference range was not used to interpret this result as normal/abnormal. PLATELET COUNT (test code = 1015) 261 K/UL 130-400 ABSOLUTE NEUTROPHILS (test code = 1066) 2.74 K/UL 1.50-7.50 ABSOLUTE LYMPHOCYTES (test code = 1067) 1.87 K/UL 1.00-4.00 ABSOLUTE MONOCYTES (test code = 1068) 0.35 K/UL 0.20-1.00 ABSOLUTE EOSINOPHILS (test code = 1040) 0.16 K/UL 0.00-0.50 ABSOLUTE BASOPHILS (test code = 1069) 0.04 K/UL 0.00-0.20 ABS IMMATURE GRANULOCYTES (test code = 1020) 0.00 K/UL 0.00-0.10 ABS NUCLEATED RBCS (test code = 71484) 0.00 K/UL 0.00-0.11 CBC W/AUTO [id number] 00:00:00* Test Item Value Reference Range Interpretation Comme nts WBC (test code = 1001) 5.2 K/UL RBC (test code = 1002) 4.86 M/UL HEMOGLOBIN (test code = 1003) 13.9 G/DL HEMATOCRIT (test code = 1004) 41.7 % MCV (test code = 1005) 85.8 fL MCH (test code = 1006) 28.6 PG MCHC (test code = 1007) 33.3 G/DL RDW (test code = 1038) 11.8 % NEUTROPHILS (test code = 1008) 53.1 % LYMPHOCYTES (test code = 1010) 36.2 % MONOCYTES (test code = 1011) 6.8 % EOSINOPHILS (test code = 1012) 3.1 % BASOPHILS (test code = 1013) 0.8 % IMMATURE GRANULOCYTES (test code = 1036) 0.0 % NUCLEATED RBCS (test code = 1065) 0.0 /100WBC'S PLATELET COUNT (test code = 1015) 261 K/UL ABSOLUTE NEUTROPHILS (test c ode = 1066) 2.74 K/UL ABSOLUTE LYMPHOCYTES (test c ode = 1067) 1.87 K/UL ABSOLUTE MONOCYTES (test cod e = 1068) 0.35 K/UL ABSOLUTE EOSINOPHILS (test c ode = 1040) 0.16 K/UL ABSOLUTE BASOPHILS (test cod e = 1069) 0.04 K/UL ABS IMMATURE GRANULOCYTES (t est code = 1020) 0.00 K/UL ABS NUCLEATED RBCS (test cod e = 33501) 0.00 K/UL Noel GongPROTHROMBIN TIME (PT)2022-05-19 00:00:00* Test Item Value Reference Range Interpretation Comme nts PROTHROMBIN TIME (PT) (test code = 1402) 12.9 SECONDS INR (test code = 26356) 0.9 Noel GongCOMPREHENSIVE METABOLIC [id number] 00:00:00* Test Item Value Reference Range Interpretation Comme nts GLUCOSE (test code = 2217) 96 MG/DL BUN (test code = 2208) 10 MG/DL CREATININE (test code = 2214) 0.86 MG/DL eGFR (2020 CKD-EPI) (test co de = 35923) 91 ML/MIN/1.73 CALC BUN/CREAT (test code = 2235) 12 RATIO SODIUM (test code = 2231) 140 MEQ/L POTASSIUM (test code = 2228) 4.5 MEQ/L CHLORIDE (test code = 2215) 105 MEQ/L CARBON DIOXIDE (test code = 2206) 26 MEQ/L CALCIUM (test code = 2209) 9.6 MG/DL PROTEIN, TOTAL (test code = 2229) 6.7 G/DL ALBUMIN (test code = 2201) 4.5 G/DL CALC GLOBULIN (test code = 2240) 2.2 G/DL CALC A/G RATIO (test code = 2234) 2.0 RATIO BILIRUBIN, TOTAL (test code = 2207) 0.3 MG/DL ALKALINE PHOSPHATASE (test code = 2204) 61 U/L AST (test code = 2218) 11 U/L ALT (test code = 2219) 15 U/L Noel GongTSH, THIRD [id number] 00:00:00* Test Item Value Reference Range Interpretation Comme nts TSH, THIRD GENERATION (test code = 2821) 1.870 UIU/ML Noel GongVITAMIN D, 25 [id number] 03:55:39* Test Item Value Reference Range Interpretation Comme nts VITAMIN D, 25 OH (test code = 4958) 40 NG/ML SEE BELOW NOTE: 25-HYDR OXYVITAMIN D ASSAY INCLUDES 25-HYDROXYVITAMIN D2 AND D3. METHODOLOGY IS CHEMILUMINESCENT IMMUNOASSAY. INTERPRETIVE RANGES PEDIATRIC (<17 YEARS) . . . . . . . . . . . NG/ML 20-100ADULT: INSUFFICIENT . . . . . . . . . . . . . . NG/ML <20 SUBOPTIMAL . . . . . . . . . . . . . . . NG/ML 20-29 OPTIMAL . . . . . . . . . . . . . . . . . NG/ML 30-100 VITAMIN D, 25 OH [ADDED]2021-12-12 00:00:00* Test Item Value Reference Range Interpretation Comme [facility] VITAMIN D, 25 OH (test code = 4958) 40 NG/ML Noel GongVITAMIN D, 25 OH [ADDED]2021-12-12 00:00:00* Test Item Value Reference Range Interpretation Comme [facility] VITAMIN D, 25 OH (test code = 4958) 40 NG/ML VITAMIN D, 25 OH [ADDED]2021-12-12 00:00:00* Test Item Value Reference Range Interpretation Comme [facility] VITAMIN D, 25 OH (test code = 4958) 40 NG/ML VITAMIN D, 25 OH [ADDED]2021-12-12 00:00:00* Test Item Value Reference Range Interpretation Comme [facility] VITAMIN D, 25 OH (test code = 4958) 40 NG/ML VITAMIN D, 25 OH [ADDED]2021-12-12 00:00:00* Test Item Value Reference Range Interpretation Comme [facility] VITAMIN D, 25 OH (test code = 4958) 40 NG/ML VITAMIN [id number] 06:34:47* Test Item Value Reference Range Interpretation Comme [facility] VITAMIN B-12 (test code = 2840) 424 PG/ML 200-950 CBC W/AUTO DIFF WITH [id number] 05:42:09* Test Item Value Reference Range Interpretation Comme nts WBC (test code = 1001) 5.1 K/UL 3.5-11.0 RBC (test code = 1002) 4.65 M/UL 3.80-5.40 HEMOGLOBIN (test code = 1003) 14.0 G/DL 11.5-15.5 HEMATOCRIT (test code = 1004) 40.4 % 34.0-45.0 MCV (test code = 1005) 86.9 fL 80.0-99.0 MCH (test code = 1006) 30.1 PG 25.0-33.0 MCHC (test code = 1007) 34.7 G/DL 31.0-36.0 RDW (test code = 1038) 12.3 % 11.5-15.0 NEUTROPHILS (test code = 1008) 55.3 % LYMPHOCYTES (test code = 1010) 36.1 % MONOCYTES (test code = 1011) 5.7 % EOSINOPHILS (test code = 1012) 2.1 % BASOPHILS (test code = 1013) 0.6 % IMMATURE GRANULOCYTES (test code = 1036) 0.2 % NUCLEATED RBCS (test code = 1065) 0.0 /100 WBC'S See_Comment [Automated Yappa ge] The system which generated this result transmitted reference range: 0.0. The reference range was not used to interpret this result as normal/abnormal. PLATELET COUNT (test code = 1015) 266 K/UL 130-400 ABSOLUTE NEUTROPHILS (test code = 1066) 2.83 K/UL 1.50-7.50 ABSOLUTE LYMPHOCYTES (test code = 1067) 1.85 K/UL 1.00-4.00 ABSOLUTE MONOCYTES (test code = 1068) 0.29 K/UL 0.20-1.00 ABSOLUTE EOSINOPHILS (test code = 1040) 0.11 K/UL 0.00-0.50 ABSOLUTE BASOPHILS (test code = 1069) 0.03 K/UL 0.00-0.20 ABS IMMATURE GRANULOCYTES (test code = 1020) 0.01 K/UL 0.00-0.10 ABS NUCLEATED RBCS (test code = 51570) 0.00 K/UL 0.00-0.11 LIPID [id number] 03:08:59* Test Item Value Reference Range Interpretation Comme nts CHOLESTEROL (test code = 2210) 176 MG/DL <200 TRIGLYCERIDES (test code = 2232) 148 MG/DL <150 HDL CHOLESTEROL (test code = 2220) 33 MG/DL >39 L CALC LDL CHOL (test code = 2237) 117 MG/DL <100 H NOTE: CALCULATED LDL IS BASED ON BRYAN-MELTON METHOD WHICHINCLUDES ADJUSTABLE TRIGLYCERIDE:VLDL CHOLESTEROL RATIO.THIS FACTOR VARIES BY MEASURED TRIGLYCERIDE AND NON-HDLCHOLESTEROL CONCENTRATIONS WITH INCREASED CALCULATED LDL SEENIN HIGHER TRIGLYCERIDE OR LOWER NON-HDL SPECIMENS. FOR MOREINFORMATION, SEE CLIENT ANNOUNCEMENT AT [email or web address] RATIO LDL/HDL (test code = 2237) 3.55 RATIO <3.22 H COMPREHENSIVE METABOLIC [id number] 03:08:59* Test Item Value Reference Range Interpretation Comme nts GLUCOSE (test code = 2216) 95 MG/DL 70-99 BUN (test code = 2207) 14 MG/DL 6-20 CREATININE (test code = 2213) 0.94 MG/DL 0.60-1.30 eGFR (2020 CKD-EPI) (test code = ) 82 ML/MIN/1.73 >60 CALC BUN/CREAT (test code = 2234) 15 RATIO 6-28 SODIUM (test code = 2230) 139 MEQ/L 133-146 POTASSIUM (test code = 2227) 4.6 MEQ/L 3.5-5.4 CHLORIDE (test code = 2214) 104 MEQ/L 95-107 CARBON DIOXIDE (test code = 2205) 24 MEQ/L 19-31 CALCIUM (test code = 2208) 9.6 MG/DL 8.5-10.5 PROTEIN, TOTAL (test code = 2228) 7.1 G/DL 6.1-8.3 ALBUMIN (test code = 2200) 4.9 G/DL 3.5-5.2 CALC GLOBULIN (test code = 2240) 2.2 G/DL 1.9-3.7 CALC A/G RATIO (test code = 2233) 2.2 RATIO 1.0-2.6 BILIRUBIN, TOTAL (test code = 2206) 0.3 MG/DL See_Comment [Automated me ssage] The system which generated this result transmitted reference range: <=1.2. The reference range was not used to interpret this result as normal/abnormal. ALKALINE PHOSPHATASE (test code = 2203) 52 U/L 40-114 AST (test code = 8) 14 U/L 9-40 ALT (test code = 2218) 18 U/L 5-40 [id number] 03:08:32* Test Item Value Reference Range Interpretation Comme nts LITHIUM (test code = 2038) 0.33 MEQ/L 0.60-1.20 L UNLESS OTHERWISE INDICATED, ALL TESTING [facility]MED [facility] [address] [place] [address] 84449 TEACHER BALLET: ANDREW JUSTIN M.D. CLIA NUMBER [id number] [facility] [place]. [id number] LIPID PANEL [ADDED]2021-12-09 00:00:00* Test Item Value Reference Range Interpretation Comme nts CHOLESTEROL (test code = 2210) 176 MG/DL TRIGLYCERIDES (test code = 2232) 148 MG/DL HDL CHOLESTEROL (test code = 2220) 33 MG/DL CALC LDL CHOL (test code = 2237) 117 MG/DL RISK RATIO LDL/HDL (test cod e = 2238) 3.55 RATIO Noel GongCOMPREHENSIVE METABOLIC PANEL [ADDED]2021-12-09 00:00:00* Test Item Value Reference Range Interpretation Comme nts GLUCOSE (test code = 2217) 95 MG/DL BUN (test code = 2208) 14 MG/DL CREATININE (test code = 2214) 0.94 MG/DL eGFR (2020 CKD-EPI) (test co de = 37631) 82 ML/MIN/1.73 CALC BUN/CREAT (test code = 2235) 15 RATIO SODIUM (test code = 2231) 139 MEQ/L POTASSIUM (test code = 2228) 4.6 MEQ/L CHLORIDE (test code = 2215) 104 MEQ/L CARBON DIOXIDE (test code = 2206) 24 MEQ/L CALCIUM (test code = 2209) 9.6 MG/DL PROTEIN, TOTAL (test code = 2229) 7.1 G/DL ALBUMIN (test code = 2201) 4.9 G/DL CALC GLOBULIN (test code = 2240) 2.2 G/DL CALC A/G RATIO (test code = 2234) 2.2 RATIO BILIRUBIN, TOTAL (test code = 2207) 0.3 MG/DL ALKALINE PHOSPHATASE (test code = 2204) 52 U/L AST (test code = 2218) 14 U/L ALT (test code = 2219) 18 U/L Noel GongVITAMIN B-12 [ADDED]2021-12-09 00:00:00* Test Item Value Reference Range Interpretation Comme nts VITAMIN B-12 (test code = 2840) 424 PG/ML Noel Wilson BeltranLITHIUM [ADDED]2021-12-09 00:00:00* Test Item Value Reference Range Interpretation Comme nts LITHIUM (test code = 2038) 0.33 MEQ/L Noel Wilson AustinCBC W/AUTO DIFF WITH PLATELETS [ADDED]2021-12-09 00:00:00* Test Item Value Reference Range Interpretation Comme nts WBC (test code = 1001) 5.1 K/UL [...] = 1013) 0.6 % IMMATURE GRANULOCYTES (test code = 1036) 0.2 % NUCLEATED RBCS (test code = 1065) 0.0 /100WBC'S PLATELET COUNT (test code = 1015) 266 K/UL ABSOLUTE NEUTROPHILS (test c ode = 1066) 2.83 K/UL ABSOLUTE LYMPHOCYTES (test c ode = 1067) 1.85 K/UL ABSOLUTE MONOCYTES (test cod e = 1068) 0.29 K/UL ABSOLUTE EOSINOPHILS (test c ode = 1040) 0.11 K/UL ABSOLUTE BASOPHILS (test cod e = 1069) 0.03 K/UL ABS IMMATURE GRANULOCYTES (t est code = 1020) 0.01 K/UL ABS NUCLEATED RBCS (test cod e = 29559) 0.00 K/UL Noel GongCBC W/AUTO DIFF WITH PLATELETS [ADDED]2021-12-09 00:00:00* Test Item Value Reference Range Interpretation Comme nts WBC (test code = 1001) 5.1 K/UL [...] = 1013) 0.6 % IMMATURE GRANULOCYTES (test code = 1036) 0.2 % NUCLEATED RBCS (test code = 1065) 0.0 /100WBC'S PLATELET COUNT (test code = 1015) 266 K/UL ABSOLUTE NEUTROPHILS (test c ode = 1066) 2.83 K/UL ABSOLUTE LYMPHOCYTES (test c ode = 1067) 1.85 K/UL ABSOLUTE MONOCYTES (test cod e = 1068) 0.29 K/UL ABSOLUTE EOSINOPHILS (test c ode = 1040) 0.11 K/UL ABSOLUTE BASOPHILS (test cod e = 1069) 0.03 K/UL ABS IMMATURE GRANULOCYTES (t est code = 1020) 0.01 K/UL ABS NUCLEATED RBCS (test cod e = 11413) 0.00 K/UL CBC W/AUTO DIFF WITH PLATELETS [ADDED]2021-12-09 00:00:00* Test Item Value Reference Range Interpretation Comme nts WBC (test code = 1001) 5.1 K/UL [...] = 1013) 0.6 % IMMATURE GRANULOCYTES (test code = 1036) 0.2 % NUCLEATED RBCS (test code = 1065) 0.0 /100WBC'S PLATELET COUNT (test code = 1015) 266 K/UL ABSOLUTE NEUTROPHILS (test c ode = 1066) 2.83 K/UL ABSOLUTE LYMPHOCYTES (test c ode = 1067) 1.85 K/UL ABSOLUTE MONOCYTES (test cod e = 1068) 0.29 K/UL ABSOLUTE EOSINOPHILS (test c ode = 1040) 0.11 K/UL ABSOLUTE BASOPHILS (test cod e = 1069) 0.03 K/UL ABS IMMATURE GRANULOCYTES (t est code = 1020) 0.01 K/UL ABS NUCLEATED RBCS (test cod e = 13047) 0.00 K/UL CBC W/AUTO DIFF WITH PLATELETS [ADDED]2021-12-09 00:00:00* Test Item Value Reference Range Interpretation Comme nts WBC (test code = 1001) 5.1 K/UL [...] = 1013) 0.6 % IMMATURE GRANULOCYTES (test code = 1036) 0.2 % NUCLEATED RBCS (test code = 1065) 0.0 /100WBC'S PLATELET COUNT (test code = 1015) 266 K/UL ABSOLUTE NEUTROPHILS (test c ode = 1066) 2.83 K/UL ABSOLUTE LYMPHOCYTES (test c ode = 1067) 1.85 K/UL ABSOLUTE MONOCYTES (test cod e = 1068) 0.29 K/UL ABSOLUTE EOSINOPHILS (test c ode = 1040) 0.11 K/UL ABSOLUTE BASOPHILS (test cod e = 1069) 0.03 K/UL ABS IMMATURE GRANULOCYTES (t est code = 1020) 0.01 K/UL ABS NUCLEATED RBCS (test cod e = 77344) 0.00 K/UL LIPID PANEL [ADDED]2021-12-09 00:00:00* Test Item Value Reference Range Interpretation Comme nts CHOLESTEROL (test code = 2210) 176 MG/DL TRIGLYCERIDES (test code = 2232) 148 MG/DL HDL CHOLESTEROL (test code = 2220) 33 MG/DL CALC LDL CHOL (test code = 2237) 117 MG/DL RISK RATIO LDL/HDL (test cod e = 2238) 3.55 RATIO LIPID PANEL [ADDED]2021-12-09 00:00:00* Test Item Value Reference Range Interpretation Comme nts CHOLESTEROL (test code = 2210) 176 MG/DL TRIGLYCERIDES (test code = 2232) 148 MG/DL HDL CHOLESTEROL (test code = 2220) 33 MG/DL CALC LDL CHOL (test code = 2237) 117 MG/DL RISK RATIO LDL/HDL (test cod e = 2238) 3.55 RATIO COMPREHENSIVE METABOLIC PANEL [ADDED]2021-12-09 00:00:00* Test Item Value Reference Range Interpretation Comme nts GLUCOSE (test code = 2217) 95 MG/DL BUN (test code = 2208) 14 MG/DL CREATININE (test code = 2214) 0.94 MG/DL eGFR (2020 CKD-EPI) (test co de = 28658) 82 ML/MIN/1.73 CALC BUN/CREAT (test code = 2235) 15 RATIO SODIUM (test code = 2231) 139 MEQ/L POTASSIUM (test code = 2228) 4.6 MEQ/L CHLORIDE (test code = 2215) 104 MEQ/L CARBON DIOXIDE (test code = 2206) 24 MEQ/L CALCIUM (test code = 2209) 9.6 MG/DL PROTEIN, TOTAL (test code = 2229) 7.1 G/DL ALBUMIN (test code = 2201) 4.9 G/DL CALC GLOBULIN (test code = 2240) 2.2 G/DL CALC A/G RATIO (test code = 2234) 2.2 RATIO BILIRUBIN, TOTAL (test code = 2207) 0.3 MG/DL ALKALINE PHOSPHATASE (test code = 2204) 52 U/L AST (test code = 2218) 14 U/L ALT (test code = 2219) 18 U/L COMPREHENSIVE METABOLIC PANEL [ADDED]2021-12-09 00:00:00* Test Item Value Reference Range Interpretation Comme nts GLUCOSE (test code = 2217) 95 MG/DL BUN (test code = 2208) 14 MG/DL CREATININE (test code = 2214) 0.94 MG/DL eGFR (2020 CKD-EPI) (test co de = 04969) 82 ML/MIN/1.73 CALC BUN/CREAT (test code = 2235) 15 RATIO SODIUM (test code = 223) 139 MEQ/L POTASSIUM (test code = 2228) 4.6 MEQ/L CHLORIDE (test code = 2215) 104 MEQ/L CARBON DIOXIDE (test code = 2206) 24 MEQ/L CALCIUM (test code = 2209) 9.6 MG/DL PROTEIN, TOTAL (test code = 222) 7.1 G/DL ALBUMIN (test code = 2201) 4.9 G/DL CALC GLOBULIN (test code = 2240) 2.2 G/DL CALC A/G RATIO (test code = 2234) 2.2 RATIO BILIRUBIN, TOTAL (test code = 2207) 0.3 MG/DL ALKALINE PHOSPHATASE (test code = 2203) 52 U/L AST (test code = 221) 14 U/L ALT (test code = 2219) 18 U/L VITAMIN B-12 [ADDED]2021-12-09 00:00:00* Test Item Value Reference Range Interpretation Comme nts VITAMIN B-12 (test code = 2840) 424 PG/ML VITAMIN B-12 [ADDED]2021-12-09 00:00:00* Test Item Value Reference Range Interpretation Comme nts VITAMIN B-12 (test code = 2840) 424 PG/ML VITAMIN B-12 [ADDED]2021-12-09 00:00:00* Test Item Value Reference Range Interpretation Comme nts VITAMIN B-12 (test code = 2840) 424 PG/ML LITHIUM [ADDED]2021-12-09 00:00:00* Test Item Value Reference Range Interpretation Comme nts LITHIUM (test code = 2038) 0.33 MEQ/L LITHIUM [ADDED]2021-12-09 00:00:00* Test Item Value Reference Range Interpretation Comme nts LITHIUM (test code = 2038) 0.33 MEQ/L LITHIUM [ADDED]2021-12-09 00:00:00* Test Item Value Reference Range Interpretation Comme nts LITHIUM (test code = 2038) 0.33 MEQ/L CBC W/AUTO DIFF WITH PLATELETS [ADDED]2021-12-09 00:00:00* Test Item Value Reference Range Interpretation Comme nts WBC (test code = 1001) 5.1 K/UL [...] = 1013) 0.6 % IMMATURE GRANULOCYTES (test code = 1036) 0.2 % NUCLEATED RBCS (test code = 1065) 0.0 /100WBC'S PLATELET COUNT (test code = 1015) 266 K/UL ABSOLUTE NEUTROPHILS (test c ode = 1066) 2.83 K/UL ABSOLUTE LYMPHOCYTES (test c ode = 1067) 1.85 K/UL ABSOLUTE MONOCYTES (test cod e = 1068) 0.29 K/UL ABSOLUTE EOSINOPHILS (test c ode = 1040) 0.11 K/UL ABSOLUTE BASOPHILS (test cod e = 1069) 0.03 K/UL ABS IMMATURE GRANULOCYTES (t est code = 1020) 0.01 K/UL ABS NUCLEATED RBCS (test cod e = 92262) 0.00 K/UL CBC W/AUTO DIFF WITH PLATELETS [ADDED]2021-12-09 00:00:00* Test Item Value Reference Range Interpretation Comme nts WBC (test code = 1001) 5.1 K/UL [...] = 1013) 0.6 % IMMATURE GRANULOCYTES (test code = 1036) 0.2 % NUCLEATED RBCS (test code = 1065) 0.0 /100WBC'S PLATELET COUNT (test code = 1015) 266 K/UL ABSOLUTE NEUTROPHILS (test c ode = 1066) 2.83 K/UL ABSOLUTE LYMPHOCYTES (test c ode = 1067) 1.85 K/UL ABSOLUTE MONOCYTES (test cod e = 1068) 0.29 K/UL ABSOLUTE EOSINOPHILS (test c ode = 1040) 0.11 K/UL ABSOLUTE BASOPHILS (test cod e = 1069) 0.03 K/UL ABS IMMATURE GRANULOCYTES (t est code = 1020) 0.01 K/UL ABS NUCLEATED RBCS (test cod e = 09376) 0.00 K/UL CBC W/AUTO DIFF WITH PLATELETS [ADDED]2021-12-09 00:00:00* Test Item Value Reference Range Interpretation Comme nts WBC (test code = 1001) 5.1 K/UL [...] = 1013) 0.6 % IMMATURE GRANULOCYTES (test code = 1036) 0.2 % NUCLEATED RBCS (test code = 1065) 0.0 /100WBC'S PLATELET COUNT (test code = 1015) 266 K/UL ABSOLUTE NEUTROPHILS (test c ode = 1066) 2.83 K/UL ABSOLUTE LYMPHOCYTES (test c ode = 1067) 1.85 K/UL ABSOLUTE MONOCYTES (test cod e = 1068) 0.29 K/UL ABSOLUTE EOSINOPHILS (test c ode = 1040) 0.11 K/UL ABSOLUTE BASOPHILS (test cod e = 1069) 0.03 K/UL ABS IMMATURE GRANULOCYTES (t est code = 1020) 0.01 K/UL ABS NUCLEATED RBCS (test cod e = 38103) 0.00 K/UL LIPID PANEL [ADDED]2021-12-09 00:00:00* Test Item Value Reference Range Interpretation Comme nts CHOLESTEROL (test code = 2210) 176 MG/DL TRIGLYCERIDES (test code = 2232) 148 MG/DL HDL CHOLESTEROL (test code = 2220) 33 MG/DL CALC LDL CHOL (test code = 2237) 117 MG/DL RISK RATIO LDL/HDL (test cod e = 2238) 3.55 RATIO LIPID PANEL [ADDED]2021-12-09 00:00:00* Test Item Value Reference Range Interpretation Comme nts CHOLESTEROL (test code = 2210) 176 MG/DL TRIGLYCERIDES (test code = 2232) 148 MG/DL HDL CHOLESTEROL (test code = 2220) 33 MG/DL CALC LDL CHOL (test code = 2237) 117 MG/DL RISK RATIO LDL/HDL (test cod e = 2238) 3.55 RATIO COMPREHENSIVE METABOLIC PANEL [ADDED]2021-12-09 00:00:00* Test Item Value Reference Range Interpretation Comme nts GLUCOSE (test code = 2217) 95 MG/DL BUN (test code = 2208) 14 MG/DL CREATININE (test code = 2214) 0.94 MG/DL eGFR (2020 CKD-EPI) (test co de = 80903) 82 ML/MIN/1.73 CALC BUN/CREAT (test code = 2235) 15 RATIO SODIUM (test code = 2231) 139 MEQ/L POTASSIUM (test code = 2228) 4.6 MEQ/L CHLORIDE (test code = 2215) 104 MEQ/L CARBON DIOXIDE (test code = 2206) 24 MEQ/L CALCIUM (test code = 2209) 9.6 MG/DL PROTEIN, TOTAL (test code = 2229) 7.1 G/DL ALBUMIN (test code = 2201) 4.9 G/DL CALC GLOBULIN (test code = 2240) 2.2 G/DL CALC A/G RATIO (test code = 2234) 2.2 RATIO BILIRUBIN, TOTAL (test code = 2207) 0.3 MG/DL ALKALINE PHOSPHATASE (test code = 2204) 52 U/L AST (test code = 2218) 14 U/L ALT (test code = 2219) 18 U/L COMPREHENSIVE METABOLIC PANEL [ADDED]2021-12-09 00:00:00* Test Item Value Reference Range Interpretation Comme nts GLUCOSE (test code = 2217) 95 MG/DL BUN (test code = 2208) 14 MG/DL CREATININE (test code = 2214) 0.94 MG/DL eGFR (2020 CKD-EPI) (test co de = 46362) 82 ML/MIN/1.73 CALC BUN/CREAT (test code = 2235) 15 RATIO SODIUM (test code = 223) 139 MEQ/L POTASSIUM (test code = 2228) 4.6 MEQ/L CHLORIDE (test code = 2215) 104 MEQ/L CARBON DIOXIDE (test code = 2206) 24 MEQ/L CALCIUM (test code = 2209) 9.6 MG/DL PROTEIN, TOTAL (test code = 222) 7.1 G/DL ALBUMIN (test code = 220) 4.9 G/DL CALC GLOBULIN (test code = 2240) 2.2 G/DL CALC A/G RATIO (test code = 2234) 2.2 RATIO BILIRUBIN, TOTAL (test code = 2207) 0.3 MG/DL ALKALINE PHOSPHATASE (test code = 2204) 52 U/L AST (test code = 2218) 14 U/L ALT (test code = 2219) 18 U/L VITAMIN B-12 [ADDED]2021-12-09 00:00:00* Test Item Value Reference Range Interpretation Comme nts VITAMIN B-12 (test code = 2840) 424 PG/ML VITAMIN B-12 [ADDED]2021-12-09 00:00:00* Test Item Value Reference Range Interpretation Comme nts VITAMIN B-12 (test code = 2840) 424 PG/ML VITAMIN B-12 [ADDED]2021-12-09 00:00:00* Test Item Value Reference Range Interpretation Comme nts VITAMIN B-12 (test code = 2840) 424 PG/ML LITHIUM [ADDED]2021-12-09 00:00:00* Test Item Value Reference Range Interpretation Comme nts LITHIUM (test code = 2038) 0.33 MEQ/L LITHIUM [ADDED]2021-12-09 00:00:00* Test Item Value Reference Range Interpretation Comme nts LITHIUM (test code = 2038) 0.33 MEQ/L LITHIUM [ADDED]2021-12-09 00:00:00* Test Item Value Reference Range Interpretation Comme nts LITHIUM (test code = 2038) 0.33 MEQ/L [id number] 06:11:48* Test Item Value Reference Range Interpretation Comme nts LITHIUM (test code = 2038) 0.22 MEQ/L 0.60-1.20 L UNLESS OTHERWISE INDICATED, ALL TESTING PERFORMED [facility] [address] [place] [address] TEACHER BALLET: ANDREW JUSTIN M.D. [place] NUMBER [id number] [facility] [place]. [id number] 00:00:00* Test Item Value Reference Range Interpretation Comme nts LITHIUM (test code = 2038) 0.22 MEQ/L Noel [id number] 00:00:00* Test Item Value Reference Range Interpretation Comme nts LITHIUM (test code = 2038) 0.22 MEQ/L [id number] 00:00:00* Test Item Value Reference Range Interpretation Comme nts LITHIUM (test code = 2038) 0.22 MEQ/L [id number] 00:00:00* Test Item Value Reference Range Interpretation Comme nts LITHIUM (test code = 2038) 0.22 MEQ/L [id number] 00:00:00* Test Item Value Reference Range Interpretation Comme nts LITHIUM (test code = 2038) 0.22 MEQ/L [id number] 00:00:00* Test Item Value Reference Range Interpretation Comme nts LITHIUM (test code = 2038) 0.22 MEQ/L [id number] 00:00:00* Test Item Value Reference Range Interpretation Comme nts LITHIUM (test code = 2038) 0.22 MEQ/L PAP TEST, THINPREP, [id number] 17:31:19* Test Item Value Reference Range Interpretation Comme nts SOURCE: (test code = 8001) Endocervical SLIDES: (test code = 8011) 1 LMP: (test code = 8021) 07/08/2021 SPECIMEN ADEQUACY: (test code = 16184) (NOTE) Satisfactory for evaluation. Endocervical cells/transformation zone component present. INTERPRETATION: (test code = 92963) NILM/NO EPITH. ABNORMALITY;SEE BELOW -- ---- NEGATIVE FOR INTRAEPITHELIAL LESION OR MALIGNANCY (NILM) ------- CYTOTECHNOLOGIS T: (test code = 8101) RAYSHAWN CASEY(ASCP)IA C LOCATION: (test code = 91269) (NOTE) Specimens proces sed and interpreted at [facility], [address] [place], [place] [id number], , CLIA: [id number] CPT: (test code = 8140) (NOTE) 24839, 46348 UNL ESS OTHERWISE INDICATED, COMPUTER AIDED AND EXT JS DEVELOPER SCREENING PERFORMED. The Pap test is a screening test with an inherent, but low probability of error. Your patient should be reminded to consult you immediately if she experiences any suspicious signs or symptoms, regardless of her Pap test result. An alternate report format containing images or consolidated prior Pap history is available as applicable. HPV HIGH RISK WITH GENOTYPE, [id number] 17:16:01* Test Item Value Reference Range Interpretation Comme nts HPV HIGH RISK INTERP (test code = 29868) NEGATIVE NEGATIVE HPV 16 (test code = 34407) NEGATIVE HPV 18 (test code = 40912) NEGATIVE HPV, HR, OTHER GENOTYPES (test code = 75150) NEGATIVE Testing methodol ogy is real-time PCR utilizing hydrolysis probes with the Jade Ryan 4800 system. The test individually detects genotypes 16 and 18, as well as the other 12 high risk types (31,33,35,39,45,51,52,56 ,58,59,66,68). The expected result is negative. A negative result does not rule out the presence of HPV not included in the genotype set, a low level of infection or specimen sampling error. UNLESS OTHERWISE INDICATED, ALL TESTING PERFORMED [facility] [address] [place] [address] TEACHER BALLET: ANDREW JUSTIN M.D. CLIA NUMBER [id number] [place]. [id number] VAGINAL PATHOGENS DNA [id number] 15:08:21* Test Item Value Reference Range Interpretation Comme nts ROSELYN SPECIES (test code = 07155) NEGATIVE NEGATIVE G. VAGINALIS (test code = ) NEGATIVE NEGATIVE T. VAGINALIS (test code = ) NEGATIVE NEGATIVE CT/NG, NAAT, [id number] 14:33:51* Test Item Value Reference Range Interpretation Comme nts GONORRHEA, NAAT (test code = 32197) NEGATIVE NEGATIVE IMPORTANT NO MIGNON: SEE ANNOUNCEMENT AT [email or web address] Note: Assay methodology is nucleic acid amplification by cured meat packing supervisor mediated amplification (TMA) utilizing the Aptima Combo 2 Assay. CHLAMYDIA, NAAT (test code = 87933) NEGATIVE NEGATIVE IMPORTANT NO MIGNON: SEE ANNOUNCEMENT AT [email or web address] Note: Assay methodology is nucleic acid amplification by cured meat packing supervisor mediated amplification (TMA) utilizing the Aptima Combo 2 Assay. [id number] 05:32:02* Test Item Value Reference Range Interpretation Comme nts RPR RESULT (test code = 3501) NON-REACTIVE NON-REACTIVE RPR TITER (test code = 3500) NOT INDIC. TITER NOT INDIC. UNLESS OTHERWISE INDICATED, ALL TESTING PERFORMED [facility] [address] [place] [address] TEACHER BALLET: ANDREW JUSTIN M.D. CLIA NUMBER [id number] [place]. [id number] HEPATITIS PANEL, [id number] 04:47:37* Test Item Value Reference Range Interpretation Comme nts HEPATITIS A IgM (test code = 00439) NON-REACTIVE NON-REACTIVE HEPATITIS B CORE IgM (test code = 4644) NON-REACTIVE NON-REACTIVE HEPATITIS B SURF AG (test code = 2739) NON-REACTIVE NON-REACTIVE HEPATITIS C ANTIBODY (test code = 4675) NON-REACTIVE NON-REACTIVE INTERPRETATION HEPATITIS A: (test code = 2552) (NOTE) Hepatitis A serology shows no evidence of acute hepatitis A. INTERPRETATION HEPATITIS B: (test code = 34014) (NOTE) Hepatitis B serology shows no evidence of acute hepatitis B andno indication of exposure to hepatitis B virus in the previous [place] eight months. INTERPRETATION HEPATITIS C: (test code = 11469) (NOTE) Hepatitis C serology shows no evidence of exposure to hepatitisC virus at this time. It can take up to 12 months after exposure tothe hepatitis C virus for antibodies to become detectable in the blood in certain patients. HIV 1/2 4TH GEN, RFLX [id number] 04:47:37* Test Item Value Reference Range Interpretation Comme nts HIV 1/2 4TH GEN, RFLX CONF ( test code = 3514) NON-REACTIVE NON-REACTIVE GC AND CHLAMYDIA, AMPLIFIED, [id number] 00:00:00* Test Item Value Reference Range Interpretation Comme nts GONORRHEA, NAAT (test code = 56307) NEGATIVE CHLAMYDIA, NAAT (test code = 85199) NEGATIVE Noel GongACUTE HEPATITIS [id number] 00:00:00* Test Item Value Reference Range Interpretation Comme nts HEPATITIS A IgM (test code = 11444) NON-REACTIVE HEPATITIS B CORE IgM (test c ode = 4644) NON-REACTIVE HEPATITIS B SURF AG (test co de = 2739) NON-REACTIVE HEPATITIS C ANTIBODY (test c ode = 4675) NON-REACTIVE INTERPRETATION HEPATITIS A: (test code = 2552) (NOTE) INTERPRETATION HEPATITIS B: (test code = 60768) (NOTE) INTERPRETATION HEPATITIS C: (test code = 61591) (NOTE) Noel GongHIV AB/AG COMBO RFLX [id number] 00:00:00* Test Item Value Reference Range Interpretation Comme nts HIV 1/2 4TH GEN, RFLX CONF ( test code = 3514) NON-REACTIVE Noel [id number] 00:00:00* Test Item Value Reference Range Interpretation Comme nts RPR RESULT (test code = 3501) NON-REACTIVE RPR TITER (test code = 3500) NOT INDIC. TITER Noel GongVAGINAL PATHOGENS DNA [id number] 00:00:00* Test Item Value Reference Range Interpretation Comme nts ROSELYN SPECIES (test code = 36916) NEGATIVE G. VAGINALIS (test code = 19870) NEGATIVE T. VAGINALIS (test code = ) NEGATIVE Noel Wilson AustinPAP TEST, THINPREP, [id number] 00:00:00* Test Item Value Reference Range Interpretation Comme nts SOURCE: (test code = 800) Endocervical SLIDES: (test code = 8011) 1 LMP: (test code = 8021) 07/08/2021 SPECIMEN ADEQUACY: (test code = 11579) (NOTE) INTERPRETATION: (test code = 45212) NILM/NO EPITH. ABNORMALITY;SEE BELOW EXT JS DEVELOPER: (test code = 8101) CAN DELA CRUZCT(ASCP)IAC LOCATION: (test code = 80750) (NOTE) CPT: (test code = 8140) (NOTE) Noel GongHPV HIGH RISK WITH GENOTYPE, [id number] 00:00:00* Test Item Value Reference Range Interpretation Comme nts HPV HIGH RISK INTERP (test c ode = 99518) NEGATIVE HPV 16 (test code = 50616) NEGATIVE HPV 18 (test code = 14710) NEGATIVE HPV, HR, OTHER GENOTYPES (te st code = 57551) NEGATIVE Noel GongPAP TEST, THINPREP, [id number] 00:00:00* Test Item Value Reference Range Interpretation Comme nts SOURCE: (test code = 800) Endocervical SLIDES: (test code = 8011) 1 LMP: (test code = 8021) 07/08/2021 SPECIMEN ADEQUACY: (test code = 58292) (NOTE) INTERPRETATION: (test code = 85758) NILM/NO EPITH. ABNORMALITY;SEE BELOW EXT JS DEVELOPER: (test code = 8101) RAYSHAWN CASEY(ASCP)IAC LOCATION: (test code = 79786) (NOTE) CPT: (test code = 8140) (NOTE) VAGINAL PATHOGENS DNA [id number] 00:00:00* Test Item Value Reference Range Interpretation Comme nts ROSELYN SPECIES (test code = ) NEGATIVE G. VAGINALIS (test code = ) NEGATIVE T. VAGINALIS (test code = ) NEGATIVE PAP TEST, THINPREP, [id number] 00:00:00* Test Item Value Reference Range Interpretation Comme nts SOURCE: (test code = 800) Endocervical SLIDES: (test code = 8011) 1 LMP: (test code = 8021) 07/08/2021 SPECIMEN ADEQUACY: (test code = 27094) (NOTE) INTERPRETATION: (test code = 79660) NILM/NO EPITH. ABNORMALITY;SEE BELOW EXT JS DEVELOPER: (test code = 8101) RAYSHAWN CASEY(ASCP)IAC LOCATION: (test code = 40982) (NOTE) CPT: (test code = 8140) (NOTE) VAGINAL PATHOGENS DNA [id number] 00:00:00* Test Item Value Reference Range Interpretation Comme nts ROSELYN SPECIES (test code = 28938) NEGATIVE G. VAGINALIS (test code = ) NEGATIVE T. VAGINALIS (test code = 91100) NEGATIVE GC AND CHLAMYDIA, AMPLIFIED, [id number] 00:00:00* Test Item Value Reference Range Interpretation Comme nts GONORRHEA, NAAT (test code = 74846) NEGATIVE CHLAMYDIA, NAAT (test code = 65515) NEGATIVE HPV HIGH RISK WITH GENOTYPE, [id number] 00:00:00* Test Item Value Reference Range Interpretation Comme nts HPV HIGH RISK INTERP (test c ode = 44431) NEGATIVE HPV 16 (test code = 20560) NEGATIVE HPV 18 (test code = 60610) NEGATIVE HPV, HR, OTHER GENOTYPES (te st code = 03088) NEGATIVE GC AND CHLAMYDIA, AMPLIFIED, [id number] 00:00:00* Test Item Value Reference Range Interpretation Comme nts GONORRHEA, NAAT (test code = 81001) NEGATIVE CHLAMYDIA, NAAT (test code = 12950) NEGATIVE HPV HIGH RISK WITH GENOTYPE, [id number] 00:00:00* Test Item Value Reference Range Interpretation Comme nts HPV HIGH RISK INTERP (test c ode = 17396) NEGATIVE HPV 16 (test code = 31143) NEGATIVE HPV 18 (test code = 78499) NEGATIVE HPV, HR, OTHER GENOTYPES (te st code = 93140) NEGATIVE ACUTE HEPATITIS [id number] 00:00:00* Test Item Value Reference Range Interpretation Comme nts HEPATITIS A IgM (test code = 13850) NON-REACTIVE HEPATITIS B CORE IgM (test c ode = 4644) NON-REACTIVE HEPATITIS B SURF AG (test co de = 9929) NON-REACTIVE HEPATITIS C ANTIBODY (test c ode = 4675) NON-REACTIVE INTERPRETATION HEPATITIS A: (test code = 2552) (NOTE) INTERPRETATION HEPATITIS B: (test code = 05070) (NOTE) INTERPRETATION HEPATITIS C: (test code = 21367) (NOTE) ACUTE HEPATITIS [id number] 00:00:00* Test Item Value Reference Range Interpretation Comme nts HEPATITIS A IgM (test code = 76144) NON-REACTIVE HEPATITIS B CORE IgM (test c ode = 4644) NON-REACTIVE HEPATITIS B SURF AG (test co de = 2739) NON-REACTIVE HEPATITIS C ANTIBODY (test c ode = 4675) NON-REACTIVE INTERPRETATION HEPATITIS A: (test code = 2552) (NOTE) INTERPRETATION HEPATITIS B: (test code = 65013) (NOTE) INTERPRETATION HEPATITIS C: (test code = 29591) (NOTE) HIV AB/AG COMBO RFLX [id number] 00:00:00* Test Item Value Reference Range Interpretation Comme nts HIV 1/2 4TH GEN, RFLX CONF ( test code = 3514) NON-REACTIVE HIV AB/AG COMBO RFLX [id number] 00:00:00* Test Item Value Reference Range Interpretation Comme nts HIV 1/2 4TH GEN, RFLX CONF ( test code = 3514) NON-REACTIVE [id number] 00:00:00* Test Item Value Reference Range Interpretation Comme nts RPR RESULT (test code = 3501) NON-REACTIVE RPR TITER (test code = 3500) NOT INDIC. TITER [id number] 00:00:00* Test Item Value Reference Range Interpretation Comme nts RPR RESULT (test code = 3501) NON-REACTIVE RPR TITER (test code = 3500) NOT INDIC. TITER [id number] 00:00:00* Test Item Value Reference Range Interpretation Comme nts RPR RESULT (test code = 3501) NON-REACTIVE RPR TITER (test code = 3500) NOT INDIC. TITER PAP TEST, THINPREP, [id number] 00:00:00* Test Item Value Reference Range Interpretation Comme nts SOURCE: (test code = 8001) Endocervical SLIDES: (test code = 8011) 1 LMP: (test code = 8021) 07/08/2021 SPECIMEN ADEQUACY: (test code = 42617) (NOTE) INTERPRETATION: (test code = 78476) NILM/NO EPITH. ABNORMALITY;SEE BELOW EXT JS DEVELOPER: (test code = 8101) CAN PARLATONIA,CT(ASCP)IAC LOCATION: (test code = 96037) (NOTE) CPT: (test code = 8140) (NOTE) VAGINAL PATHOGENS DNA [id number] 00:00:00* Test Item Value Reference Range Interpretation Comme nts ROSELYN SPECIES (test code = ) NEGATIVE G. VAGINALIS (test code = 77941) NEGATIVE T. VAGINALIS (test code = 98155) NEGATIVE PAP TEST, THINPREP, [id number] 00:00:00* Test Item Value Reference Range Interpretation Comme nts SOURCE: (test code = 8001) Endocervical SLIDES: (test code = 8011) 1 LMP: (test code = 8021) 07/08/2021 SPECIMEN ADEQUACY: (test code = 38768) (NOTE) INTERPRETATION: (test code = 16050) NILM/NO EPITH. ABNORMALITY;SEE BELOW EXT JS DEVELOPER: (test code = 8101) CAN DELA CRUZCT(ASCP)IAC LOCATION: (test code = 80302) (NOTE) CPT: (test code = 8140) (NOTE) VAGINAL PATHOGENS DNA [id number] 00:00:00* Test Item Value Reference Range Interpretation Comme nts ROSELYN SPECIES (test code = ) NEGATIVE G. VAGINALIS (test code = 46351) NEGATIVE T. VAGINALIS (test code = 43722) NEGATIVE HPV HIGH RISK WITH GENOTYPE, [id number] 00:00:00* Test Item Value Reference Range Interpretation Comme nts HPV HIGH RISK INTERP (test c ode = 94234) NEGATIVE HPV 16 (test code = 00631) NEGATIVE HPV 18 (test code = 82953) NEGATIVE HPV, HR, OTHER GENOTYPES (te st code = 84795) NEGATIVE GC AND CHLAMYDIA, AMPLIFIED, [id number] 00:00:00* Test Item Value Reference Range Interpretation Comme nts GONORRHEA, NAAT (test code = 72241) NEGATIVE CHLAMYDIA, NAAT (test code = 39801) NEGATIVE GC AND CHLAMYDIA, AMPLIFIED, [id number] 00:00:00* Test Item Value Reference Range Interpretation Comme nts GONORRHEA, NAAT (test code = 89468) NEGATIVE CHLAMYDIA, NAAT (test code = 18129) NEGATIVE HPV HIGH RISK WITH GENOTYPE, [id number] 00:00:00* Test Item Value Reference Range Interpretation Comme nts HPV HIGH RISK INTERP (test c ode = 26697) NEGATIVE HPV 16 (test code = 82774) NEGATIVE HPV 18 (test code = 13984) NEGATIVE HPV, HR, OTHER GENOTYPES (te st code = 00943) NEGATIVE ACUTE HEPATITIS [id number] 00:00:00* Test Item Value Reference Range Interpretation Comme nts HEPATITIS A IgM (test code = 66213) NON-REACTIVE HEPATITIS B CORE IgM (test c ode = 4644) NON-REACTIVE HEPATITIS B SURF AG (test co de = 2739) NON-REACTIVE HEPATITIS C ANTIBODY (test c ode = 4675) NON-REACTIVE INTERPRETATION HEPATITIS A: (test code = 2552) (NOTE) INTERPRETATION HEPATITIS B: (test code = 99610) (NOTE) INTERPRETATION HEPATITIS C: (test code = 79469) (NOTE) ACUTE HEPATITIS [id number] 00:00:00* Test Item Value Reference Range Interpretation Comme nts HEPATITIS A IgM (test code = 44989) NON-REACTIVE HEPATITIS B CORE IgM (test c ode = 4644) NON-REACTIVE HEPATITIS B SURF AG (test co de = 2739) NON-REACTIVE HEPATITIS C ANTIBODY (test c ode = 4675) NON-REACTIVE INTERPRETATION HEPATITIS A: (test code = 2552) (NOTE) INTERPRETATION HEPATITIS B: (test code = 71174) (NOTE) INTERPRETATION HEPATITIS C: (test code = 05458) (NOTE) HIV AB/AG COMBO RFLX [id number] 00:00:00* Test Item Value Reference Range Interpretation Comme nts HIV 1/2 4TH GEN, RFLX CONF ( test code = 3514) NON-REACTIVE HIV AB/AG COMBO RFLX [id number] 00:00:00* Test Item Value Reference Range Interpretation Comme nts HIV 1/2 4TH GEN, RFLX CONF ( test code = 3514) NON-REACTIVE [id number] 00:00:00* Test Item Value Reference Range Interpretation Comme nts RPR RESULT (test code = 3501) NON-REACTIVE RPR TITER (test code = 3500) NOT INDIC. TITER [id number] 00:00:00* Test Item Value Reference Range Interpretation Comme nts RPR RESULT (test code = 3501) NON-REACTIVE RPR TITER (test code = 3500) NOT INDIC. TITER [id number] 00:00:00* Test Item Value Reference Range Interpretation Comme nts RPR RESULT (test code = 3501) NON-REACTIVE RPR TITER (test code = 3500) NOT INDIC. TITER [id number] 03:40:49* Test Item Value Reference Range Interpretation Comme nts LITHIUM (test code = 2038) 0.21 MEQ/L 0.60-1.20 L UNLESS OTHERWISE INDICATED, ALL TESTING PERFORMED [facility] [employer] [address] [place] [address] TEACHER BALLET: ANDREW JUSTIN M.D. CLIA NUMBER [id number] [facility] [place]. [id number] 00:00:00* Test Item Value Reference Range Interpretation Comme nts LITHIUM (test code = 2038) 0.21 MEQ/L Noel [id number] 00:00:00* Test Item Value Reference Range Interpretation Comme nts LITHIUM (test code = 2038) 0.21 MEQ/L [id number] 00:00:00* Test Item Value Reference Range Interpretation Comme nts LITHIUM (test code = 2038) 0.21 MEQ/L [id number] 00:00:00* Test Item Value Reference Range Interpretation Comme nts LITHIUM (test code = 2038) 0.21 MEQ/L [id number] 00:00:00* Test Item Value Reference Range Interpretation Comme nts LITHIUM (test code = 203) 0.21 MEQ/L [id number] 00:00:00* Test Item Value Reference Range Interpretation Comme nts LITHIUM (test code = 2038) 0.21 MEQ/L [id number] 00:00:00* Test Item Value Reference Range Interpretation Comme nts LITHIUM (test code = 203) 0.21 MEQ/L POCT MOLECULAR [id number] 20:11:13* Test Item Value Reference Range Interpretation Comme nts POCT Molecular Strep (test c ode = 70231-8) Negative Negative Lab Interpretation (test cod e = 34348-7) Normal [facility] [id number] 19:14:00* Test Item Value Reference Range Interpretation Comme nts Vitamin B12 Lvl (test code = Vitamin B12 Lvl) [phone] [facility] [id number] 19:14:00* Test Item Value Reference Range Interpretation Comme nts VITAMIN B1 (THIAMINE) WHOLE BLOOD (test code = VITAMIN B1 (THIAMINE) WHOLE BLOOD) 125 78-185 [id number] 19:14:00* Test Item Value Reference Range Interpretation Comme nts Sed Rate (test code = Sed Rate) 6 [id number] 19:14:00* Test Item Value Reference Range Interpretation Comme nts THANG (test code = THANG) NEGATIVE [facility] [id number] 19:14:00* Test Item Value Reference Range Interpretation Comme nts Vitamin B12 Lvl (test code = Vitamin B12 Lvl) [phone] [facility] [id number] 19:14:00* Test Item Value Reference Range Interpretation Comme nts VITAMIN B1 (THIAMINE) WHOLE BLOOD (test code = VITAMIN B1 (THIAMINE) WHOLE BLOOD) 125 78-185 [id number] 19:14:00* Test Item Value Reference Range Interpretation Comme nts Sed Rate (test code = Sed Rate) 6 [id number] 19:14:00* Test Item Value Reference Range Interpretation Comme nts THANG (test code = THANG) NEGATIVE [facility] [id number] 19:14:00* Test Item Value Reference Range Interpretation Comme nts Vitamin B12 Lvl (test code = Vitamin B12 Lvl) [phone] [facility] [id number] 19:14:00* Test Item Value Reference Range Interpretation Comme nts VITAMIN B1 (THIAMINE) WHOLE BLOOD (test code = VITAMIN B1 (THIAMINE) WHOLE BLOOD) 125 78-185 [facility]aleTwzivxkDWCYIXXVOG5975-47-43 19:14:00* Test Item Value Reference Range Interpretation Comme nts Sed Rate (test code = Sed Rate) 6 [facility] HospitalDnzkazhTHQPJBNNBD9991-16-67 19:14:00* Test Item Value Reference Range Interpretation Comme nts THANG (test code = THANG) NEGATIVE [facility]2020-11-03 19:14:00* Test Item Value Reference Range Interpretation Comme nts Vitamin B12 Lvl (test code = Vitamin B12 Lvl) [phone] [facility]2020-11-03 19:14:00* Test Item Value Reference Range Interpretation Comme nts VITAMIN B1 (THIAMINE) WHOLE BLOOD (test code = VITAMIN B1 (THIAMINE) WHOLE BLOOD) 125 78-185 [id number] 19:14:00* Test Item Value Reference Range Interpretation Comme nts Sed Rate (test code = Sed Rate) 6 [facility] HospitalIcuorrtNMMHRKALPO3398-04-96 19:14:00* Test Item Value Reference Range Interpretation Comme nts THANG (test code = THANG) NEGATIVE [facility]2020-11-03 19:14:00* Test Item Value Reference Range Interpretation Comme nts Vitamin B12 Lvl (test code = Vitamin B12 Lvl) [phone] [facility]2020-11-03 19:14:00* Test Item Value Reference Range Interpretation Comme nts VITAMIN B1 (THIAMINE) WHOLE BLOOD (test code = VITAMIN B1 (THIAMINE) WHOLE BLOOD) 125 78-185 [facility]aleNtlnpmmSDMZPNQJWC1297-11-21 19:14:00* Test Item Value Reference Range Interpretation Comme nts Sed Rate (test code = Sed Rate) 6 [facility] HospitalGlfyehsOJGWSEENOD2636-18-29 19:14:00* Test Item Value Reference Range Interpretation Comme nts THANG (test code = THANG) NEGATIVE [facility]2020-11-03 19:14:00* Test Item Value Reference Range Interpretation Comme nts Vitamin B12 Lvl (test code = Vitamin B12 Lvl) [phone] [facility]2020-11-03 19:14:00* Test Item Value Reference Range Interpretation Comme nts VITAMIN B1 (THIAMINE) WHOLE BLOOD (test code = VITAMIN B1 (THIAMINE) WHOLE BLOOD) 125 78-185 [facility]aleKpszuzyCLZNWBPILY9116-17-38 19:14:00* Test Item Value Reference Range Interpretation Comme nts Sed Rate (test code = Sed Rate) 6 [facility] HospitalHnytoptPNNTXEYDNJ3758-71-82 19:14:00* Test Item Value Reference Range Interpretation Comme nts THANG (test code = THANG) NEGATIVE [facility]2020-11-03 19:14:00* Test Item Value Reference Range Interpretation Comme nts Vitamin B12 Lvl (test code = Vitamin B12 Lvl) [phone] [facility] [id number] 19:14:00* Test Item Value Reference Range Interpretation Comme nts VITAMIN B1 (THIAMINE) WHOLE BLOOD (test code = VITAMIN B1 (THIAMINE) WHOLE BLOOD) 125 78-185 [facility]aleQulrdvnHLPITNFUTY3083-24-44 19:14:00* Test Item Value Reference Range Interpretation Comme nts Sed Rate (test code = Sed Rate) 6 [facility] HospitalQsnjqjvAPTXVRPBJC3741-57-64 19:14:00* Test Item Value Reference Range Interpretation Comme nts THANG (test code = THANG) NEGATIVE [facility]2020-11-03 19:14:00* Test Item Value Reference Range Interpretation Comme nts Vitamin B12 Lvl (test code = Vitamin B12 Lvl) [phone] [facility] [id number] 19:14:00* Test Item Value Reference Range Interpretation Comme nts VITAMIN B1 (THIAMINE) WHOLE BLOOD (test code = VITAMIN B1 (THIAMINE) WHOLE BLOOD) 125 78-185 [facility]aleCnslouzUUGAVMQWNB4447-24-21 19:14:00* Test Item Value Reference Range Interpretation Comme nts Sed Rate (test code = Sed Rate) 6 [facility] HospitalIvsoivaCDFTUAXYNQ5068-83-23 19:14:00* Test Item Value Reference Range Interpretation Comme nts THANG (test code = THANG) NEGATIVE [facility]2020-11-03 19:14:00* Test Item Value Reference Range Interpretation Comme nts Vitamin B12 Lvl (test code = Vitamin B12 Lvl) [phone] [facility] [id number] 19:14:00* Test Item Value Reference Range Interpretation Comme nts VITAMIN B1 (THIAMINE) WHOLE BLOOD (test code = VITAMIN B1 (THIAMINE) WHOLE BLOOD) 125 78-185 [facility]aleSevqwigXUQBPFVHWG3609-45-95 19:14:00* Test Item Value Reference Range Interpretation Comme nts Sed Rate (test code = Sed Rate) 6 [facility] HospitalRpencleVNDFQPFYJP3522-56-56 19:14:00* Test Item Value Reference Range Interpretation Comme nts THANG (test code = THANG) NEGATIVE [facility]2020-11-03 19:14:00* Test Item Value Reference Range Interpretation Comme nts Vitamin B12 Lvl (test code = Vitamin B12 Lvl) [phone] [facility] [id number] 19:14:00* Test Item Value Reference Range Interpretation Comme nts VITAMIN B1 (THIAMINE) WHOLE BLOOD (test code = VITAMIN B1 (THIAMINE) WHOLE BLOOD) 125 78-185 [facility]aleNvjjgkzYQZIOARVFB8762-88-20 19:14:00* Test Item Value Reference Range Interpretation Comme nts Sed Rate (test code = Sed Rate) 6 [facility] HospitalOrmlrhpLUIAHOLQXX3693-10-87 19:14:00* Test Item Value Reference Range Interpretation Comme nts THANG (test code = THANG) NEGATIVE [facility]2020-11-03 19:14:00* Test Item Value Reference Range Interpretation Comme nts Vitamin B12 Lvl (test code = Vitamin B12 Lvl) [phone] [facility] [id number] 19:14:00* Test Item Value Reference Range Interpretation Comme nts VITAMIN B1 (THIAMINE) WHOLE BLOOD (test code = VITAMIN B1 (THIAMINE) WHOLE BLOOD) 125 78-185 [facility]aleMfvvlkjZNSVYYZNYL7065-90-02 19:14:00* Test Item Value Reference Range Interpretation Comme nts Sed Rate (test code = Sed Rate) 6 [facility] HospitalArbfbkiNBFNMAUCYZ9961-25-57 19:14:00* Test Item Value Reference Range Interpretation Comme nts THANG (test code = THANG) NEGATIVE [facility]2020-11-03 19:14:00* Test Item Value Reference Range Interpretation Comme nts Vitamin B12 Lvl (test code = Vitamin B12 Lvl) [phone] [facility] [id number] 19:14:00* Test Item Value Reference Range Interpretation Comme nts VITAMIN B1 (THIAMINE) WHOLE BLOOD (test code = VITAMIN B1 (THIAMINE) WHOLE BLOOD) 125 78-185 [facility]alePsupdxuDWHXMDMRFT5322-61-74 19:14:00* Test Item Value Reference Range Interpretation Comme nts Sed Rate (test code = Sed Rate) 6 [facility] HospitalOdenrydUFOTGQVRWW1990-86-45 19:14:00* Test Item Value Reference Range Interpretation Comme nts THANG (test code = THANG) NEGATIVE [facility]2020-11-03 19:14:00* Test Item Value Reference Range Interpretation Comme nts Vitamin B12 Lvl (test code = Vitamin B12 Lvl) [phone] [facility] HospitalCHEM [id number] 19:14:00* Test Item Value Reference Range Interpretation Comme nts VITAMIN B1 (THIAMINE) WHOLE BLOOD (test code = VITAMIN B1 (THIAMINE) WHOLE BLOOD) 125 78-185 [facility] CenterPkerqbsPULBKQHZOC8289-05-82 19:14:00* Test Item Value Reference Range Interpretation Comme nts Sed Rate (test code = Sed Rate) 6 [facility] CenterRvwjezxEAZAOPLHET4701-08-46 19:14:00* Test Item Value Reference Range Interpretation Comme nts THANG (test code = THANG) NEGATIVE [facility] Notes Date/Time Note Provider Source Noel Gong [facility]
--- NOTE | 2024-01-21 12:07 | RAD REPORT ---
EXAM DESCRIPTION: Darrell Single View01/21/2024 11:52 am CLINICAL HISTORY: Chest pain COMPARISON: none FINDINGS: The lungs appear clear of acute infiltrate. The heart is normal size IMPRESSION: No acute abnormalities displayed
--- NOTE | 2024-01-21 12:21 | RAD REPORT ---
EXAM DESCRIPTION: RAD - Hip Right 2 View - 01/21/2024 11:52 am CLINICAL HISTORY: Right hip pain FINDINGS: No fracture or dislocation is seen. If the patient continues to have symptoms to suggest an occult fracture then MRI would be recommended
--- NOTE | 2024-01-21 12:23 | RAD REPORT ---
EXAM DESCRIPTION: RAD - Wrist Right 3 View - 01/21/2024 11:52 am CLINICAL HISTORY: Right wrist pain status post injury FINDINGS: Curvilinear lucency is present within the distal lateral radius seen only on one view. Mos t likely represents a prominent trabecula. Nondisplaced fracture can have this appearance however. If the patient has clinical symptoms to suggest this then CT would be recommended Otherwise, no fracture or dislocation noted
--- NOTE | 2024-01-21 13:03 | EDPHYS ---
Physician Documentation [facility] Name: Maureen Araujo Age: 38 yrs Sex: Female : 1985 Arrival Date: 01/21/2024 Time: 11:05 Bed IW1 Private MD: ED Physician River Dumas HPI: 01/20 11:41 This 38 yrs old Female presents to ER via Ambulatory with complaints of Fall rn Injury, Chest Congestion. 11:41 38-year-old female with past medical history of bipolar disorder presents to the rn emergency department with complaints of chest congestion and follow injury. The patient states that she has been experiencing chest congestion, postnasal drip, and cough with greenish-yellow sputum for the past 3 weeks. She states that she was previously seen for the symptoms and completed a steroid and antibiotic course 2 days ago but does not feel better and is worried she may be developing pneumonia. Additionally, the patient states that she passed out approximately 1 week ago due to her blood pressure dropping as a result of taking clonidine which has since been discontinued. She denies any falls or loss of consciousness since. Patient states that her right wrist and right hip have been intermittently swollen and painful since the fall.. Historical: - Allergies: 11:23 Abilify; iw 11:23 LITHIUM DERIVITIVES; iw - PMHx: 11:23 Bipolar disorder; iw - PSHx: 11:23 breast augmentation; iw - Immunization history:: Adult Immunizations not up to date. - Infectious Disease History:: Denies. - Social history:: Smoking status: Patient denies any tobacco usage or history of. ROS: 11:47 Constitutional: Negative for fever, chills, and weight loss, Cardiovascular: Negative rn for chest pain, palpitations, and edema, Abdomen/GI: Negative for abdominal pain, nausea, vomiting, diarrhea : Negative for injury, bleeding, discharge, and swelling, 11:47 ENT: Positive for rhinorrhea, sinus congestion, sore throat, 11:47 Respiratory: Positive for cough, with green sputum, wheezing, Negative for hemoptysis, shortness of breath, 11:47 MS/extremity: Positive for injury or acute deformity, pain, of the right arm and right leg, Negative for 11:47 Neuro: Positive for headache, syncope, Exam: 12:54 Constitutional: This is a well developed, well nourished patient who is awake, alert, rn and in no acute distress. Cardiovascular: Regular rate and rhythm with a normal S1 and S2. Respiratory: Lungs have equal breath sounds bilaterally, clear to auscultation and percussion. No rales, rhonchi or wheezes noted. No increased work of breathing, no retractions or nasal flaring. Abdomen/GI: Soft, non-tender, with normal bowel sounds. No distension or tympany. No guarding or rebound. No evidence of tenderness throughout. Back: No spinal tenderness. No costovertebral tenderness. Full range of motion. MS/ Extremity: Pulses equal, no cyanosis. Neurovascular intact. Full, normal range of motion. Equal circumference. Vital Signs: 11:21 BP 162 / 88; Pulse 72; Resp 16; Temp 97.5; Pulse Ox 100% on R/A; iw 13:10 BP 159 / 79; Pulse 80; Resp 15 S; Pulse Ox 100% on R/A; kc6 MDM: 11:15 Patient medically screened. rn 14:49 Differential diagnosis: contusion, fracture. Data reviewed: vital signs, nurses notes, rn radiologic studies, plain films, and as a result, I will discharge patient. Counseling: I had a detailed discussion with the patient and/or guardian regarding the historical points, exam findings, and any diagnostic results supporting the discharge/admit diagnosis, radiology results, the need for outpatient follow up, to return to the emergency department if symptoms worsen or persist or if there are any questions or concerns that arise at home. Special discussion: I discussed with the patient/guardian in detail that at this point there is no indication for admission to the hospital. It is understood, however, that if the symptoms persist or worsen the patient needs to return immediately for re-evaluation. 01/20 11:35 Order name: XRAY Chest (1 view); Complete Time: 12:37 rn 01/20 11:35 Order name: XRAY Wrist RIGHT 3 view; Complete Time: 12:37 rn 01/20 11:36 Order name: XRAY Hip RIGHT 2 view; Complete Time: 12:37 rn 01/20 12:42 Order name: Splint - Wrist; Complete Time: 13:01 rn Administered Medications: No medications were administered Disposition Summary: 01/21/24 13:03 Discharge Ordered Notes: Location: Home rn Problem: an ongoing problem rn Symptoms: are unchanged rn Condition: Stable rn Diagnosis - Disease of upper respiratory tract, unspecified rn - Contusion of right wrist rn - Contusion of right hip rn Followup: rn - With: Private Physician - When: As needed - Reason: Discharge Instructions: - Discharge Summary Sheet rn - Contusion rn - Upper Respiratory Infection, Adult rn Forms: - Medication Reconciliation Form rn - Antibiotic jewelry internship - Prescription Opioid Use rn - Patient Portal Instructions rn - Leadership Thank You Letter rn Signatures: Dispatcher [employer] Hannah Hoang, RN River Potter MD MD rn Campbell, Kaitlyn, RN RN kc6
--- NOTE | 2024-01-21 13:03 | ER ---
Nurse's Notes [facility] Name: Maureen Araujo Age: 38 yrs Sex: Female : 1985 Arrival Date: 01/21/2024 Time: 11:05 Bed IW1 Private MD: Diagnosis: Disease of upper respiratory tract, unspecified;Contusion of right wrist;Contusion of right hip Presentation: 01/20 11:21 Chief complaint: Patient states: finished steroids and doxycycline , has been put on iw sliding scale at clinic, fell and hurt right hip and wrist X 1 week , chest congestion, post nasal drip X 3 weeks. Coronavirus screen: At this time, the client does not indicate any symptoms associated with coronavirus-19. Ebola Screen: No symptoms or risks identified at this time. Initial Sepsis Screen: Does the patient meet any 2 criteria? No. Patient's initial sepsis screen is negative. Does the patient have a suspected source of infection? No. Patient's initial sepsis screen is negative. Onset of symptoms was December 30, 2023. 11:21 Method Of Arrival: Ambulatory iw 11:21 Acuity: TERESITA 3 iw 13:10 Risk Assessment: Do you want to hurt yourself or someone else? Patient reports no kc6 desire to harm self or others. Historical: - Allergies: 11:23 Abilify; iw 11:23 LITHIUM DERIVITIVES; iw - PMHx: 11:23 Bipolar disorder; iw - PSHx: 11:23 breast augmentation; iw - Immunization history:: Adult Immunizations not up to date. - Infectious Disease History:: Denies. - Social history:: Smoking status: Patient denies any tobacco usage or history of. Screenin:02 [facility] ED Fall Risk Assessment (Adult) History of falling in the last 3 months, kc6 including since admission Yes- single mechanical fall (1 pt) Confusion or Disorientation No (0 pts) Intoxicated or Sedated No (0 pts) Impaired Gait No (0 pts) Mobility Assist Device Used No (0 pt) Altered Elimination No (0 pt) Score/Fall Risk Level 0 - 2 = Low Risk. Abuse screen: Denies threats or abuse. Denies injuries from another. Nutritional screening: No deficits noted. Tuberculosis screening: No symptoms or risk factors identified. Assessment: 13:02 General: Appears in no apparent distress. comfortable, well groomed, well developed, kc6 Behavior is calm, cooperative, appropriate for age. Pain: Complains of pain in right hand and right arm. Neuro: Level of Consciousness is awake, alert, obeys commands, Oriented to person, place, time, situation, Appropriate for age. Cardiovascular: Capillary refill < 3 seconds. Respiratory: Airway is patent Trachea midline Respiratory effort is even, unlabored, Respiratory pattern is regular, symmetrical. GI: No signs and/or symptoms were reported involving the gastrointestinal system. : No signs and/or symptoms were reported regarding the genitourinary system. EENT: No signs and/or symptoms were reported regarding the EENT system. Derm: No signs and/or symptoms reported regarding the dermatologic system. Skin is intact, is healthy with good turgor, Skin is pink, warm \\T\\ dry. Musculoskeletal: No signs and/or symptoms reported regarding the musculoskeletal system. Circulation, motion, and sensation intact. Capillary refill < 3 seconds, Range of motion: intact in all extremities. 13:09 Reassessment: ARIEL Linder Neckties Painter speaking with pt in the chairs. pt verbalizes kc6 understanding of discharge. Vital Signs: 11:21 BP 162 / 88; Pulse 72; Resp 16; Temp 97.5; Pulse Ox 100% on R/A; iw 13:10 BP 159 / 79; Pulse 80; Resp 15 S; Pulse Ox 100% on R/A; kc6 ED Course: 11:07 Patient arrived in ED. mr 11:15 River Dumas MD is Attending Physician. rn 11:23 Triage completed. iw 11:53 XRAY Chest (1 view) In Process Unspecified. EDMS 11:53 XRAY Wrist RIGHT 3 view In Process Unspecified. EDMS 11:53 XRAY Hip RIGHT 2 view In Process Unspecified. EDMS 13:02 No provider procedures requiring assistance completed. Patient did not have IV access kc6 during this emergency room visit. Velcro wrist splint applied to right wrist. 13:02 Patient has correct armband on for positive identification. Diet: Patient given snack. kc6 13:10 Arm band placed on. kc6 13:15 Primary RN requested CM speak with patient about community resources and disability. ane Ms. Araujo states " I need a lot of help" Ms. 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 Community resources to include medication assistance information, local clinics and shelters. [phone] CM also referred patient to Aleksandra Oneil for further information about disbility. Administered Medications: No medications were administered Medication: 13:10 VIS not applicable for this client. kc6 Outcome: 13:03 Discharge ordered by . rn 13:10 Discharged to home ambulatory, kc6 13:10 Condition: good 13:10 Discharge instructions given to patient, Instructed on discharge instructions, follow up and referral plans. Demonstrated understanding of instructions, follow-up care, 13:11 Patient left the ED. kc6 Signatures: Dispatcher [employer] EDMS Tatiana Perez, Reg Reg mr Hannah Martinez, RN RN River Schrader MD MD rn Campbell, Kaitlyn, RN RN kc Prisca Gar RN RN ane
[2024-01-21 13:15] VITALS: TEMP 97.5; O2SAT 100
[2024-01-21 13:18] VITALS: BP 159/79
== END 2024-01-21 13:11 | disposition home or self-care (01) ==
LOC: ER 11:05
DX: J39.9 Disease of upper respiratory tract, unspecified (principal); S60.211A Contusion of right wrist, initial encounter; S70.01XA Contusion of right hip, initial encounter; Z98.82 Breast implant status
CPT/HCPCS: 71045; 99283